=== PATIENT | female | born 1940 | race Caucasian/White ===

== ENCOUNTER 2018-07-13 05:03 | Inpatient (IN) ==
--- NOTE | 2018-06-21 14:11 | PAT Medication Instructions ---
Medication Instructions Date of Service June 21, 2018 Home Medications acetaminophen [Tylenol Arthritis] 650 mg PO NEEDED amlodipine 10 mg PO QPM ascorbic acid (vitamin C) 500 mg PO DAILY cholecalciferol (vitamin D3) 1,000 unit PO DAILY cyanocobalamin (vitamin B-12) 1,000 tab PO DAILY ibuprofen [Advil] 400 mg PO DAILY multivitamin [Multiple Vitamins] 1 tab PO DAILY omeprazole 40 mg PO QDD simvastatin 10 mg PO PM tramadol 50 mg PO HS ASK your prescriber and surgeon ibuprofen [Advil] 400 mg PO DAILY DO NOT take the morning of surgery ascorbic acid (vitamin C) 500 mg PO DAILY cholecalciferol (vitamin D3) 1,000 unit PO DAILY cyanocobalamin (vitamin B-12) 1,000 tab PO DAILY multivitamin [Multiple Vitamins] 1 tab PO DAILY Take morning of surgery With a small sip of water, OTHERWISE NOTHING TO EAT OR DRINK AFTER MIDNIGHT: acetaminophen [Tylenol Arthritis] 650 mg PO NEEDED Take evening before surgery omeprazole 40 mg PO QDD simvastatin 10 mg PO PM tramadol 50 mg PO HS acetaminophen [Tylenol Arthritis] 650 mg PO NEEDED amlodipine 10 mg PO QPM Other Notes If you have any questions please call us at [phone] or [phone] or [phone] or [phone]
--- NOTE | 2018-06-21 14:19 | Anesthesiology Consultation ---
Date of Service June 21, 2018 Assessment & Plan (1) Encounter for pre-operative examination: Chart Review Chart Review: Acceptable Risk for Surgery and Patient seen in Pre Admission Testing Consults Requested medical (Dr. Bonilla in [place] (06/28 @2pm)) Also, note sent to PCP re: EKG (06/22) Patient was seen by PCP's office on 07/01/18. They reviewed all testing from PAT, as well as ordered and reviewed stress test. Per note from this visit, "cleared for planned left TKA." Teaching & Discussion Pre-Anesthesia Teaching/Discussion Notes: Instructed NPO after midnight before surgery, except medications with 15 cc of water. Medication instructions provided according to the PAT guidelines. History Surgery Operation Date: 07/13/18 09:15 Proposed Procedures p Left Total Knee Arthroplasty - Mario Schuler DO Height/Weight Height: 4 ft 11 in Weight: 57.3 kg Allergies Allergy/AdvReac Type Severity Reaction Status Date / Time acetaminophen [From NyQuil] Allergy Unknown rapid Verified 06/14/18 11:42 heart beat, "brain does not stop working" adhesive tape Allergy Unknown blistering Verified 06/14/18 11:42 dextromethorphan Allergy Unknown rapid Verified 06/14/18 11:42 [From NyQuil] heart beat, "brain does not stop working" diphenhydramine Allergy Unknown rapid Verified 06/14/18 11:42 [From Tylenol PM] heart beat, "brain does not stop working" doxylamine [From NyQuil] Allergy Unknown rapid Verified 06/14/18 11:42 heart beat, "brain does not stop working" gluten Allergy Unknown "gluten Verified 06/14/18 11:44 free diet" - GI SYMPTOMS lactose Allergy Unknown "lactose Verified 06/14/18 11:44 intolerant" - GI SYMPTOMS latex Allergy Unknown blistering Verified 06/14/18 11:42 nitrofurantoin Allergy Unknown rapid Verified 06/14/18 11:40 heart beat, can't sleep, "brain does not stop" pseudoephedrine [From NyQuil] Allergy Unknown rapid Verified 06/14/18 11:42 heart beat, "brain does not stop working" Sulfa (Sulfonamide Allergy Unknown "sulfa" - Verified 06/14/18 11:07 Antibiotics) "makes me hyper, can't sit still" "ANTIHISTAMINE" Allergy Unknown rapid Uncoded 06/14/18 11:40 heart beat, can't sleep, "brain does not stop working" "TYLENOL COLD AND SINUS" Allergy Unknown rapid Uncoded 06/14/18 11:42 heart beat, "brain does not stop working" Medications Home Medications Medication Instructions Recorded Confirmed Last Taken acetaminophen [Tylenol Arthritis 650 mg PO UD PRN 06/14/18 06/14/18 Unknown Pain] amlodipine 10 mg PO QPM 06/14/18 06/14/18 06/13/18 ascorbic acid (vitamin C) [Vitamin 500 mg PO DAILY 06/14/18 06/14/18 Unknown C] cholecalciferol (vitamin D3) 1,000 unit PO DAILY 06/14/18 06/14/18 Unknown [Vitamin D3] cyanocobalamin (vitamin B-12) 1,000 tab PO DAILY 06/14/18 06/14/18 Unknown [Vitamin B-12] ibuprofen [Advil] 400 mg PO DAILY 06/14/18 06/14/18 Unknown multivitamin [Multiple Vitamins] 1 tab PO DAILY 06/14/18 06/14/18 Unknown omeprazole 40 mg PO QDD 06/14/18 06/14/18 Unknown simvastatin 10 mg PO PM 06/14/18 06/14/18 06/13/18 tramadol 50 mg PO HS 06/14/18 06/14/18 Unknown Past Medical History Medical History Sinus infection (Resolved) DX 10 DAYS AGO/LAST DOSE OF DOXYCYCLINE TODAY/SYMPTOMS RESOLVED Acid reflux Arthritis Degenerative disc disease Hiatal hernia Hyperlipidemia Hypertension Lymphoma DX 2014, STABLE - SEES ONCOLOGIST ANNUALLY Past Surgical History Surgical History History of appendectomy History of bilateral cataract extraction History of colonoscopy x2 History of lumpectomy of left breast History of tonsillectomy History of total right hip arthroplasty History of total shoulder replacement RIGHT History of tubal ligation Past Anesthesia History No Hx of Anesthesia Complications and No Family Hx of Anesthesia Complications History of PONV No Motion Sickness Screening History of Motion Sickness: Yes Social History Smoking Status: Former smoker tobacco type: cigarettes Smoking cigarettes per day: 1 ppd x 50 years. QUIT 2013 Do You Dip or Chew Tobacco: No Hx Alcohol Use: No Hx Substance Use: No substance use type: does not use Exercise / Class Metabolic Activity II 4-5 Yardwork/Stairs/Walk up hill (Does own laundry/chores/cooking. Goes to [employer]. Is able to climb [employer], but only has to a few times a week. Denies CP or SOB.) Review of Systems Patient denies chest pain, shortness of breath, dyspnea on exertion, cough, wheezing, palpitations. +Joint Pain (knees, shoulders, back) +acid reflux (controlled by medication) Physical Exam Vital Signs BP: 119/69 P: 71 R: 18 T: 97.7 SPO2: 96% on RA ENMT Mouth: + dentures (Full set on top, partial on bottom) Thyromental Distance: > or= 3.5 Finger Breadths (3.5) Mallampati Class: II Neck normal visual inspection and trachea midline; neck extension not limited Respiratory normal respiratory effort Auscultation: lungs clear to auscultation bilaterally Cardiovascular Rate/Rhythm: regular rate and regular rhythm Heart Sounds: no murmur Vessels: no carotid bruit Neurologic moves all extremities Psychiatric Orientation: alert and oriented x 3 Testing Electrocardiogram Date: 06/21/18 Findings: + NSR @ (70) Left axis deviation. Inferior infarct, age undetermined. Poor R wave pro gression, consider anterior RI vs. lead placement vs. LVH. When compared with ECG of 05/31/1997, QRS axis shifted left. Inferior infarct is now present. Called and discussed with PCP who reviewed EKG from 2016, Chest X-Ray Date: 06/21/18 FINDINGS: PA and lateral chest radiographs are obtained. No prior studies are available for comparison at the time of dictation. The Cardiomediastinal silhouette is unremarkable comment noting atherosclerotic calcification of the thoracic aorta. A small hiatal hernia is identified. Nonspecific interstitial thickening is likely chronic. No airspace consolidation or pleural effusion is i dentified. Apical scarring is noted. There is no pneumothorax. The skeletal structures are osteopenic. The bony thorax appears intact. A right shoulder arthroplasty is in place. IMPRESSION: No active disease in the chest. Stress Test Date: 06/30/18 Type: nuclear (Lexiscan) Findings: + WNL Resting EF: 72% Resting RWMA: + none The right ventricle is unremarkable. There is no myocardial ischemia or infarction. The wall motion is normal. Transient ischemic dilatation is absent. Myocardial perfusion imaging is done at rest and after pharmaceutical stress is normal. Baseline ECG showed NSR with anterior RI. Exercise ECG showed no significant stenosis or regurgitation. Laboratory Results 06/21/18 14:56 06/21/18 14:56 Blood Type O Positive 06/21/18 14:56 Antibody Screen NEGATIVE 06/21/18 14:56 PT 10.2 Seconds (9.0-12.0) 06/21/18 14:56 INR 1.0 (0.9-1.1) 06/21/18 14:56 APTT 23.0 Seconds (21.0-31.0) 06/21/18 14:56 Urine Color Yellow 06/21/18 Unknown Urine Appearance Clear (Clear) 06/21/18 Unknown Urine pH 5.5 (4.5-7.5) 06/21/18 Unknown Ur Specific [place] 1.013 (1.000-1.030) 06/21/18 Unknown Urine Protein Negative (Negative) 06/21/18 Unknown Urine Glucose (UA) Negative (Negative) 06/21/18 Unknown Urine Ketones Negative (Negative) 06/21/18 Unknown Urine Nitrite Negative (Negative) 06/21/18 Unknown Ur Leukocyte Esterase Negative (Negative) 06/21/18 Unknown 06/21/18 Unknown Urine Culture - Final Urine,Clean Catch Gamma strep not enterococcus
[2018-06-21 16:03] LABS: Basophils # (auto) 0.05 K/uL (0-0.2); Basophils % (auto) 0.8 %; Eosinophils # (auto) 0.12 K/uL (0-0.5); Eosinophils % (auto) 1.9 %; Hematocrit (blood only) 38.4 % (37-47); Hemoglobin 12.9 g/dL (12.0-16.0); Immature Granulocytes # (auto) 0.03 K/uL (0.00-0.02); Immature Granulocytes % (auto) 0.5 %; Lymphocytes # (auto) 1.67 K/uL (1.2-3.4); Lymphocytes % (auto) 25.8 %; Mean Corpuscular Hgb Conc 33.6 g/dL (32-36); Mean Corpuscular Volume 98.7 fL (80-100); Mean Platelet Volume 9.7 fL (7.4-10.4); Monocytes # (auto) 0.37 K/uL (0.11-0.59); Monocytes % (auto) 5.7 %; Neutrophils # (auto) 4.24 K/uL (1.4-6.5); Neutrophils % (auto) 65.3 %; Platelet Count 206 K/uL (130-400); RDW Coefficient of Variation 13.8 % (11.5-14.5); RDW Standard Deviation 49.6 fL (36.4-46.3); Red Blood Count 3.89 M/uL (4.2-5.4); White Blood Count 6.48 K/uL (4.8-10.8)
--- NOTE | 2018-06-21 16:05 | XRay Report ---
TWO VIEW CHEST CLINICAL HISTORY: Preoperative examination. FINDINGS: PA and lateral chest radiographs are obtained. No prior studies are available for compariso n at the time of dictation. The Cardiomediastinal silhouette is unremarkable comment noting atheroscl erotic calcification of the thoracic aorta. A small hiatal hernia is identified. Nonspecific intersti tial thickening is likely chronic. No airspace consolidation or pleural effusion is identified. Apica l scarring is noted. There is no pneumothorax. The skeletal structures are osteopenic. The bony thora x appears intact. A right shoulder arthroplasty is in place. IMPRESSION: No active disease in the chest. Electronically signed by: Ronny Taylor M.D. 06/21/2018 4:04 PM
[2018-06-21 16:09] LABS: Appearance Urine Clear (Clear); Bilirubin Urine Negative (Negative); Blood Urine Negative (Negative); Color Urine Yellow; Glucose Urine UA Negative (Negative); Ketones Urine Negative (Negative); Leukocyte Esterase Urine Negative (Negative); Nitrite Urine Negative (Negative); Protein Urine Negative (Negative); Specific Gravity Urine 1.013 (1.000-1.030); Urobilinogen Urine Negative (Negative); pH Urine 5.5 (4.5-7.5)
[2018-06-21 16:10] LABS: BUN Creatinine Ratio 24.6 (10-20); Calcium 9.2 mg/dl (8.5-10.1); Creatinine Clr Calc Pharmacy 37.4 ml/min; Est GFR (African American) 65.3; Est GFR (Non-African American) 56.3; Potassium 4.5 mmol/L (3.5-5.1)
[2018-06-21 16:26] LABS: Partial Thromboplastin Ratio 0.8; Prothrombin Time 10.2 Seconds (9.0-12.0)
--- NOTE | 2018-07-12 15:17 | History & Physical Report ---
Date of Service July 12, 2018 Assessment & Plan (1) Left knee DJD: I have indicated the patient for left total knee replacement. The risks, benefits and complications of surgery were explained to the patient which include but not limited to infection, acute blood loss, DVT/PE, injury to ner ves, vessels, bone, soft tissue, arthrofibrosis, chronic pain, failure of the prosthesis, knee dislocation, leg length discrepancy, need for additional surgery, cardiac and pulmonary events and . The patient wished to proceed with surgery and informed consent was obtained at this time. We will plan for Xarelto post-operatively for DVT prophylaxis, patient has history of blood ca. Upon discharge the patient will be discharged home with home health services. Appropriate clearances by PCP were obtained. History of Present Illness Chief Complaint: Left knee pain/djd Primary Care Provider: MEGA PCP The patient is a 78 year old female who presents with complaints of severe left knee pain and DJD. The patient has failed outpatient conservative treatments to this point which included Nsaids, IA corticosteroid and JOLLY injections, home exer cise/walking program. The patient's pain and limited function have progressed to the point where they severely hinder their activities of daily living and they no longer tolerate exercise programs. They are requesting to proceed with total knee replacement surgery. Allergies Allergy/AdvReac Type Severity Reaction Status Date / Time acetaminophen [From NyQuil] Allergy Unknown rapid Verified 07/13/18 05:32 heart beat, "brain does not stop working" adhesive tape Allergy Unknown blistering Verified 07/13/18 05:32 dextromethorphan Allergy Unknown rapid Verified 07/13/18 05:32 [From NyQuil] heart beat, "brain does not stop working" diphenhydramine Allergy Unknown rapid Verified 07/13/18 05:32 [From Tylenol PM] heart beat, "brain does not stop working" doxylamine [From NyQuil] Allergy Unknown rapid Verified 07/13/18 05:32 heart beat, "brain does not stop working" gluten Allergy Unknown "gluten Verified 07/13/18 05:32 free diet" - GI SYMPTOMS lactose Allergy Unknown "lactose Verified 07/13/18 05:32 intolerant" - GI SYMPTOMS nitrofurantoin Allergy Unknown rapid Verified 07/13/18 05:32 heart beat, can't sleep, "brain does not stop" pseudoephedrine [From NyQuil] Allergy Unknown rapid Verified 03/26/19 05:32 heart beat, "brain does not stop working" Sulfa (Sulfonamide Allergy Unknown "sulfa" - Verified 07/13/18 05:32 Antibiotics) "makes me hyper, can't sit still" "ANTIHISTAMINE" Allergy Unknown rapid Uncoded 07/13/18 05:32 heart beat, can't sleep, "brain does not stop working" "TYLENOL COLD AND SINUS" Allergy Unknown rapid Uncoded 07/13/18 05:32 heart beat, "brain does not stop working" Home Medications Home Medications Medication Instructions Recorded Confirmed Type acetaminophen [Tylenol Arthritis 650 mg PO UD PRN 06/14/18 07/13/18 History Pain] amlodipine 10 mg PO QPM 06/14/18 07/13/18 History ascorbic acid (vitamin C) [Vitamin 500 mg PO DAILY 06/14/18 07/13/18 History C] cholecalciferol (vitamin D3) 1,000 unit PO DAILY 06/14/18 06/14/18 History [Vitamin D3] cyanocobalamin (vitamin B-12) 1,000 tab PO DAILY 06/14/18 06/14/18 History [Vitamin B-12] ibuprofen [Advil] 400 mg PO DAILY 06/14/18 07/13/18 History multivitamin [Multiple Vitamins] 1 tab PO DAILY 06/14/18 06/14/18 History omeprazole 40 mg PO QDD 06/14/18 07/13/18 History simvastatin 10 mg PO PM 06/14/18 07/13/18 History tramadol 50 mg PO HS 06/14/18 07/13/18 History Past Med/Surg History Medical History Sinus infection (Resolved) DX 10 DAYS AGO/LAST DOSE OF DOXYCYCLINE TODAY/SYMPTOMS RESOLVED Acid reflux Arthritis Degenerative disc disease Hiatal hernia Hyperlipidemia Hypertension Lymphoma DX 2014, STABLE - SEES ONCOLOGIST ANNUALLY Surgical History History of appendectomy History of bilateral cataract extraction History of colonoscopy x2 History of lumpectomy of left breast History of tonsillectomy History of total right hip arthroplasty History of total shoulder replacement RIGHT History of tubal ligation Social History Preferred Language: Hungarian Communication Ability: Effective Slimer Required: No Beliefs That Will Affect Care: None Current Living Situation: Alone Other Information That Helps Us Care for You: Yes (QUALIFYS FOR IN HOME THERAPY FOR 2 WEEKS POST OP) Feels Safe at Home: Yes Smoking Status: Former smoker Hx Alcohol Use: No Hx Substance Use: No Review of Systems All systems reviewed & are unremarkable except as noted in HPI & below Physical Exam Physical Exam: LLE NVSI +EHL/FHL/TA/GS SILT grossly, +2 DP pulse, compartments soft NT, 0-135 painful ROM. Constitutional: WD/WN, vitals as above Eyes: PERRL, conjunctivae normal, anicteric sclerae ENMT: external ear and nose normal, oropharynx normal Neck: trachea midline, no thyromegaly Respiratory: normal respiratory effort, lungs clear to auscultation Cardiovascular: RRR, no murmur, no edema Gastrointestinal (Abdomen): normal bowel sounds, soft, nontender, no hepatosplenomegaly Musculoskeletal: no cyanosis or clubbing, extremities motor strength 5/5 Skin: no rashes, warm and dry Neurologic: patellar DTR's 2+ bilat, sensation intact Psychiatric: A+Ox3, euthymic affect Lymphatic: no cervical or axillary lymphadenopathy Results & Data Diagnostic Findings Multiple views of the knee demonstrates severe knee DJD with complete loss of the patellofemoral joint space. +osteophytes, +sclerosis, +subchondral cysts.
[2018-07-13] MEDS ORDERED: LR 500ML BOLUS, THEN 15ML/HR IV SCH (06:00)
[2018-07-13] MEDS ORDERED: CEFAZOLIN 1000MG 1,000 MG/7.5 ML SYR IV SCH (06:00)
[2018-07-13] MEDS ORDERED: ROPIVACAINE 0.5% HCL/PF 150 MG, BUPIVACAINE 0.5% MPF 30 ML, EPINEPHrine 0.15 MG, Ketoro... INFIL SCH (06:00)
[2018-07-13] MEDS ORDERED: fentaNYL citrate 100 MCG/2 ML VIAL ONE (06:30)
[2018-07-13] MEDS ORDERED: PROPOFOL IV EMULSION 10 MG/ML 20 ML VIAL IV ONE (06:30)
[2018-07-13] MEDS ORDERED: MIDAZOLAM HCL 1 MG/ML 2ML VIAL ONE (06:30)
[2018-07-13] MEDS ORDERED: BUPIVACAINE 0.5 % 5 MG/1 ML PF 10ML VIAL ONE (06:32)
[2018-07-13] MEDS ORDERED: ROPIVACAINE 0.5% 5 MG/ML 30 ML VIAL ONE (06:32)
[2018-07-13] MEDS ORDERED: BACITRACIN INJ 50,000 UNIT VIAL ONE (06:43)
[2018-07-13] MEDS ORDERED: POVIDONE-IODINE OP SOLN 30 ML BTL ONE (06:43)
[2018-07-13] MEDS ORDERED: ATROPINE SULFATE 0.1 MG/ML 10ML SYR IV PRN (06:46)
[2018-07-13] MEDS ORDERED: HYDROmorphone INJ 1 MG/ML SYRINGE IV PRN (06:46)
[2018-07-13] MEDS ORDERED: ePHEDrine sulfate 50 MG/ML AMP IV PRN (06:46)
--- NOTE | 2018-07-13 06:59 | History & Physical Bridge Note ---
Date of Service July 13, 2018 History & Physical Bridge Note I have examined the patient, reviewed the History & Physical and in the interval since the performance of the History & Physical I have noted the following changes of clinical significance: no changes noted
[2018-07-13] MEDS ORDERED: ePHEDrine sulfate 50 MG/ML AMP ONE (07:03)
[2018-07-13] MEDS: TRANEXAMIC ACID 1,000 MG in 0.9 % SODIUM CHLORIDE 100 ML IV SCH ×2 (07:35→08:38)
--- NOTE | 2018-07-13 08:40 | Post Operative Brief Note ---
Immediate Post Op Note v1 Date of Surgery July 13, 2018 Pre & Post Diagnosis Operation Date: 07/13/18 07:00 Pre-Op Diagnosis: Left Knee Degenerative Joint Disease Post-Op Diagnosis: Left Knee Degenerative Joint Disease Procedure Operation Date: 07/13/18 07:00 Actual Procedures p Left Total Knee Arthroplasty(Left) - Mario Schuler DO Surgeon Mario Schuler DO Granite Polisher Machine Tramaine Kulkarni Estimated Blood Loss 50 Findings Consistent with Post-Op Diagnosis Specimens proximal tibia, distal femur bone Anesthesia Type Spinal MAC Complications none Disposition Disposition: Recovery Room Overlapping Procedure I was present for: the critical portions of procedure. I was immediately available: during the entire case. Back up surgeon: was not required during procedure.
--- NOTE | 2018-07-13 08:51 | Operative Report ---
Post Operative Report Pre & Post Diagnosis Operation Date: 07/13/18 07:00 Pre-Op Diagnosis: Left Knee Degenerative Joint Disease Post-Op Diagnosis: Left Knee Degenerative Joint Disease Procedure Operation Date: 07/13/18 07:00 Actual Procedures p Left Total Knee Arthroplasty(Left) - Mario Schuler DO Surgeon Mario Schuler DO Education Research Analyst Tramaine Kulkarni Estimated Blood Loss 50 Findings Consistent with Post-Op Diagnosis Specimens Proximal tibia, distal femur Anesthesia Type Spinal MAC Complications none Indications The patient is a 78-year-old female presents with long history of severe left knee multi-compartmental DJD and failed outpatient conservative treatments including NSAIDs, bracing, injections and home walking/exercise program. The patient's symptoms have progressed to the point where it has been difficult to perform normal activities of daily living. I have indicated the patient for a left total knee arthroplasty, the risks and benefits and complications of the procedure include but are not limited to infection bleeding damage to bone, nerves, vessels, surrounding soft tissue, blood clots, loss of function, leg length discrepancy, dislocation, failure of the components, need for additional surgery and . The patient wished to proceed with surgery at this time and informed consent was obtained. Appropriate clearances were obtained. Description of Procedure Following induction of spinal anesthesia, a tourniquet was applied to the proximal aspect of the thigh and the patient's left leg was prepped and draped in the usual sterile manner. A timeout was performed, patient identified and site allegra confirmed. Appropriate pre-operative IV antibiotics were given. The limb was exsanguinated with an Esmarch bandage and tourniquet was inflated to 300 mmHg. A longitudinal midline incision was made over the anterior knee. Subcutaneous tissue was sharply dissected down to fascia. Electrocautery was used for hemostasis. Next a parapatellar arthrotomy was performed. Patella was everted and the knee was flexed. A Roberto retractor was used to expose the synovium above on the anterior aspect of the femur and removed down to bone. Next, the anterior fat pad was removed to aid in visualization. The medial face of the tibia was cleared of soft tissue first with a Bovie and a lynn elevator. This tissue was retracted posteriorly using a blunt Hohmann. Next, the extra-medullary tibial cutting guide was placed to the anterior aspect of the tibia. The tibia resection level was set taking 2mm from the defective tibial condyle. Resection depth was once again confirmed with daniel wing. The medial and lateral collateral ligament was protected with two Hohmann retractors. The tibia guide was removed and proximal tibial bone fragment removed utilizing straight osteotome, electrocautery and Martínez. Next, the distal femur intramedullary canal was accessed utilizing the step drill. The intramedullary distal femur cutting guide was placed into the canal and pinned into place. The distal femur was cut on the 5 degree +0 setting. Next the cutting guide was removed and the femur was sized. Care was taken to ensure appropriate elevator builder all rotation and 3 degree holes were drilled. A size 5 4-in-1 cutting block was placed on the distal end of the femur and secured into place with two short headed screws. Two bent Hohmann retractors were placed to protect the medial and lateral collateral ligaments. The oscillating saw was used to cut anterior, posterior, anterior chamfer and posterior chamfer. The four and one cutting block was removed and bone fragments excised. Laminar benefit director was placed laterally and the ACL and PCL were removed followed by the medial meniscus and posterior medial osteophytes. Aquamantys was utilized for any posterior medial bleeders and Orthomix injected into the posterior medial capsule. A laminar benefit director was then placed in the medial compartment and the lateral meniscus and posterior osteophytes were removed. Aquamantys was utilized for any posterior lateral bleeders and Orthomix injected into the posterior lateral capsule. Next, drop beck and spacer block were placed with the leg in flexion and extension to assess alignment and flexion/extension gaps. Next, the proximal tibia was assessed and two bent Hohmans were placed medial and lateral to aid in visualization. The appropriate tibia size and rotation was selected and a size C tibial plate was pinned into place with appropriate rotation. Preparation of the tibia was completed utilizing the matching tibial drill and broach. I then turned my attention back to the distal femur in a trial femoral component was impacted into place. Appropriate femoral width was assessed and selected. Next the femur PS box cut guide was placed and cut made with the reciprocal saw and the PS box provisional placed. A trial size 10 PS tibia articular tray was placed and varus-valgus balance assessed in 0 degrees of extension and 30, 60 and 90 degrees of flexion. A final tibial articular surface size 10 PS was chosen. Assess was gained to the patella and caliper utilized to measure width. The patella reamer was utilized and remaining bone removed with oscillating saw. A size 32 patella button was selected and the patella pegs drilled. Trial patella button was placed and tracking was assessed. The knee was found to be well balanced, well aligned with excellent patella tracking. The trials were removed and final components were obtained and assembled. The knee was irrigated copiously with sterile saline solution mixed with bacitracin. Access to the proximal tibia was once again obtained utilizing to the Hohmans and the proximal tibia and distal femur were dried with lap sponges. The final components were cemented into place and all excess cement was removed. A trial tibial articular surface was placed while cemented hardened. Knee stability was once again assessed and the final component inserted. The knee was injected with the remaining Orthomix which includes a combination of Ropivicaine 0.5% 150mg, Bupivicaine 0.5%/Epinephrine 1:200,000 30ml, Toradol 30mg, Dexamethasone 4mg, Ketamine 10mg, Clonidine 100mcg and NSS 30ml solution and irrigated once more with sterile saline solution mixed with bacitracin. The capsulotomy was closed with #1 Vicryl followed by subcutaneous closure with 2-0 Vicryl suture and a 3-0 V-lock suture. Skin closure was performed using jayesh followed by Selvin, 4 x 4s and ying wrap. Tourniquet was deflated at 82 minutes. The patient tolerated the procedure well and was taken to the PACU in stable condition. Due to the complex nature of the procedure, the entire surgery was performed with the operational assistance of Tramaine Kulkarni PA-C. The sales assistant institutional sales, under direct supervision, was involved in the actual performance of all aspects of the surgical procedure including patient positioning, hemostasis, tissue retraction, instrument management and wound closure. I attest to the content of the Intraoperative Record and any orders documented therein. Any exceptions are noted below.
--- NOTE | 2018-07-13 09:31 | XRay Report ---
XR knee LT 2V routine CLINICAL HISTORY: Surgical Post Op COMPARISON: None FINDINGS: Alignment of the left knee arthroplasty is anatomic. There is no fracture or unexpected ra diopaque foreign body. Skin jayesh are present. IMPRESSION: Expected findings following total left knee arthroplasty. Electronically signed by: Robert Rivas M.D. 07/13/2018 9:30 AM
[2018-07-13] MEDS ORDERED: BISACODYL 10 MG SUPP PR PRN (10:00)
[2018-07-13] MEDS ORDERED: ONDANSETRON INJ 2 MG/ML 2 ML VIAL IV PRN (10:00)
[2018-07-13] MEDS ORDERED: METOCLOPRAMIDE HCL INJ 5 MG/ML 2 ML VIAL IV PRN (10:00)
[2018-07-13] MEDS ORDERED: HYDROmorphone INJ 0.5 MG/0.5 ML SYR IV PRN (10:00)
[2018-07-13] MEDS ORDERED: MAGNESIUM HYDROXIDE SUSP 30 ML UDC PO PRN (10:00)
[2018-07-13] MEDS ORDERED: NALOXONE HCL 0.4 MG/1 ML VIAL/CARP IV PRN (10:00)
--- NOTE | 2018-07-13 10:17 | Anesthesiology Progress Note ---
Date of Service July 13, 2018 Anesthesia Post Procedure Vital Signs Vital Signs: Temp Pulse Pulse Resp BP Pulse Ox 07/13/18 09:25 36.4 C L 86 15 126/73 97 07/13/18 09:15 73 14 128/74 95 07/13/18 09:08 36.6 C 74 20 111/73 96 07/13/18 05:37 36.9 C 83 20 139/84 95 Notes Mental Status: alert / awake / arousable Patient Amnestic to Procedure: Yes Nausea / Vomiting: adequately controlled Pain: adequately controlled Airway Patency, RR, SpO2: stable & adequate BP & HR: stable & adequate Hydration State: stable & adequate Anesthetic Complications: no major complications apparent and Pt Satisfied with anesthetic care
[2018-07-13] MEDS: DOCUSATE SODIUM 100 MG CAP PO SCH ×2 (10:44→20:41)
[2018-07-13] MEDS: MULTIVITAMIN TAB PO SCH (10:44)
[2018-07-13] MEDS: KETOROLAC TROMETHAMINE 15 MG/ML VIAL IV SCH ×3 (10:46→22:39)
[2018-07-13] MEDS: SODIUM CHLORIDE 0.9% 1000ML 1,000 ML IV SCH ×2 (10:50→20:46)
[2018-07-13 10:53] LABS: Albumin Level 3.3 gm/dl (3.4-5.0); Bilirubin Direct 0.2 mg/dl (0-0.2); Bilirubin,Total 0.9 mg/dl (0.2-1)
--- NOTE | 2018-07-13 13:25 | Orthopedic Progress Note ---
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 labs -Postoperative x-rays demonstrate a well aligned well fixed orthopedic prosthesis without evidence of fracture dislocation. -DC planning home with home health Subjective Post Operative Progress Note Patient seen sitting up in bed, comfortable, denies complaints, pain well controlled, no acute issues. Physical Exam Vital Signs (Past 24 Hours): Last Vital Signs Temp 36.3 C L 07/13/18 12:00 Pulse 83 07/13/18 12:56 Resp 18 07/13/18 12:56 BP 133/78 07/13/18 12:56 Pulse Ox 95 07/13/18 12:00 Physical Exam: LLE NVSI +EHL/FHL/TA/GS SILT grossly, +2 DP pulse, compartments soft NT, dressing cdi. Constitutional: WD/WN, vitals as above Eyes: PERRL, conjunctivae normal, anicteric sclerae ENMT: external ear and nose normal, oropharynx normal Neck: trachea midline, no thyromegaly Respiratory: normal respiratory effort, lungs clear to auscultation Cardiovascular: RRR, no murmur, no edema Gastrointestinal (Abdomen): normal bowel sounds, soft, nontender, no hepatosplenomegaly Musculoskeletal: no cyanosis or clubbing, extremities motor strength 5/5 Skin: no rashes, warm and dry Neurologic: patellar DTR's 2+ bilat, sensation intact Psychiatric: A+Ox3, euthymic affect Lymphatic: no cervical or axillary lymphadenopathy
[2018-07-13] MEDS: CEFAZOLIN 2000MG 2,000 MG/15 ML SYR IV SCH ×2 (15:18→22:39)
[2018-07-13] MEDS: PANTOprazole 40 MG TAB PO SCH (16:23)
[2018-07-13] MEDS: SENNA 8.6 MG TAB PO SCH (20:41)
[2018-07-13] MEDS: AMLODIPINE BESYLATE 5 MG TAB PO SCH (20:41)
[2018-07-13] MEDS: SIMVASTATIN 10 MG TAB PO SCH (20:42)
[2018-07-14] MEDS: OXYCODONE HCL IR 5 MG TAB (IMMEDIATE RELEASE) PO PRN ×4 (01:06→23:41)
[2018-07-14] MEDS: KETOROLAC TROMETHAMINE 15 MG/ML VIAL IV SCH (03:55)
[2018-07-14 06:19] LABS: Hematocrit (blood only) 30.3 % (37-47); Hemoglobin 10.6 g/dL (12.0-16.0); Mean Corpuscular Volume 97.4 fL (80-100); Mean Platelet Volume 8.8 fL (7.4-10.4); Platelet Count 193 K/uL (130-400); RDW Coefficient of Variation 13.8 % (11.5-14.5); RDW Standard Deviation 48.6 fL (36.4-46.3); Red Blood Count 3.11 M/uL (4.2-5.4); White Blood Count 7.43 K/uL (4.8-10.8)
[2018-07-14 06:47] LABS: BUN Creatinine Ratio 17.7 (10-20); Calcium 8.5 mg/dl (8.5-10.1); Creatinine Clr Calc Pharmacy 41.9 ml/min; Est GFR (African American) 76.6; Est GFR (Non-African American) 66.1; Potassium 3.7 mmol/L (3.5-5.1)
--- NOTE | 2018-07-14 07:44 | Anesthesiology Progress Note ---
Date of Service July 14, 2018 Anesthesia Post Procedure Vital Signs Vital Signs: Temp Pulse Pulse Pulse Resp BP Pulse Ox 07/14/18 07:35 36.6 C 80 18 120/75 95 07/14/18 03:56 37.0 C 79 17 107/66 92 07/13/18 23:02 36.9 C 74 17 105/67 90 07/13/18 19:48 36.8 C 77 17 128/75 92 07/13/18 12:56 83 18 133/78 07/13/18 12:00 36.3 C L 77 18 122/75 95 07/13/18 10:56 78 18 125/75 95 07/13/18 10:21 77 18 143/80 H 97 07/13/18 09:50 36.4 C L 73 16 128/82 96 07/13/18 09:25 36.4 C L 86 15 126/73 97 07/13/18 09:15 73 14 128/74 95 07/13/18 09:08 36.6 C 74 20 111/73 96 Pain Intensity Left Knee: Pain Intensity: 5 Notes Mental Status: alert / awake / arousable and participated in evaluation Patient Amnestic to Procedure: Yes Nausea / Vomiting: adequately controlled Pain: adequately controlled Airway Patency, RR, SpO2: stable & adequate BP & HR: stable & adequate Hydration State: stable & adequate Neuraxial Anesthesia: was administered and sensory block resolved Anesthetic Complications: no major complications apparent
[2018-07-14] MEDS: MULTIVITAMIN TAB PO SCH (09:02)
[2018-07-14] MEDS: DOCUSATE SODIUM 100 MG CAP PO SCH ×2 (09:02→20:39)
[2018-07-14] MEDS: RIVAROXABAN 10 MG TABLET PO SCH (09:02)
--- NOTE | 2018-07-14 10:04 | Orthopedic Progress Note ---
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 labs hgb 10.6 -Postoperative x-rays demonstrate a well aligned well fixed orthopedic prosthesis without evidence of fracture dislocation. -DC planning home with home health today Subjective Post Operative Progress Note Patient seen sitting up in bed, comfortable, denies complaints, pain well controlled, no acute issues. Physical Exam Vital Signs (Past 24 Hours): Last Vital Signs Temp 36.6 C 07/14/18 07:35 Pulse 80 07/14/18 07:35 Resp 18 07/14/18 07:35 BP 120/75 07/14/18 07:35 Pulse Ox 95 07/14/18 07:35 Physical Exam: LLE NVSI +EHL/FHL/TA/GS SILT grossly, +2 DP pulse, compartments soft NT, dressing cdi. Constitutional: WD/WN, vitals as above Results & Data Laboratory Results 07/14/18 07/14/18 07/13/18 Range/Units 05:57 05:57 10:24 WBC 7.43 (4.8-10.8) K/uL RBC 3.11 L (4.2-5.4) M/uL Hgb 10.6 L (12.0-16.0) g/dL Hct 30.3 L (37-47) % MCV 97.4 (80-100) fL MCH 34.1 H (25-34) pg MCHC 35.0 (32-36) g/dL RDW Std Deviation 48.6 H (36.4-46.3) fL RDW Coeff of Mitchel 13.8 (11.5-14.5) % Plt Count 193 (130-400) K/uL MPV 8.8 (7.4-10.4) fL Sodium 140 (136-145) mmol/L Potassium 3.7 (3.5-5.1) mmol/L Chloride 110 H (98-107) mmol/L Carbon Dioxide 26 (21-32) mmol/L Anion Gap 5.0 (3-11) BUN 15 (7-18) mg/dl Creatinine 0.85 (0.6-1.2) mg/dl Est Cr Clr Drug Dosing 41.9 ml/min Est GFR ( Amer) 76.6 Est GFR (Non-Af Amer) 66.1 BUN/Creatinine Ratio 17.7 (10-20) Glucose 96 (70-99) mg/dl Calcium 8.5 (8.5-10.1) mg/dl Total Bilirubin 0.9 (0.2-1) mg/dl Direct Bilirubin 0.2 (0-0.2) mg/dl AST 19 (15-37) U/L ALT 27 (12-78) U/L Alkaline Phosphatase 62 (45-117) U/L Total Protein 6.0 L (6.4-8.2) gm/dl Albumin 3.3 L (3.4-5.0) gm/dl
[2018-07-14] MEDS: PANTOprazole 40 MG TAB PO SCH (15:57)
[2018-07-14] MEDS: SENNA 8.6 MG TAB PO SCH (20:39)
[2018-07-14] MEDS: AMLODIPINE BESYLATE 5 MG TAB PO SCH (20:39)
[2018-07-14] MEDS: SIMVASTATIN 10 MG TAB PO SCH (20:40)
[2018-07-15 05:58] LABS: Hematocrit (blood only) 31.7 % (37-47); Hemoglobin 10.9 g/dL (12.0-16.0); Mean Corpuscular Hgb Conc 34.4 g/dL (32-36); Mean Corpuscular Volume 97.5 fL (80-100); Mean Platelet Volume 8.7 fL (7.4-10.4); Platelet Count 189 K/uL (130-400); RDW Coefficient of Variation 14.1 % (11.5-14.5); RDW Standard Deviation 50.2 fL (36.4-46.3); Red Blood Count 3.25 M/uL (4.2-5.4); White Blood Count 7.25 K/uL (4.8-10.8)
[2018-07-15] MEDS: OXYCODONE HCL IR 5 MG TAB (IMMEDIATE RELEASE) PO PRN ×2 (06:23→12:20)
[2018-07-15 06:36] LABS: BUN Creatinine Ratio 15.1 (10-20); Calcium 8.8 mg/dl (8.5-10.1); Creatinine Clr Calc Pharmacy 36.8 ml/min; Est GFR (African American) 65.3; Est GFR (Non-African American) 56.3
[2018-07-15 07:39] VITALS: BP 121/71; PULSE 80; TEMP 97.9
[2018-07-15] MEDS: DOCUSATE SODIUM 100 MG CAP PO SCH (08:17)
[2018-07-15] MEDS: MULTIVITAMIN TAB PO SCH (08:17)
[2018-07-15] MEDS: RIVAROXABAN 10 MG TABLET PO SCH (08:18)
--- NOTE | 2018-07-15 09:02 | Orthopedic Progress Note ---
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 labs hgb 10.9 -Postoperative x-rays demonstrate a well aligned well fixed orthopedic prosthesis without evidence of fracture dislocation. -DC planning home with home health today POD #1 -Ancef x24 -DVT prophylaxis Xarelto, SCDs and teds -Weight-bear as tolerated left lower extremity -PT/OT -A.m. labs hgb 10.6 -Postoperative x-rays demonstrate a well aligned well fixed orthopedic prosthesis without evidence of fracture dislocation. -DC planning home with home health today Subjective Post Operative Progress Note Patient seen sitting up in bed, comfortable, denies complaints, pain well controlled, no acute issues. Physical Exam Vital Signs (Past 24 Hours): Last Vital Signs Temp 36.6 C 07/15/18 07:38 Pulse 80 07/15/18 07:38 Resp 16 07/15/18 07:38 BP 121/71 07/15/18 07:38 Pulse Ox 92 07/15/18 07:38 Physical Exam: LLE NVSI +EHL/FHL/TA/GS SILT grossly, +2 DP pulse, compartments soft NT, dressing cdi. Constitutional: WD/WN, vitals as above Eyes: PERRL, conjunctivae normal, anicteric sclerae ENMT: external ear and nose normal, oropharynx normal Neck: trachea midline, no thyromegaly Respiratory: normal respiratory effort, lungs clear to auscultation Cardiovascular: RRR, no murmur, no edema Gastrointestinal (Abdomen): normal bowel sounds, soft, nontender, no hepatosplenomegaly Musculoskeletal: no cyanosis or clubbing, extremities motor strength 5/5 Skin: no rashes, warm and dry Neurologic: patellar DTR's 2+ bilat, sensation intact Psychiatric: A+Ox3, euthymic affect Lymphatic: no cervical or axillary lymphadenopathy
[2018-07-15 11:49] VITALS: O2SAT 90
--- NOTE | 2018-07-15 20:56 | Discharge Summary ---
Date of Service July 15, 2018 Admission HPI Per Admitting Provider The patient is a 78 year old female who presents with complaints of severe left knee pain and DJD. The patient has failed outpatient conservative treatments to this point which included Nsaids, IA corticosteroid and JOLLY injections, home exercise/walking program. The patient's pain and limited function have progressed to the point where they severely hinder their activities of daily living and they no longer tolerate exercise programs. They are requesting to proceed with total knee replacement surgery. Principal Diagnosis Left total knee replacement Discharge Exam LLE NVSI +EHL/FHL/TA/GS SILT grossly, +2 DP pulse, compartments soft NT, dressing cdi. Constitutional WD/WN, vitals as above Eyes PERRL, conjunctivae normal, anicteric sclerae ENMT external ear and nose normal, oropharynx normal Neck trachea midline, no thyromegaly Respiratory normal respiratory effort, lungs clear to auscultation Cardiovascular RRR, no murmur, no edema Gastrointestinal (Abdomen) normal bowel sounds, soft, nontender, no hepatosplenomegaly Musculoskeletal no cyanosis or clubbing, extremities motor strength 5/5 Skin no rashes, warm and dry Neurologic patellar DTR's 2+ bilat, sensation intact Psychiatric A+Ox3, euthymic affect Lymphatic no cervical or axillary lymphadenopathy Discharge Data Allergies Allergy/AdvReac Type Severity Reaction Status Date / Time acetaminophen [From NyQuil] Allergy Unknown rapid Verified 07/13/18 05:32 heart beat, "brain does not stop working" adhesive tape Allergy Unknown blistering Verified 07/13/18 05:32 dextromethorphan Allergy Unknown rapid Verified 07/13/18 05:32 [From NyQuil] heart beat, "brain does not stop working" diphenhydramine Allergy Unknown rapid Verified 07/13/18 05:32 [From Tylenol PM] heart beat, "brain does not stop working" doxylamine [From NyQuil] Allergy Unknown rapid Verified 07/13/18 05:32 heart beat, "brain does not stop working" gluten Allergy Unknown "gluten Verified 07/13/18 05:32 free diet" - GI SYMPTOMS lactose Allergy Unknown "lactose Verified 07/13/18 05:32 intolerant" - GI SYMPTOMS nitrofurantoin Allergy Unknown rapid Verified 07/13/18 05:32 heart beat, can't sleep, "brain does not stop" pseudoephedrine [From NyQuil] Allergy Unknown rapid Verified 07/13/18 05:32 heart beat, "brain does not stop working" Sulfa (Sulfonamide Allergy Unknown "sulfa" - Verified 07/13/18 05:32 Antibiotics) "makes me hyper, can't sit still" "ANTIHISTAMINE" Allergy Unknown rapid Uncoded 07/13/18 05:32 heart beat, can't sleep, "brain does not stop working" "TYLENOL COLD AND SINUS" Allergy Unknown rapid Uncoded 07/13/18 05:32 heart beat, "brain does not stop working" Consultations 07/13/18 10:00 Consult Case Management - Discharge Planning Routine Procedures Performed Operation Date: 07/13/18 07:00 Actual Procedures p Left Total Knee Arthroplasty(Left) - Mario Schuler DO Ordered Studies 07/13/18 05:00 US - OR guided needle placemen Routine Hospital Course (1) Left knee DJD: The patient is a 78 -year-old female who presents with long standing history of severe left knee DJD and failed outpatient conservative treatments including NSAIDs, bracing, injections and home walking/exercise program. The patient's symptoms have progressed to the point where it has been difficult to perform even normal activities of daily living. I indicated the patient for a left total knee arthroplasty, the risks, benefits and complications of the procedure include but not limited to infection, bleeding, damage to bone, nerves, vessels, surrounding soft tissue, may develop blood clots, loss of function, leg length discrepancy, dislocation, failure of the components, loosening of the components, the need for additional surgery and . The patient wished to proceed with surgery at this time and informed consent was obtained. Hospital Course: On 3 the patient was taken to the operating room, adequate anesthesia administered and underwent a left total knee arthroplasty. The patient tolerated the procedure well and was taken to the PACU in stable condition. Post-operatively the patient was started on a DVT ppx medication and given appropriate IV antibiotics. Consults were placed to physical therapy, occupational therapy and case management. On POD#1, the patient did well overnight and their pain was well controlled. Labs were drawn and the Hgb was 10.6. The patient progressed well with PT. Dressings were changed at this time and the incision was clean, dry and intact. On POD#2, the patient did well overnight. Continued to progress with PT. Labs were drawn, hgb was 10.9. The patients hospital stay was relatively uneventful and they were deemed stable by the orthopedic team and consultants to be discharged home with on 07/15/18. Discharge Instructions: Upon discharge the patient may weight bear as tolerates through their operative extremity. They were instructed to keep the incision clean and dry at all times. The patient may shower but should not submerge the incision, avoid bathing, pools and hot tubes. The patient was given a script for pain medication and should take as instructed. The patient was given a script for DVT ppx Xarelto and should take as directed. The patient was instructed to not drive or travel for long distances until cleared to do so. If the patient develops any symptoms of fevers, chills, nausea, vomiting, increased redness, swelling, pain or drainage from the surgical site, they should notify the office and/or proceed to the nearest emergency room. The patient should follow up in 10-14 days after surgery for their routine post-operative follow-up appointment and should call the office to confirm the date and time. Status post left total knee arthroplasty POD #2 -Ancef x24 -DVT prophylaxis Xarelto, SCDs and teds -Weight-bear as tolerated left lower extremity -PT/OT -A.m. labs hgb 10.9 -Postoperative x-rays demonstrate a well aligned well fixed orthopedic prosthesis without evidence of fracture dislocation. -DC planning home with home health today POD #1 -Ancef x24 -DVT prophylaxis Xarelto, SCDs and teds -Weight-bear as tolerated left lower extremity -PT/OT -A.m. labs hgb 10.6 -Postoperative x-rays demonstrate a well aligned well fixed orthopedic prosthesis without evidence of fracture dislocation. -DC planning home with home health today Total Time Total Time Spent Total Time Spent (In Minutes): >60 minutes Total Time Includes: Examination of the Patient, Discharge Planning, Medication Reconciliation and Communication With Other Providers Discharge Plan Discharge Items Reason For Visit: Unilateral Primary Osteoarthritis, Left Knee Discharge Diagnosis: Left total knee replacement Condition: Good Discharge Goals: Decrease discomfort, Improve function, Increase independence and Therapeutic intervention Activity: Per 'Additional Instructions' section Lifting: Wait until after follow-up appointment Bathing Comment: No bathing, pools or hot tubs Sexual Activity: Wait until after follow-up appointment Exercise/Sports: Wait until after follow-up appointment Driving/Machine Use Comment: Do not drive till cleared by your surgeon Weightbearing: Left weightbearing Non-emergency contact: Primary Care Provider and Surgeon Call non-emergency contact if: you have any medication questions, your symptoms worsen, your pain is not controlled, your pain is worsening, your pain is unusual for you, your pain is concerning for you, you have a fever, your temperature is above 101, your wound has increased redness, your wound has increased drainage and your wound pain has increased Follow-up/Referrals: PCP,NO [Primary Care Provider] - Diet: Regular Addtl Provider Instructions: ACTIVITY RECOMMENDATIONS: SELF CARE INSTRUCTIONS AFTER TOTAL KNEE REPLACEMENT A. You may need to continue a physical therapy program after discharge from the hospital. There are several options available to you. Your doctor will assist you in selecting the best one for you. 1. An out-patient facility 2 to 3 times a week for therapy or home therapy. 2. Continue working on all exercises taught to you in the hospital. Your goals should be to increase bending of your knee to 90 degrees and beyond and to fully straighten your knee. B. You may progress at your own pace from walking with a walker or crutches to a cane; then to no assistive devices. C. Make walking a part of your daily routine. Be up as much as comfortable with rest periods throughout the day. Rest with leg elevation is very important. Use the ice wrap frequently for the first 3-4 weeks. D. There are no restrictions on activities. You may ride in a car, shop, participate in power plant assistant and all social activities. E. Wear the long elastic stockings (NIDHI hose) 20 hours a day for 2 weeks after surgery. They can be removed several times a day for laundering and for a bath. F. You may shower, no tub baths until cleared by your doctor. SPECIAL CARE INSTRUCTIONS: VERY IMPORTANT TO READ AND REVIEW A. There are a few signs you need to watch for after you are home. Call [facility] if you notice any of the followin. Increased severe knee pain. Some pain is expected especially when you exercise. 2. Increased swelling in your leg or knee; pain or swelling of the calf muscle in either lower leg. 3. Any fluid drainage from the incision. 4. Shortness of breath or chest pain. B. Please call [facility] [place] at if you have any concerns or questions about your operation or recovery. The doctor or his nurse will return your call promptly. C. You must take antibiotics before dental work, bladder, bowel or other surgery. Your doctor will provide you with a permanent care to carry describing this precaution. IMPORTANT: * REMEMBER TO TAKE Xareto 10mg daily FOR 4 WEEKS UNLESS OTHERWISE DIRECTED. THIS IS YOUR BLOOD THINNER. * HIGH RISK PATIENTS MAY BE PRESCRIBED A STRONGER BLOOD THINNER. THIS WILL BE PROVIDED AT DISCHARGE. * CALL IF INCREASED PAIN, REDNESS, DRAINAGE OR FEVER GREATER THAT 101. * WEAR NIDHI HOSE 20 HOURS PER DAY FOR 2 WEEKS. * YOU MAY HAVE A LARGE BAND-AID LIKE DRESSING (SILVERON). THIS WILL REMAIN ON YOUR INCISION FOR 7 DAYS, THEN CAN BE REMOVED. IF INCISION IS LEAKING THROUGH DRESSING, CALL THE OFFICE . FOLLOW UP VISIT: If appointment is not already scheduled: Please call [facility] [place] to make a follow-up appointment for 2 weeks after your surgery at . Prescriptions: New Xarelto 10 mg Tablet 10 mg PO DAILY 28 Days Qty: 28 RF: 0 oxycodone 5 mg Tablet 5 mg PO Q6H MDD 6 tabs PRN (Reason: pain) Qty: 30 RF: 0 sennosides [Senokot] 8.6 mg Tablet 17.2 mg PO HS PRN (Reason: constipation) Qty: 28 RF: 0 Continued multivitamin [Multiple Vitamins] Tablet 1 tab PO DAILY RF: 0 simvastatin 10 mg Tablet 10 mg PO PM RF: 0 omeprazole 40 mg Capsule,Delayed Release(Dr/Ec) 40 mg PO QDD RF: 0 amlodipine 10 mg Tablet 10 mg PO QPM RF: 0 ascorbic acid (vitamin C) [Vitamin C] 500 mg Capsule, Extended Release 500 mg PO DAILY RF: 0 cholecalciferol (vitamin D3) [Vitamin D3] 1,000 unit Capsule 1,000 unit PO DAILY RF: 0 cyanocobalamin (vitamin B-12) [Vitamin B-12] 1,000 mcg Tablet 1,000 tab PO DAILY RF: 0 Discontinued tramadol 50 mg Tablet 50 mg PO HS RF: 0 acetaminophen [Tylenol Arthritis Pain] 650 mg Tablet Extended Release 650 mg PO UD PRN (Reason: Pain) RF: 0 ibuprofen [Advil] 200 mg Tablet 400 mg PO DAILY RF: 0 Stand-Alone Forms: [email or web address], [facility] [employer]/Other Patient Handouts: Walker Use Admission Data Admit Date/Time: 07/13/18 09:14 Attending Provider: Mario Schuler Admit Provider: Mario Schuler Primary Care Provider: PCP,NO Service: Surgical Services Other Interventions: Discharge Summary Assessment (RN) Last Done: 07/15/18 13:52 DC Date/Time DO NOT enter until pt leaves facility: 07/15/18 15:16
== END 2018-07-15 15:16 | disposition home health service (06) | DRG 470 ==
LOC: ASU 05:03 → 3E 09:14 → UNDODISIN 07-15 14:00

== ENCOUNTER 2021-12-07 11:55 | Inpatient (IN) ==
--- NOTE | 2021-12-07 12:14 | Emergency Department Note ---
Impression & Plan Altered mental status, UTI (urinary tract infection) ED Provider Note Provider: Ralph Ramirez MD DATE OF SERVICE: 12/07/2021 CHIEF COMPLAINT: Change in mental status HISTORY OF PRESENT ILLNESS: Patient is a 81-year-old female past medical history of non-Hodgkin's lymphoma, hypertension, osteoporosis, recent hospitalization at [facility] for altered mental status and a UTI just this past week presenting here via ambulance from her daughter's home. Evidently several days ago was hospitalized at [facility] for altered mental status. Urine culture there grew pansensitive E. coli and she is started antibiotics of that has been having some reaction to the antibiotics and evidently has switched several times. Presented here today as the patient was herself and speaking this mo rning according to EMS. She was last known well last evening. Patient her self upon arrival to give a significant history and will speak with follow simple commands. Looks around the room. Does have paperwork from her recent hospitalization with cultures as well as an MRI without significant acute stroke findings noted. No new trauma history reported. Daughters arrived and states the patient was okay Thursday night but then Thursday was resting in bed when they checked on her would not answer the phone or talk to the on Thursday and went to the hospital. Seen in the outside hospital but due to busyness was in the ER but had extensive testing. Went home on Keflex. He states he did not sleep on Keflex and switched to Cipro just yesterday. States that she is normally lucid and talking but is not talking this morning for them. Did say hello to the cdl a driver and staff by their report. REVIEW OF SYSTEMS: A total of 10 review of systems was obtained and negative except as stated above in the HPI. PAST MEDICAL HISTORY: As noted above MEDICATIONS: Reviewed home medication list SOCIAL HISTORY: Lives in [place] but currently convalescing with daughter here in [facility]. PHYSICAL EXAM: GENERAL: alert looking around room and follow some simple commands but nonverbal. Head: normocephalic and atraumatic EYES: No injection, discharge or icterus. PERRL, EOMI. NECK: Trachea midline. Supple. ENT: Mucous membranes pink and moist. LUNGS: Airway patent. No retractions. Breath sounds clear with good air entry bilaterally. HEART: Regular rate and rhythm. No chest wall tenderness ABDOMEN: Soft and non-tender, without guarding or rebound. SKIN: Acyanotic, warm, dry, without rashes EXTREMITIES: Without swelling, tenderness or deformity NEUROLOGICAL: No focal deficits moving all extremities and follows most simple commands. Will not talk for me. No facial droop noted. Good sulky driver strength in the extremities and foot strength. EK bpm normal sinus rhythm. No PVC or PAC. No acute ST segment elevation or depression with incomplete right bundle branch block. QTc 459. CONTINUOUS CARDIAC MONITORING: was ordered and showed a heart rate of 70s-80s bpm in normal sinus rhythm Patient's laboratory studies and imaging reviewed. Differential includes Infection, dehydration, metabolic abnormality, hypo/hyperglycemia, electrolyte disturbance, anemia, hypoxia, cardiac sources, intracerebral event, toxicologic, neurologic, as well as other pathologies. IMPRESSION/MEDICAL DECISION MAKING: Patient without significant focal deficit main deficit seems to be nonverbal status right now. Follow commands. Moving everything without facial droop. No trauma reported. Recent UTI. Did switch to Cipro yesterday may be contributing. Lab work was obtained. Imaging was obtained. Reviewed outside medical records including pansensitive E. coli culture. Blood work here without significant anemia or leukocytosis. CT of the head completed look for acute intracranial abnormalities at this time. Lower suspicion for CVA given the very isolated findings at this time. CT imaging without significant findings. Urinalysis negative. No severe electrolyte abnormalities noted with some mild hyponatremia. Slight high-sensitivity troponin elevation, unclear if this may be chronic. Do feel that she since she is altered her baseline she will require further care here at the hospital. Updated patient and daughters at bedside. Given a dose of ceftriaxone at this time and will recommend she stop the Cipro. DIAGNOSIS: Altered mental status DISPOSITION: Hospitalist will evaluate Patient was agreeable with this plan. Past Med/Surg History Medical History Acid reflux Arthritis CLL (chronic lymphocytic leukemia) Diagnosed in 2013, sees her Oncologist routinely. -- No treatment Degenerative disc disease Hiatal hernia Hyperlipidemia Hypertension Surgical History History of appendectomy History of bilateral cataract extraction History of colonoscopy x2 History of left knee replacement History of lumpectomy of left breast History of tonsillectomy History of total right hip arthroplasty History of total shoulder replacement RIGHT History of tubal ligation Social History Smoking Status: Unknown if ever smoked Cigarettes Per Day: 1 ppd x 50 years. QUIT 2013; Second Hand Exposure: No; Hx Alcohol Use: No Hx Substance Use: No Preferred Language: Iraqi Communication Ability: Effective Water [place] Required: No Beliefs That Will Affect Care: None Current Living Situation: Alone Feels Safe at Home: Yes Assistive Devices: Denture - Upper, Denture - Lower, Glasses and Walker Allergies Allergies Allergy/AdvReac Type Severity Reaction Status Date / Time acetaminophen [From NyQuil] Allergy Unknown rapid Verified 12/05/21 13:13 heart beat, "brain does not stop working" adhesive tape Allergy Unknown blistering Verified 12/05/21 13:13 dextromethorphan Allergy Unknown rapid Verified 12/05/21 13:13 [From NyQuil] heart beat, "brain does not stop working" diphenhydramine Allergy Unknown rapid Verified 12/05/21 13:13 [From Tylenol PM] heart beat, "brain does not stop working" doxylamine [From NyQuil] Allergy Unknown rapid Verified 12/05/21 13:13 heart beat, "brain does not stop working" gluten Allergy Unknown "gluten Verified 12/05/21 13:13 free diet" - GI SYMPTOMS lactose Allergy Unknown "lactose Verified 12/05/21 13:13 intolerant" - GI SYMPTOMS nitrofurantoin Allergy Unknown rapid Verified 12/05/21 13:13 heart beat, can't sleep, "brain does not stop" pseudoephedrine [From NyQuil] Allergy Unknown rapid Verified 12/05/21 13:13 heart beat, "brain does not stop working" Sulfa (Sulfonamide Allergy Unknown "sulfa" - Verified 12/05/21 13:13 Antibiotics) "makes me hyper, can't sit still" cephalexin AdvReac Verified 12/05/21 13:23 "ANTIHISTAMINE" Allergy Unknown rapid Uncoded 12/05/21 13:13 heart beat, can't sleep, "brain does not stop working" "TYLENOL COLD AND SINUS" Allergy Unknown rapid Uncoded 12/05/21 13:13 heart beat, "brain does not stop working" Home Meds Home Medications Medication Instructions Recorded Confirmed amlodipine 10 mg tablet 10 mg PO QPM 06/14/18 12/05/21 ascorbic acid (vitamin C) 500 mg 500 mg PO QAM 06/14/18 12/05/21 capsule,extended release (Vitamin C) cholecalciferol (vitamin D3) 25 1,000 unit PO QAM 06/14/18 12/05/21 mcg (1,000 unit) capsule (Vitamin D3) cyanocobalamin (vitamin B-12) 1,000 tab PO QAM 06/14/18 12/05/21 1,000 mcg tablet (Vitamin B-12) multivitamin (Multiple Vitamins 1 tab PO QAM 06/14/18 12/05/21 tablet) simvastatin 10 mg tablet 10 mg PO PM 06/14/18 12/05/21 tramadol 50 mg tablet 50 mg PO Q8H PRN Pain 10/04/20 12/05/21 acetaminophen 650 mg 650 mg PO Q12H 12/05/21 12/05/21 tablet,extended release (Tylenol 8 Hour) aspirin 81 mg tablet,delayed 81 mg PO DAILY 12/05/21 12/05/21 release clopidogrel 75 mg tablet 75 mg PO DAILY 12/05/21 12/05/21 pantoprazole 40 mg tablet,delayed 40 mg PO DAILY 12/05/21 12/05/21 release Results & Data (ED) Vital Signs Vital Signs - 24 hr 12/07/21 11:43 12/07/21 12:01 12/07/21 13:44 Temperature 36.7 C Temperature Source Oral Pulse Rate 83 Pulse Rate from SpO2 Sensor Respiratory Rate 17 Respiratory Effort / Characteristics Non-Labored Spontaneous Respiratory Depth Normal Respiratory Pattern Regular Blood Pressure 154/82 H Blood Pressure Mean 106 Blood Pressure Position Lying Pulse Oximetry 95 95 96 Oxygen Delivery Method Room Air Room Air Room Air Oxygen Flow Rate 0 Sepsis Recent Fever Within 48 Hours No Sepsis New/Unexplained Change in Mental Status Yes Sepsis Action Taken by Nursing Physician Notified 12/07/21 12:25 12/07/21 12:30 12/07/21 13:30 Temperature Temperature Source Pulse Rate 84 94 H 84 Pulse Rate from SpO2 Sensor 82 84 Respiratory Rate 15 25 H 18 Respiratory Effort / Characteristics Respiratory Depth Respiratory Pattern Blood Pressure Blood Pressure Mean Blood Pressure Position Pulse Oximetry 98 95 Oxygen Delivery Method Oxygen Flow Rate Sepsis Recent Fever Within 48 Hours Sepsis New/Unexplained Change in Mental Status Sepsis Action Taken by Nursing 12/07/21 13:53 12/07/21 13:53 12/07/21 14:00 Temperature Temperature Source Pulse Rate 85 Pulse Rate from SpO2 Sensor 85 Respiratory Rate 20 Respiratory Effort / Characteristics Respiratory Depth Respiratory Pattern Blood Pressure 142/76 H 122/73 Blood Pressure Mean 98 89 Blood Pressure Position Pulse Oximetry 96 Oxygen Delivery Method Oxygen Flow Rate Sepsis Recent Fever Within 48 Hours Sepsis New/Unexplained Change in Mental Status Sepsis Action Taken by Nursing 12/07/21 14:00 12/07/21 14:30 12/07/21 14:30 Temperature Temperature Source Pulse Rate 83 86 Pulse Rate from SpO2 Sensor 83 86 Respiratory Rate 23 16 Respiratory Effort / Characteristics Respiratory Depth Respiratory Pattern Blood Pressure 127/67 Blood Pressure Mean 87 Blood Pressure Position Pulse Oximetry 97 97 Oxygen Delivery Method Oxygen Flow Rate Sepsis Recent Fever Within 48 Hours Sepsis New/Unexplained Change in Mental Status Sepsis Action Taken by Nursing 12/07/21 15:00 12/07/21 15:00 12/07/21 15:30 Temperature Temperature Source Pulse Rate 84 Pulse Rate from SpO2 Sensor 83 Respiratory Rate 18 Respiratory Effort / Characteristics Respiratory Depth Respiratory Pattern Blood Pressure 127/72 120/68 Blood Pressure Mean 90 85 Blood Pressure Position Pulse Oximetry 97 Oxygen Delivery Method Oxygen Flow Rate Sepsis Recent Fever Within 48 Hours Sepsis New/Unexplained Change in Mental Status Sepsis Action Taken by Nursing 12/07/21 15:30 12/07/21 16:00 12/07/21 16:00 Temperature Temperature Source Pulse Rate 79 81 Pulse Rate from SpO2 Sensor 80 82 Respiratory Rate 20 19 Respiratory Effort / Characteristics Respiratory Depth Respiratory Pattern Blood Pressure 138/77 Blood Pressure Mean 97 Blood Pressure Position Pulse Oximetry 95 96 Oxygen Delivery Method Oxygen Flow Rate Sepsis Recent Fever Within 48 Hours Sepsis New/Unexplained Change in Mental Status Sepsis Action Taken by Nursing Laboratory Data Result diagrams: 12/07/21 12:15 12/07/21 12:15 Lab Results 12/07/21 12/07/21 12/07/21 Range/Units 12:15 12:15 12:15 WBC 6.18 (4.8-10.8) K/ul RBC 3.75 L (3.93-5.22) M/uL Hgb 12.4 (12.0-16.0) g/dl Hct 36.5 (34.1-44.9) % MCV 97.3 (80.0-100.0) fL MCH 33.1 (25.0-34.0) pg MCHC 34.0 (32.0-36.0) g/dL RDW Std Deviation 48.6 H (36.4-46.3) fL RDW Coeff of Mitchel 13.5 (11.5-14.5) % Plt Count 208 (130-400) K/uL MPV 9.2 L (9.4-12.3) fL Immature Gran % (Auto) 0.8 % Neut % (Auto) 71.5 % Lymph % (Auto) 20.6 % Cotton % (Auto) 6.0 % Eos % (Auto) 0.5 % Baso % (Auto) 0.6 % Neut # (Auto) 4.42 (1.4-6.5) K/uL Lymph # (Auto) 1.27 (1.2-3.4) K/uL Cotton # (Auto) 0.37 (0.24-0.82) K/uL Eos # (Auto) 0.03 (0-0.50) K/uL Baso # (Auto) 0.04 (0-0.2) K/uL Immature Gran # (Auto) 0.05 H (0.00-0.02) K/uL PT 10.9 (9.0-12.0) Seconds INR 1.0 (0.9-1.1) Sodium 133 L (136-145) mmol/L Potassium 3.9 (3.5-5.1) mmol/L Chloride 101 (98-107) mmol/L Carbon Dioxide 22 (21-32) mmol/L Anion Gap 10 (3-11) BUN 40 H (6-23) mg/dl Creatinine 1.15 (0.6-1.2) mg/dl Est Cr Clr Drug Dosing 27.0 ml/min Est GFR ( Amer) 52.0 ml/min Est GFR (Non-Af Amer) 44.9 ml/min BUN/Creatinine Ratio 34.8 H (10-20) Glucose 102 H (70-99(Fasting)) mg/dl Lactate (0.4-2.0) mmol/L Calcium 10.3 H (8.5-10.1) mg/dl Magnesium 2.1 (1.7-2.4) mg/dl Total Bilirubin 1.5 H (0.2-1.0) mg/dl AST 20 (13-39) U/L ALT 22 (7-52) U/L Alkaline Phosphatase 54 (34-104) U/L Ammonia (18-72) umol/L Troponin I High Sens 26.2 H (0-14) pg/ml Total Protein 7.2 (6.0-8.3) gm/dl Albumin 4.8 (3.4-5.0) gm/dl Globulin 2.4 L (2.5-4.0) gm/dl Albumin/Globulin Ratio 2.0 (0.9-2) Procalcitonin (0-0.5) ng/ml TSH (0.300-4.500) uIu/ml Urine Color Urine Appearance (Clear) Urine pH (4.5-7.5) Ur Specific [place] (1.000-1.030) Urine Protein (Negative) Urine Glucose (UA) (Negative) Urine Ketones (Negative) Urine Blood (Negative) Urine Nitrite (Negative) Urine Bilirubin (Negative) Urine Urobilinogen (Negative) Ur Leukocyte Esterase (Negative) SARS-CoV-2, RNA, NAAT (NEGATIVE) 12/07/21 12/07/21 12/07/21 Range/Units 12:15 12:15 12:15 WBC (4.8-10.8) K/ul RBC (3.93-5.22) M/uL Hgb (12.0-16.0) g/dl Hct (34.1-44.9) % MCV (80.0-100.0) fL MCH (25.0-34.0) pg MCHC (32.0-36.0) g/dL RDW Std Deviation (36.4-46.3) fL RDW Coeff of Mitchel (11.5-14.5) % Plt Count (130-400) K/uL MPV (9.4-12.3) fL Immature Gran % (Auto) % Neut % (Auto) % Lymph % (Auto) % Cotton % (Auto) % Eos % (Auto) % Baso % (Auto) % Neut # (Auto) (1.4-6.5) K/uL Lymph # (Auto) (1.2-3.4) K/uL Cotton # (Auto) (0.24-0.82) K/uL Eos # (Auto) (0-0.50) K/uL Baso # (Auto) (0-0.2) K/uL Immature Gran # (Auto) (0.00-0.02) K/uL PT (9.0-12.0) Seconds INR (0.9-1.1) Sodium (136-145) mmol/L Potassium (3.5-5.1) mmol/L Chloride (98-107) mmol/L Carbon Dioxide (21-32) mmol/L Anion Gap (3-11) BUN (6-23) mg/dl Creatinine (0.6-1.2) mg/dl Est Cr Clr Drug Dosing ml/min Est GFR ( Amer) ml/min Est GFR (Non-Af Amer) ml/min BUN/Creatinine Ratio (10-20) Glucose (70-99(Fasting)) mg/dl Lactate 0.7 (0.4-2.0) mmol/L Calcium (8.5-10.1) mg/dl Magnesium (1.7-2.4) mg/dl Total Bilirubin (0.2-1.0) mg/dl AST (13-39) U/L ALT (7-52) U/L Alkaline Phosphatase (34-104) U/L Ammonia 18.0 (18-72) umol/L Troponin I High Sens (0-14) pg/ml Total Protein (6.0-8.3) gm/dl Albumin (3.4-5.0) gm/dl Globulin (2.5-4.0) gm/dl Albumin/Globulin Ratio (0.9-2) Procalcitonin (0-0.5) ng/ml TSH 3.257 (0.300-4.500) uIu/ml Urine Color Urine Appearance (Clear) Urine pH (4.5-7.5) Ur Specific [place] (1.000-1.030) Urine Protein (Negative) Urine Glucose (UA) (Negative) Urine Ketones (Negative) Urine Blood (Negative) Urine Nitrite (Negative) Urine Bilirubin (Negative) Urine Urobilinogen (Negative) Ur Leukocyte Esterase (Negative) SARS-CoV-2, RNA, NAAT (NEGATIVE) 12/07/21 12/07/21 12/07/21 Range/Units 12:15 12:28 12:35 WBC (4.8-10.8) K/ul RBC (3.93-5.22) M/uL Hgb (12.0-16.0) g/dl Hct (34.1-44.9) % MCV (80.0-100.0) fL MCH (25.0-34.0) pg MCHC (32.0-36.0) g/dL RDW Std Deviation (36.4-46.3) fL RDW Coeff of Mitchel (11.5-14.5) % Plt Count (130-400) K/uL MPV (9.4-12.3) fL Immature Gran % (Auto) % Neut % (Auto) % Lymph % (Auto) % Cotton % (Auto) % Eos % (Auto) % Baso % (Auto) % Neut # (Auto) (1.4-6.5) K/uL Lymph # (Auto) (1.2-3.4) K/uL Cotton # (Auto) (0.24-0.82) K/uL Eos # (Auto) (0-0.50) K/uL Baso # (Auto) (0-0.2) K/uL Immature Gran # (Auto) (0.00-0.02) K/uL PT (9.0-12.0) Seconds INR (0.9-1.1) Sodium (136-145) mmol/L Potassium (3.5-5.1) mmol/L Chloride (98-107) mmol/L Carbon Dioxide (21-32) mmol/L Anion Gap (3-11) BUN (6-23) mg/dl Creatinine (0.6-1.2) mg/dl Est Cr Clr Drug Dosing ml/min Est GFR ( Amer) ml/min Est GFR (Non-Af Amer) ml/min BUN/Creatinine Ratio (10-20) Glucose (70-99(Fasting)) mg/dl Lactate (0.4-2.0) mmol/L Calcium (8.5-10.1) mg/dl Magnesium (1.7-2.4) mg/dl Total Bilirubin (0.2-1.0) mg/dl AST (13-39) U/L ALT (7-52) U/L Alkaline Phosphatase (34-104) U/L Ammonia (18-72) umol/L Troponin I High Sens (0-14) pg/ml Total Protein (6.0-8.3) gm/dl Albumin (3.4-5.0) gm/dl Globulin (2.5-4.0) gm/dl Albumin/Globulin Ratio (0.9-2) Procalcitonin 0.22 (0-0.5) ng/ml TSH (0.300-4.500) uIu/ml Urine Color Yellow Urine Appearance Clear (Clear) Urine pH 5.5 (4.5-7.5) Ur Specific [place] 1.017 (1.000-1.030) Urine Protein Negative (Negative) Urine Glucose (UA) Negative (Negative) Urine Ketones Trace H (Negative) Urine Blood Negative (Negative) Urine Nitrite Negative (Negative) Urine Bilirubin Negative (Negative) Urine Urobilinogen Negative (Negative) Ur Leukocyte Esterase Negative (Negative) SARS-CoV-2, RNA, NAAT NEGATIVE (NEGATIVE) Administered Medications Discontinued Medications Ceftriaxone Sodium (Rocephin) 1,000 mg in 50 mls @ 100 mls/hr IV NOW STA Stop: 12/07/21 13:58 Last Infusion: 12/07/21 14:24 Dose: 0 mls/hr Documented By: Admin: 12/07/21 13:54 Dose: 100 mls/hr Documented By: AM Imaging Data Radiologist's Impression: Chest X-Ray 12/07/21 12:06 SINGLE VIEW CHEST CLINICAL HISTORY: Change in mental status. Atypical chest pain. FINDINGS: An AP, portable, upright chest radiograph is compared to study dated 08/13/2021. The cardiomediastinal silhouette is top normal for projection. The mitral annulus is densely calcified. Chronic interstitial thickening is similar to previous. No airspace consolidation or large pleural effusion is identified. No pneumothorax is seen. The skeletal structures are osteopenic. The bony thorax is grossly intact. A right shoulder arthroplasty is in place. IMPRESSION: No acute cardiopulmonary abnormality. ACT 112: Negative or not required by law. Electronically signed by: Ronny Taylor M.D. 12/07/2021 1:[address] 12/07/21 12:06 CT SCAN OF THE BRAIN WITHOUT IV CONTRAST CLINICAL HISTORY: Change in mental status. COMPARISON STUDY: No priors. TECHNIQUE: Unenhanced axial CT scan of the brain is performed from the vertex to the skull base. A dose lowering technique was utilized adhering to the principles of ALARA. The examination is modestly degraded by motion artifact. CT DOSE: 614.27 mGy.cm FINDINGS: Brain parenchyma: There is age-related involutional change noting mild to moderate patchy subcortical and periventricular microangiopathic disease. There is no hemorrhage, mass effect, or evidence of acute territorial ischemia by CT criteria. Richardson-white matter differentiation is preserved. No extra-axial fluid collection is seen. Ventricles, sulci, cisterns: Prominent secondary to involutional change. Intracranial vasculature: There is atherosclerotic calcification of the cavernous carotid and vertebral arteries. Calvarium: Unremarkable. Sinuses and mastoids: The paranasal sinuses are clear. The mastoid air cells are well pneumatized. Orbits: The bony orbits are grossly intact. There are bilateral ocular lens implants. IMPRESSION: There is no hemorrhage, mass effect, or evidence of acute territorial ischemia by CT criteria. ACT 112: Negative or not required by law. Electronically signed by: Ronny Taylor M.D. 12/07/2021 1:19 PM Discharge Plan Visit Data Chief Complaint: Altered Mental Status Stated Complaint: AMS, UTI ED Provider: Ralph Ramirez Discharge Problem: Altered mental status, UTI (urinary tract infection) Patient Disposition: Being Evaluated by Hospitalist Forms Stand Alone Forms: My [facility] Prescriptions Prescriptions: No Action clopidogrel 75 mg tablet 75 mg PO DAILY aspirin 81 mg tablet,delayed release (DR/EC) 81 mg PO DAILY acetaminophen [Tylenol 8 Hour] 650 mg tablet extended release 650 mg PO Q12H pantoprazole 40 mg tablet,delayed release (DR/EC) 40 mg PO DAILY multivitamin [Multiple Vitamins] Tablet 1 tab PO QAM simvastatin 10 mg Tablet 10 mg PO PM amlodipine 10 mg Tablet 10 mg PO QPM ascorbic acid (vitamin C) [Vitamin C] 500 mg Capsule, Extended Release 500 mg PO QAM cholecalciferol (vitamin D3) [Vitamin D3] 1,000 unit Capsule 1,000 unit PO QAM cyanocobalamin (vitamin B-12) [Vitamin B-12] 1,000 mcg Tablet 1,000 tab PO QAM tramadol 50 mg Tablet 50 mg PO Q8H PRN (Reason: Pain) Referrals Referrals: Raul Alcantar CRNP [Primary Care Provider] - : Altered mental status Qualifiers: Altered mental status type: unspecified Qualified Code(s): R41.82 - Altered mental status, unspecified UTI (urinary tract infection) Qualifiers: Urinary tract infection type: site unspecified Hematuria presence: without hematuria Qualified Code(s): N39.0 - Urinary tract infection, site not specified
[2021-12-07 12:37] LABS: Basophils # (auto) 0.04 K/uL (0-0.2); Basophils % (auto) 0.6 %; Eosinophils # (auto) 0.03 K/uL (0-0.50); Eosinophils % (auto) 0.5 %; Hematocrit (blood only) 36.5 % (34.1-44.9); Hemoglobin 12.4 g/dl (12.0-16.0); Immature Granulocytes # (auto) 0.05 K/uL (0.00-0.02); Immature Granulocytes % (auto) 0.8 %; Lymphocytes # (auto) 1.27 K/uL (1.2-3.4); Lymphocytes % (auto) 20.6 %; Mean Corpuscular Hemoglobin 33.1 pg (25.0-34.0); Mean Corpuscular Volume 97.3 fL (80.0-100.0); Mean Platelet Volume 9.2 fL (9.4-12.3); Monocytes # (auto) 0.37 K/uL (0.24-0.82); Neutrophils # (auto) 4.42 K/uL (1.4-6.5); Neutrophils % (auto) 71.5 %; Platelet Count 208 K/uL (130-400); RDW Coefficient of Variation 13.5 % (11.5-14.5); RDW Standard Deviation 48.6 fL (36.4-46.3); Red Blood Count 3.75 M/uL (3.93-5.22); White Blood Count 6.18 K/ul (4.8-10.8)
[2021-12-07 12:47] LABS: Prothrombin Time 10.9 Seconds (9.0-12.0)
[2021-12-07 12:50] LABS: Appearance Urine Clear (Clear); Bilirubin Urine Negative (Negative); Blood Urine Negative (Negative); Color Urine Yellow; Glucose Urine UA Negative (Negative); Ketones Urine Trace (Negative); Leukocyte Esterase Urine Negative (Negative); Nitrite Urine Negative (Negative); Protein Urine Negative (Negative); Specific Gravity Urine 1.017 (1.000-1.030); Urobilinogen Urine Negative (Negative); pH Urine 5.5 (4.5-7.5)
[2021-12-07 13:06] LABS: Albumin Level 4.8 gm/dl (3.4-5.0); BUN Creatinine Ratio 34.8 (10-20); Bilirubin,Total 1.5 mg/dl (0.2-1.0); Calcium 10.3 mg/dl (8.5-10.1); Est GFR (Non-African American) 44.9 ml/min; Globulin 2.4 gm/dl (2.5-4.0); Magnesium 2.1 mg/dl (1.7-2.4); Potassium 3.9 mmol/L (3.5-5.1); Total Protein 7.2 gm/dl (6.0-8.3)
--- NOTE | 2021-12-07 13:11 | XRay Report ---
SINGLE VIEW CHEST CLINICAL HISTORY: Change in mental status. Atypical chest pain. FINDINGS: An AP, portable, upright chest radiograph is compared to study dated 08/13/2021. The cardiom ediastinal silhouette is top normal for projection. The mitral annulus is densely calcified. Chronic interstitial thickening is similar to previous. No airspace consolidation or large pleural effusion i s identified. No pneumothorax is seen. The skeletal structures are osteopenic. The bony thorax is charla ssly intact. A right shoulder arthroplasty is in place. IMPRESSION: No acute cardiopulmonary abnormality. ACT 112: Negative or not required by law. Electronically signed by: Ronny Taylor M.D. 12/07/2021 1:10 PM
[2021-12-07 13:12] LABS: Troponin I High Sensitivity 26.2 pg/ml (0-14)
--- NOTE | 2021-12-07 13:22 | CT Scan Report ---
CT SCAN OF THE BRAIN WITHOUT IV CONTRAST CLINICAL HISTORY: Change in mental status. COMPARISON STUDY: No priors. TECHNIQUE: Unenhanced axial CT scan of the brain is performed from the vertex to the skull base. A do se lowering technique was utilized adhering to the principles of ALARA. The examination is modestly d egraded by motion artifact. CT DOSE: 614.27 mGy.cm FINDINGS: Brain parenchyma: There is age-related involutional change noting mild to moderate patchy subcortical and periventricular microangiopathic disease. There is no hemorrhage, mass effect, or evidence of ac torres martinez territorial ischemia by CT criteria. Richardson-white matter differentiation is preserved. No extra-axi al fluid collection is seen. Ventricles, sulci, cisterns: Prominent secondary to involutional change. Intracranial vasculature: There is atherosclerotic calcification of the cavernous carotid and vertebr al arteries. Calvarium: Unremarkable. Sinuses and mastoids: The paranasal sinuses are clear. The mastoid air cells are well pneumatized. Orbits: The bony orbits are grossly intact. There are bilateral ocular lens implants. IMPRESSION: There is no hemorrhage, mass effect, or evidence of acute territorial ischemia by CT yasmin kam. ACT 112: Negative or not required by law. Electronically signed by: Ronny Taylor M.D. 12/07/2021 1:19 PM
[2021-12-07] MEDS ORDERED: cefTRIAXone SODIUM 1,000 MG/50 ML BAG IV STA (13:29)
--- NOTE | 2021-12-07 14:02 | History & Physical Report ---
Date of Service December 07, 2021 Assessment & Plan (1) Altered mental status: Plan: Altered mental status, waxing and waning suspicious for encephalopathy with UTI versus delirium, differential includes TIA Patient follows commands and moves all extremities, does not offer spontaneous speech which is new. No leukocytosis CThead: No hemorrhage, mass-effect, or acute ischemia appreciated No focal neurologic deficits on exam Hemoglobin 12.4 Sodium 133 Creatinine baseline appears approximately 0.851.0, 1.15 on admission Total bilirubin with chronic mild ablation, 1.5 on admission and no transaminitis. Last T bili 1.2 High-sensitivity troponin 26.2 Procalcitonin pending TSH pending UA does not appear infected continue empiric treatment given recent UTI culture positive COVID-negative CXR: No acute findings. EKG: Prior EKG from [facility] with normal sinus rhythm with PACs. Repeat EKG as outpatient with incomplete right bundle branch block. Centering implantable loop recorder versus event monitor in the future to monitor for A. fib not seen at points of assessment EKG on admission: Normal sinus rhythm, no PVCs or PACs. No territorial ST depressions. Incomplete right bundle branch block. QTc 459 Blood cultures pending Last echo 09/06/2021: EF 60-65%. No regional wall motion abnormalities. Moderate tricuspid regurg. Mild pulmonary hypertension. Mild left atrial dilation Procalcitonin negative History of recent UTI Recently treated through [facility] for UTI UC positive for pansensitive E. coli on Thursday (12/03), prescribed Keflex but did not sleep on it and switched to ofloxacin 12/06 UA on admission bland appearing, given positive UC and concern for inadequate treatment with possibility for sterile cultures due to Cipro will continue Rocephin on admission for empiric treatment to 5 days Patient with multiple medication sensitivities which makes her hyper, restless, or feel tachycardic. No rash allergies with the exception of adhesive tape which causes blisters. CAD, no history of ME Coronary calcification seen on CT scan, baseline function in preceding months without clinical signs of angina. Last seen by cardiology 12/05/2021 Troponin mildly elevated, trended Hypertension Continue amlodipine 5 mg daily Hyperlipidemia Continue simvastatin 10 mg daily, lipid panel pending, upgrade to moderate potency statin if LDL is not <50 Carotid stenosis On medical therapy continue Plavix 75 mg daily, aspirin daily. Continue statin, lipid panel pending and would upgrade to at least moderate potency LDL is not over suppressed Patient is pending outpatient vascular surgery consultation for high-grade L- ICA stenosis. No focal neurologic symptoms at this time, no evidence of stroke on CT with recent MRI without stroke. Asymptomatic severe stenosis at this time, may follow-up with [facility] vascular on as outpatient for CEA eval continue intensive medical therapy. If pt develops any focal neurologic deficits/imaging consistent with stroke inpatient should be placed, although failure is to note patient was extremely apprehensive to pursue a surgical option when she was cognitively intact this past week and they are not sure if this is something they would pursue, but would want to talk to the vascular surgeon regarding risk/benefits CTAH/N12/03/21: Moderate stenosis of left common carotid, severe stenosis of LICA, moderate stenosis at COY, moderate stenosis at the cavernous segment of both LICA and COY, moderate stenosis of intradural right vertebral artery. MRI 12/04/2021: No evidence of hemorrhage or stroke, chronic white matter ischemic changes CAD on CT, no hx ME No clinical signs of ACS Nuclear stress test 2018 without evidence of ischemia/infarct. - Trop trended as above Hyperbilirubinemia Striae of appendectomy, no known history of cholecystectomy T bili/D bili ordered, trended, RUQ ultrasound pending History limited by delirium, but patient does not grimace on right upper quadrant palpation DVT prophylaxis: SCDs Diet: Speech pending, n.p.o. if not alert enough to swallow safely, otherwise regular diet with consistency per speech CODE STATUS: DNR/DNI, discussed with family at bedside Disposition: Medical telemetry, monitor on telemetry given concern for arrhythmia as outpatient (2) Carotid artery stenosis: (3) Coronary artery calcification: (4) HTN (hypertension): (5) Hyperlipidemia: (6) UTI (urinary tract infection): (7) CLL (chronic lymphocytic leukemia): History of Present Illness Primary Care Provider: IRA Issa Agnes is an 81-year-old female with a past medical history of recurrent UTIs, CAD, HLD, hypertension, and carotid artery stenosis presents to the emergency department with altered mental status following recent hospitalization for altered mental status due to pansensitive E. coli. He has been switched to home a number of antibiotics with difficulty with tolerance. Patient was at her cognitive baseline even prior to admission. Switched from Keflex to Cipro yesterday Seen with sisters at bedside Agnes is normally fully independent, cooks/shops/goes to doctors appointments on her own Thursday morning she woke up and had chills with fever Thursday evening was sleeping early in the evening Thursday she would not answer phone/texts which was unusual. Family saw her at 3pm in the afternoon and she was not answering questions, sitting on her bed. Had not been out of bed in two days. Family called 911 concerned for stroke. Were in the ER for 24 hours, was found to have UTI which she has ahistory of chronic UTIs. Self caths 4x per days MRI and CT scan at [facility] both showing no stroke, she does have irrigular heart beat which is not afib (see cardiology note review below). Decreased fluid intake for a few days, decreased engagement and energy Seems to wax and wane, was normal-keshia yesterday, and much worse again today When lucid on was very afraid of surgery for her carotids, and is waiting for a second opinion. Would like to see Dr. Jackson for consult while inpatient. Medical History: Reviewed Medications: Reviewed Surgical History: Reviewed Allergies: Reviewed Social History: No tobacco/alcohol use Code Status: DNR/DNI per daughter's, POA at bedside Allergies Allergy/AdvReac Type Severity Reaction Status Date / Time acetaminophen [From NyQuil] Allergy Unknown rapid Verified 12/05/21 13:13 heart beat, "brain does not stop working" adhesive tape Allergy Unknown blistering Verified 12/05/21 13:13 dextromethorphan Allergy Unknown rapid Verified 12/05/21 13:13 [From NyQuil] heart beat, "brain does not stop working" diphenhydramine Allergy Unknown rapid Verified 12/05/21 13:13 [From Tylenol PM] heart beat, "brain does not stop working" doxylamine [From NyQuil] Allergy Unknown rapid Verified 12/05/21 13:13 heart beat, "brain does not stop working" gluten Allergy Unknown "gluten Verified 12/05/21 13:13 free diet" - GI SYMPTOMS lactose Allergy Unknown "lactose Verified 12/05/21 13:13 intolerant" - GI SYMPTOMS nitrofurantoin Allergy Unknown rapid Verified 12/05/21 13:13 heart beat, can't sleep, "brain does not stop" pseudoephedrine [From NyQuil] Allergy Unknown rapid Verified 12/05/21 13:13 heart beat, "brain does not stop working" Sulfa (Sulfonamide Allergy Unknown "sulfa" - Verified 12/05/21 13:13 Antibiotics) "makes me hyper, can't sit still" cephalexin AdvReac Verified 12/05/21 13:23 "ANTIHISTAMINE" Allergy Unknown rapid Uncoded 12/05/21 13:13 heart beat, can't sleep, "brain does not stop working" "TYLENOL COLD AND SINUS" Allergy Unknown rapid Uncoded 12/05/21 13:13 heart beat, "brain does not stop working" Home Medications Medication Instructions Recorded Confirmed Type amlodipine 10 mg tablet 10 mg PO QPM 06/14/18 12/05/21 History ascorbic acid (vitamin C) 500 mg 500 mg PO QAM 06/14/18 12/05/21 History capsule,extended release (Vitamin C) cholecalciferol (vitamin D3) 25 1,000 unit PO QAM 06/14/18 12/05/21 History mcg (1,000 unit) capsule (Vitamin D3) cyanocobalamin (vitamin B-12) 1,000 tab PO QAM 06/14/18 12/05/21 History 1,000 mcg tablet (Vitamin B-12) multivitamin (Multiple Vitamins 1 tab PO QAM 06/14/18 12/05/21 History tablet) simvastatin 10 mg tablet 10 mg PO PM 06/14/18 12/05/21 History tramadol 50 mg tablet 50 mg PO Q8H PRN Pain 10/04/20 12/05/21 History acetaminophen 650 mg 650 mg PO Q12H 12/05/21 12/05/21 History tablet,extended release (Tylenol 8 Hour) aspirin 81 mg tablet,delayed 81 mg PO DAILY 12/05/21 12/05/21 History release clopidogrel 75 mg tablet 75 mg PO DAILY 12/05/21 12/05/21 History pantoprazole 40 mg tablet,delayed 40 mg PO DAILY 12/05/21 12/05/21 History release Past Med/Surg History Medical History Acid reflux Arthritis CLL (chronic lymphocytic leukemia) Diagnosed in 2013, sees her Oncologist routinely. -- No treatment Degenerative disc disease Hiatal hernia Hyperlipidemia Hypertension Surgical History History of appendectomy History of bilateral cataract extraction History of colonoscopy x2 History of left knee replacement History of lumpectomy of left breast History of tonsillectomy History of total right hip arthroplasty History of total shoulder replacement RIGHT History of tubal ligation Social History Smoking Status: Unknown if ever smoked Cigarettes Per Day: 1 ppd x 50 years. QUIT 2013; Second Hand Exposure: No; Hx Alcohol Use: No Hx Substance Use: No Preferred Language: Bulgarian Communication Ability: Effective Document Management Technician Required: No Beliefs That Will Affect Care: None Current Living Situation: Alone Feels Safe at Home: Yes Assistive Devices: Denture - Upper, Denture - Lower, Glasses and Walker Review of Systems Review of Systems: Unobtainable due to cognitive status Physical Exam Physical Exam: General: Offers minimal spontaneous speech. Follows most one- step commands. Appropriately nods yes that she is in the hospital, and no to that she is in the mall or at home, but does not verbalize answers. HEENT: Atraumatic, normocephalic. Vision and hearing grossly intact. MM tacky Pulm: CTAB A&P. -wheezes, -rales, -rhonchi. Symmetrical chest rise. No increase in work of breathing. No respiratory distress. Cardiac: RRR. Systolic murmur is appreciated. Radial pulses intact and symmetrical. Abdominal: Nontender, nondistended, soft. BS present. CRANIAL NERVES: II: Pupils equal and reactive. Difficult to assess for field cuts due to patient engagement III, IV, : EOM intact, tracks provider finger/face no gaze preference or deviation V: normal sensation in V1, V2, and V3 segments bilaterally VII: no asymmetry, no nasolabial fold flattening VIII: normal hearing to speech IX, X: normal palatal elevation XI: 5/5 head turn XII: midline tongue protrusion MOTOR: RUE: 5/5 Shoulder internal rotation, external rotation, flexion, extension, abduction, adduction 5/5 Elbow flexion/extension, wrist flexion/extension 5/5 emergency response officer strength, finger flexion/extension, interosseus LUE: 5/5 Shoulder internal rotation, external rotation, flexion, extension, abduction, adduction 5/5 Elbow flexion/extension, wrist flexion/extension 5/5 emergency response officer strength, finger flexion/extension, interosseus RLE: 4/5 to hip flexion, ankle dorsiflexion/plantarflexion LLE: 4/5 to hip flexio, ankle dorsiflexion/plantarflexion SENSORY: Normal to touch in upper and lower extremities without deficit or asymmetry COORD: Does not follow commands for finger-nose or [id number] testing Results & Data Results & Data ([facility]) Vital Signs (Past 12 Hours) Vital Signs Temp Pulse Resp BP Pulse Ox O2 Del Method O2 Flow Rate 12/07/21 13:53 142/76 H 12/07/21 13:53 85 20 96 12/07/21 13:30 84 18 95 12/07/21 12:30 94 H 25 H 12/07/21 12:25 84 15 98 12/07/21 13:44 96 Room Air 12/07/21 12:01 95 Room Air 0 12/07/21 11:43 36.7 C 83 17 154/82 H 95 Room Air PG Care Time/CCT Total # of Minutes Spent Total Time Spent with Patient: Total time spent is greater than 50% in coordination of care (as documented) at patient's floor/unit and/or counseling patient: Coding Level of Care Code INT OBSERVATION CARE 70M LVL 3 Diagnoses Altered mental status R41.82 Altered mental status type: unspecified Carotid artery stenosis I65.29 Coronary artery calcification I25.10; I25.84 HTN (hypertension) I10 Hyperlipidemia E78.5 UTI (urinary tract infection) N39.0 Hematuria presence: without hematuria Urinary tract infection type: site unspecified CLL (chronic lymphocytic leukemia) C91.10 (1) Altered mental status Altered mental status type: unspecified Qualified Code(s): R41.82 - Altered mental status, unspecified (2) UTI (urinary tract infection) Hematuria presence: without hematuria Urinary tract infection type: site unspecified Qualified Code(s): N39.0 - Urinary tract infection, site not specified
[2021-12-07] MEDS ORDERED: POLYETHYLENE (MIRALAX) 17 GM PACK PO PRN (17:24)
[2021-12-07] MEDS ORDERED: METOPROLOL TARTRATE 1 MG/ML VIAL IV PRN (17:24)
[2021-12-07] MEDS: NSS + 20MEQ KCL 20 MEQ/1,000 ML BAG IV SCH (18:06)
[2021-12-07] MEDS: amLODIPine BESYLATE 5 MG TAB PO SCH (20:42)
[2021-12-08] MEDS: MELATONIN 3 MG TAB PO PRN (00:36)
[2021-12-08] MEDS: NSS + 20MEQ KCL 20 MEQ/1,000 ML BAG IV SCH (05:56)
[2021-12-08 06:08] LABS: Troponin I High Sensitivity 21.3 pg/ml (0-14)
[2021-12-08 06:12] LABS: Bilirubin Direct 0.2 mg/dl (0-0.2); Bilirubin,Total 1.1 mg/dl (0.2-1.0)
--- NOTE | 2021-12-08 06:58 | Ultrasound Report ---
ABDOMINAL ULTRASOUND, RIGHT UPPER QUADRANT HISTORY: Right upper quadrant pain.. COMPARISON: None. FINDINGS: Pancreas: The pancreas demonstrates a normal echotexture. Liver: Unremarkable. Gallbladder: A few small gallstones. No gallbladder wall thickening. CBD: 8 mm. This is at the upper limits of normal given the patient's age. Right kidney: Mildly echogenic. No hydronephrosis. Miscellaneous: There are few enlarged right upper quadrant/periportal lymph nodes with the largest me asuring 3.3 x 2.2 x 2.1 cm. IMPRESSION: 1. Cholelithiasis. No gallbladder wall thickening. 2. The common bile duct is at the upper limits of normal for age measuring 8 mm. 3. Right upper quadrant/periportal lymphadenopathy. ACT 112: Negative or not required by law. Electronically signed by: Josh Randhawa M.D. 12/08/2021 6:56 AM
--- NOTE | 2021-12-08 07:29 | Electrocardiogram Report ---
Test Reason : Blood Pressure : / mmHG Vent. Rate : 086 BPM Atrial Rate : 086 BPM P-R Int : 182 ms QRS Dur : 102 ms QT Int : 384 ms P-R-T Axes : 067 -29 050 degrees QTc Int : 459 ms Normal sinus rhythm Low voltage QRS Incomplete right bundle branch block Inferior infarct (cited on or before 21-JUN-2018) Cannot rule out Anterior infarct (cited on or before 21-JUN-2018) Abnormal ECG When compared with ECG of 13-AUG-2021 14:08, Questionable change in initial forces of Anterior leads Confirmed by Rob Garcia [id number] on 12/08/2021 7:29:46 AM Referred By: REFERRED SELF Confirmed By:Rob Garcia
[2021-12-08] MEDS: ASPIRIN 81 MG ECTAB PO SCH (09:25)
[2021-12-08] MEDS: CLOPIDOGREL BISULFATE 75 MG TAB PO SCH (09:25)
--- NOTE | 2021-12-08 11:58 | Hospitalist Progress Note ---
Date of Service December 08, 2021 Assessment & Plan (1) Acute metabolic encephalopathy: Plan: Extensive work-up this week done at [facility] (LINDSEY Guzman) on 12/03 - MRI brain, CTA head/neck, echo, CT abd/pelvis, and labs/urine cx/etc. Dx with UTI - d/c to home with keflex; took 3 days, concerns she was having adverse reaction from such, and then switched to PO cipro on 12/06. Waxing/waning mental status since Thursday night, 12/02. Had improved after visit to [facility], then worsened again late this week. Diff dx - subacute stroke (possible that first MRI was falsely negative) vs toxic (cipro can cause delirium in seniors) vs other infectious process (cholecystitis? has gallstones, CBD is top-normal at 8mm) vs other (b12 def, etc). At this point her u/a is largely normal and I doubt the UTI itself is the primary culprit. Plan - repeat labs including CMP, CRP, etc now. If labs unrevealing then obtain repeat MRI brain with contrast. If MRI brain negative then consider MRCP given the gallstones and CBD being top- normal. Consider COVID PCR/flu/RSV swab. Avoid sedatives. (2) Carotid artery stenosis: Plan: CTA neck 12/03/21 at [facility] -- Moderate stenosis of left common carotid, severe stenosis of LICA, moderate stenosis of COY, moderate stenosis at the cavernous segment of both LICA and COY, moderate stenosis of intradural right vertebral artery. Continue asa Continue plavix Continue statin Repeat MRI brain to r/o subacute CVA (3) Coronary artery calcification: Plan: as seen on imaging troponins minimally elevated suspect myocardial demand ischemia in setting of her illness (4) HTN (hypertension): Plan: cont amlodipine controlled (5) Hyperlipidemia: Plan: cont statin (6) UTI (urinary tract infection): Plan: pansensitive e.coli dx at [facility] earlier this week keflex x 3 days, then was on cipro starting 12/06 u/a here largely normal; urine cx pending did receive IV rocephin yesterday today would be day #6 of abx therapy - would continue for 2 more days then stop (7) CLL (chronic lymphocytic leukemia): Plan: per records no lymphocytosis wbc count normal cell lines largely normal no smudge cells noted either (8) Gallstones: Plan: seen on CT at [facility], and on RUQ u/s here no GB wall thickening or fluid CBD, however, is top-normal at 8mm if LFTs rise may need MRCP smoldering GB process could cause #1 (9) Lung nodule: Plan: 6mm seen incidentally on CTA neck at [facility] will need f/u per nodule guidelines (10) Elevated troponin: Plan: 2nd myocardial demand ischemia no signs/symptoms of ACS repeat level today for stability Plan daughter extensively updated at bedside will change observation to full admission given her ongoing confusion and speech issues Admission and Anticipated Discharge Date Admission Date: December 07, 2021 Subjective patient awake but very confused and her speech is very "word-salad" like sentence structure is nonsensical, and she is shifting from topic to unrelated topic using profanities daughter is at bedside - states her mother never uses profanities daughter provides excellent recap of week - prior to going to [facility] ([facility]) she was very lethargic, non-verbal, "as if she was having a stroke" no fevers no sick contacts taken to [place] - remained in ER for ~24 hours ultimately "woke up" and was regaining her faculties extensive w/u undertaken - cxr, echo, MRI brain (neg CVA), CTA head/neck (b/l ICA stenosis, severe on L), labs, etc dx with UTI - d/c on keflex improved at home initially saw cardiology on 12/05 for office visit and some ? of a.fib seen at [facility] [address] - felt to not have had a.fib was still confused per the cardiology note keflex changed to cipro sometime this week became increasingly confused again much like what she looks like today at no point did her mother have any complaints was eating at home albeit limited was able to ambulate on her own accord just prior to arrival here Review of Systems 2 Review of Systems: Unobtainable due to cognitive status Physical Exam Physical Exam: gen - thin; awake, alert - follows commands inconsistently; "word-salad" type aphasia vs severe speech difficulties from nonspecific encephalopathy mouth - MMM, no lesions neck - no JVD; b/l carotid bruits heart - RRR, some ectopy, s1 s2, 2/6 systolic murmur LSB lungs - CTA b/l abd - soft NT ND BS+ no HSM ext - no edema, pulses 2+ b/l neuro - Broca's type aphasia/word salad, no obvious facial droop; strength seems to be 5/5 x 4 ext; babinski's seem negative; DTRs 2+ b/l skin - no rash Results & Data Results & Data ([facility]) Vital Signs (Past 12 Hours) Vital Signs Temp Pulse Pulse Resp BP BP Pulse Ox 12/08/21 09:30 12/07/21 19:11 12/07/21 19:11 83 20 125/73 95 12/07/21 18:09 36.5 C 81 18 124/72 94 12/07/21 16:00 81 19 96 12/07/21 16:00 138/77 12/07/21 15:30 79 20 95 12/07/21 15:30 120/68 12/07/21 15:00 84 18 97 12/07/21 15:00 127/72 12/07/21 14:30 86 16 97 12/07/21 14:30 127/67 12/07/21 14:00 83 23 97 12/07/21 14:00 122/73 12/07/21 13:53 142/76 H 12/07/21 13:53 85 20 96 12/07/21 13:30 84 18 95 12/07/21 13:44 96 Pulse Ox O2 Del Method O2 Del Method 12/08/21 09:30 Room Air 12/07/21 19:11 95 Room Air 12/07/21 19:11 Room Air 12/07/21 18:09 Room Air 12/07/21 16:00 12/07/21 16:00 12/07/21 15:30 12/07/21 15:30 12/07/21 15:00 12/07/21 15:00 12/07/21 14:30 12/07/21 14:30 12/07/21 14:00 12/07/21 14:00 12/07/21 13:53 12/07/21 13:53 12/07/21 13:30 12/07/21 13:44 Room Air Intake and Output 12/07/21 12/08/21 12/08/21 22:59 06:59 14:59 Intake Total 0 / 1396.667 946.667 / 1396.667 Output Total 500 / 1000 500 / 1000 Balance -500 / 396.667 446.667 / 396.667 Intake: IV 946.667 / 1396.667 Nss + 20Meq KCl 20 meq In 1,000 946.667 / 946.667 ml @ 80 mls/hr IV .[id number] [facility] Rx#:[id number] Oral 0 / 0 0 / 0 Output: Urine 500 / 1000 500 / 1000 Other: Weight 43.8 kg 43.7 kg Weight Measurement Method Built in Bedscale Chair Scale Laboratory Results Laboratory Results - last 24 hr 12/07/21 12/07/21 12/07/21 12:15 12:15 12:15 WBC RBC Hgb Hct MCV MCH MCHC RDW Std Deviation RDW Coeff of Mitchel Plt Count MPV Immature Gran % (Auto) Neut % (Auto) Lymph % (Auto) [place] % (Auto) Eos % (Auto) Baso % (Auto) Neut # (Auto) Lymph # (Auto) [place] # (Auto) Eos # (Auto) Baso # (Auto) Immature Gran # (Auto) PT 10.9 INR 1.0 Sodium 133 L Potassium 3.9 Chloride 101 Carbon Dioxide 22 Anion Gap 10 BUN 40 H Creatinine 1.15 Est Cr Clr Drug Dosing 27.0 Est GFR ( Amer) 52.0 Est GFR (Non-Af Amer) 44.9 BUN/Creatinine Ratio 34.8 H Glucose 102 H Lactate 0.7 Calcium 10.3 H Magnesium 2.1 Total Bilirubin 1.5 H Direct Bilirubin AST 20 ALT 22 Alkaline Phosphatase 54 Ammonia Troponin I High Sens 26.2 H C-Reactive Protein Total Protein 7.2 Albumin 4.8 Globulin 2.4 L Albumin/Globulin Ratio 2.0 Vitamin B12 Procalcitonin TSH Urine Color Urine Appearance Urine pH Ur Specific [place] Urine Protein Urine Glucose (UA) Urine Ketones Urine Blood Urine Nitrite Urine Bilirubin Urine Urobilinogen Ur Leukocyte Esterase SARS-CoV-2, RNA, NAAT 12/07/21 12/07/21 12/07/21 12:15 12:15 12:15 WBC RBC Hgb Hct MCV MCH MCHC RDW Std Deviation RDW Coeff of Mitchel Plt Count MPV Immature Gran % (Auto) Neut % (Auto) Lymph % (Auto) [place] % (Auto) Eos % (Auto) Baso % (Auto) Neut # (Auto) Lymph # (Auto) [place] # (Auto) Eos # (Auto) Baso # (Auto) Immature Gran # (Auto) PT INR Sodium Potassium Chloride Carbon Dioxide Anion Gap BUN Creatinine Est Cr Clr Drug Dosing Est GFR ( Amer) Est GFR (Non-Af Amer) BUN/Creatinine Ratio Glucose Lactate Calcium Magnesium Total Bilirubin Direct Bilirubin AST ALT Alkaline Phosphatase Ammonia 18.0 Troponin I High Sens C-Reactive Protein Total Protein Albumin Globulin Albumin/Globulin Ratio Vitamin B12 Procalcitonin 0.22 TSH 3.257 Urine Color Urine Appearance Urine pH Ur Specific [place] Urine Protein Urine Glucose (UA) Urine Ketones Urine Blood Urine Nitrite Urine Bilirubin Urine Urobilinogen Ur Leukocyte Esterase SARS-CoV-2, RNA, NAAT 12/07/21 12/07/21 12/07/21 12:28 12:35 17:34 WBC RBC Hgb Hct MCV MCH MCHC RDW Std Deviation RDW Coeff of Mitchel Plt Count MPV Immature Gran % (Auto) Neut % (Auto) Lymph % (Auto) [place] % (Auto) Eos % (Auto) Baso % (Auto) Neut # (Auto) Lymph # (Auto) [place] # (Auto) Eos # (Auto) Baso # (Auto) Immature Gran # (Auto) PT INR Sodium Potassium Chloride Carbon Dioxide Anion Gap BUN Creatinine Est Cr Clr Drug Dosing Est GFR ( Amer) Est GFR (Non-Af Amer) BUN/Creatinine Ratio Glucose Lactate Calcium Magnesium Total Bilirubin Direct Bilirubin AST ALT Alkaline Phosphatase Ammonia Troponin I High Sens 28.2 H C-Reactive Protein Total Protein Albumin Globulin Albumin/Globulin Ratio Vitamin B12 Procalcitonin TSH Urine Color Yellow Urine Appearance Clear Urine pH 5.5 Ur Specific [place] 1.017 Urine Protein Negative Urine Glucose (UA) Negative Urine Ketones Trace H Urine Blood Negative Urine Nitrite Negative Urine Bilirubin Negative Urine Urobilinogen Negative Ur Leukocyte Esterase Negative SARS-CoV-2, RNA, NAAT NEGATIVE 12/07/21 12/08/21 12/08/21 22:42 04:37 10:58 WBC RBC Hgb Hct MCV MCH MCHC RDW Std Deviation RDW Coeff of Mitchel Plt Count MPV Immature Gran % (Auto) Neut % (Auto) Lymph % (Auto) [place] % (Auto) Eos % (Auto) Baso % (Auto) Neut # (Auto) Lymph # (Auto) [place] # (Auto) Eos # (Auto) Baso # (Auto) Immature Gran # (Auto) PT INR Sodium Potassium Chloride Carbon Dioxide Anion Gap BUN Creatinine Est Cr Clr Drug Dosing Est GFR ( Amer) Est GFR (Non-Af Amer) BUN/Creatinine Ratio Glucose Lactate Calcium Magnesium Total Bilirubin 1.1 H Direct Bilirubin 0.2 AST ALT Alkaline Phosphatase Ammonia Troponin I High Sens 24.3 H 21.3 H 18.5 H C-Reactive Protein Total Protein Albumin Globulin Albumin/Globulin Ratio Vitamin B12 Procalcitonin TSH Urine Color Urine Appearance Urine pH Ur Specific [place] Urine Protein Urine Glucose (UA) Urine Ketones Urine Blood Urine Nitrite Urine Bilirubin Urine Urobilinogen Ur Leukocyte Esterase SARS-CoV-2, RNA, NAAT 12/08/21 12/08/21 12/08/21 12:16 12:16 12:16 WBC 5.94 RBC 3.17 L Hgb 10.4 L Hct 30.2 L MCV 95.3 MCH 32.8 MCHC 34.4 RDW Std Deviation 45.5 RDW Coeff of Mitchel 13.1 Plt Count 180 MPV 9.0 L Immature Gran % (Auto) 1.2 Neut % (Auto) 80.3 Lymph % (Auto) 12.8 [place] % (Auto) 4.9 Eos % (Auto) 0.3 Baso % (Auto) 0.5 Neut # (Auto) 4.77 Lymph # (Auto) 0.[address] # (Auto) 0.29 Eos # (Auto) 0.02 Baso # (Auto) 0.03 Immature Gran # (Auto) 0.07 H PT INR Sodium Pending Potassium Pending Chloride Pending Carbon Dioxide Pending Anion Gap Pending BUN Pending Creatinine Pending Est Cr Clr Drug Dosing Pending Est GFR ( Amer) Pending Est GFR (Non-Af Amer) Pending BUN/Creatinine Ratio Pending Glucose Pending Lactate Calcium Pending Magnesium Total Bilirubin Pending Direct Bilirubin AST Pending ALT Pending Alkaline Phosphatase Pending Ammonia Troponin I High Sens Pending C-Reactive Protein Pending Total Protein Pending Albumin Pending Globulin Pending Albumin/Globulin Ratio Pending Vitamin B12 Pending Procalcitonin TSH Urine Color Urine Appearance Urine pH Ur Specific [place] Urine Protein Urine Glucose (UA) Urine Ketones Urine Blood Urine Nitrite Urine Bilirubin Urine Urobilinogen Ur Leukocyte Esterase SARS-CoV-2, RNA, NAAT Diagnostic Findings Chest X-Ray 12/07/21 12:06 SINGLE VIEW CHEST CLINICAL HISTORY: Change in mental status. Atypical chest pain. FINDINGS: An AP, portable, upright chest radiograph is compared to study dated 08/13/2021. The cardiomediastinal silhouette is top normal for projection. The mitral annulus is densely calcified. Chronic interstitial thickening is similar to previous. No airspace consolidation or large pleural effusion is identified. No pneumothorax is seen. The skeletal structures are osteopenic. The bony thorax is grossly intact. A right shoulder arthroplasty is in place. IMPRESSION: No acute cardiopulmonary abnormality. ACT 112: Negative or not required by law. Electronically signed by: Ronny Taylor M.D. 12/07/2021 1:[address] 12/07/21 12:06 CT SCAN OF THE BRAIN WITHOUT IV CONTRAST CLINICAL HISTORY: Change in mental status. COMPARISON STUDY: No priors. TECHNIQUE: Unenhanced axial CT scan of the brain is performed from the vertex to the skull base. A dose lowering technique was utilized adhering to the principles of ALARA. The examination is modestly degraded by motion artifact. CT DOSE: 614.27 mGy.cm FINDINGS: Brain parenchyma: There is age-related involutional change noting mild to moderate patchy subcortical and periventricular microangiopathic disease. There is no hemorrhage, mass effect, or evidence of acute territorial ischemia by CT criteria. Richardson-white matter differentiation is preserved. No extra-axial fluid collection is seen. Ventricles, sulci, cisterns: Prominent secondary to involutional change. Intracranial vasculature: There is atherosclerotic calcification of the cavernous carotid and vertebral arteries. Calvarium: Unremarkable. Sinuses and mastoids: The paranasal sinuses are clear. The mastoid air cells are well pneumatized. Orbits: The bony orbits are grossly intact. There are bilateral ocular lens implants. IMPRESSION: There is no hemorrhage, mass effect, or evidence of acute territorial ischemia by CT criteria. ACT 112: Negative or not required by law. Electronically signed by: Ronny Taylor M.D. 12/07/2021 1:19 PM Gallbladder Ultrasound 12/07/21 17:24 ABDOMINAL ULTRASOUND, RIGHT UPPER QUADRANT HISTORY: Right upper quadrant pain.. COMPARISON: None. FINDINGS: Pancreas: The pancreas demonstrates a normal echotexture. Liver: Unremarkable. Gallbladder: A few small gallstones. No gallbladder wall thickening. CBD: 8 mm. This is at the upper limits of normal given the patient's age. Right kidney: Mildly echogenic. No hydronephrosis. Miscellaneous: There are few enlarged right upper quadrant/periportal lymph nodes with the largest measuring 3.3 x 2.2 x 2.1 cm. IMPRESSION: 1. Cholelithiasis. No gallbladder wall thickening. 2. The common bile duct is at the upper limits of normal for age measuring 8 mm. 3. Right upper quadrant/periportal lymphadenopathy. ACT 112: Negative or not required by law. Electronically signed by: Josh Randhaaw M.D. 12/08/2021 6:56 AM PG Care Time/CCT Total # of Minutes Spent Total Time Spent with Patient: Total time spent is greater than 50% in coordination of care (as documented) at patient's floor/unit and/or counseling patient: Coding Level of Care Code 62709 Subseq Hosp Care Lvl 3 Diagnoses Acute metabolic encephalopathy G93.41 Carotid artery stenosis I65.29 Coronary artery calcification I25.10; I25.84 HTN (hypertension) I10 Hyperlipidemia E78.5 UTI (urinary tract infection) N39.0 Hematuria presence: without hematuria Urinary tract infection type: site unspecified CLL (chronic lymphocytic leukemia) C91.10 Gallstones K80.20 Lung nodule R91.1 Elevated troponin R77.8 (1) UTI (urinary tract infection) Hematuria presence: without hematuria Urinary tract infection type: site unspecified Qualified Code(s): N39.0 - Urinary tract infection, site not specified
[2021-12-08 12:29] LABS: Basophils # (auto) 0.03 K/uL (0-0.2); Basophils % (auto) 0.5 %; Eosinophils # (auto) 0.02 K/uL (0-0.50); Eosinophils % (auto) 0.3 %; Hematocrit (blood only) 30.2 % (34.1-44.9); Hemoglobin 10.4 g/dl (12.0-16.0); Immature Granulocytes # (auto) 0.07 K/uL (0.00-0.02); Immature Granulocytes % (auto) 1.2 %; Lymphocytes # (auto) 0.76 K/uL (1.2-3.4); Lymphocytes % (auto) 12.8 %; Mean Corpuscular Hemoglobin 32.8 pg (25.0-34.0); Mean Corpuscular Hgb Conc 34.4 g/dL (32.0-36.0); Mean Corpuscular Volume 95.3 fL (80.0-100.0); Monocytes # (auto) 0.29 K/uL (0.24-0.82); Monocytes % (auto) 4.9 %; Neutrophils # (auto) 4.77 K/uL (1.4-6.5); Neutrophils % (auto) 80.3 %; Platelet Count 180 K/uL (130-400); RDW Coefficient of Variation 13.1 % (11.5-14.5); RDW Standard Deviation 45.5 fL (36.4-46.3); Red Blood Count 3.17 M/uL (3.93-5.22); White Blood Count 5.94 K/ul (4.8-10.8)
[2021-12-08 12:57] LABS: Alanine Aminotransferase 17 U/L (7-52); Albumin Globulin Ratio 2.2 (0.9-2); Albumin Level 3.9 gm/dl (3.4-5.0); Alkaline Phosphatase 41 U/L (34-104); Anion Gap 8 (3-11); Aspartate Aminotransferase 15 U/L (13-39); BUN Creatinine Ratio 25.3 (10-20); Bilirubin,Total 1.1 mg/dl (0.2-1.0); Blood Urea Nitrogen 19 mg/dl (6-23); C Reactive Protein < 0.50 mg/dl (0-0.5); Calcium 8.8 mg/dl (8.5-10.1); Carbon Dioxide 21 mmol/L (21-32); Chloride 106 mmol/L (98-107); Creatinine Clr Calc Pharmacy 41.3 ml/min; Est GFR (African American) 87.3 ml/min; Est GFR (Non-African American) 75.3 ml/min; Globulin 1.8 gm/dl (2.5-4.0); Glucose 100 mg/dl (70-99(Fasting)); Potassium 4.2 mmol/L (3.5-5.1); Sodium 135 mmol/L (136-145); Total Protein 5.7 gm/dl (6.0-8.3)
[2021-12-08 12:59] LABS: Troponin I High Sensitivity 18.8 pg/ml (0-14)
[2021-12-08] MEDS ORDERED: GADOBUTROL 7.5ML VIAL IV ONE (14:42)
--- NOTE | 2021-12-08 18:24 | Magnetic Resonance Report ---
Brain MRI WITH AND WITHOUT CONTRAST HISTORY: Altered mental status. ?acute L CVA? TECHNIQUE: Multiplanar multisequence MRI of the brain was performed both before and after the intrave nous administration of contrast. COMPARISON STUDY: Head CT 12/07/2021. FINDINGS: There is no mass, hematoma, midline shift, or acute infarct. The paranasal sinuses are artemio r. The mastoid air cells are clear. The ventricles and sulci demonstrate mild age-related involutiona l changes. Scattered foci of T2 hyperintensity seen within the periventricular and subcortical white matter are nonspecific but suggestive of mild microvascular ischemic changes. The major vascular flow voids at the skull base are well-maintained. Multiple mildly enlarged bilateral cervical lymph nodes are partially visualized. Posterior subluxation at the C1-C2 level with moderate central canal narro wing at this level. This could be due to an old odontoid fracture. This is suboptimally assessed on t his study due to the motion artifact. No abnormal enhancement. Evidence for prior bilateral lens repa ir. IMPRESSION: 1. No acute infarct or intracranial hemorrhage. 2. Mild atrophy and microvascular ischemic changes. 3. Multiple mildly enlarged cervical lymph nodes. This could represent a lymphoma. 3. Moderate central canal narrowing within the upper cervical spine due to the posterior subluxation at the C1-C2 level. ACT 112: Negative or not required by law. Electronically signed by: Josh Randhawa M.D. 12/08/2021 6:23 PM
[2021-12-08 20:55] LABS: Influenza A virus by PCR Negative (Neg); Influenza B virus by PCR Negative (Neg); RSV by PCR Negative (Neg); SARS CoV2 RNA(COVID-19) InHosp NEGATIVE (Negative)
--- NOTE | 2021-12-08 21:31 | Electrocardiogram Report ---
Test Reason : Blood Pressure : / mmHG Vent. Rate : 072 BPM Atrial Rate : 072 BPM P-R Int : 170 ms QRS Dur : 094 ms QT Int : 406 ms P-R-T Axes : 011 -58 067 degrees QTc Int : 444 ms Normal sinus rhythm Low voltage QRS Incomplete right bundle branch block Left anterior fascicular block Cannot rule out Inferior infarct (cited on or before 21-JUN-2018) Cannot rule out Anterior infarct (cited on or before 21-JUN-2018) Abnormal ECG When compared with ECG of 07-DEC-2021 12:07, No significant change was found Confirmed by Rob Garcia ([id number]) on 12/08/2021 9:31:07 PM Referred By: REFERRED SELF Confirmed By:Rob Garcia
[2021-12-08] MEDS: cefTRIAXone SODIUM 1,000 MG in DEXTROSE 5% 50 ML IV SCH (21:34)
[2021-12-08] MEDS: DICLOFENAC SOD 1% GEL 100 GM TUBE EXT SCH (21:34)
[2021-12-08] MEDS: amLODIPine BESYLATE 5 MG TAB PO SCH (21:35)
[2021-12-09] MEDS: DICLOFENAC SOD 1% GEL 100 GM TUBE EXT SCH ×4 (07:42→21:31)
[2021-12-09] MEDS: CLOPIDOGREL BISULFATE 75 MG TAB PO SCH (07:42)
[2021-12-09] MEDS: ASPIRIN 81 MG ECTAB PO SCH (07:43)
[2021-12-09 09:59] LABS: Albumin Globulin Ratio 2.2 (0.9-2); Albumin Level 4.3 gm/dl (3.4-5.0); BUN Creatinine Ratio 21.6 (10-20); Calcium 9.4 mg/dl (8.5-10.1); Creatinine Clr Calc Pharmacy 39.6 ml/min; Est GFR (African American) 88.7 ml/min; Est GFR (Non-African American) 76.5 ml/min; Total Protein 6.3 gm/dl (6.0-8.3)
[2021-12-09 10:23] LABS: Lyme Ab IgG w/WB Rflx Negative (Negative); Lyme Ab IgM w/WB Rflx Negative (Negative)
[2021-12-09] MEDS: D5W AND NSS 1,000 ML IV SCH (13:01)
--- NOTE | 2021-12-09 20:41 | Hospitalist Progress Note ---
Date of Service December 09, 2021 Assessment & Plan (1) Acute metabolic encephalopathy: Plan: Extensive work-up this week done at [facility] (LINDSEY Guzman) on 12/03/21 - MRI brain, CTA head/neck, echo, CT abd/pelvis, and labs/urine cx/etc. All testing listed was normal/negative except u/a highly suspicious for UTI. Urine cx ultimately grew pansensitive e.coli. MRI brain NEGATIVE FOR ACUTE CVA at [place]. d/c to home from [facility] with keflex; took 3 days, concerns she was having adverse reaction from such, and then switched to PO cipro on 12/06. Waxing/waning mental status since Thursday night, 12/02. Had improved after visit to [facility], then worsened again late this past week. I obtained repeat MRI brain with contrast yesterday - negative for acute CVA, ICH, abnormal enhancement, etc. Repeat COVID/flu/RSV PCR negative. B12 level robust Blood cx's here negative. Lyme screen negative. Anaplasmosis smear negative. TSH wnl. Ammonia wnl. Given the presence of gallstones and top-normal CBD size of 8mm on RUQ u/s will obtain MRCP - r/o choledocholithiasis; r/o acute cholecystitis. Maintain rocephin for final days of e.coli UTI course; rocephin will also cover the biliary tree while awaiting MRCP. Repeat BMP in am. Send a vitamin B1 level to be complete. If MRCP is negative consider neurology evaluation, lumbar puncture, EEG. Of note - toxic encephalopathy from using cipro late last week was a possibility, but I would have expected her altered MS to have resolved by this point. (2) Carotid artery stenosis: Plan: CTA neck 12/03/21 at [facility] -- Moderate stenosis of left common carotid, severe stenosis of LICA, moderate stenosis of COY, moderate stenosis at the cavernous segment of both LICA and COY, moderate stenosis of intradural right vertebral artery. Despite the ICA stenosis she has had 2 negative MRIs of the brain this week (including yesterday) NEGATIVE for acute CVA. Continue asa Continue plavix Continue statin (3) Coronary artery calcification: Plan: as seen on imaging troponins minimally elevated suspect myocardial demand ischemia in setting of her illness no ischemic symptoms by report (4) HTN (hypertension): Plan: cont amlodipine controlled (5) Hyperlipidemia: Plan: cont statin (6) UTI (urinary tract infection): Plan: pansensitive e.coli dx at [facility] early last week keflex x 3 days, then was on cipro starting 12/06 u/a here largely normal suggesting UTI has cleared did receive IV rocephin 12/07 in our ER repeated the IV rocephin 12/08 and will continue again today today would be day #7 of abx therapy -- would continue rocephin until we rule out acute cholecystitis, choledocholithiasis, etc (7) CLL (chronic lymphocytic leukemia): Plan: per records MRI brain shows cervical lymphadenopathy RUQ u/s showed intra-abdominal lymphadenopathy suspect the lymphadenopathy is CLL-related will need to f/u with her oncologist in the future fortunately her CBC cell lines are stable (8) Gallstones: Plan: seen on CT at [facility], and on RUQ u/s here no GB wall thickening or fluid CBD, however, is top-normal at 8mm LFTs normal today to r/o smoldering GB process as cause of #1 above will obtain MRCP (9) Lung nodule: Plan: 6mm seen incidentally on CTA neck at [facility] will need f/u per nodule guidelines (10) Elevated troponin: Plan: 2nd myocardial demand ischemia no signs/symptoms of ACS repeat level today for stability (11) Degenerative disc disease: Plan: per her daughter she has been taking tramadol for several years for chronic low back pain she has had only a few doses of her tramadol over the last few days I don't suspect narcotic withdrawal, but certainly need to ensure she stays comfortable and doesn't withdraw while here thus, resume tramadol 50mg q12h (12) DVT prophylaxis: Plan: add heparin 5000 BID (13) Chronic renal failure, stage 3b: Plan: baseline CrCl 30-45 BMP in am for stability Plan rosa isela Jurado extensively updated by phone 12/09/21 will need PT/OT Admission and Anticipated Discharge Date Admission Date: December 08, 2021 Subjective patient very confused during the visit was talking about seeing Hravey Tyrone on the roof, then was talking about seeing "3 little birds" in the tree most of her speech was nonsensical with constant shifting from topic to topic was unable to provide any meaningful history or ROS could not tell me why she was here or where she was ate very little for breakfast this am Review of Systems Review of Systems: Unobtainable due to cognitive status Physical Exam Physical Exam: gen - thin; awake; only oriented to person; inconsistent in following commands; hallucinating; nonsensical speech mouth - MMM, no lesions neck - no JVD heart - RRR, some ectopy, s1 s2, 2/6 systolic murmur LSB lungs - CTA b/l abd - soft; ? mild tenderness upper abdomen?; ND BS+ no HSM ext - no edema, pulses 2+ b/l neuro - no obvious facial droop; moves all 4 limbs; speech clear but not fluent skin - no rash Results & Data Results & Data ([facility]) Vital Signs (Past 12 Hours) Vital Signs Temp Pulse Pulse Resp BP BP Pulse Ox 12/09/21 19:49 36.7 C 75 20 118/61 95 12/09/21 15:42 37.1 C 77 18 122/81 94 12/09/21 15:23 81 12/09/21 11:22 36.9 C 85 17 126/71 94 O2 Del Method 12/09/21 19:49 Room Air 12/09/21 15:42 Room Air 12/09/21 15:23 12/09/21 11:22 Room Air Laboratory Results Laboratory Results - last 24 hr 12/08/21 12/09/21 12/09/21 19:40 09:17 09:17 Sodium 136 Potassium 4.0 Chloride 103 Carbon Dioxide 24 Anion Gap 9 BUN 16 Creatinine 0.74 Est Cr Clr Drug Dosing 39.6 Est GFR ( Amer) 88.7 Est GFR (Non-Af Amer) 76.5 BUN/Creatinine Ratio 21.6 H Glucose 113 H Calcium 9.4 Total Bilirubin 1.0 AST 17 ALT 18 Alkaline Phosphatase 48 Total Protein 6.3 Albumin 4.3 Globulin 2.0 L Albumin/Globulin Ratio 2.2 H Anaplasma Smear See Comment Lyme Disease IgG Ab Lyme Disease IgM Ab SARS-CoV-2 (PCR) NEGATIVE Influenza Type A (PCR) Negative Influenza Type B (PCR) Negative RSV (RT-PCR) Negative 12/09/21 09:17 Sodium Potassium Chloride Carbon Dioxide Anion Gap BUN Creatinine Est Cr Clr Drug Dosing Est GFR ( Amer) Est GFR (Non-Af Amer) BUN/Creatinine Ratio Glucose Calcium Total Bilirubin AST ALT Alkaline Phosphatase Total Protein Albumin Globulin Albumin/Globulin Ratio Anaplasma Smear Lyme Disease IgG Ab Negative Lyme Disease IgM Ab Negative SARS-CoV-2 (PCR) Influenza Type A (PCR) Influenza Type B (PCR) RSV (RT-PCR) Diagnostic Findings blood cultures from admission negative to date PG Care Time/CCT Total # of Minutes Spent Total Time Spent with Patient: Total time spent is greater than 50% in coordination of care (as documented) at patient's floor/unit and/or counseling patient: Coding Level of Care Code 94025 Subseq Hosp Care Lvl 3 Diagnoses Acute metabolic encephalopathy G93.41 Carotid artery stenosis I65.29 Coronary artery calcification I25.10; I25.84 HTN (hypertension) I10 Hyperlipidemia E78.5 UTI (urinary tract infection) N39.0 Hematuria presence: without hematuria Urinary tract infection type: site unspecified CLL (chronic lymphocytic leukemia) C91.10 Gallstones K80.20 Lung nodule R91.1 Elevated troponin R77.8 Degenerative disc disease DVT prophylaxis Z29.9 Chronic renal failure, stage 3b N18.32 (1) UTI (urinary tract infection) Hematuria presence: without hematuria Urinary tract infection type: site unspecified Qualified Code(s): N39.0 - Urinary tract infection, site not specified
[2021-12-09] MEDS: traMADol HCL 50 MG TABLET PO SCH (21:30)
[2021-12-09] MEDS: amLODIPine BESYLATE 5 MG TAB PO SCH (21:30)
[2021-12-09] MEDS: cefTRIAXone SODIUM 1,000 MG in DEXTROSE 5% 50 ML IV SCH (21:30)
[2021-12-09] MEDS: MELATONIN 3 MG TAB PO PRN (23:06)
[2021-12-10] MEDS: D5W AND NSS 1,000 ML IV SCH (08:02)
[2021-12-10] MEDS: HEPARIN SOD 5,000 UNIT/0.5 ML VIAL SQ SCH ×2 (08:03→20:56)
[2021-12-10] MEDS: CLOPIDOGREL BISULFATE 75 MG TAB PO SCH (08:03)
[2021-12-10] MEDS: ASPIRIN 81 MG ECTAB PO SCH (08:03)
[2021-12-10] MEDS: DICLOFENAC SOD 1% GEL 100 GM TUBE EXT SCH ×4 (08:03→20:56)
[2021-12-10] MEDS: traMADol HCL 50 MG TABLET PO SCH ×2 (08:05→20:56)
[2021-12-10 09:29] LABS: BUN Creatinine Ratio 20.5 (10-20); Calcium 9.6 mg/dl (8.5-10.1); Creatinine Clr Calc Pharmacy 35.8 ml/min; Est GFR (African American) 77.2 ml/min; Est GFR (Non-African American) 66.6 ml/min; Potassium 3.7 mmol/L (3.5-5.1)
--- NOTE | 2021-12-10 11:14 | Magnetic Resonance Report ---
MR MRCP HISTORY: Right upper quadrant pain. gallstones, 8mm CBD; eval cholecystitis/CBD stone TECHNIQUE: MRCP of the abdomen was performed without contrast according to standard department protoc ol. COMPARISON STUDY: Abdominal ultrasound 12/08/2021. FINDINGS: Adult Nurse Practitioner images demonstrate a right total hip arthroplasty. Significant motion artifact throug hout the examination resulting in suboptimal evaluation. The lung bases appear grossly clear. No hepa tic or splenic masses. No hydronephrosis. The pancreas appears unremarkable. The aorta is normal in c aliber. There is a 1.4 cm T2 hyperintense lesion within the left kidney. This likely represents a cys t. Mild levoscoliosis of the lumbar spine. Suggestion of abnormal soft tissue density within the bernardo portal location. This favors periportal lymphadenopathy. Nondiagnostic evaluation for a common bile d uct filling defect due to the respiratory motion artifact. The gallbladder is also not well evaluated due to the motion artifact. The gallbladder does not appear to be distended. The common bile duct ap pears to measure up to 6 mm in diameter which is considered to be within the range of normal limits. No significant intrahepatic bile duct dilatation. The pancreatic duct is nondiagnostic due to the mot ion artifact. IMPRESSION: 1. Significant motion artifact resulting in suboptimal evaluation. 2. Specifically, evaluation for a common bile duct filling defect is nondiagnostic. However, the comm on bile duct appears to be normal and caliber. 3. Greater than expected soft tissue density within the periportal location. This favors periportal l ymphadenopathy represent a lymphoproliferative disorder such as lymphoma. Follow-up abdomen and pelvi s CT recommended for confirmation. 4. Near nondiagnostic evaluation of the gallbladder. The gallbladder does not appear to be distended. ACT 112: Negative or not required by law. Electronically signed by: Josh Randhawa M.D. 12/10/2021 11:13 AM
--- NOTE | 2021-12-10 13:31 | Hospitalist Progress Note ---
Date of Service December 10, 2021 Assessment & Plan (1) Acute metabolic encephalopathy: Plan: Extensive work-up this week done at [facility] ([facility] on 12/03/21 - MRI brain, CTA head/neck, echo, CT abd/pelvis, and labs/urine cx/etc. All testing listed was normal/negative except u/a highly suspicious for UTI. Urine cx ultimately grew pansensitive e.coli. MRI brain NEGATIVE FOR ACUTE CVA at [place]. d/c to home from [facility] with keflex; took 3 days, concerns she was having adverse reaction from such due to worsening mental status and then switched to PO cipro on 12/06. Waxing/waning mental status since Thursday night, 12/02. Had improved after visit to [facility], then worsened again late this past week. Repeat MRI brain with contrast at this hospital- negative for acute CVA, ICH, abnormal enhancement, etc. Repeat COVID/flu/RSV PCR negative. B12 level robust Blood cx's here remain negative. Lyme screen negative. Anaplasmosis smear negative. TSH wnl. Ammonia wnl. Given the presence of gallstones and top-normal CBD size of 8mm on RUQ u/s obtained MRCP -Motion artifact prevented good assessment, but no CBD dilatation Most likely no issues with gallbladder, plus LFTs normal. Repeat urinalysis and urine culture here are negative for infection No fevers or leukocytosis No meningismus signs Perhaps this could be a toxic encephalopathy secondary to cephalexin which was then worsened by Cipro. She does have a long history of side effects to various medications that tend to include a lot of mental status changes. Perhaps some of it is from withdrawal from not taking her tramadol like she normally does. Perhaps this is a Wernicke's encephalopathy although seems odd to come on acutely. Perhaps this could be some sort of paraneoplastic syndrome although also seems odd to come on acutely -Discontinue ceftriaxone-no infection present -Start high-dose thiamine empirically at 500 mg IV every 8 hours and assess for improvement in 24 hours -Consult neurology -Check EEG to rule out nonepileptic seizures -Consider lumbar puncture to assess for viral encephalitis-we will need to hold Plavix for this -lack of sleep for many days on end also exacerbating this--> d/w daughter and agreeable to trial of Zyprexa low dose for sleep -Continue supportive care, IV fluids for hydration while p.o. intake is poor (2) Carotid artery stenosis: Plan: CTA neck 12/03/21 at [facility] -- Moderate stenosis of left common carotid, severe stenosis of LICA, moderate stenosis of COY, moderate stenosis at the cavernous segment of both LICA and COY, moderate stenosis of intradural right vertebral artery. Despite the ICA stenosis she has had 2 negative MRIs of the brain this week- NEGATIVE for acute CVA. Continue asa Continue plavix except hold for possible LP Continue statin however this should be intensified in dosing due to severe CRISTA (3) Coronary artery calcification: Plan: as seen on imaging troponins minimally elevated suspect myocardial demand ischemia in setting of her illness no ischemic symptoms by report (4) HTN (hypertension): Plan: cont amlodipine controlled (5) Hyperlipidemia: Plan: cont statin (6) UTI (urinary tract infection): Plan: pansensitive e.coli dx at [facility] early last week keflex x 3 days, then was on cipro starting 12/06 u/a here largely normal suggesting UTI has cleared did receive IV rocephin 12/07 in our ER repeated the IV rocephin 12/08 -Discontinue Rocephin (7) CLL (chronic lymphocytic leukemia): Plan: per records MRI brain shows cervical lymphadenopathy RUQ u/s showed intra-abdominal lymphadenopathy suspect the lymphadenopathy is CLL-related will need to f/u with her oncologist in the future fortunately her CBC cell lines are stable (8) Gallstones: Plan: seen on CT at [facility], and on RUQ u/s here no GB wall thickening or fluid CBD, however, is top-normal at 8mm LFTs normal MRCP somewhat nondiagnostic but overall does not seem consistent with acute cholecystitis or choledocholithiasis (9) Lung nodule: Plan: 6mm seen incidentally on CTA neck at [facility] will need f/u per nodule guidelines (10) Elevated troponin: Plan: 2nd myocardial demand ischemia no signs/symptoms of ACS Okay to discontinue telemetry (11) Degenerative disc disease: Plan: per her daughter she has been taking tramadol for several years for chronic low back pain she has had only a few doses of her tramadol over the last week due to her altered mental status and confusion There is some small suspicion that this could be encephalopathy secondary to narcotic withdrawal, but certainly need to ensure she stays comfortable and doesn't withdraw while here thus, resumed tramadol 50mg q12 on 12/09 (12) Chronic renal failure, stage 3b: Plan: baseline CrCl 30-45 Renal function remains at baseline -Avoid nephrotoxins -renally dose meds when appropriate -follow BMP (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: Plan: daughter reports chronic neck pain prior to encephalopathy CTA neck from [facility] with mention of such and MRI brain here with mention of C1/C2 subluxation, possible old odontoid fracture -check CT cervical spine as would not tolerate MRI due to motion -consult Ortho Spine for further opinion (14) DVT prophylaxis: Plan: heparin 5000 BID Plan daughter Juan Jose extensively updated by phone 12/10/21 will need PT/OT Admission and Anticipated Discharge Date Admission Date: December 08, 2021 Subjective Patient was awake and alert and interactive when I saw her around midday today. However, she frequently repeated phrases back to me that I had just sent to her i.e. echolalia. She also frequently said the phrases "Trumpers" and "flip and flop, flipping and flopping," as well as multiple references to the number "four." She was able to follow all of my commands and was a bit tremulous. She did seem to understand everything I was telling her but did have trouble expressing herself appropriately. Her telemetry is always artifact but there are regular QRS complexes visible. Later in the day, I advised the nurse that the telemetry leads could be removed as they were unable to get a good reading no matter how many positions they tried. I discussed her care with her daughter, Karina, on the phone at length. She reports that her mom started off with some chills over a week ago and slept all day, and may have come down with a UTI then. She was seen in the ER the following day where she was diagnosed with UTI and had her stroke work-up. She did seem to improve overnight with antibiotics for UTI and IV fluids for hydr ation and had 1 day of lucidity. After that, she continued to progressively get more more confused until she presented to our hospital. Her daughter reports that the patient has not slept in almost 5 days straight and is agreeable to trying Zyprexa as an antipsychotic. Daughter does report that in reference to the finding of a C1-C2 old fracture on imaging, that her mom does complain of chronic neck and back pain has been taking a lot of tramadol for this. Review of Systems Review of Systems: Unobtainable due to cognitive status Physical Exam Constitutional: WD/WN, vitals as above Eyes: PERRL, conjunctivae normal, anicteric sclerae EOM intact bilaterally; no anisocoria and no nystagmus ENMT: external ear and nose normal, oropharynx normal Neck: trachea midline, no thyromegaly Respiratory: normal respiratory effort, lungs clear to auscultation Cardiovascular: RRR, no murmur, no edema Chest (Breasts): Chest: normal inspection of chest Gastrointestinal (Abdomen): normal bowel sounds, soft, nontender, no hepatosplenomegaly Musculoskeletal: Extremities: extremities normal to inspection; no cyanosis and no clubbing Skin: no rashes, warm and dry Neurologic: CN's II-XI intact bilaterally, deep tendon reflexes 2+ bilaterally, moves all extremities, awake and + confused; no focal motor deficits, no meningeal signs and not obtunded Speech / Cognition: + abnormal speech (Repetitive, echolalia), + expressive aphasia and + abnormal cognition Motor/Sensory: + tremor; no sensory deficit Psychiatric: Orientation: alert, oriented to person and cooperative Eye Co ntact: good eye contact Lymphatic: no lymphedema Results & Data Results & Data ([facility]) Vital Signs (Past 12 Hours) Vital Signs Temp Pulse Pulse Resp BP Pulse Ox O2 Del Method 12/10/21 11:35 36.7 C 61 18 109/65 97 Room Air 12/10/21 07:00 65 12/10/21 03:28 36.9 C 89 22 125/86 96 Room Air Laboratory Results 12/10/21 12/10/21 Range/Units 08:14 08:14 Sodium 139 (136-145) mmol/L Potassium 3.7 (3.5-5.1) mmol/L Chloride 107 (98-107) mmol/L Carbon Dioxide 23 (21-32) mmol/L Anion Gap 9 (3-11) BUN 17 (6-23) mg/dl Creatinine 0.83 (0.6-1.2) mg/dl Est Cr Clr Drug Dosing 35.8 ml/min Est GFR ( Amer) 77.2 ml/min Est GFR (Non-Af Amer) 66.6 ml/min BUN/Creatinine Ratio 20.5 H (10-20) Glucose 130 H (70-99(Fasting)) mg/dl Calcium 9.6 (8.5-10.1) mg/dl Vitamin B1 Pending Diagnostic Findings Cholangiopancreatography MRI 12/09/21 11:01 MR MRCP HISTORY: Right upper quadrant pain. gallstones, 8mm CBD; eval cholecystitis/CBD stone TECHNIQUE: MRCP of the abdomen was performed without contrast according to standard department protocol. COMPARISON STUDY: Abdominal ultrasound 12/08/2021. FINDINGS: Inside [employer] images demonstrate a right total hip arthroplasty. Significant motion artifact throughout the examination resulting in suboptimal evaluation. The lung bases appear grossly clear. No hepatic or splenic masses. No hydronephrosis. The pancreas appears unremarkable. The aorta is normal in evan iber. There is a 1.4 cm T2 hyperintense lesion within the left kidney. This likely represents a cyst. Mild levoscoliosis of the lumbar spine. Suggestion of abnormal soft tissue density within the periportal location. This favors periportal lymphadenopathy. Nondiagnostic evaluation for a common bile duct filling defect due to the respiratory motion artifact. The gallbladder is also not well evaluated due to the motion artifact. The gallbladder does not appear to be distended. The common bile duct appears to measure up to 6 mm in diameter which is considered to be within the range of normal limits. No significant intrahepatic bile duct dilatation. The pancreatic duct is nondiagnostic due to the motion artifact. IMPRESSION: 1. Significant motion artifact resulting in suboptimal evaluation. 2. Specifically, evaluation for a common bile duct filling defect is nondiagnostic. However, the common bile duct appears to be normal and caliber. 3. Greater than expected soft tissue density within the periportal location. This favors periportal lymphadenopathy represent a lymphoproliferative disorder such as lymphoma. Follow-up abdomen and pelvis CT recommended for confirmation. 4. Near nondiagnostic evaluation of the gallbladder. The gallbladder does not appear to be distended. ACT 112: Negative or not required by law. Electronically signed by: Josh Randhawa M.D. 12/10/2021 11:[address] 12/10/21 13:19 CT cervical spine wo con CLINICAL HISTORY: C1/C2 subluxation, possible old odontoid fracture . Metabolic encephalopathy. TECHNIQUE: Multidetector row helical CT of the cervical spine was performed without administration of intravenous contrast. Coronal and sagittal reformations were obtained. Automated dose lowering techniques and/or adjustment according to patient size were utilized for this exam. Comparison: Comparison is made to CT head 12/07/2021 FINDINGS: There is a chronic appearing deformity of the dens and atlas. C1 is displaced posteriorly and to the right of C2. A chronic appearing calcified density is seen posterior to the dens which may represent findings of fracture versus degenerative changes versus prominent calcification of the transverse ligament. Degenerative changes are seen in the visualized spine. There is straightening of the cervical spine. Biapical scarring and emphysema are seen. Numerous prominent lymph nodes are noted in the neck and visualized subclavian stations. IMPRESSION: 1. Chronic appearing degenerative changes and subluxation of the atlantoaxial joint. C1 is displaced posteriorly and to the right of C2. No acute fracture is seen. 2. Numerous enlarged lymph nodes are seen in the visualized cervical supraclavicular stations compatible with history of CLL. ACT 112: Negative or not required by law. Electronically signed by: Naseem Kurtz M.D. 12/10/2021 3:17 PM PG Care Time/CCT Total # of Minutes Spent Total Time Spent with Patient: Total time spent is greater than 50% in coordination of care (as documented) at patient's floor/unit and/or counseling patient: Prolonged Care Time Prolonged Care Time: Yes Total Prolonged Care Time: 90 I spent over 90 minutes in prolonged service time in the care of this patient with highly complex medical issues Coding Level of Care Code 43173 Subseq Hosp Care Lvl 3 (25 - SIGNIFICANT, SEPARATELY IDENTIFIABLE ) Diagnoses Acute metabolic encephalopathy G93.41 Carotid artery stenosis I65.29 Coronary artery calcification I25.10; I25.84 HTN (hypertension) I10 Hyperlipidemia E78.5 UTI (urinary tract infection) N39.0 Hematuria presence: without hematuria Urinary tract infection type: site unspecified CLL (chronic lymphocytic leukemia) C91.10 Gallstones K80.20 Lung nodule R91.1 Elevated troponin R77.8 Degenerative disc disease Chronic renal failure, stage 3b N18.32 Odontoid fracture with nonunion S12.110K DVT prophylaxis Z29.9 Additional Codes Prolonged Care Time - Prolonged Care Time: Yes ([id number]) (1) UTI (urinary tract infection) Hematuria presence: without hematuria Urinary tract infection type: site unspecified Qualified Code(s): N39.0 - Urinary tract infection, site not specified
[2021-12-10] MEDS: THIAMINE HCL 500 MG in SODIUM CHLORIDE 0.9% 50 ML IV SCH ×2 (13:36→21:02)
[2021-12-10] MEDS ORDERED: OLANZAPINE 2.5 MG TAB PO ONE (14:19)
--- NOTE | 2021-12-10 15:18 | CT Scan Report ---
CT cervical spine wo con CLINICAL HISTORY: C1/C2 subluxation, possible old odontoid fracture . Metabolic encephalopathy. TECHNIQUE: Multidetector row helical CT of the cervical spine was performed without administration of intravenous contrast. Coronal and sagittal reformations were obtained. Automated dose lowering techn iques and/or adjustment according to patient size were utilized for this exam. Comparison: Comparison is made to CT head 12/07/2021 FINDINGS: There is a chronic appearing deformity of the dens and atlas. C1 is displaced posteriorly and to the right of C2. A chronic appearing calcified density is seen posterior to the dens which may represent findings of fracture versus degenerative changes versus prominent calcification of the transverse lig ament. Degenerative changes are seen in the visualized spine. There is straightening of the cervical spine. Biapical scarring and emphysema are seen. Numerous prominent lymph nodes are noted in the neck and visualized subclavian stations. IMPRESSION: 1. Chronic appearing degenerative changes and subluxation of the atlantoaxial joint. C1 is displaced posteriorly and to the right of C2. No acute fracture is seen. 2. Numerous enlarged lymph nodes are seen in the visualized cervical supraclavicular stations compat ible with history of CLL. ACT 112: Negative or not required by law. Electronically signed by: Naseem Kurtz M.D. 12/10/2021 3:17 PM
--- NOTE | 2021-12-10 18:55 | Neurology Consultation ---
Date of Consultation December 10, 2021 Assessment & Plan (1) Delirium: (2) UTI (urinary tract infection): (3) Carotid artery stenosis: (4) CLL (chronic lymphocytic leukemia): (5) Odontoid fracture with nonunion: (6) Altered mental status: Plan ASSESSMENT and PLAN: 1. Encephalopathy with delirium Impression: The patient has been having fluctuating confusion, disorientation, agitation, restlessness, and speech disturbance, for last 9 days. Such symptoms has been improved temporarily, while she was treated for urinary tract infection and dehydration last week. However, her mental status has been declining during the last few days, and she was rehospitalized. For last 2 days, the patient has been delirious, and unable to sleep, which agitation and visual hallucinations. This is most likely multifactorial delirium, induced by urinary tract infection, recent hospitalization, new diagnosis, and anxiety related to expected vascular surgery. We need to rule out nonconvulsive seizures. Based on findings and history, central nervous system infectious process is unlikely, however, if mental status change persist, day and we might consider further testing. Recommendations: Frequent orientation. Avoid sedative medications. For agitation and sleep deprivation, Seroquel 25 mg at bedtime might be tried. EEG to rule out nonconvulsive seizures. I agree with holding Plavix for 2 days. In case of persistent altered mental status/delirium, then we we will consider spinal tap in 2 days, to rule out SLABBER infection. However, if the patient's mental status improves, then LP should be canceled, and Plavix should be restarted. Management of metabolic derangements and treatment infections as you do. Supportive care. We will see the patient again after EEG. 2. Urinary tract infection Impression: The patient was recently treated for urinary tract infection. Antibiotics have been changed few times, because of potential side effects. 3. Carotid artery stenosis Impression: The patient was recently diagnosed with severe internal carotid artery stenosis, and evaluation is pending for vascular intervention. The patient has no history of neuro cerebrovascular accident. Recent brain MRI is again negative for cerebrovascular accident. Plan: Continue on antiplatelet and antilipid treatment as before. Follow-up with vascular surgery. Thank you for the consultation. History of Present Illness Reason for Consultation: [facility] Requesting Physician: Kierra Gama MD Attending Physician: Kierra Gama MD History of Present Illness The patient is a very pleasant, 81-year-old female, who was admitted to hospital 3 days ago, because of confusion, disorientation, and agitation. Until 9 days ago, the patient was able to live on her own, with normal cognitive functioning. After she was found somewhat confused and disoriented, she was taken to another hospital, and was diagnosed with urinary tract infection last week. She was treated on antibiotics and hydrated, with improvement of her mental status. While she was in the hospital, she was diagnosed with severe carotid artery stenosis. Brain MRI was negative for cerebrovascular accident. The patient did not want to pursue with vascular surgery then, and decided to go home and to think about it. According to daughter, the patient has been having ongoing confusion, disorientation, and gradually worsening agitation and restlessness since then. She has been having visual hallucinations, obsessive thinking, worrying about surgery, and repeating herself, and she has not been having good night sleep. She has not had any loss of consciousness, tonic-clonic activity, or stereotyped movements to suggest seizures. Because of her declining cognitive functioning, and refusal of oral intake, family decided to take her back to emergency department. Apparently, she was treated on different antibiotics for urinary tract infection. She was started on antibiotic on admission. However, her mental status has not been improving during hospital stay, and she has not been sleeping well for last few nights. She was nonverbal on admission, which has been improved some, but she has been having repetition, and stuttering, and she is still confused and disoriented. Because of agitation, and restlessness, she was given a dose of sedative medication this evening, which calm her down. She is currently not agitated, cooperates well, but still confused and disoriented. Most of the information has been gathered from the patient's daughter. Because of persistent mental status change, brain MRI was repeated during this hospitalization, which did not show any acute pathology. The patient has not had any fever, chills, leukocytosis, head and neck pain. She has no meningismus sign throughout the process. There has been no sick contact. No fall or head trauma reported. I have reviewed the patient's chart including imaging studies and visualized them personally. I have discussed the case with the patient's daughter and I have answered her questions in detail. Allergies Allergy/AdvReac Type Severity Reaction Status Date / Time acetaminophen [From NyQuil] Allergy Unknown rapid Verified 12/07/21 16:38 heart beat, "brain does not stop working" adhesive tape Allergy Unknown blistering Verified 12/07/21 16:38 dextromethorphan Allergy Unknown rapid Verified 12/07/21 16:38 [From NyQuil] heart beat, "brain does not stop working" diphenhydramine Allergy Unknown rapid Verified 12/07/21 16:38 [From Tylenol PM] heart beat, "brain does not stop working" doxylamine [From NyQuil] Allergy Unknown rapid Verified 12/07/21 16:38 heart beat, "brain does not stop working" gluten Allergy Unknown "gluten Verified 12/07/21 16:38 free diet" - GI SYMPTOMS lactose Allergy Unknown "lactose Verified 12/07/21 16:38 intolerant" - GI SYMPTOMS nitrofurantoin Allergy Unknown rapid Verified 12/07/21 16:38 heart beat, can't sleep, "brain does not stop" pseudoephedrine [From NyQuil] Allergy Unknown rapid Verified 12/07/21 16:38 heart beat, "brain does not stop working" Sulfa (Sulfonamide Allergy Unknown "sulfa" - Verified 12/07/21 16:38 Antibiotics) "makes me hyper, can't sit still" cephalexin AdvReac Unknown Verified 12/07/21 16:38 "ANTIHISTAMINE" Allergy Unknown rapid Uncoded 12/07/21 16:38 heart beat, can't sleep, "brain does not stop working" "TYLENOL COLD AND SINUS" Allergy Unknown rapid Uncoded 12/07/21 16:38 heart beat, "brain does not stop working" Home Medications Medication Instructions Recorded Confirmed Type amlodipine 10 mg tablet 10 mg PO QPM 06/14/18 12/07/21 History ascorbic acid (vitamin C) 500 mg 500 mg PO QAM 06/14/18 12/07/21 History capsule,extended release (Vitamin C) cyanocobalamin (vitamin B-12) 500 tab PO QAM 06/14/18 12/07/21 History 1,000 mcg tablet (Vitamin B-12) multivitamin (Multiple Vitamins 1 tab PO QAM 06/14/18 12/07/21 History tablet) simvastatin 10 mg tablet 10 mg PO PM 06/14/18 12/07/21 History tramadol 50 mg tablet 50 mg PO Q12 10/04/20 12/07/21 History acetaminophen 650 mg 650 mg PO Q12H PRN Pain 12/05/21 12/07/21 History tablet,extended release (Tylenol 8 Hour) aspirin 81 mg tablet,delayed 81 mg PO DAILY 12/05/21 12/07/21 History release clopidogrel 75 mg tablet 75 mg PO DAILY 12/05/21 12/07/21 History pantoprazole 40 mg tablet,delayed 40 mg PO QPM 12/05/21 12/07/21 History release Zinc Tab 1 tab PO DAILY 12/07/21 12/07/21 History alfuzosin 10 mg tablet,extended 10 mg PO DAILY PRN uti 12/07/21 12/07/21 History release 24 hr cholecalciferol (vitamin D3) 125 125 mcg PO DAILY 12/07/21 12/07/21 History mcg (5,000 unit) tablet (Vitamin D3) ciprofloxacin HCl 500 mg tablet 500 mg PO BID 12/07/21 12/07/21 History (Cipro) propylene glycol 0.6 % eye drops 1 drp ophthalmic (eye) DIRECTED 12/07/21 12/07/21 History (Systane Complete) PRN dry eyes Patient History Medical History Acid reflux Arthritis CLL (chronic lymphocytic leukemia) Diagnosed in 2013, sees her Oncologist routinely. -- No treatment Degenerative disc disease Hiatal hernia Hyperlipidemia Hypertension Odontoid fracture with nonunion Surgical History History of appendectomy History of bilateral cataract extraction History of colonoscopy x2 History of left knee replacement History of lumpectomy of left breast History of tonsillectomy History of total right hip arthroplasty History of total shoulder replacement RIGHT History of tubal ligation Social History Smoking Status: Former smoker Cigarettes Per Day: 1 ppd x 50 years. QUIT 2013; Smoking End Date: 2013; Second Hand Exposure: No; Hx Alcohol Use: No Hx Substance Use: Yes Last Used Substance: Hours (ago) Last Used Substance Other:: 0100 07 Dec 2021 Substance Use Type Other:: Tramadol Preferred Language: Tristanian Communication Ability: Impaired Project Intern Required: No Beliefs That Will Affect Care: None Current Living Situation: Alone Other Information That Helps Us Care for You: No Feels Safe at Home: Yes Safety Concerns: Feels Safe At This Time Assistive Devices: Cane Review of Systems Review of Systems: Unobtainable due to cognitive status Physical Exam Physical Exam: General Examination: Constitutional: Well developed person in no acute distress currently but reported recent agitation/restlessness. HENT: Normal exam with inspection. CV: Hearth rhtyhm is regular. Neck: Supple, left carotid bruits. Lungs: Non-labored and comfortable breathing. Abdomen: Soft, non-tender, non-distended. Skin: No rash or ecchymosis. Extremities: No edema or cyanosis NEUROLOGICAL EXAMINATION: Mental Status: Alert but confused and oriented to her name only. Delirious. Cranial Nerves: II-XII are intact except some hearing loss. No nystagmus. Funduscopy: Unable to visualize Motor: 5-/5 in all extremities without asymmetry. Tone: Normal without spasticity or rigidity. Sensory: Intact grossly DTR's: 1+ all symmetrically. No Babinsky Coordination: No dysmetria with FTN testing. Speech: Repeats herself with stuttering. Follows some of simple verbal commands. Positive tracking and eye contact. Gait: Unable to assess. She was able to walk on admission. Musculoskeletal: Normal muscle bulk, no atrophy. Results & Data ([facility]) Vital Signs (Past 12 Hours) Vital Signs Temp Pulse Pulse Resp BP BP Pulse Ox 12/10/21 17:24 36.7 C 86 16 144/78 H 93 12/10/21 14:54 75 12/10/21 11:35 36.7 C 61 18 109/65 97 12/10/21 07:00 65 O2 Del Method 12/10/21 17:24 Room Air 12/10/21 14:54 12/10/21 11:35 Room Air 12/10/21 07:00 Laboratory Results Laboratory Results - last 24 hr 12/10/21 12/10/21 08:14 08:14 Sodium 139 Potassium 3.7 Chloride 107 Carbon Dioxide 23 Anion Gap 9 BUN 17 Creatinine 0.83 Est Cr Clr Drug Dosing 35.8 Est GFR ( Amer) 77.2 Est GFR (Non-Af Amer) 66.6 BUN/Creatinine Ratio 20.5 H Glucose 130 H Calcium 9.6 Vitamin B1 Pending Diagnostic Findings Chest X-Ray 12/07/21 12:06 SINGLE VIEW CHEST CLINICAL HISTORY: Change in mental status. Atypical chest pain. FINDINGS: An AP, portable, upright chest radiograph is compared to study dated 08/13/2021. The cardiomediastinal silhouette is top normal for projection. The mitral annulus is densely calcified. Chronic interstitial thickening is similar to previous. No airspace consolidation or large pleural effusion is identified. No pneumothorax is seen. The skeletal structures are osteopenic. The bony thorax is grossly intact. A right shoulder arthroplasty is in place. IMPRESSION: No acute cardiopulmonary abnormality. ACT 112: Negative or not required by law. Electronically signed by: Ronny Taylor M.D. 12/07/2021 1:[address] 12/07/21 12:06 CT SCAN OF THE BRAIN WITHOUT IV CONTRAST CLINICAL HISTORY: Change in mental status. COMPARISON STUDY: No priors. TECHNIQUE: Unenhanced axial CT scan of the brain is performed from the vertex to the skull base. A dose lowering technique was utilized adhering to the principles of ALARA. The examination is modestly degraded by motion artifact. CT DOSE: 614.27 mGy.cm FINDINGS: Brain parenchyma: There is age-related involutional change noting mild to moderate patchy subcortical and periventricular microangiopathic disease. There is no hemorrhage, mass effect, or evidence of acute territorial ischemia by CT criteria. Richardson-white matter differentiation is preserved. No extra-axial fluid collection is seen. Ventricles, sulci, cisterns: Prominent secondary to involutional change. Intracranial vasculature: There is atherosclerotic calcification of the cavernous carotid and vertebral arteries. Calvarium: Unremarkable. Sinuses and mastoids: The paranasal sinuses are clear. The mastoid air cells are well pneumatized. Orbits: The bony orbits are grossly intact. There are bilateral ocular lens implants. IMPRESSION: There is no hemorrhage, mass effect, or evidence of acute territorial ischemia by CT criteria. ACT 112: Negative or not required by law. Electronically signed by: Ronny Taylor M.D. 12/07/2021 1:19 PM Gallbladder Ultrasound 12/07/21 17:24 ABDOMINAL ULTRASOUND, RIGHT UPPER QUADRANT HISTORY: Right upper quadrant pain.. COMPARISON: None. FINDINGS: Pancreas: The pancreas demonstrates a normal echotexture. Liver: Unremarkable. Gallbladder: A few small gallstones. No gallbladder wall thickening. CBD: 8 mm. This is at the upper limits of normal given the patient's age. Right kidney: Mildly echogenic. No hydronephrosis. Miscellaneous: There are few enlarged right upper quadrant/periportal lymph nodes with the largest measuring 3.3 x 2.2 x 2.1 cm. IMPRESSION: 1. Cholelithiasis. No gallbladder wall thickening. 2. The common bile duct is at the upper limits of normal for age measuring 8 mm. 3. Right upper quadrant/periportal lymphadenopathy. ACT 112: Negative or not required by law. Electronically signed by: Josh Randhawa M.D. 12/08/2021 6:56 AM Brain MRI 12/08/21 13:39 Brain MRI WITH AND WITHOUT CONTRAST HISTORY: Altered mental status. ?acute L CVA? TECHNIQUE: Multiplanar multisequence MRI of the brain was performed both before and after the intravenous administration of contrast. COMPARISON STUDY: Head CT 12/07/2021. FINDINGS: There is no mass, hematoma, midline shift, or acute infarct. The paranasal sinuses are clear. The mastoid air cells are clear. The ventricles and sulci demonstrate mild age-related involutional changes. Scattered foci of T2 hyperintensity seen within the periventricular and subcortical white matter are nonspecific but suggestive of mild microvascular ischemic changes. The major vascular flow voids at the skull base are well-maintained. Multiple mildly enlarged bilateral cervical lymph nodes are partially visualized. Posterior subluxation at the C1-C2 level with moderate central canal narrowing at this level. This could be due to an old odontoid fracture. This is suboptimally assessed on this study due to the motion artifact. No abnormal enhancement. Evidence for prior bilateral lens repair. IMPRESSION: 1. No acute infarct or intracranial hemorrhage. 2. Mild atrophy and microvascular ischemic changes. 3. Multiple mildly enlarged cervical lymph nodes. This could represent a lymphoma. 3. Moderate central canal narrowing within the upper cervical spine due to the posterior subluxation at the C1-C2 level. ACT 112: Negative or not required by law. Electronically signed by: Josh Randhawa M.D. 12/08/2021 6:23 PM Cholangiopancreatography MRI 12/09/21 11:01 MR MRCP HISTORY: Right upper quadrant pain. gallstones, 8mm CBD; eval cholecystitis/CBD stone TECHNIQUE: MRCP of the abdomen was performed without contrast according to standard department protocol. COMPARISON STUDY: Abdominal ultrasound 12/08/2021. FINDINGS: Foot Press Operator images demonstrate a right total hip arthroplasty. Significant motion artifact throughout the examination resulting in suboptimal evaluation. The lung bases appear grossly clear. No hepatic or splenic masses. No hydronephrosis. The pancreas appears unremarkable. The aorta is normal in caliber. There is a 1.4 cm T2 hyperintense lesion within the left kidney. This likely represents a cyst. Mild levoscoliosis of the lumbar spine. Suggestion of abnormal soft tissue density within the periportal location. This favors periportal lymphadenopathy. Nondiagnostic evaluation for a common bile duct filling defect due to the respiratory motion artifact. The gallbladder is also not well evaluated due to the motion artifact. The gallbladder does not appear to be distended. The common bile duct appears to measure up to 6 mm in diameter which is considered to be within the range of normal limits. No significant intrahepatic bile duct dilatation. The pancreatic duct is nondiagnostic due to the motion artifact. IMPRESSION: 1. Significant motion artifact resulting in suboptimal evaluation. 2. Specifically, evaluation for a common bile duct filling defect is nondiagnostic. However, the common bile duct appears to be normal and caliber. 3. Greater than expected soft tissue density within the periportal location. This favors periportal lymphadenopathy represent a lymphoproliferative disorder such as lymphoma. Follow-up abdomen and pelvis CT recommended for confirmation. 4. Near nondiagnostic evaluation of the gallbladder. The gallbladder does not appear to be distended. ACT 112: Negative or not required by law. Electronically signed by: Josh Randhawa M.D. 12/10/2021 11:[address] 12/10/21 13:19 CT cervical spine wo con CLINICAL HISTORY: C1/C2 subluxation, possible old odontoid fracture . Metabolic encephalopathy. TECHNIQUE: Multidetector row helical CT of the cervical spine was performed without administration of intravenous contrast. Coronal and sagittal reformations were obtained. Automated dose lowering techniques and/or adjustment according to patient size were utilized for this exam. Comparison: Comparison is made to CT head 12/07/2021 FINDINGS: There is a chronic appearing deformity of the dens and atlas. C1 is displaced posteriorly and to the right of C2. A chronic appearing calcified density is seen posterior to the dens which may represent findings of fracture versus degenerative changes versus prominent calcification of the transverse ligament. Degenerative changes are seen in the visualized spine. There is straightening of the cervical spine. Biapical scarring and emphysema are seen. Numerous prominent lymph nodes are noted in the neck and visualized subclavian stations. IMPRESSION: 1. Chronic appearing degenerative changes and subluxation of the atlantoaxial joint. C1 is displaced posteriorly and to the right of C2. No acute fracture is seen. 2. Numerous enlarged lymph nodes are seen in the visualized cervical supraclavicular stations compatible with history of CLL. ACT 112: Negative or not required by law. Electronically signed by: Naseem Kurtz M.D. 12/10/2021 3:17 PM (1) UTI (urinary tract infection) Hematuria presence: without hematuria Urinary tract infection type: site unspecified Qualified Code(s): N39.0 - Urinary tract infection, site not specified (2) Altered mental status Altered mental status type: unspecified Qualified Code(s): R41.82 - Altered mental status, unspecified
[2021-12-10] MEDS: amLODIPine BESYLATE 5 MG TAB PO SCH (20:55)
[2021-12-10] MEDS ORDERED: OLANZAPINE 2.5 MG TAB PO SCH (21:00)
[2021-12-11] MEDS: D5W AND NSS 1,000 ML IV SCH (03:31)
[2021-12-11] MEDS: THIAMINE HCL 500 MG in SODIUM CHLORIDE 0.9% 50 ML IV SCH ×2 (05:09→12:05)
[2021-12-11] MEDS: DICLOFENAC SOD 1% GEL 100 GM TUBE EXT SCH ×4 (07:27→22:15)
[2021-12-11] MEDS: ASPIRIN 81 MG ECTAB PO SCH (07:27)
[2021-12-11] MEDS: traMADol HCL 50 MG TABLET PO SCH ×2 (07:27→22:14)
--- NOTE | 2021-12-11 08:40 | Consultation ---
Date of Consultation December 11, 2021 Assessment & Plan (1) Odontoid fracture with nonunion: Dr. Mcallister will review imaging tomorrow and make final recommendations. Current treatment plan is conservative. No further work-up needed at this point in time. No bracing warranted. Continue with pain control for generalized arthritis. Ambulate ad mikaela. History of Present Illness Reason for Consultation: Evaluation of odontoid fracture Attending Physician: Kierra Gama MD History of Present Illness Is a pleasant 81-year-old female we are asked see in consultation regarding a nonunion of an odontoid fracture. Patient denies any known history of a cervical fracture. Denies any falls recently. States typically she ambulates with a cane. She does state that she has degenerative arthritis affecting her neck. She states it "crackles" all the time but no significant pain noted. She takes tramadol twice a day for this at home. She denies any upper or lower extremity pain, paresthesia, numbness or weakness. She has never received any type of cervical bracing. She has seen Dr. Latham many years ago for pain management. Allergies Allergy/AdvReac Type Severity Reaction Status Date / Time acetaminophen [From NyQuil] Allergy Unknown rapid Verified 12/07/21 16:38 heart beat, "brain does not stop working" adhesive tape Allergy Unknown blistering Verified 12/07/21 16:38 dextromethorphan Allergy Unknown rapid Verified 12/07/21 16:38 [From NyQuil] heart beat, "brain does not stop working" diphenhydramine Allergy Unknown rapid Verified 12/07/21 16:38 [From Tylenol PM] heart beat, "brain does not stop working" doxylamine [From NyQuil] Allergy Unknown rapid Verified 12/07/21 16:38 heart beat, "brain does not stop working" gluten Allergy Unknown "gluten Verified 12/07/21 16:38 free diet" - GI SYMPTOMS lactose Allergy Unknown "lactose Verified 12/07/21 16:38 intolerant" - GI SYMPTOMS nitrofurantoin Allergy Unknown rapid Verified 12/07/21 16:38 heart beat, can't sleep, "brain does not stop" pseudoephedrine [From NyQuil] Allergy Unknown rapid Verified 12/07/21 16:38 heart beat, "brain does not stop working" Sulfa (Sulfonamide Allergy Unknown "sulfa" - Verified 12/07/21 16:38 Antibiotics) "makes me hyper, can't sit still" cephalexin AdvReac Severe Encephalopa Verified 12/11/21 20:24 thy "ANTIHISTAMINE" Allergy Unknown rapid Uncoded 12/07/21 16:38 heart beat, can't sleep, "brain does not stop working" "TYLENOL COLD AND SINUS" Allergy Unknown rapid Uncoded 12/07/21 16:38 heart beat, "brain does not stop working" Home Medications Medication Instructions Recorded Confirmed Type amlodipine 10 mg tablet 10 mg PO QPM 06/14/18 12/07/21 History ascorbic acid (vitamin C) 500 mg 500 mg PO QAM 06/14/18 12/07/21 History capsule,extended release (Vitamin C) cyanocobalamin (vitamin B-12) 500 tab PO QAM 06/14/18 12/07/21 History 1,000 mcg tablet (Vitamin B-12) multivitamin (Multiple Vitamins 1 tab PO QAM 06/14/18 12/07/21 History tablet) simvastatin 10 mg tablet 10 mg PO PM 06/14/18 12/07/21 History tramadol 50 mg tablet 50 mg PO Q12 10/04/20 12/07/21 History acetaminophen 650 mg 650 mg PO Q12H PRN Pain 12/05/21 12/07/21 History tablet,extended release (Tylenol 8 Hour) aspirin 81 mg tablet,delayed 81 mg PO DAILY 12/05/21 12/07/21 History release clopidogrel 75 mg tablet 75 mg PO DAILY 12/05/21 12/07/21 History pantoprazole 40 mg tablet,delayed 40 mg PO QPM 12/05/21 12/07/21 History release Zinc Tab 1 tab PO DAILY 12/07/21 12/07/21 History alfuzosin 10 mg tablet,extended 10 mg PO DAILY PRN uti 12/07/21 12/07/21 History release 24 hr cholecalciferol (vitamin D3) 125 125 mcg PO DAILY 12/07/21 12/07/21 History mcg (5,000 unit) tablet (Vitamin D3) ciprofloxacin HCl 500 mg tablet 500 mg PO BID 12/07/21 12/07/21 History (Cipro) propylene glycol 0.6 % eye drops 1 drp ophthalmic (eye) DIRECTED 08/20/22 08/20/22 History (Systane Complete) PRN dry eyes Patient History Medical History Acid reflux Arthritis CLL (chronic lymphocytic leukemia) Diagnosed in 2013, sees her Oncologist routinely. -- No treatment Degenerative disc disease Hiatal hernia Hyperlipidemia Hypertension Odontoid fracture with nonunion Surgical History History of appendectomy History of bilateral cataract extraction History of colonoscopy x2 History of left knee replacement History of lumpectomy of left breast History of tonsillectomy History of total right hip arthroplasty History of total shoulder replacement RIGHT History of tubal ligation Social History Smoking Status: Former smoker Cigarettes Per Day: 1 ppd x 50 years. QUIT 2013; Smoking End Date: 2013; Second Hand Exposure: No; Hx Alcohol Use: No Hx Substance Use: Yes Last Used Substance: Hours (ago) Last Used Substance Other:: 01007 Dec 2021 Substance Use Type Other:: Tramadol Preferred Language: Luxembourgish Communication Ability: Impaired Jboss Architect Required: No Beliefs That Will Affect Care: None Current Living Situation: Alone Other Information That Helps Us Care for You: No Feels Safe at Home: Yes Safety Concerns: Feels Safe At This Time Assistive Devices: Cane Review of Systems Review of Systems: All systems reviewed & are unremarkable except as noted in HPI & below Physical Exam Physical Exam: Alert and oriented x3 Sitting up in bed eating a banana Moves in bed with ease. She has great range of motion motion of her cervical spine with both flexion extension side to side rotation which does not reproduce pain. No palpable step-offs cervical spine Strength is intact bilateral upper extremities. Results & Data ([facility]) Vital Signs (Past 12 Hours) Vital Signs Temp Pulse Pulse Resp BP Pulse Ox O2 Del Method 12/11/21 07:21 75 12/11/21 03:00 36.5 C 71 18 119/76 92 Room Air 12/11/21 00:10 73 12/10/21 22:00 36.8 C 66 20 105/63 93 Room Air 12/10/21 22:29 Room Air Diagnostic Findings [facility], [place] [phone] CT Scan Report Patient:DOROTEO LEVY Admit Date:12/08/21 MR#:[id number] Address1:Mel[address]ANSON Acct ID:[id number] Address2: Date:1940 [facility] Zip:[place] [address] Age:81 Location:2W Sex:F Room/Bed:[facility] Att Phy:Kierra Gama MD Diagnosis:AMS, RECENT UTI, HX ?ATRIAL ARRYTHMIA Cassy Phy:Raul Alcantar CRNP Service Date:12/10/21 [facility] Phy: Interpreting Phy:Naseem Kurtz MDAdmit Phy:Arnol Salgado MD Ordering Phy:Kierra Gama MD cc: ~ CT cervical spine wo con CLINICAL HISTORY: C1/C2 subluxation, possible old odontoid fracture . Metabolic encephalopathy. TECHNIQUE: Multidetector row helical CT of the cervical spine was performed without administration of intravenous contrast. Coronal and sagittal reformations were obtained. Automated dose lowering techniques and/or adjustment according to patient size were utilized for this exam. Comparison: Comparison is made to CT head 12/07/2021 FINDINGS: There is a chronic appearing deformity of the dens and atlas. C1 is displaced posteriorly and to the right of C2. A chronic appearing calcified density is seen posterior to the dens which may represent findings of fracture versus degenerative changes versus prominent calcification of the transverse ligament. Degenerative changes are seen in the visualized spine. There is straightening of the cervical spine. Biapical scarring and emphysema are seen. Numerous prominent lymph nodes are noted in the neck and visualized subclavian stations. IMPRESSION: 1. Chronic appearing degenerative changes and subluxation of the atlantoaxial joint. C1 is displaced posteriorly and to the right of C2. No acute fracture is seen. 2. Numerous enlarged lymph nodes are seen in the visualized cervical supraclavicular stations compatible with history of CLL. ACT 112: Negative or not required by law. Electronically signed by: Naseem Kurtz M.D. 12/10/2021 3:17 PM Dictated:12/10/21 1505 Transcribed: 12/10/21 1505
[2021-12-11 08:52] LABS: Basophils # (auto) 0.07 K/uL (0-0.2); Basophils % (auto) 1.4 %; Hematocrit (blood only) 35.6 % (34.1-44.9); Hemoglobin 12.2 g/dl (12.0-16.0); Lymphocytes # (auto) 1.57 K/uL (1.2-3.4); Lymphocytes % (auto) 31.4 %; Mean Corpuscular Hemoglobin 33.2 pg (25.0-34.0); Mean Corpuscular Hgb Conc 34.3 g/dL (32.0-36.0); Mean Corpuscular Volume 96.7 fL (80.0-100.0); Mean Platelet Volume 8.8 fL (9.4-12.3); Monocytes # (auto) 0.24 K/uL (0.24-0.82); Monocytes % (auto) 4.8 %; Neutrophils # (auto) 2.92 K/uL (1.4-6.5); Neutrophils % (auto) 58.4 %; Platelet Count 256 K/uL (130-400); RDW Coefficient of Variation 13.8 % (11.5-14.5); RDW Standard Deviation 48.8 fL (36.4-46.3); Red Blood Count 3.68 M/uL (3.93-5.22)
[2021-12-11 09:18] LABS: BUN Creatinine Ratio 20.2 (10-20); Calcium 9.6 mg/dl (8.5-10.1); Creatinine Clr Calc Pharmacy 33.5 ml/min; Est GFR (African American) 66.4 ml/min; Est GFR (Non-African American) 57.3 ml/min; Magnesium 1.9 mg/dl (1.7-2.4); Potassium 3.4 mmol/L (3.5-5.1)
--- NOTE | 2021-12-11 10:15 | Electroencephalogram ---
EEG Procedure Note Date of Service December 11, 2021 Start / End Times Start Time: 9:25 End Time: 9:45 Referring Physician Kierra Gama History AMS, delirium Home Medication List Medication Instructions Recorded Confirmed Type amlodipine 10 mg tablet 10 mg PO QPM 06/14/18 12/07/21 History ascorbic acid (vitamin C) 500 mg 500 mg PO QAM 06/14/18 12/07/21 History capsule,extended release (Vitamin C) cyanocobalamin (vitamin B-12) 500 tab PO QAM 06/14/18 12/07/21 History 1,000 mcg tablet (Vitamin B-12) multivitamin (Multiple Vitamins 1 tab PO QAM 06/14/18 12/07/21 History tablet) simvastatin 10 mg tablet 10 mg PO PM 06/14/18 12/07/21 History tramadol 50 mg tablet 50 mg PO Q12 10/04/20 12/07/21 History acetaminophen 650 mg 650 mg PO Q12H PRN Pain 12/05/21 12/07/21 History tablet,extended release (Tylenol 8 Hour) aspirin 81 mg tablet,delayed 81 mg PO DAILY 12/05/21 12/07/21 History release clopidogrel 75 mg tablet 75 mg PO DAILY 12/05/21 12/07/21 History pantoprazole 40 mg tablet,delayed 40 mg PO QPM 12/05/21 12/07/21 History release Zinc Tab 1 tab PO DAILY 12/07/21 12/07/21 History alfuzosin 10 mg tablet,extended 10 mg PO DAILY PRN uti 12/07/21 12/07/21 History release 24 hr cholecalciferol (vitamin D3) 125 125 mcg PO DAILY 12/07/21 12/07/21 History mcg (5,000 unit) tablet (Vitamin D3) ciprofloxacin HCl 500 mg tablet 500 mg PO BID 12/07/21 12/07/21 History (Cipro) propylene glycol 0.6 % eye drops 1 drp ophthalmic (eye) DIRECTED 12/07/21 12/07/21 History (Systane Complete) PRN dry eyes Inpatient Medication List Amlodipine Besylate (Amlodipine Besylate 5 Mg Tab) 10 mg PO QPM [facility]IC Stop: 01/06/22 20:59 Last Admin: 12/10/21 20:55 Dose: 10 mg Documented By: Admin: 08/22/22 21:30 Dose: 10 mg Documented By: Admin: 12/08/21 21:35 Dose: 10 mg Documented By: Admin: 12/07/21 20:42 Dose: 10 mg Documented By: RAMONE Aspirin (Aspirin 81 Mg Ectab) 81 mg PO DAILY [facility] Stop: 01/07/22 08:59 Last Admin: 12/11/21 07:27 Dose: 81 mg Documented By: Admin: 12/10/21 08:03 Dose: 81 mg Documented By: MARCO A Admin: 12/09/21 07:43 Dose: 81 mg Documented By: MARCO A Admin: 12/08/21 09:25 Dose: 81 mg Documented By: DEIDRE Clopidogrel Bisulfate (Clopidogrel Bisulfate 75 Mg Tab) 75 mg PO DAILY [facility] Stop: 01/07/22 08:59 Last Admin: 12/10/21 08:03 Dose: 75 mg Documented By: MARCO A Admin: 12/09/21 07:42 Dose: 75 mg Documented By: MARCO A Admin: 12/08/21 09:25 Dose: 75 mg Documented By: DEIDRE Diclofenac Sodium (Diclofenac Sod 1% Gel 100 Gm Tube) 2 gm EXT QID [facility]; Protocol Stop: 01/07/22 20:59 Last Admin: 12/11/21 07:27 Dose: 2 gm Documented By: Admin: 12/10/21 20:56 Dose: 2 gm Documented By: Admin: 12/10/21 15:23 Dose: Not Given Documented By: MARCO A Admin: 12/10/21 12:46 Dose: Not Given Documented By: MARCO A Admin: 12/10/21 08:03 Dose: 2 gm Documented By: MARCO A Admin: 12/09/21 21:31 Dose: 2 gm Documented By: Admin: 12/09/21 17:02 Dose: 2 gm Documented By: MRACO A Admin: 12/09/21 11:57 Dose: 2 gm Documented By: MARCO A Admin: 12/09/21 07:42 Dose: 2 gm Documented By: MARCO A Admin: 12/08/21 21:34 Dose: 2 gm Documented By: CRISTIANO Heparin Sodium (Porcine) (Heparin Sod 5,000 Unit/0.5 Ml Vial) 5,000 units SQ Q12 [facility] Stop: 01/09/22 08:59 Last Admin: 12/10/21 20:56 Dose: 5,000 units Documented By: Admin: 12/10/21 08:03 Dose: 5,000 units Documented By: MARCO A Dextrose/Sodium Chloride (D5w And Nss) 1,000 mls @ 50 mls/hr IV .Q20H VIC Last Admin: 12/11/21 03:31 Dose: 50 mls/hr Documented By: Infusion: 12/11/21 03:31 Dose: 50 mls/hr Documented By: Admin: 12/10/21 08:02 Dose: 50 mls/hr Documented By: MARCO A Infusion: 12/10/21 08:02 Dose: 50 mls/hr Documented By: MARCO A Admin: 12/09/21 13:01 Dose: 50 mls/hr Documented By: MARCO A Thiamine HCl 500 mg/ Sodium (Chloride) 55 mls @ 220 mls/hr IV Q8H [facility] Stop: 01/09/22 12:59 Last Infusion: 12/11/21 05:35 Dose: 0 mls/hr Documented By: Admin: 12/11/21 05:09 Dose: 220 mls/hr Documented By: Infusion: 12/10/21 21:26 Dose: 0 mls/hr Documented By: Admin: 12/10/21 21:02 Dose: 220 mls/hr Documented By: Infusion: 12/10/21 13:51 Dose: 0 mls/hr Documented By: MARCO A Admin: 12/10/21 13:36 Dose: 220 mls/hr Documented By: MARCO A Melatonin (Melatonin 3 Mg Tab) 3 mg PO HS PRN PRN Reason: Sleep Stop: 01/06/22 17:23 Last Admin: 12/09/21 23:06 Dose: 3 mg Documented By: Admin: 12/08/21 00:36 Dose: 3 mg Documented By: JOSEPH Olanzapine (Olanzapine 2.5 Mg Tab) 2.5 mg PO HS VIC Stop: 01/09/22 20:59 Last Admin: 12/10/21 20:56 Dose: 2.5 mg Documented By: CRISTIANO Tramadol HCl (Tramadol Hcl 50 Mg Tablet) 50 mg PO BID VIC Stop: 01/08/22 20:59 Last Admin: 12/11/21 07:27 Dose: 50 mg Documented By: Admin: 12/10/21 20:56 Dose: 50 mg Documented By: Admin: 12/10/21 08:05 Dose: 50 mg Documented By: MARCO A Admin: 12/09/21 21:30 Dose: Not Given Documented By: CRISTIANO Discontinued Medications Gadobutrol (Gadobutrol 7.5ml Vial) 4.5 ml IV ONCE ONE Stop: 12/08/21 14:43 Last Admin: 12/08/21 14:42 Dose: 4.5 ml Documented By: GRETTA Ceftriaxone Sodium (Rocephin) 1,000 mg in 50 mls @ 100 mls/hr IV NOW STA Stop: 12/07/21 13:58 Last Infusion: 12/07/21 14:24 Dose: 0 mls/hr Documented By: Admin: 12/07/21 13:54 Dose: 100 mls/hr Documented By: AM Potassium Chloride/Sodium Chloride (Normal Saline W/20 Meq Kcl) 20 meq in 1,000 mls @ 80 mls/hr IV .[id number] VIC Stop: 12/08/21 18:59 Last Infusion: 12/08/21 19:32 Dose: 0 mls/hr Documented By: Infusion: 12/08/21 15:03 Dose: 80 mls/hr Documented By: Infusion: 12/08/21 14:00 Dose: 0 mls/hr Documented By: Admin: 12/08/21 05:56 Dose: 80 mls/hr Documented By: Infusion: 12/08/21 05:56 Dose: 80 mls/hr Documented By: Admin: 12/07/21 18:06 Dose: 80 mls/hr Documented By: [id number] Ceftriaxone Sodium 1,000 mg/ (Dextrose) 60 mls @ 100 mls/hr IV Q24H [facility]; Protocol Stop: 12/10/21 20:59 Last Infusion: 12/09/21 22:10 Dose: 0 mls/hr Documented By: Admin: 12/09/21 21:30 Dose: 100 mls/hr Documented By: Infusion: 12/08/21 22:36 Dose: 0 mls/hr Documented By: Admin: 12/08/21 21:34 Dose: 100 mls/hr Documented By: CRISTIANO Olanzapine (Olanzapine 2.5 Mg Tab) 2.5 mg PO ONE ONE Stop: 12/10/21 14:20 Last Admin: 12/10/21 14:33 Dose: 2.5 mg Documented By: MARCO A Description This is a 21 electrode EEG with a single channel dedicated to limited EKG. The electrodes were placed in accordance with the International 10-20 system. Interpretation Background activity: Background is well organized, with moderate to low amplitude, generalized theta, alpha, and occasional mostly frontal delta waveforms, symmetrically. There is 9 Hz posterior activity, which alternates with eye opening bilaterally. There is no focal slowing or interhemispheric asymmetry. Sleep pattern: During early sleep, posterior activity attenuates and horizontal eye movements appear. In stage II sleep, vertex sharp waves and sleep spindles are recorded bilaterally and symmetrically. Stimulation maneuvers: Photic stimulations induce posterior driving responses bilaterally and symmetrically. Hyperventilation is not attempted. Abnormal activity: There is no electrographic seizure, epileptiform or other abnormal discharges. Impression: This is a normal EEG, recorded in wakefulness and sleep. There is no electrographic seizures or epileptogenic discharge. Clinical Correlation There is no electrographic seizures or epileptogenic discharge. His EEG does not suggest any cerebral dysfunction at this time.
[2021-12-11] MEDS ORDERED: POTASSIUM CHLORIDE CRTAB 20 MEQ TABCR PO STA (12:02)
--- NOTE | 2021-12-11 15:33 | Hospitalist Progress Note ---
Date of Service December 11, 2021 Assessment & Plan (1) Acute metabolic encephalopathy: Plan: Extensive work-up this week done at [facility] ([facility], [place]) on 12/03/21 - MRI brain, CTA head/neck, echo, CT abd/pelvis, and labs/urine cx/etc. All testing listed was normal/negative except u/a highly suspicious for UTI. Urine cx ultimately grew pansensitive e.coli. MRI brain NEGATIVE FOR ACUTE CVA at [facility]. d/cd to home from [facility] with keflex; took 3 days, concerns she was having adverse reaction from such due to worsening mental status and then switched to PO cipro on 12/06. Waxing/waning mental status since Thursday night, 12/02. Had improved after visit to [facility], then worsened again late this past week. Repeat MRI brain with contrast at this hospital- negative for acute CVA, ICH, abnormal enhancement, etc. Repeat COVID/flu/RSV PCR negative. B12 level robust Blood cx's here remain negative. Lyme screen negative. Anaplasmosis smear negative. TSH wnl. Ammonia wnl. Given the presence of gallstones and top-normal CBD size of 8mm on RUQ u/s obtained MRCP -Motion artifact prevented good assessment, but no CBD dilatation Most likely no issues with gallbladder, plus LFTs normal. Repeat urinalysis and urine culture here are negative for infection No fevers or leukocytosis No meningismus signs Perhaps this could be a toxic encephalopathy secondary to cephalexin which was then worsened by Cipro. She does have a long history of side effects to various medications that tend to include a lot of mental status changes. Perhaps some of it is from withdrawal from not taking her tramadol like she normally does. This was restarted on 12/09 Perhaps this is a Wernicke's encephalopathy although seems odd to come on acutely. Was started on high dose IV thiamine on 12/10 Perhaps this could be some sort of paraneoplastic syndrome although also seems odd to come on acutely EEG normal Was given 2 low doses of Zyprexa on 12/10 and on 12/11 had a complete recovery in mentation after getting sleep Overall most likely was a drug reaction to keflex followed by exacerbation by lack of sleep for many days -convert IV thiamine to 200mg po daily and f/u on B1 results when available -Consult neurology appreciated-no further workup needed at this point -no need now for LP as is improved-restart home Plavix -dc IVFs -make Zyprexa prn rather than scheduled (2) Carotid artery stenosis: Plan: CTA neck 12/03/[address] [facility] -- Moderate stenosis of left common carotid, severe stenosis of LICA, moderate stenosis of COY, moderate stenosis at the cavernous segment of both LICA and COY, moderate stenosis of intradural right vertebral artery. Despite the ICA stenosis she has had 2 negative MRIs of the brain this week-NEGATIVE for acute CVA. Continue asa Continue plavix Continue statin however this should be intensified in dosing due to severe CRISTA (3) Coronary artery calcification: Plan: as seen on imaging troponins minimally elevated suspect myocardial demand ischemia in setting of her illness no ischemic symptoms by report (4) HTN (hypertension): Plan: cont amlodipine controlled (5) Hyperlipidemia: Plan: cont statin (6) UTI (urinary tract infection): Plan: pansensitive e.coli dx at [facility] early last week keflex x 3 days, then was on cipro starting 12/06 u/a here largely normal suggesting UTI has cleared did receive IV rocephin 12/07 in our ER repeated the IV rocephin 12/08 -Discontinued Rocephin (7) CLL (chronic lymphocytic leukemia): Plan: per records MRI brain shows cervical lymphadenopathy RUQ u/s showed intra-abdominal lymphadenopathy suspect the lymphadenopathy is CLL-related will need to f/u with her oncologist in the future fortunately her CBC cell lines are stable (8) Gallstones: Plan: seen on CT at [facility], and on RUQ u/s here no GB wall thickening or fluid CBD, however, is top-normal at 8mm LFTs normal MRCP somewhat nondiagnostic but overall does not seem consistent with acute cholecystitis or choledocholithiasis (9) Lung nodule: Plan: 6mm seen incidentally on CTA neck at [facility] will need f/u per nodule guidelines (10) Elevated troponin: Plan: 2nd myocardial demand ischemia no signs/symptoms of ACS (11) Degenerative disc disease: Plan: per her daughter she has been taking tramadol for several years for chronic low back pain she has had only a few doses of her tramadol over the last week due to her altered mental status and confusion There is some small suspicion that this could be encephalopathy secondary to narcotic withdrawal, but certainly need to ensure she stays comfortable and doesn't withdraw while here thus, resumed tramadol 50mg q12 on 12/09 (12) Chronic renal failure, stage 3b: Plan: baseline CrCl 30-45 Renal function remains at baseline -Avoid nephrotoxins -renally dose meds when appropriate (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: Plan: daughter reports chronic neck pain prior to encephalopathy CTA neck from [facility] with mention of such and MRI brain here with mention of C1/C2 subluxation, possible old odontoid fracture -checked CT cervical spine as would not tolerate MRI due to motion--> c/w old odontoid fracture and subluxation C1/C2 -consult Ortho Spine for further opinion-appreciate consult-nothing surgical needed (14) DVT prophylaxis: Plan: heparin 5000 BID Plan daughter Juan Jose extensively updated by phone 12/10/21 and daughter Adrien updated on 12/11 Hopeful for dc to rehab tomorrow as recommended by PT/OT Admission and Anticipated Discharge Date Admission Date: December 08, 2021 Anticipated date of discharge: 12/12/21 Subjective Pt had an amazing turnaround since yesterday.She is OOB to the chair, oriented, interactive in normal conversation. Says she does remember me from yesterday. Has complete understanding of her medical issues and refers me to her detailed folder with all her records of her health issues. Agrees she thinks it was perhaps the antibiotics from last week that caused her to have a bad reaciton. Denies headache, nausea, is gilberto po. Denies CP, SOB, abd pain. Has chronic neck and back pain. Tele with NSR, normal rates Review of Systems Review of Systems: All systems reviewed & are unremarkable except as noted in HPI & below Physical Exam Constitutional: WD/WN, vitals as above Eyes: PERRL, conjunctivae normal, anicteric sclerae EOM intact bilaterally; no anisocoria and no nystagmus ENMT: external ear and nose normal, oropharynx normal Neck: trachea midline, no thyromegaly Respiratory: normal respiratory effort, lungs clear to auscultation Cardiovascular: RRR, no murmur, no edema Chest (Breasts): Chest: normal inspection of chest Gastrointestinal (Abdomen): normal bowel sounds, soft, nontender, no hepatosplenomegaly Musculoskeletal: Extremities: extremities normal to inspection; no cyanosis and no clubbing Skin: no rashes, warm and dry Neurologic: awake; no focal motor deficits and not confused Speech / Cognition: normal speech, no expressive aphasia and normal cognition Motor/Sensory: no tremor Psychiatric: Orientation: alert, oriented x 3 and cooperative Eye Contact: good eye contact Lymphatic: no lymphedema Results & Data Results & Data ([facility]) Vital Signs (Past 12 Hours) Vital Signs Temp Pulse Pulse Resp BP Pulse Ox O2 Del Method 12/11/21 12:11 36.8 C 71 18 114/71 96 Room Air 12/11/21 08:42 36.6 C 62 18 120/53 L 92 Room Air 12/11/21 07:21 75 Laboratory Results 12/11/21 12/11/21 Range/Units 08:35 08:35 WBC 5.00 (4.8-10.8) K/ul RBC 3.68 L (3.93-5.22) M/uL Hgb 12.2 (12.0-16.0) g/dl Hct 35.6 (34.1-44.9) % MCV 96.7 (80.0-100.0) fL MCH 33.2 (25.0-34.0) pg MCHC 34.3 (32.0-36.0) g/dL RDW Std Deviation 48.8 H (36.4-46.3) fL RDW Coeff of Mitchel 13.8 (11.5-14.5) % Plt Count 256 (130-400) K/uL MPV 8.8 L (9.4-12.3) fL Immature Gran % (Auto) 2.0 % Neut % (Auto) 58.4 % Lymph % (Auto) 31.4 % Brooke % (Auto) 4.8 % Eos % (Auto) 2.0 % Baso % (Auto) 1.4 % Neut # (Auto) 2.92 (1.4-6.5) K/uL Lymph # (Auto) 1.57 (1.2-3.4) K/uL Brooke # (Auto) 0.24 (0.24-0.82) K/uL Eos # (Auto) 0.10 (0-0.50) K/uL Baso # (Auto) 0.07 (0-0.2) K/uL Immature Gran # (Auto) 0.10 H (0.00-0.02) K/uL Sodium 139 (136-145) mmol/L Potassium 3.4 L (3.5-5.1) mmol/L Chloride 108 H (98-107) mmol/L Carbon Dioxide 25 (21-32) mmol/L Anion Gap 6 (3-11) BUN 19 (6-23) mg/dl Creatinine 0.94 (0.6-1.2) mg/dl Est Cr Clr Drug Dosing 33.5 ml/min Est GFR ( Amer) 66.4 ml/min Est GFR (Non-Af Amer) 57.3 ml/min BUN/Creatinine Ratio 20.2 H (10-20) Glucose 109 H (70-99(Fasting)) mg/dl Calcium 9.6 (8.5-10.1) mg/dl Magnesium 1.9 (1.7-2.4) mg/dl PG Care Time/CCT Total # of Minutes Spent Total Time Spent with Patient: Total time spent is greater than 50% in coordination of care (as documented) at patient's floor/unit and/or counseling patient: Coding Level of Care Code 47734 Subseq Hosp Care Lvl 3 Diagnoses Acute metabolic encephalopathy G93.41 Carotid artery stenosis I65.29 Coronary artery calcification I25.10; I25.84 HTN (hypertension) I10 Hyperlipidemia E78.5 UTI (urinary tract infection) N39.0 Hematuria presence: without hematuria Urinary tract infection type: site unspecified CLL (chronic lymphocytic leukemia) C91.10 Gallstones K80.20 Lung nodule R91.1 Elevated troponin R77.8 Degenerative disc disease Chronic renal failure, stage 3b N18.32 Odontoid fracture with nonunion S12.110K DVT prophylaxis Z29.9 (1) UTI (urinary tract infection) Hematuria presence: without hematuria Urinary tract infection type: site unspecified Qualified Code(s): N39.0 - Urinary tract infection, site not specified
--- NOTE | 2021-12-11 15:34 | Neurology Progress Note ---
Date of Service December 11, 2021 Assessment & Plan (1) Delirium: (2) UTI (urinary tract infection): (3) Carotid artery stenosis: (4) CLL (chronic lymphocytic leukemia): (5) Odontoid fracture with nonunion: (6) Altered mental status: Plan ASSESSMENT and PLAN: 1. Encephalopathy with delirium Impression: The patient has been having fluctuating confusion, disorientation, agitation, restlessness, and speech disturbance, for last 10 days. Such symptoms has been improved temporarily, while she was treated for urinary tract infection and dehydration last week. After good night sleep, delirium has been improved. No speech disturbance anymore. EEG is normal. Recommendations: Frequent orientation. Avoid sedative medications and antibiotics which might induce delirium. Restart on Plavix. Management of metabolic derangements and treatment infections as you do. Supportive care. We will sign off. 2. Urinary tract infection Impression: The patient was recently treated for urinary tract infection. Antibiotics have been changed few times, because of potential side effects. 3. Carotid artery stenosis Impression: The patient was recently diagnosed with severe internal carotid artery stenosis, and evaluation is pending for vascular intervention. The patient has no history of neuro cerebrovascular accident. Recent brain MRI is again negative for cerebrovascular accident. Plan: Continue on antiplatelet and antilipid treatment as before. Follow-up with vascular surgery. Admission and Anticipated Discharge Date Admission Date: December 08, 2021 Subjective The patient did not sleep well last night after couple doses of olanzapine. She woke up with improvement of mental status. She is currently alert and oriented x3, without agitation, or symptoms of delirium. No new neurological symptoms. Review of Systems Review of Systems: All systems reviewed & are unremarkable except as noted in HPI & below Physical Exam Physical Exam: General Examination: Constitutional: Well developed person in no acute distress currently but reported recent agitation/restlessness. HENT: Normal exam with inspection. CV: Hearth rhtyhm is regular. Neck: Supple, left carotid bruits. Lungs: Non-labored and comfortable breathing. Abdomen: Soft, non-tender, non-distended. Skin: No rash or ecchymosis. Extremities: No edema or cyanosis NEUROLOGICAL EXAMINATION: Mental Status: Alert but confused and oriented to her name only. Delirious. Cranial Nerves: II-XII are intact except some hearing loss. No nystagmus. Funduscopy: Unable to visualize Motor: 5-/5 in all extremities without asymmetry. Tone: Normal without spasticity or rigidity. Sensory: Intact grossly DTR's: 1+ all symmetrically. No Babinsky Coordination: No dysmetria with FTN testing. Speech: Repeats herself with stuttering. Follows some of simple verbal commands. Positive tracking and eye contact. Gait: Unable to assess. She was able to walk on admission. Musculoskeletal: Normal muscle bulk, no atrophy. Results & Data ([facility]) Vital Signs (Past 12 Hours) Vital Signs Temp Pulse Pulse Resp BP Pulse Ox O2 Del Method 12/11/21 12:11 36.8 C 71 18 114/71 96 Room Air 12/11/21 08:42 36.6 C 62 18 120/53 L 92 Room Air 12/11/21 07:21 75 Diagnostic Findings Laboratory Results - last 24 hr 12/11/21 12/11/21 08:35 08:35 WBC 5.00 RBC 3.68 L Hgb 12.2 Hct 35.6 MCV 96.7 MCH 33.2 MCHC 34.3 RDW Std Deviation 48.8 H RDW Coeff of Mitchel 13.8 Plt Count 256 MPV 8.8 L Immature Gran % (Auto) 2.0 Neut % (Auto) 58.4 Lymph % (Auto) 31.4 [place] % (Auto) 4.8 Eos % (Auto) 2.0 Baso % (Auto) 1.4 Neut # (Auto) 2.92 Lymph # (Auto) 1.57 [place] # (Auto) 0.24 Eos # (Auto) 0.10 Baso # (Auto) 0.07 Immature Gran # (Auto) 0.10 H Sodium 139 Potassium 3.4 L Chloride 108 H Carbon Dioxide 25 Anion Gap 6 BUN 19 Creatinine 0.94 Est Cr Clr Drug Dosing 33.5 Est GFR ( Amer) 66.4 Est GFR (Non-Af Amer) 57.3 BUN/Creatinine Ratio 20.2 H Glucose 109 H Calcium 9.6 Magnesium 1.9 Medications Administered Chest X-Ray 12/07/21 12:06 SINGLE VIEW CHEST CLINICAL HISTORY: Change in mental status. Atypical chest pain. FINDINGS: An AP, portable, upright chest radiograph is compared to study dated 08/13/2021. The cardiomediastinal silhouette is top normal for projection. The mitral annulus is densely calcified. Chronic interstitial thickening is similar to previous. No airspace consolidation or large pleural effusion is identified. No pneumothorax is seen. The skeletal structures are osteopenic. The bony thorax is grossly intact. A right shoulder arthroplasty is in place. IMPRESSION: No acute cardiopulmonary abnormality. ACT 112: Negative or not required by law. Electronically signed by: Ronny Taylor M.D. 12/07/2021 1:[address] 12/07/21 12:06 CT SCAN OF THE BRAIN WITHOUT IV CONTRAST CLINICAL HISTORY: Change in mental status. COMPARISON STUDY: No priors. TECHNIQUE: Unenhanced axial CT scan of the brain is performed from the vertex to the skull base. A dose lowering technique was utilized adhering to the principles of ALARA. The examination is modestly degraded by motion artifact. CT DOSE: 614.27 mGy.cm FINDINGS: Brain parenchyma: There is age-related involutional change noting mild to moderate patchy subcortical and periventricular microangiopathic disease. There is no hemorrhage, mass effect, or evidence of acute territorial ischemia by CT criteria. Richardson-white matter differentiation is preserved. No extra-axial fluid collection is seen. Ventricles, sulci, cisterns: Prominent secondary to involutional change. Intracranial vasculature: There is atherosclerotic calcification of the cavernous carotid and vertebral arteries. Calvarium: Unremarkable. Sinuses and mastoids: The paranasal sinuses are clear. The mastoid air cells are well pneumatized. Orbits: The bony orbits are grossly intact. There are bilateral ocular lens implants. IMPRESSION: There is no hemorrhage, mass effect, or evidence of acute territorial ischemia by CT criteria. ACT 112: Negative or not required by law. Electronically signed by: Ronny Taylor M.D. 12/07/2021 1:19 PM Gallbladder Ultrasound 12/07/21 17:24 ABDOMINAL ULTRASOUND, RIGHT UPPER QUADRANT HISTORY: Right upper quadrant pain.. COMPARISON: None. FINDINGS: Pancreas: The pancreas demonstrates a normal echotexture. Liver: Unremarkable. Gallbladder: A few small gallstones. No gallbladder wall thickening. CBD: 8 mm. This is at the upper limits of normal given the patient's age. Right kidney: Mildly echogenic. No hydronephrosis. Miscellaneous: There are few enlarged right upper quadrant/periportal lymph nodes with the largest measuring 3.3 x 2.2 x 2.1 cm. IMPRESSION: 1. Cholelithiasis. No gallbladder wall thickening. 2. The common bile duct is at the upper limits of normal for age measuring 8 mm. 3. Right upper quadrant/periportal lymphadenopathy. ACT 112: Negative or not required by law. Electronically signed by: Josh Randhawa M.D. 12/08/2021 6:56 AM Brain MRI 12/08/21 13:39 Brain MRI WITH AND WITHOUT CONTRAST HISTORY: Altered mental status. ?acute L CVA? TECHNIQUE: Multiplanar multisequence MRI of the brain was performed both before and after the intravenous administration of contrast. COMPARISON STUDY: Head CT 12/07/2021. FINDINGS: There is no mass, hematoma, midline shift, or acute infarct. The paranasal sinuses are clear. The mastoid air cells are clear. The ventricles and sulci demonstrate mild age-related involutional changes. Scattered foci of T2 hyperintensity seen within the periventricular and subcortical white matter are nonspecific but suggestive of mild microvascular ischemic changes. The major vascular flow voids at the skull base are well-maintained. Multiple mildly enlarged bilateral cervical lymph nodes are partially visualized. Posterior subluxation at the C1-C2 level with moderate central canal narrowing at this level. This could be due to an old odontoid fracture. This is suboptimally assessed on this study due to the motion artifact. No abnormal enhancement. Evidence for prior bilateral lens repair. IMPRESSION: 1. No acute infarct or intracranial hemorrhage. 2. Mild atrophy and microvascular ischemic changes. 3. Multiple mildly enlarged cervical lymph nodes. This could represent a lymphoma. 3. Moderate central canal narrowing within the upper cervical spine due to the posterior subluxation at the C1-C2 level. ACT 112: Negative or not required by law. Electronically signed by: Josh Randhawa M.D. 12/08/2021 6:23 PM Cholangiopancreatography MRI 12/09/21 11:01 MR MRCP HISTORY: Right upper quadrant pain. gallstones, 8mm CBD; eval cholecystitis/CBD stone TECHNIQUE: MRCP of the abdomen was performed without contrast according to standard department protocol. COMPARISON STUDY: Abdominal ultrasound 12/08/2021. FINDINGS: [employer] images demonstrate a right total hip arthroplasty. Significant motion artifact throughout the examination resulting in suboptimal evaluation. The lung bases appear grossly clear. No hepatic or splenic masses. No hydronephrosis. The pancreas appears unremarkable. The aorta is normal in caliber. There is a 1.4 cm T2 hyperintense lesion within the left kidney. This likely represents a cyst. Mild levoscoliosis of the lumbar spine. Suggestion of abnormal soft tissue density within the periportal location. This favors periportal lymphadenopathy. Nondiagnostic evaluation for a common bile duct filling defect due to the respiratory motion artifact. The gallbladder is also not well evaluated due to the motion artifact. The gallbladder does not appear to be distended. The common bile duct appears to measure up to 6 mm in diameter which is considered to be within the range of normal limits. No significant intrahepatic bile duct dilatation. The pancreatic duct is nondiagnostic due to the motion artifact. IMPRESSION: 1. Significant motion artifact resulting in suboptimal evaluation. 2. Specifically, evaluation for a common bile duct filling defect is nondiagnostic. However, the common bile duct appears to be normal and caliber. 3. Greater than expected soft tissue density within the periportal location. This favors periportal lymphadenopathy represent a lymphoproliferative disorder such as lymphoma. Follow-up abdomen and pelvis CT recommended for confirmation. 4. Near nondiagnostic evaluation of the gallbladder. The gallbladder does not appear to be distended. ACT 112: Negative or not required by law. Electronically signed by: Josh Randhawa M.D. 12/10/2021 11:[address] 12/10/21 13:19 CT cervical spine wo con CLINICAL HISTORY: C1/C2 subluxation, possible old odontoid fracture . Metabolic encephalopathy. TECHNIQUE: Multidetector row helical CT of the cervical spine was performed without administration of intravenous contrast. Coronal and sagittal reformations were obtained. Automated dose lowering techniques and/or adjustment according to patient size were utilized for this exam. Comparison: Comparison is made to CT head 12/07/2021 FINDINGS: There is a chronic appearing deformity of the dens and atlas. C1 is displaced posteriorly and to the right of C2. A chronic appearing calcified density is seen posterior to the dens which may represent findings of fracture versus degenerative changes versus prominent calcification of the transverse ligament. Degenerative changes are seen in the visualized spine. There is straightening of the cervical spine. Biapical scarring and emphysema are seen. Numerous prominent lymph nodes are noted in the neck and visualized subclavian stations. IMPRESSION: 1. Chronic appearing degenerative changes and subluxation of the atlantoaxial joint. C1 is displaced posteriorly and to the right of C2. No acute fracture is seen. 2. Numerous enlarged lymph nodes are seen in the visualized cervical supraclavicular stations compatible with history of CLL. ACT 112: Negative or not required by law. Electronically signed by: Naseem Kurtz M.D. 12/10/2021 3:17 PM EEG-- normal (1) UTI (urinary tract infection) Hematuria presence: without hematuria Urinary tract infection type: site unspecified Qualified Code(s): N39.0 - Urinary tract infection, site not specified (2) Altered mental status Altered mental status type: unspecified Qualified Code(s): R41.82 - Altered mental status, unspecified
[2021-12-11] MEDS ORDERED: ACETAMINOPHEN 500 MG TAB PO PRN (17:30)
[2021-12-11] MEDS ORDERED: OLANZAPINE 2.5 MG TAB PO PRN (17:31)
[2021-12-11] MEDS: HEPARIN SOD 5,000 UNIT/0.5 ML VIAL SQ SCH (22:15)
[2021-12-11] MEDS: SIMVASTATIN 10 MG TAB PO SCH (22:16)
[2021-12-11] MEDS: PANTOprazole 40 MG TAB PO SCH (22:16)
[2021-12-11] MEDS: amLODIPine BESYLATE 5 MG TAB PO SCH (22:17)
[2021-12-12] MEDS: THIAMINE HCL 100 MG TAB PO SCH (08:37)
[2021-12-12] MEDS: ASPIRIN 81 MG ECTAB PO SCH (08:37)
[2021-12-12] MEDS: DICLOFENAC SOD 1% GEL 100 GM TUBE EXT SCH ×4 (08:38→21:51)
[2021-12-12] MEDS: traMADol HCL 50 MG TABLET PO SCH ×3 (08:54→21:50)
[2021-12-12] MEDS: HEPARIN SOD 5,000 UNIT/0.5 ML VIAL SQ SCH ×2 (10:02→21:48)
[2021-12-12] MEDS: CLOPIDOGREL BISULFATE 75 MG TAB PO SCH (10:02)
--- NOTE | 2021-12-12 10:23 | Orthopedic Progress Note ---
Date of Service December 12, 2021 Assessment & Plan (1) Odontoid fracture with nonunion: Plan: Assessment old nonunion fracture C2. Plan reviewed with the patient's films thoroughly as well as her exam and clinical presentation. Imaging findings in the cervical spine are old and stable. She would not require any specific intervention at this point for her cervical spine. Admission and Anticipated Discharge Date Admission Date: December 08, 2021 Results & Data ([facility]) Vital Signs (Past 12 Hours) Vital Signs Temp Pulse Pulse Resp BP Pulse Ox O2 Del Method 12/12/21 09:27 72 12/12/21 06:40 36.8 C 73 20 119/65 92 Room Air 12/12/21 04:25 36.5 C 74 20 109/64 92 12/12/21 00:35 36.7 C 76 20 109/59 L 93 Room Air 12/12/21 00:22 81
[2021-12-12] MEDS ORDERED: COVID19 Vaccine (Primary Series--Pfizer) 30mcg/0.3mL IM ONE (14:43)
[2021-12-12] MEDS: amLODIPine BESYLATE 5 MG TAB PO SCH (17:14)
[2021-12-12] MEDS: SIMVASTATIN 10 MG TAB PO SCH (17:15)
[2021-12-12] MEDS: PANTOprazole 40 MG TAB PO SCH (17:15)
--- NOTE | 2021-12-12 17:52 | Hospitalist Progress Note ---
Date of Service December 12, 2021 Assessment & Plan (1) Acute metabolic encephalopathy: Plan: Extensive work-up this week done at [facility] ([place], [place]) on 12/03/21 - MRI brain, CTA head/neck, echo, CT abd/pelvis, and labs/urine cx/etc. All testing listed was normal/negative except u/a highly suspicious for UTI. Urine cx ultimately grew pansensitive e.coli. MRI brain NEGATIVE FOR ACUTE CVA at [place]. Was d/cd to home from [facility] with keflex; took 3 days, there were concerns she was having adverse reaction from such due to worsening mental status and then switched to PO cipro on 12/06. Waxing/waning mental status since Thursday night, 12/02. Had improved after visit to [facility], then worsened again late this past week. Repeat MRI brain with contrast at this hospital- negative for acute CVA, ICH, abnormal enhancement, etc. Repeat COVID/flu/RSV PCR negative. B12 level robust Blood cx's here remain negative. Lyme screen negative. Anaplasmosis smear negative. TSH wnl. Ammonia wnl. Given the presence of gallstones and top-normal CBD size of 8mm on RUQ u/s obtained MRCP -Motion artifact prevented good assessment, but no CBD dilatation Most likely no issues with gallbladder, plus LFTs normal. Repeat urinalysis and urine culture here are negative for infection No fevers or leukocytosis No meningismus signs Perhaps this could be a toxic encephalopathy secondary to cephalexin which was then worsened by Cipro. She does have a long history of side effects to various medications that tend to include a lot of mental status changes. Perhaps some of it is from withdrawal from not taking her tramadol like she normally does. This was restarted on 12/09 Perhaps this is a Wernicke's encephalopathy although seems odd to come on acutely. Was started on high dose IV thiamine on 12/10 and then converted to po thiamine on 12/11 EEG normal Was given 2 low doses of Zyprexa on 12/10 and on 12/11 had a complete recovery in mentation after getting sleep Overall most likely was a drug reaction to keflex followed by exacerbation by lack of sleep for many days after that -continue thiamine 200mg po daily and f/u on B1 results when available -Consult neurology appreciated-no further workup needed at this point -given lack of sleep again last night and return of some mild confusion on 12/12--> dc tele monitor as no significant events, downgrade to medical status to avoid overnight vital signs, and make Zyprexa scheduled at bedtime rather than prn -keflex added to allergies Overall MUCH improved and stable for dc to rehab (2) Carotid artery stenosis: Plan: CTA neck 12/03/21 at [facility] -- Moderate stenosis of left common carotid, severe stenosis of LICA, moderate stenosis of COY, moderate stenosis at the cavernous segment of both LICA and COY, moderate stenosis of intradural right vertebral artery. Despite the ICA stenosis she has had 2 negative MRIs of the brain this week- NEGATIVE for acute CVA. Continue asa Continue plavix Continue statin however this should be intensified in dosing due to severe CRISTA- would increase to 20mg (3) Coronary artery calcification: Plan: as seen on imaging troponins minimally elevated suspect myocardial demand ischemia in setting of her illness no ischemic symptoms by report (4) HTN (hypertension): Plan: cont amlodipine controlled (5) Hyperlipidemia: Plan: cont statin (6) UTI (urinary tract infection): Plan: pansensitive e.coli dx at [facility] early last week keflex x 3 days, then was on cipro starting 12/06 u/a here largely normal suggesting UTI has cleared did receive IV rocephin 12/07 in our ER repeated the IV rocephin 12/08 -Discontinued Rocephin (7) CLL (chronic lymphocytic leukemia): Plan: per records MRI brain shows cervical lymphadenopathy RUQ u/s showed intra-abdominal lymphadenopathy suspect the lymphadenopathy is CLL-related will need to f/u with her oncologist in the future fortunately her CBC cell lines are stable (8) Gallstones: Plan: seen on CT at [facility], and on RUQ u/s here no GB wall thickening or fluid CBD, however, is top-normal at 8mm LFTs normal MRCP somewhat nondiagnostic but overall does not seem consistent with acute cholecystitis or choledocholithiasis (9) Lung nodule: Plan: 6mm seen incidentally on CTA neck at [facility] will need f/u per nodule guidelines (10) Elevated troponin: Plan: 2nd myocardial demand ischemia no signs/symptoms of ACS (11) Degenerative disc disease: Plan: per her daughter she has been taking tramadol for several years for chronic low back pain she has had only a few doses of her tramadol over the last week due to her altered mental status and confusion There is some small suspicion that this could be encephalopathy secondary to n arcotic withdrawal, but certainly need to ensure she stays comfortable and doesn't withdraw while here thus, resumed tramadol 50mg q12 on 12/09 (12) Chronic renal failure, stage 3b: Plan: baseline CrCl 30-45 Renal function remains at baseline -Avoid nephrotoxins -renally dose meds when appropriate (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 with mention of such and MRI brain here with mention of C1/C2 subluxation, possible old odontoid fracture -checked CT cervical spine as would not tolerate MRI due to motion--> c/w old odontoid fracture and subluxation C1/C2 -consult Ortho Spine for further opinion-appreciate consult-nothing surgical needed (14) Urinary retention: Plan: self caths at home qid as per Urology instructions in [place] interested in second opinion to avoid future UTIs -gave info for [facility] (15) DVT prophylaxis: Plan: heparin 5000 BID Plan daughter Juan Jose updated at bedside today Hopeful for dc to rehab when bed available and insurance auth obtained Admission and Anticipated Discharge Date Admission Date: December 08, 2021 Anticipated date of discharge: 12/13/21 Subjective Pt did not sleep well at all last night, did not get the prn Zyprexa. c/o multiple interruptions and said it almost "made me go over the edge again." Otherwise is eating and drinking. No BM since admission. Telewith 7 bt run VT, otherwise NSR, normal rates Review of Systems Review of Systems: All systems reviewed & are unremarkable except as noted in HPI & below Physical Exam Constitutional: WD/WN, vitals as above Eyes: EOM intact bilaterally; no anisocoria and no nystagmus Neck: trachea midline, no thyromegaly Respiratory: normal respiratory effort, lungs clear to auscultation Cardiovascular: RRR, no murmur, no edema Chest (Breasts): Chest: normal inspection of chest Gastrointestinal (Abdomen): normal bowel sounds, soft, nontender, no hepatosplenomegaly Musculoskeletal: Extremities: extremities normal to inspection; no cyanosis and no clubbing Skin: no rashes, warm and dry Neurologic: awake; no focal motor deficits and not confused Speech / Cognition: normal speech, no expressive aphasia and normal cognition Motor/Sensory: no tremor Psychiatric: Orientation: alert, oriented x 3, oriented to person and cooperative Eye Contact: good eye contact Genitourinary: + abnormal external appearance (Severino in place draining clear yellow urine) Lymphatic: no lymphedema Results & Data Results & Data ([facility]) Vital Signs (Past 12 Hours) Vital Signs Temp Pulse Pulse Resp BP Pulse Ox O2 Del Method 12/12/21 16:46 72 12/12/21 16:06 36.7 C 78 18 128/63 95 Room Air 12/12/21 11:08 36.4 C L 64 18 92/50 L 95 Room Air 12/12/21 09:27 72 12/12/21 06:40 36.8 C 73 20 119/65 92 Room Air PG Care Time/CCT Total # of Minutes Spent Total Time Spent with Patient: Total time spent is greater than 50% in coordination of care (as documented) at patient's floor/unit and/or counseling patient: Coding Level of Care Code 10294 Subseq Hosp Care Lvl 2 Diagnoses Acute metabolic encephalopathy G93.41 Carotid artery stenosis I65.29 Coronary artery calcification I25.10; I25.84 HTN (hypertension) I10 Hyperlipidemia E78.5 UTI (urinary tract infection) N39.0 Hematuria presence: without hematuria Urinary tract infection type: site unspecified CLL (chronic lymphocytic leukemia) C91.10 Gallstones K80.20 Lung nodule R91.1 Elevated troponin R77.8 Degenerative disc disease Chronic renal failure, stage 3b N18.32 Odontoid fracture with nonunion S12.110K Urinary retention R33.9 DVT prophylaxis Z29.9 (1) UTI (urinary tract infection) Hematuria presence: without hematuria Urinary tract infection type: site unspecified Qualified Code(s): N39.0 - Urinary tract infection, site not specified
[2021-12-12] MEDS: SENNA 8.6 MG TAB PO SCH (19:12)
[2021-12-12 20:10] VITALS: TEMP 98.2
[2021-12-12] MEDS ORDERED: OLANZAPINE 2.5 MG TAB PO SCH (21:00)
[2021-12-13] MEDS: SENNA 8.6 MG TAB PO SCH (07:45)
[2021-12-13] MEDS: CLOPIDOGREL BISULFATE 75 MG TAB PO SCH (07:45)
[2021-12-13] MEDS: ASPIRIN 81 MG ECTAB PO SCH (07:45)
[2021-12-13] MEDS: DICLOFENAC SOD 1% GEL 100 GM TUBE EXT SCH ×2 (07:46→11:07)
[2021-12-13] MEDS: HEPARIN SOD 5,000 UNIT/0.5 ML VIAL SQ SCH (07:46)
[2021-12-13 07:56] VITALS: BP 123/69; PULSE 74; O2SAT 90
[2021-12-13] MEDS: traMADol HCL 50 MG TABLET PO SCH (09:39)
[2021-12-13] MEDS: THIAMINE HCL 100 MG TAB PO SCH (09:39)
--- NOTE | 2021-12-13 13:48 | Discharge Summary ---
Date of Service December 13, 2021 Admission HPI Per Admitting Provider Agnes is an 81-year-old female with a past medical history of recurrent UTIs, CAD, HLD, hypertension, and carotid artery stenosis presents to the emergency department with altered mental status following recent hospitalization for altered mental status due to pansensitive E. coli. He has been switched to home a number of antibiotics with difficulty with tolerance. Patient was at her cognitive baseline even prior to admission. Switched from Keflex to Cipro yesterday Seen with sisters at bedside Agnes is normally fully independent, cooks/shops/goes to doctors appointments on her own Thursday morning she woke up and had chills with fever Thursday evening was sleeping early in the evening Thursday she would not answer phone/texts which was unusual. Family saw her at 3pm in the afternoon and she was not answering questions, sitting on her bed. Had not been out of bed in two days. Family called 911 concerned for stroke. Were in the ER for 24 hours, was found to have UTI which she has ahistory of chronic UTIs. Self caths 4x per days MRI and CT scan at [facility] both showing no stroke, she does have irrigular heart beat which is not afib (see cardiology note review below). Decreased fluid intake for a few days, decreased engagement and energy Seems to wax and wane, was normal-keshia yesterday, and much worse again today When lucid on was very afraid of surgery for her carotids, and is waiting for a second opinion. Would like to see Dr. Jackson for consult while inpatient. Medical History: Reviewed Medications: Reviewed Surgical History: Reviewed Allergies: Reviewed Social History: No tobacco/alcohol use Code Status: DNR/DNI per daughter's, POA at bedside Principal Diagnosis Acute encephalopathy-toxic and metabolic Discharge Exam Constitutional WD/WN, vitals as above Eyes EOM intact bilaterally; no anisocoria and no nystagmus ENMT external ear and nose normal, oropharynx normal Neck trachea midline, no thyromegaly Respiratory normal respiratory effort, lungs clear to auscultation Cardiovascular RRR, no murmur, no edema Chest (Breasts) Chest: normal inspection of chest Gastrointestinal (Abdomen) normal bowel sounds, soft, nontender, no hepatosplenomegaly Musculoskeletal Extremities: extremities normal to inspection; no cyanosis and no clubbing Skin no rashes, warm and dry Neurologic awake; no focal motor deficits and not confused Speech / Cognition: normal speech, no expressive aphasia and normal cognition Motor/Sensory: no tremor and no sensory deficit Psychiatric Orientation: alert, oriented x 3, oriented to person and cooperative Eye Contact: good eye contact Genitourinary + abnormal external appearance (Severino in place draining clear yellow urine) Lymphatic no lymphedema Discharge Data Allergies Allergy/AdvReac Type Severity Reaction Status Date / Time acetaminophen [From NyQuil] Allergy Unknown rapid Verified 12/07/21 16:38 heart beat, "brain does not stop working" adhesive tape Allergy Unknown blistering Verified 12/07/21 16:38 dextromethorphan Allergy Unknown rapid Verified 12/07/21 16:38 [From NyQuil] heart beat, "brain does not stop working" diphenhydramine Allergy Unknown rapid Verified 12/07/21 16:38 [From Tylenol PM] heart beat, "brain does not stop working" doxylamine [From NyQuil] Allergy Unknown rapid Verified 12/07/21 16:38 heart beat, "brain does not stop working" gluten Allergy Unknown "gluten Verified 12/07/21 16:38 free diet" - GI SYMPTOMS lactose Allergy Unknown "lactose Verified 12/07/21 16:38 intolerant" - GI SYMPTOMS nitrofurantoin Allergy Unknown rapid Verified 12/07/21 16:38 heart beat, can't sleep, "brain does not stop" pseudoephedrine [From NyQuil] Allergy Unknown rapid Verified 12/07/21 16:38 heart beat, "brain does not stop working" Sulfa (Sulfonamide Allergy Unknown "sulfa" - Verified 12/07/21 16:38 Antibiotics) "makes me hyper, can't sit still" cephalexin AdvReac Severe Encephalopa Verified 12/11/21 20:24 thy "ANTIHISTAMINE" Allergy Unknown rapid Uncoded 12/07/21 16:38 heart beat, can't sleep, "brain does not stop working" "TYLENOL COLD AND SINUS" Allergy Unknown rapid Uncoded 12/07/21 16:38 heart beat, "brain does not stop working" Consultations 12/07/21 14:06 ED Decision to Admit Stat 12/10/21 12:56 Consult Neurology Routine 12/10/21 13:20 Consult Orthopedic Surgery Routine Ordered Studies 12/07/21 12:06 CT head/brain wo con Stat 12/07/21 17:24 US gallbladder Routine 12/08/21 13:39 MRI Brain [MR brain wo/w con] Urgent 12/09/21 11:01 MR MRCP Routine 12/10/21 13:19 CT cervical spine wo con Urgent Hospital Course (1) Acute metabolic encephalopathy: Extensive work-up this week done at [facility] ([place], [place]) on 12/03/21 - MRI brain, CTA head/neck, echo, CT abd/pelvis, and labs/urine cx/etc. All testing listed was normal/negative except u/a highly suspicious for UTI. Urine cx ultimately grew pansensitive e.coli. MRI brain NEGATIVE FOR ACUTE CVA at [place]. Was d/cd to home from [facility] with keflex; took 3 days, there were concerns she was having adverse reaction from such due to worsening mental status and then switched to PO cipro on 12/06. Waxing/waning mental status since Thursday night, 12/02. Had improved after visit to [facility], then worsened again late this past week. Repeat MRI brain with contrast at this hospital- negative for acute CVA, ICH, abnormal enhancement, etc. Repeat COVID/flu/RSV PCR negative. B12 level robust Blood cx's here remain negative. Lyme screen negative. Anaplasmosis smear negative. TSH wnl. Ammonia wnl. Given the presence of gallstones and top-normal CBD size of 8mm on RUQ u/s obtained MRCP -Motion artifact prevented good assessment, but no CBD dilatation Most likely no issues with gallbladder, plus LFTs normal. Repeat urinalysis and urine culture here are negative for infection No fevers or leukocytosis No meningismus signs Perhaps this could be a toxic encephalopathy secondary to cephalexin which was then worsened by Cipro. She does have a long history of side effects to various medications that tend to include a lot of mental status changes. Perhaps some of it is from withdrawal from not taking her tramadol like she normally does. This was restarted on 12/09 Perhaps this is a Wernicke's encephalopathy although seems odd to come on acutely. Was started on high dose IV thiamine on 12/10 and then converted to po thiamine on 12/11 EEG normal Was given 2 low doses of Zyprexa on 12/10 and on 12/11 had a complete recovery in mentation after getting sleep Overall most likely metabolic encephalopathy from UTI followed by a toxic encephalopathy from keflex followed by exacerbation by lack of sleep for many days after that -continue thiamine 200mg po daily and f/u on B1 results when available-pending at discharge -Consult neurology appreciated-no further workup needed at this point -would continue Zyprexa at bedtime for a few more days scheduled, then prn after that -keflex added to allergies Overall MUCH improved and stable for dc to rehab (2) Carotid artery stenosis: CTA neck 12/03/21 at [facility] -- Moderate stenosis of left common carotid, severe stenosis of LICA, moderate stenosis of COY, moderate stenosis at the cavernous segment of both LICA and COY, moderate stenosis of intradural right vertebral artery. Despite the ICA stenosis she has had 2 negative MRIs of the brain this week- NEGATIVE for acute CVA. Continue asa Continue plavix Continue statin however this should be intensified in dosing due to severe CRISTA- would increase to 20mg (3) Coronary artery calcification: as seen on imaging troponins minimally elevated suspect myocardial demand ischemia in setting of her illness no ischemic symptoms by report (4) HTN (hypertension): cont amlodipine controlled (5) Hyperlipidemia: cont statin (6) UTI (urinary tract infection): pansensitive e.coli dx at [facility] early last week keflex x 3 days, then was on cipro starting 12/06 u/a here largely normal suggesting UTI has cleared did receive IV rocephin 12/07 in our ER repeated the IV rocephin 12/08 -Discontinued Rocephin (7) CLL (chronic lymphocytic leukemia): per records MRI brain shows cervical lymphadenopathy RUQ u/s showed intra-abdominal lymphadenopathy suspect the lymphadenopathy is CLL-related will need to f/u with her oncologist in the future fortunately her CBC cell lines are stable (8) Gallstones: seen on CT at [facility], and on RUQ u/s here no GB wall thickening or fluid CBD, however, is top-normal at 8mm LFTs normal MRCP somewhat nondiagnostic but overall does not seem consistent with acute cholecystitis or choledocholithiasis (9) Lung nodule: 6mm seen incidentally on CTA neck at [facility] will need f/u per nodule guidelines (10) Elevated troponin: 2nd myocardial demand ischemia no signs/symptoms of ACS (11) Degenerative disc disease: per her daughter she has been taking tramadol for several years for chronic low back pain she has had only a few doses of her tramadol over the last week due to her altered mental status and confusion There is some small suspicion that this could be encephalopathy secondary to narcotic withdrawal, but certainly need to ensure she stays comfortable and doesn't withdraw while here thus, resumed tramadol 50mg q12 on 12/09 (12) Chronic renal failure, stage 3b: baseline CrCl 30-45 Renal function remains at baseline -Avoid nephrotoxins -renally dose meds when appropriate (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: daughter reports chronic neck pain prior to encephalopathy CTA neck from [facility] with mention of such and MRI brain here with mention of C1/C2 subluxation, possible old odontoid fracture -checked CT cervical spine as would not tolerate MRI due to motion--> c/w old odontoid fracture and subluxation C1/C2 -consult Ortho Spine for further opinion-appreciate consult-nothing surgical needed; is chronic (14) Urinary retention: self caths at home qid as per Urology instructions in [place] interested in second opinion to avoid future UTIs -gave info for [facility] U[facility] (15) DVT prophylaxis: heparin 5000 BID (16) Constipation: had a hard BM onday of discharge but otherwise was constipated throughout her stay continue senna, daily Miralax, enemas as needed Plan rosa isela Jurado updated at bedside today dc to rehab today Total Time Total Time Spent Total Time Spent (In Minutes): 40min Discharge Plan Discharge Items Patient Disposition: Transfer [facility] Reason For Visit: AMS, RECENT UTI, HX ?ATRIAL ARRYTHMIA Discharge Diagnosis: Acute encephalopathy Activity: As commented below Lifting: Gradually increase as tolerated Bathing: No limitations Exercise/Sports: Gradually increase as tolerated Weightbearing: Full weightbearing Non-emergency contact: Primary Care Provider Call non-emergency contact if: you have any medication questions and your symptoms worsen Follow-up/Referrals: Raul Alcantar CRNP [Primary Care Provider] - Diet: Heart Healthy and Low Sodium (2gm) Addtl Attending Provider Instructions: You were admitted with severe confusion after taking antibiotics for a UTI. This fortunately has completely resolved. You can continue to take Zyprexa as needed at night for agitation or sleep. You will need rehab to regain strength loss while you were debilitated for the last week. Please continue to straight catheterize yourself 4x/day and follow up with Urology at [facility] as you desired. Pending Studies at Discharge: No Stand-Alone Forms: My [facility] Skilled Items Patient informed of condition?: Yes DNR: Yes Discharge Level of Care: Skilled Communicable Disease: No Discharge Prognosis: Improving Urinary Catheter: No Medications and DC Order Prescriptions: New diclofenac sodium [Voltaren Arthritis Pain] 1 % Gel 2 g EXT QID Qty: 100 0RF Rx Instructions: Apply to neck and back at site of pain olanzapine 2.5 mg Tablet 2.5 mg PO HS PRN (Reason: agitation or insomnia) Qty: 7 0RF sennosides [Senokot] 8.6 mg Tablet 17.2 mg PO QAM Qty: 20 0RF thiamine HCl (vitamin B1) 100 mg Tablet 200 mg PO QAM Qty: 60 0RF polyethylene glycol 3350 [Miralax] 17 gram Powder In Packet 17 g PO DAILY Qty: 30 0RF Continued clopidogrel 75 mg tablet 75 mg PO DAILY aspirin 81 mg tablet,delayed release (DR/EC) 81 mg PO DAILY acetaminophen [Tylenol 8 Hour] 650 mg tablet extended release 650 mg PO Q12H PRN (Reason: Pain) pantoprazole 40 mg tablet,delayed release (DR/EC) 40 mg PO QPM multivitamin [Multiple Vitamins] Tablet 1 tab PO QAM amlodipine 10 mg Tablet 10 mg PO QPM ascorbic acid (vitamin C) [Vitamin C] 500 mg Capsule, Extended Release 500 mg PO QAM cyanocobalamin (vitamin B-12) [Vitamin B-12] 1,000 mcg Tablet 500 tab PO QAM cholecalciferol (vitamin D3) [Vitamin D3] 125 mcg (5,000 unit) Tablet 125 mcg PO DAILY Zinc Tab 1 tab PO DAILY Systane Complete 0.6 % Drops 1 drp OPHTHALMIC (EYE) DIRECTED PRN (Reason: dry eyes ) tramadol 50 mg Tablet 50 mg PO Q12 Qty: 6 0RF Changed simvastatin 10 mg Tablet 20 mg PO PM Qty: 60 0RF Discontinued alfuzosin 10 mg Tablet Extended Release 24 Hr 10 mg PO DAILY PRN (Reason: uti) Rx Instructions: administer after the same meal each day ciprofloxacin HCl [Cipro] 500 mg Tablet 500 mg PO BID Discharge Orders: Discharge Order (Routine); Ordered 12/13/21 Ordered By: Kierra Gama Admission Data Admit Date/Time: 12/08/21 12:51 Attending Provider: Kierra Gama Admit Provider: Arnol Salgado Primary Care Provider: Raul Alcantar Other Providers: Arnol Salgado ; Zechariah Valdovinos ; Kwame Mcallister Coding Level of Care Code D/C DAY MANAGEMENT >30 MINS Diagnoses Acute metabolic encephalopathy G93.41 Carotid artery stenosis I65.29 Coronary artery calcification I25.10; I25.84 HTN (hypertension) I10 Hyperlipidemia E78.5 UTI (urinary tract infection) N39.0 Hematuria presence: without hematuria Urinary tract infection type: site unspecified CLL (chronic lymphocytic leukemia) C91.10 Gallstones K80.20 Lung nodule R91.1 Elevated troponin R77.8 Degenerative disc disease Chronic renal failure, stage 3b N18.32 Odontoid fracture with nonunion S12.110K Urinary retention R33.9 DVT prophylaxis Z29.9 Constipation K59.00
[2021-12-13] MEDS ORDERED: SOD PHOSPHATE/SOD BIPHOSPHATE ENEMA 132 ML BTL PR STA (13:56)
== END 2021-12-13 15:06 | DRG 689 ==
LOC: ED 11:55 → EDINP 11:55 → SUATTDRO 14:39 → EDINP 17:27 → SUATTDRO 12-08 12:51 → 2W 12-08 17:43
DX: Z88.2 Allergy status to sulfonamides; R33.9 Retention of urine, unspecified; K59.00 Constipation, unspecified; F11.23 Opioid dependence with withdrawal; Y92.89 Other specified places as the place of occurrence of the external cause; N39.0 Urinary tract infection, site not specified; C91.90 Lymphoid leukemia, unspecified not having achieved remission; E78.5 Hyperlipidemia, unspecified; M81.0 Age-related osteoporosis without current pathological fracture; I45.10 Unspecified right bundle-branch block; I25.10 Atherosclerotic heart disease of native coronary artery without angina pectoris; Z66 Do not resuscitate; Z96.611 Presence of right artificial shoulder joint; R91.1 Solitary pulmonary nodule; N18.32 Chronic kidney disease, stage 3b; I24.8 Other forms of acute ischemic heart disease; Z96.641 Presence of right artificial hip joint; G92.8 Other toxic encephalopathy; I12.9 Hypertensive chronic kidney disease with stage 1 through stage 4 chronic kidney disease, or unspecified chronic kidney disease; X58.XXXS Exposure to other specified factors, sequela; E80.6 Other disorders of bilirubin metabolism; B96.20 Unspecified Escherichia coli [E. coli] as the cause of diseases classified elsewhere; I47.2 Ventricular tachycardia; Z87.440 Personal history of urinary (tract) infections; G93.41 Metabolic encephalopathy; I65.23 Occlusion and stenosis of bilateral carotid arteries; S12.100K Unspecified displaced fracture of second cervical vertebra, subsequent encounter for fracture with nonunion; Z85.72 Personal history of non-Hodgkin lymphomas; T36.1X5A Adverse effect of cephalosporins and other beta-lactam antibiotics, initial encounter; K80.20 Calculus of gallbladder without cholecystitis without obstruction; Z79.82 Long term (current) use of aspirin

== ENCOUNTER 2022-02-12 05:55 | Inpatient (IN) ==
--- NOTE | 2022-01-29 11:10 | PAT Medication Instructions ---
Medication Instructions Date of Service January 29, 2022 Home Medications Medication Instructions Recorded simvastatin 10 mg tablet 20 mg PO PM #60 tabs 12/13/21 tramadol 50 mg tablet 50 mg PO Q12 #6 tabs 12/13/21 amlodipine 10 mg tablet 10 mg PO QPM cyanocobalamin (vitamin B-12) 1,000 mcg tablet (Vitamin B-12) 500 tab PO 1200 multivitamin (Multiple Vitamins tablet) 1 tab PO 1200 acetaminophen 650 mg tablet,extended release (Tylenol 8 Hour) 650 mg PO Q12H PRN aspirin 81 mg tablet,delayed release 81 mg PO QAM clopidogrel 75 mg tablet 75 mg PO QPM pantoprazole 40 mg tablet,delayed release 40 mg PO QPM Zinc Tab 1 tab PO 1200 cholecalciferol (vitamin D3) 125 mcg (5,000 unit) tablet (Vitamin D3) 125 mcg PO 1200 propylene glycol 0.6 % eye drops (Systane Complete) 1 drp ophthalmic (eye) DIRECTED PRN simvastatin 10 mg tablet 20 mg PO PM tramadol 50 mg tablet 50 mg PO Q12 diclofenac sodium 1 % topical gel (Voltaren Arthritis Pain) 2 g EXT QID PRN polyethylene glycol 3350 17 gram oral powder packet (Miralax) 17 g PO DAILY PRN sennosides 8.6 mg tablet (Senokot) 17.2 mg PO QAM PRN thiamine HCl (vitamin B1) 100 mg tablet 200 mg PO Continue as directed propylene glycol 0.6 % eye drops (Systane Complete) 1 drp ophthalmic (eye) DIRECTED PRN(if needed) ASK your prescriber and surgeon aspirin 81 mg tablet,delayed release 81 mg PO QAM clopidogrel 75 mg tablet 75 mg PO QPM STOP taking 24 hours before surgery diclofenac sodium 1 % topical gel (Voltaren Arthritis Pain) 2 g EXT QID PRN DO NOT take the morning of surgery cyanocobalamin (vitamin B-12) 1,000 mcg tablet (Vitamin B-12) 500 tab PO 1200 multivitamin (Multiple Vitamins tablet) 1 tab PO 1200 Zinc Tab 1 tab PO 1200 cholecalciferol (vitamin D3) 125 mcg (5,000 unit) tablet (Vitamin D3) 125 mcg PO 1200 polyethylene glycol 3350 17 gram oral powder packet (Miralax) 17 g PO DAILY PRN sennosides 8.6 mg tablet (Senokot) 17.2 mg PO QAM PRN thiamine HCl (vitamin B1) 100 mg tablet 200 mg PO Take morning of surgery With a small sip of water, OTHERWISE NOTHING TO EAT OR DRINK AFTER MIDNIGHT: acetaminophen 650 mg tablet,extended release (Tylenol 8 Hour) 650 mg PO Q12H PRN (if needed) tramadol 50 mg tablet 50 mg PO Q12 Take evening before surgery amlodipine 10 mg tablet 10 mg PO QPM acetaminophen 650 mg tablet,extended release (Tylenol 8 Hour) 650 mg PO Q12H PRN (if needed) pantoprazole 40 mg tablet,delayed release 40 mg PO QPM simvastatin 10 mg tablet 20 mg PO PM tramadol 50 mg tablet 50 mg PO Q12 Other Notes If you have any questions please call us at [phone] or [phone] or [phone] or [phone]
--- NOTE | 2022-02-04 11:52 | Anesthesiology Consultation ---
Date of Service February 04, 2022 Assessment & Plan (1) Encounter for pre-operative examination: - vascular surgery 01/06/22 [facility]: "...carotid disease...November with altered mental status...severe stenosis of left internal carotid artery...asymptomatic...discussed options as far as endarterectomy versus TCAR...to undergo TCAR of her left carotid artery..." - discharge summary 12/13/21 [facility]: "...Acute metabolic encephalopathy: Extensive work-up this week done at [facility] ([place], [place]) on 12/03/21 - MRI brain, CTA head/neck, echo, CT abd/pelvis, and labs/urine cx/etc. All testing listed was normal/negative except u/a highly suspicious for UTI. Urine cx ultimately grew pansensitive e.coli. MRI brain NEGATIVE FOR ACUTE CVA at [facility]. Was d/cd to home from [facility] with keflex; took 3 days, there were concerns she was having adverse reaction from such due to worsening mental status and then switched to PO cipro on 12/06. Waxing/waning mental status since Thursday night, 12/02. Had improved after visit to [facility], then worsened a gain late this past week. Repeat MRI brain with contrast at this hospital- negative for acute CVA, ICH, abnormal enhancement, etc...Given the presence of gallstones and top-normal CBD size of 8mm on RUQ u/s obtained MRCP -Motion artifact prevented good assessment, but no CBD dilatation. Most likely no issues with gallbladder, plus LFTs normal...Perhaps this could be a toxic encephalopathy secondary to cephalexin which was then worsened by Cipro...long history of side effects to various medications that tend to include a lot of mental status changes. Perhaps some of it is from withdrawal from not taking her tramadol like she normally does. This was restarted on 12/09. Perhaps this is a Wernicke's encephalopathy although seems odd to come on acutely. Was started on high dose IV thiamine on 12/10 and then converted to po thiamine on 12/11. EEG normal...2 low doses of Zyprexa on 12/10 and on 12/11 had a complete recovery in mentation after getting sleep. Overall most likely metabolic encephalopathy from UTI followed by a toxic encephalopathy from keflex followed by exacerbation by lack of sleep for many days after that...Carotid artery stenosis: CTA neck 12/03/21 at [facility] -- Moderate stenosis of left common carotid, severe stenosis of LICA, moderate stenosis of COY, moderate stenosis at the cavernous segment of both LICA and COY, moderate stenosis of intradura l right vertebral artery...Coronary artery calcification: as seen on imaging troponins minimally elevated. suspect myocardial demand ischemia in setting of her illness. no ischemic symptoms by report...CLL (chronic lymphocytic leukemia)...MRI brain shows cervical lymphadenopathy. RUQ u/s showed intra- abdominal lymphadenopathy. suspect the lymphadenopathy is CLL-related. will need to f/u with her oncologist in the future. fortunately her CBC cell lines are stable. Gallstones: seen on CT at [facility], and on RUQ u/s here. MRCP somewhat nondiagnostic but overall does not seem consistent with acute cholecystitis or choledocholithiasis...Chronic renal failure, stage 3b:baseline CrCl 30-45...Odontoid fracture with nonunion:daughter reports chronic neck pain prior to encephalopathy. CTA neck from [facility] with mention of such and MRI brain here with mention of C1/C2 subluxation, possible old odontoid fracture- checked CT cervical spine as would not tolerate MRI due to motion--> c/w old odontoid fracture and subluxation C1/C2-consult Ortho Spine for further opinion- appreciate consult-nothing surgical needed; is chronic..." Chart Review Chart Review: Acceptable Risk for Surgery and Patient seen in Pre Admission Testing Teaching & Discussion Pre-Anesthesia Teaching/Discussion Notes: Instructed NPO after midnight before surgery, except medications with 15 cc of water. Medication instructions provided according to the PAT guidelines. History Surgery Operation Date: 02/12/22 07:30 Proposed Procedures p Left Transcarotid Artery Revascularization - Travon Jackosn MD Height/Weight Height: 4 ft 11 in Weight: 45.3 kg Allergies Allergy/AdvReac Type Severity Reaction Status Date / Time acetaminophen [From NyQuil] Allergy Unknown rapid Verified 01/28/22 14:41 heart beat, "brain does not stop working" adhesive tape Allergy Unknown blistering Verified 01/28/22 14:41 dextromethorphan Allergy Unknown rapid Verified 01/28/22 14:41 [From NyQuil] heart beat, "brain does not stop working" diphenhydramine Allergy Unknown rapid Verified 01/28/22 14:41 [From Tylenol PM] heart beat, "brain does not stop working" doxylamine [From NyQuil] Allergy Unknown rapid Verified 01/28/22 14:41 heart beat, "brain does not stop working" gluten Allergy Unknown "gluten Verified 01/28/22 14:41 free diet" - GI SYMPTOMS lactose Allergy Unknown "lactose Verified 01/28/22 14:41 intolerant" - GI SYMPTOMS nitrofurantoin Allergy Unknown rapid Verified 01/28/22 14:41 heart beat, can't sleep, "brain does not stop" pseudoephedrine [From NyQuil] Allergy Unknown rapid Verified 01/28/22 14:41 heart beat, "brain does not stop working" Sulfa (Sulfonamide Allergy Unknown "sulfa" - Verified 01/28/22 14:41 Antibiotics) "makes me hyper, can't sit still" cephalexin AdvReac Severe Encephalopa Verified 01/28/22 14:41 thy "ANTIHISTAMINE" Allergy Unknown rapid Uncoded 01/28/22 14:41 heart beat, can't sleep, "brain does not stop working" "TYLENOL COLD AND SINUS" Allergy Unknown rapid Uncoded 01/28/22 14:41 heart beat, "brain does not stop working" Medications Home Medications Medication Instructions Recorded Confirmed Last Taken amlodipine 10 mg tablet 10 mg PO QPM 06/14/18 01/28/22 07/12/18 19:00 cyanocobalamin (vitamin B-12) 500 tab PO 1200 06/14/18 01/28/22 07/08/18 08:00 1,000 mcg tablet (Vitamin B-12) multivitamin (Multiple Vitamins 1 tab PO 1200 06/14/18 01/28/22 07/08/18 08:00 tablet) acetaminophen 650 mg 650 mg PO Q12H PRN Pain 12/05/21 01/28/22 Unknown tablet,extended release (Tylenol 8 Hour) aspirin 81 mg tablet,delayed 81 mg PO QAM 12/05/21 01/28/22 Unknown release clopidogrel 75 mg tablet 75 mg PO QPM 12/05/21 01/28/22 Unknown pantoprazole 40 mg tablet,delayed 40 mg PO QPM 12/05/21 01/28/22 Unknown release Zinc Tab 1 tab PO 1200 12/07/21 01/28/22 Unknown cholecalciferol (vitamin D3) 125 125 mcg PO 1200 12/07/21 01/28/22 Unknown mcg (5,000 unit) tablet (Vitamin D3) propylene glycol 0.6 % eye drops 1 drp ophthalmic (eye) DIRECTED 12/07/21 01/28/22 Unknown (Systane Complete) PRN dry eyes simvastatin 10 mg tablet 20 mg PO PM #60 tabs 12/13/21 01/28/22 07/12/18 19:00 tramadol 50 mg tablet 50 mg PO Q12 #6 tabs 12/13/21 01/28/22 Unknown diclofenac sodium 1 % topical gel 2 g EXT QID PRN Pain 01/28/22 01/28/22 Unknown (Voltaren Arthritis Pain) polyethylene glycol 3350 17 gram 17 g PO DAILY PRN Constipation 01/28/22 01/28/22 Unknown oral powder packet (Miralax) sennosides 8.6 mg tablet (Senokot) 17.2 mg PO QAM PRN Constipation 01/28/22 01/28/22 Unknown thiamine HCl (vitamin B1) 100 mg 200 mg PO 1200 01/28/22 01/28/22 Unknown tablet Past Medical History Medical History (Updated 02/04/22 @ 11:59 by Kavita Lomax PA-C) Acid reflux controlled, stable per pt CLL (chronic lymphocytic leukemia) Diagnosed in 2013, sees her Oncologist routinely. -- No treatment Degenerative disc disease Hearing loss Hiatal hernia Hyperlipidemia Hypertension controlled, stable per pt Urinary retention Self caths QID Patient denies h/o stroke, seizures, heart attack, heart failure, DM, blood clots or blood transfusions. Exercise / Class Metabolic Activity II 4-5 Yardwork/Stairs/Walk up hill (denies CP or SOB with 1 FOS, ambulates with cane) Past Family History Family History Other No family history of adverse response to anesthesia Past Surgical History Surgical History (Updated 02/04/22 @ 12:02 by Kavita Lomax PA-C) History of appendectomy History of bilateral cataract extraction History of colonoscopy x2 History of cystoscopy History of left knee replacement 07/13/18: SAB L3-L4 + PNB. History of lumpectomy of left breast benign History of right knee joint replacement History of tonsillectomy History of total right hip arthroplasty History of total shoulder replacement RIGHT History of tubal ligation Past Anesthesia History No Hx of Anesthesia Complications and No Family Hx of Anesthesia Complications History of PONV No Hx of PONV and No Hx of Motion Sickness Social History Smoking Status: Former smoker tobacco type: cigarettes Smoking cigarettes per day: 1 ppd x 50 years. QUIT 2013 Do You Dip or Chew Tobacco: No Smoking End Date: 2013 Hx Alcohol Use: No Hx Substance Use: No substance use type: does not use Review of Systems Patient denies chest pain, shortness of breath, dyspnea on exertion, snoring, witnessed apneas, fever, chills, cough, wheezing, or palpitations. Physical Exam Vital Signs Vitals BP 131/81 P 79 TEMP 98.1 SP02 98% on RA RESP 18 Physical Full cervical extension range of motion without pain TMD 3.5 finger breadths Mallampati Score 3 Dentition: two crowns; full upper denture, partial lower denture; denies chipped or loose teeth, implants or bridges Lungs: normal respiratory effort. Clear throughout to auscultation, no adventitious breath sounds Cardiac: regular rate and rhythm, no murmurs noted Lab Results Anesthesia Preop Results Results Anesthesia Widget: WBC 4.61 K/ul (4.8-10.8) L 02/04/22 Hgb 11.3 g/dl (12.0-16.0) L 02/04/22 Hct 33.0 % (34.1-44.9) L 02/04/22 Plt 170 K/uL (130-400) 02/04/22 Na 134 mmol/L (136-145) L 02/04/22 K 4.1 mmol/L (3.5-5.1) 02/04/22 Cl 100 mmol/L (98-107) 02/04/22 CO2 28 mmol/L (21-32) 02/04/22 BUN 20 mg/dl (6-23) 02/04/22 Creat 1.03 mg/dl (0.6-1.2) 02/04/22 Glucose Level 115 mg/dl (70-99(Fasting)) H 02/04/22 PT 10.9 Seconds (9.0-12.0) 02/04/22 PTT 26.4 Seconds (21.0-31.0) 02/04/22 INR 1.0 (0.9-1.1) 02/04/22 TSH 3.257 uIu/ml (0.300-4.500) 12/07/21 Urine Color Yellow 12/07/21 Urine Appearance Clear (Clear) 12/07/21 Urine pH 5.5 (4.5-7.5) 12/07/21 Urine Specific [place] 1.017 (1.000-1.030) 12/07/21 Urine Protein Negative (Negative) 12/07/21 Urine Glucose (UA) Negative (Negative) 12/07/21 Urine Ketones Trace (Negative) H 12/07/21 Urine Blood Negative (Negative) 12/07/21 Urine Nitrite Negative (Negative) 12/07/21 Urine Bilirubin Negative (Negative) 12/07/21 Urine Urobilinogen Negative (Negative) 12/07/21 Urine Leukocyte Esterase Negative (Negative) 12/07/21 COVID-19 PCR NEGATIVE (Negative) 12/08/21 SARS-CoV-2, RNA, NAAT NEGATIVE (NEGATIVE) 12/13/21 Blood Type O Positive 02/04/22 Antibody Screen NEGATIVE 02/04/22 Testing Electrocardiogram Date: 02/04/22 Sinus rhythm with premature atrial complexes, rate 68 bpm Old inferior infarct, cited on or before 06/21/18 Old anterior infarct, cited on or before 06/21/18 Chest X-Ray Date: 02/04/22 No focal lung consolidations to suggest a pneumonia. No evidence for pulmonary edema. There is a moderate hiatus hernia, unchanged. The heart is normal in size. Right hilar prominence remains stable. There is a right shoulder prosthesis again noted. The lungs remain hyperexpanded. IMPRESSION: No significant change compared to the prior study. No acute process. Echocardiogram Date: 12/04/21 EF 60-65% Normal LV wall motion Moderately dilated LA Severe calcification posterior mitral valve annulus extending into the posterior leaflet. No evidence of stenosis Grade I diastolic dysfunction Cervical Spine Date: 12/10/21 CT 1. Chronic appearing degenerative changes and subluxation of the atlantoaxial joint. C1 is displaced posteriorly and to the right of C2. No acute fracture is seen. 2. Numerous enlarged lymph nodes are seen in the visualized cervical supraclavicular stations compatible with history of CLL. Other Testing Brain MRI 12/08/21 1. No acute infarct or intracranial hemorrhage. 2. Mild atrophy and microvascular ischemic changes. 3. Multiple mildly enlarged cervical lymph nodes. This could represent a lymphoma. 3. Moderate central canal narrowing within the upper cervical spine due to the posterior subluxation at the C1-C2 level. Head CT 12/07/21 There is no hemorrhage, mass effect, or evidence of acute territorial ischemia by CT criteria. Head, neck CTA 12/03/21 Moderate stenosis at cavernous segment of ICAs bilat Moderate stenosis intradural right vertebral artery Severe stenosis at origin of left ICA Incomplete fusion of anterior arch of C1 and erosive changes of the odontoid. The odontoid process is anteriorly positioned relative to C1 and the clivus concerning for instability. Emphysema with a 0.6 cm left upper lobe pulmonary nodule and mediastinal lymphadenopathy. EEG 12/03/21 This is a normal EEG, recorded in wakefulness and sleep. There is no electrographic seizures or epileptogenic discharge. COVID-19 Risk Screen Screening Information COVID-19 Screen Date: 02/04/22 Exposure 21 Days Family/Household +COVID Last 21 Days: No Exposure 10 Days Any COVID Exposure Last 10 Days: No Symptoms Last 10 Days Experienced COVID Sx Last 10 Days: No + COVID 0-90 Days COVID + in Last 0-90 Days: No
--- NOTE | 2022-02-11 14:28 | History & Physical Report ---
Date of Service February 11, 2022 History of Present Illness Primary Care Provider: IRA Issa Chief Complaint rm#[id number] here for consult left ICA, had syncoal episode, also found to have a UTI. No stroke like symtpoms. Had delerium in hospital. History of Present Illness I the pleasure of seeing [place] today for evaluation of her carotid disease. As you know she is an 81-year-old female with a history of hyperlipidemia hypertension chronic lymphocytic leukemia untreated, hiatal hernia, COPD, arthritis, a left total knee in 2018 and had a right total knee in September of this year. She presented to [facility] in November with altered mental status. She was said to be confused for 2 days before her daughter found her. She was found to have a UTI at that time. 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 She denies any focal findings related to her carotid disease. She denies any claudication of lower extremities. She denies any chest pain. Review of Systems 10 systems were reviewed. Positive findings included the heartburn hiatal hernia food intolerance bladder incontinence and frequent bladder infections. She does have pain in her joints when walking and has joint pain at rest. Physical Exam Vitals & Measurements HR: 76 (Monitored) BP: 122/66 SpO2: 96% WT: 44.5 kg Input and Output - Last 24 hours (Last 8 hours) No I/O Data Found: On physical exam she is awake alert and oriented x3. Her blood pressure is 106/62 on the left and 122/62 on the right. Head and neck are within normal limits. Radials carotids supratemporal's are +2 bilaterally. She does have a left carotid bruit. Lungs were clear heart had a regular rate and rhythm. Dahms and is benign no aneurysmal dilatation of the aorta was appreciated. Femorals and pedal pulses are all +2 bilaterally. Neurologic exam was grossly intact to motor and sensory function. Assessment/Plan 1. Stenosis of left internal carotid artery This a pleasant 81-year-old female who is found to have an incidental severe stenosis of her left internal carotid artery on CT angiogram. She is totally asymptomatic from this lesion. We discussed the options as far as endarterectomy versus TCAR. We went over the risks and options and benefits of both. She was agreeable to undergo TCAR of her left carotid artery. This will be scheduled in near future. We will keep you informed as to her results. Thank you very much for letting us participate in the care of this patient. Sincerely, Panfilo Jackson MD. Problem List/Past Medical History Ongoing Stenosis of left internal carotid artery Historical No qualifying data Medications Inpatient No active inpatient medications Home amLODIPine 10 mg oral tablet, 10 mg= 1 tab, PO, Daily aspirin 81 mg oral delayed release tablet, 81 mg= 1 tab, PO, Daily atorvastatin 40 mg oral tablet, 40 mg= 1 tab, PO, Daily cholecalciferol 25 mcg (1000 intl units) oral tablet, See Instructions clopidogrel 75 mg oral tablet, 75 mg= 1 tab, PO, Daily multivitamin, 1 tab, PO, Daily pantoprazole 40 mg oral delayed release tablet, 40 mg= 1 tab, PO, Daily traMADol 50 mg oral tablet, 50 mg= 1 tab, PO, bid, PRN Vitamin B1 100 mg oral tablet, See Instructions Vitamin B12, 500 mcg, PO, Daily zinc (as gluconate) 50 mg oral tablet, See Instructions Allergies sulfa drugs (Tachycardia, Anxiety, Hives) Social History Smoking Status Former Smoker, quit > 1 yr Signature Line Electronic Signature on File Electronically Reviewed/Signed by: Travon Jackson MD Author Signature Dt/Tm:01/06/2022 02:32 PM Casino Porter Flaquito Castorena [facility] [place], [address] [place] [address] EJS Result Type: Physician Consult Date of Service: January 06, 2022 14:32 EDT Authorization Status: Final Subject: Consult Note Author or Import Date: MD Jackson Eugene J on January 06, 2022 14:32 EDT Verified By: MD Jackson Eugene J on January 06, 2022 14:32 EDT Encounter info: [id number], [place] [id number], Clinic, 01/06/2022 - 01/06/2022 Allergies Allergy/AdvReac Type Severity Reaction Status Date / Time acetaminophen [From NyQuil] Allergy Unknown rapid Verified 01/28/22 14:41 heart beat, "brain does not stop working" adhesive tape Allergy Unknown blistering Verified 01/28/22 14:41 dextromethorphan Allergy Unknown rapid Verified 01/28/22 14:41 [From NyQuil] heart beat, "brain does not stop working" diphenhydramine Allergy Unknown rapid Verified 01/28/22 14:41 [From Tylenol PM] heart beat, "brain does not stop working" doxylamine [From NyQuil] Allergy Unknown rapid Verified 01/28/22 14:41 heart beat, "brain does not stop working" gluten Allergy Unknown "gluten Verified 01/28/22 14:41 free diet" - GI SYMPTOMS lactose Allergy Unknown "lactose Verified 01/28/22 14:41 intolerant" - GI SYMPTOMS nitrofurantoin Allergy Unknown rapid Verified 01/28/22 14:41 heart beat, can't sleep, "brain does not stop" pseudoephedrine [From NyQuil] Allergy Unknown rapid Verified 01/28/22 14:41 heart beat, "brain does not stop working" Sulfa (Sulfonamide Allergy Unknown "sulfa" - Verified 01/28/22 14:41 Antibiotics) "makes me hyper, can't sit still" cephalexin AdvReac Severe Encephalopa Verified 01/28/22 14:41 thy "ANTIHISTAMINE" Allergy Unknown rapid Uncoded 01/28/22 14:41 heart beat, can't sleep, "brain does not stop working" "TYLENOL COLD AND SINUS" Allergy Unknown rapid Uncoded 01/28/22 14:41 heart beat, "brain does not stop working" Home Medications Medication Instructions Recorded Confirmed Type amlodipine 10 mg tablet 10 mg PO QPM 06/14/18 01/28/22 History cyanocobalamin (vitamin B-12) 500 tab PO 1200 06/14/18 01/28/22 History 1,000 mcg tablet (Vitamin B-12) multivitamin (Multiple Vitamins 1 tab PO 1200 06/14/18 01/28/22 History tablet) acetaminophen 650 mg 650 mg PO Q12H PRN Pain 12/05/21 01/28/22 History tablet,extended release (Tylenol 8 Hour) aspirin 81 mg tablet,delayed 81 mg PO QAM 12/05/21 01/28/22 History release clopidogrel 75 mg tablet 75 mg PO QPM 12/05/21 01/28/22 History pantoprazole 40 mg tablet,delayed 40 mg PO QPM 12/05/21 01/28/22 History release Zinc Tab 1 tab PO 1200 12/07/21 01/28/22 History cholecalciferol (vitamin D3) 125 125 mcg PO 1200 12/07/21 01/28/22 History mcg (5,000 unit) tablet (Vitamin D3) propylene glycol 0.6 % eye drops 1 drp ophthalmic (eye) DIRECTED 12/07/21 01/28/22 History (Systane Complete) PRN dry eyes simvastatin 10 mg tablet 20 mg PO PM #60 tabs 12/13/21 01/28/22 Rx tramadol 50 mg tablet 50 mg PO Q12 #6 tabs 12/13/21 01/28/22 Rx diclofenac sodium 1 % topical gel 2 g EXT QID PRN Pain 01/28/22 01/28/22 History (Voltaren Arthritis Pain) polyethylene glycol 3350 17 gram 17 g PO DAILY PRN Constipation 01/28/22 01/28/22 History oral powder packet (Miralax) sennosides 8.6 mg tablet (Senokot) 17.2 mg PO QAM PRN Constipation 01/28/22 01/28/22 History thiamine HCl (vitamin B1) 100 mg 200 mg PO 1200 01/28/22 01/28/22 History tablet Past Med/Surg History Medical History (Updated 02/04/22 @ 11:59 by Kavita Lomax PA-C) Acid reflux controlled, stable per pt CLL (chronic lymphocytic leukemia) Diagnosed in 2013, sees her Oncologist routinely. -- No treatment Degenerative disc disease Hearing loss Hiatal hernia Hyperlipidemia Hypertension controlled, stable per pt Urinary retention Self caths QID Surgical History (Updated 02/04/22 @ 12:02 by Kavita Lomax PA-C) History of appendectomy History of bilateral cataract extraction History of colonoscopy x2 History of cystoscopy History of left knee replacement 07/13/18: SAB L3-L4 + PNB. History of lumpectomy of left breast benign History of right knee joint replacement History of tonsillectomy History of total right hip arthroplasty History of total shoulder replacement RIGHT History of tubal ligation Family History Other No family history of adverse response to anesthesia Social History Smoking Status: Former smoker Cigarettes Per Day: 1 ppd x 50 years. QUIT 2013; Second Hand Exposure: No; Hx Alcohol Use: No Hx Substance Use: No Preferred Language: Malawian Communication Ability: Effective Putty Patcher Required: No Beliefs That Will Affect Care: None Current Living Situation: Alone Feels Safe at Home: Yes Assistive Devices: Cane, Denture - Upper, Denture - Lower, Glasses and Walker
[2022-02-12] MEDS ORDERED: ceFAZolin 1000MG 1,000 MG/7.5 ML SYR IV SCH (06:00)
[2022-02-12] MEDS ORDERED: LACTATED RINGER'S 1,000 ML IV SCH (06:00)
[2022-02-12] MEDS ORDERED: fentaNYL citrate 100 MCG/2 ML VIAL ONE (06:45)
[2022-02-12] MEDS ORDERED: GLYCOPYRROLATE 0.2 MG/ML VIAL ONE (07:01)
[2022-02-12] MEDS ORDERED: DEXAMETHASONE SOD INJ 4 MG/ML VIAL ONE (07:01)
[2022-02-12] MEDS ORDERED: HEPARIN SOD (PORCINE) 1000 UNIT/ML ONE (07:01)
[2022-02-12] MEDS ORDERED: SUGAMMADEX SODIUM 200 MG/2 ML VIAL IV ONE (07:01)
[2022-02-12] MEDS ORDERED: PROPOFOL IV EMULSION 10 MG/ML 20 ML VIAL IV ONE (07:01)
[2022-02-12] MEDS ORDERED: ONDANSETRON INJ 2 MG/ML 2 ML VIAL ONE ×2 (07:01→10:38)
[2022-02-12] MEDS ORDERED: ROCURONIUM BROMIDE 10 MG/ML 5 ML VIAL IV ONE (07:01)
[2022-02-12] MEDS ORDERED: LIDOCAINE 2% MPF LOCAL 5 ML VIAL INFIL ONE (07:01)
[2022-02-12] MEDS ORDERED: ASPIRIN 81 MG ECTAB PO STA (07:19)
[2022-02-12] MEDS ORDERED: CLOPIDOGREL BISULFATE 75 MG TAB PO ONE (07:20)
--- NOTE | 2022-02-12 07:27 | History & Physical Bridge Note ---
Date of Service February 12, 2022 History & Physical Bridge Note I have examined the patient, reviewed the History & Physical and in the interval since the performance of the History & Physical I have noted the following changes of clinical significance: no changes noted
[2022-02-12] MEDS ORDERED: GELATIN SPONGE SZ 100 ONE (07:31)
[2022-02-12] MEDS ORDERED: THROMBIN FOR SOLN 20000 UNIT KIT ONE (07:31)
[2022-02-12] MEDS ORDERED: ePHEDrine sulfate 50 MG/ML SYR ONE (08:40)
[2022-02-12] MEDS ORDERED: ePHEDrine sulfate 50 MG/ML AMP ONE ×2 (08:40→09:13)
[2022-02-12] MEDS ORDERED: ceFAZolin 330 MG/ML 1 GM VIAL ONE (09:32)
[2022-02-12] MEDS ORDERED: ceFAZolin 1000MG 1,000 MG/7.5 ML SYR IV ONE (09:36)
--- NOTE | 2022-02-12 09:52 | Procedure Note ---
Angiogram Post Procedure Fluoroscopy Time (minutes): 3.3 Radiation (mGy): 25 Contrast: 23 Post Operative Report Pre & Post Diagnosis Operation Date: 02/12/22 08:00 Pre-Op Diagnosis: Left Internal Carotid Artery Stenosis Post-Op Diagnosis: Left Internal Carotid Artery Stenosis I identified the patient and participated in the time-out.: Yes Procedure Operation Date: 02/12/22 08:00 Actual Procedures p Left Transcarotid Artery Revascularization(Left) - Travon Jackson MD Ultrasound localization of right common femoral vein Surgeon Traovn Jackson MD Director Search Marketing Strategies Estephania,PAC Estimated Blood Loss 20 Findings Consistent with Post-Op Diagnosis Specimens Left neck lymph nodes Anesthesia Type General Complications none Disposition Accompanied Patient To Recovery: No Disposition: Recovery Room Indications This is an 81-year-old female with bilateral severe stenosis of her internal carotid artery origins. Intervention was recommended. We went over the risk option benefits of endarterectomy versus TCAR procedure. She elected to go ahead with a TCAR. We plan on doing the left side first. I have discussed the risks options and benefits of the procedure with the patient. The patient understands the risks options and benefits and agrees to the procedure. Description of Procedure The patient was taken to the operating room and placed in supine position. After general anesthesia was accomplished the groins and left side of the neck and chest were prepped and draped in a sterile manner. Timeout was performed and the patient was identified. A transverse incision was made just above the clavicle between the heads of the sternocleidomastoid. This was carried down to where the common carotid artery was identified. It was isolated and slung with an umbilical tape. There is a large nest of small lymph nodes present in the angle of sternocleidomastoid muscle heads. These were excised and sent to pathology. The patient was given 5000 units of heparin at that time. Ultrasound was then used to localize the right common femoral vein. The vein was patent and compressed easily. Under ultrasound guidance the left common femoral vein was punctured and the venous sheath was inserted. This was aspirated and flushed with heparinized saline. An ACT at that time was 262. Using micropuncture technique the common carotid artery was punctured. The micro sheath was inserted to 3 cm. Injection was then done showing the bifurcation. There was a significant lesion seen at the origin of the internal carotid artery on the left side. We then inserted the J-wire and keep it short of the bifurcation of the carotid artery. The TCAR sheath was inserted. Once it was in place and held against the artery it was sutured to the chest wall and the incision edge. We then flushed the tubing appropriately. The venous return tubing was clamped onto the TCAR sheath. It was flushed through and then attached to the venous inflow sheath in the right groin. The sheath was checked for flow. We then inserted a 5 x 3 balloon backloaded on the wire. The wire was passed through the lesion into the petrous portion of the internal carotid. The 5 balloon was then advanced to the lesion. The lesion was then predilated with the 5 mm balloon. The balloon was removed. We then inserted the 9 x 40 stent. This was deployed across the lesion without difficulty. The catheter was removed. The carotid was allowed to go 2 minutes with flow reve rsal. Completion angiogram was done at that time which showed a mild residual stenosis. There was crimping of the internal carotid artery beyond the stent due to the previous tortuosity. Decided to place another stent across this crimped area which was causing multiple stenoses. We then inserted a 7 x [address] to just above the area of irregularity. We then again allowed 2 minutes per flow reversal to occur and then did a completion angiogram which showed elimination of the tortuous area and good distal flow. Again after the angio was done and the wire was removed we allowed 2 minutes of flow reversal to occur. A that point the common carotid artery was unclamped. The venous return tubing was clamped and removed from the TCAR sheath. The blood was allowed to flow back into the venous system. Once this was completed the sheath was pulled from the groin and pressure was applied. The TCAR sheath was then removed and the 5-0 Prolene suture securely tied. Hemostasis was noted of the puncture site. Wound was irrigated. Adequate hemostasis was obtained of the wound. Once this was noted the wound was closed in usual fashion using a 3-0 Vicryl suture for the subcutaneous layer and a 4-0 subcuticular Vicryl suture for the skin edges. Dermabond was used for dressing.The patient left the operation room in satisfactory condition and tolerated the procedure well. All needle and sponge counts were correct at the end of the procedure. Zeynep Slater Pac assisted due to lack of resident availability and was necessary for positioning, draping, retraction, wound closure deep layers, subcutaneous tissue, and skin closure and was necessary for assisting with the case. I attest to the content of the Intraoperative Record and any orders documented therein. Any exceptions are noted below.
[2022-02-12] MEDS ORDERED: HYDROmorphone INJ 1 MG/ML SYRINGE IV PRN (10:33)
[2022-02-12] MEDS ORDERED: PHENYLEPHRINE 100MCG/ML 5ML SYR IV PRN (10:33)
[2022-02-12] MEDS ORDERED: ePHEDrine sulfate 50 MG/ML AMP IV PRN (10:33)
[2022-02-12] MEDS ORDERED: LABETALOL HCL IV 5 MG/ML 20ML IV PRN (10:33)
[2022-02-12] MEDS ORDERED: fentaNYL citrate 100 MCG/2 ML VIAL IV PRN (10:33)
[2022-02-12] MEDS ORDERED: ONDANSETRON INJ 2 MG/ML 2 ML VIAL IV PRN (10:33)
[2022-02-12] MEDS ORDERED: ATROPINE SULFATE 0.1 MG/ML 10ML SYR IV PRN (10:33)
--- NOTE | 2022-02-12 10:47 | Anesthesiology Progress Note ---
Date of Service February 12, 2022 Anesthesia Post Procedure Vital Signs Vital Signs: Temp Pulse Resp BP BP Pulse Ox O2 Del Method 02/12/22 10:35 85 16 109/52 L 91 Room Air 02/12/22 10:25 86 17 110/52 L 97 Oxymask 02/12/22 10:15 93 H 17 105/52 L 95 Oxymask 02/12/22 10:05 36.5 C 91 H 18 120/75 96 Oxymask 02/12/22 06:17 36.7 C 74 18 109/70 114/70 94 Room Air 02/12/22 06:17 Room Air O2 Flow Rate 02/12/22 10:35 02/12/22 10:25 5 02/12/22 10:15 5 02/12/22 10:05 5 02/12/22 06:17 02/12/22 06:17 Transfer of Care Handoff Completed per policy Notes Mental Status: alert / awake / arousable Patient Amnestic to Procedure: Yes Nausea / Vomiting: adequately controlled Pain: adequately controlled Airway Patency, RR, SpO2: stable & adequate BP & HR: stable & adequate Hydration State: stable & adequate Anesthetic Complications: no major complications apparent and Pt Satisfied with anesthetic care Notes: The patient is awake and comfortable. Her vital signs are stable. She has some surgical site pain but no swelling is noted.
[2022-02-12] MEDS ORDERED: PHENYLEPHRINE HCL 10 MG/ML VIAL ONE (11:27)
[2022-02-12] MEDS ORDERED: PROTAMINE SULFATE 10 MG/ML 5 ML VIAL ONE (11:28)
[2022-02-12] MEDS ORDERED: DICLOFENAC SOD 1% GEL 100 GM TUBE EXT PRN (12:11)
[2022-02-12] MEDS ORDERED: POLYETHYLENE (MIRALAX) 17 GM PACK PO PRN (12:11)
[2022-02-12] MEDS ORDERED: SENNA 8.6 MG TAB PO PRN (12:11)
[2022-02-12] MEDS ORDERED: ARTIFICIAL TEARS OP PRN (12:35)
[2022-02-12] MEDS ORDERED: STAT IV Infusion **Titration per Protocol STA (14:11)
[2022-02-12] MEDS: CHOLECALCIFEROL 5,000 UNITS 125 MCG TAB PO SCH (14:22)
[2022-02-12] MEDS: THIAMINE HCL 100 MG TAB PO SCH (14:23)
[2022-02-12] MEDS: MULTIVITAMIN TAB PO SCH (14:23)
[2022-02-12] MEDS: ZINC SULFATE 220 MG CAPSULE PO SCH (14:23)
[2022-02-12] MEDS: CYANOCOBALAMIN (B-12) 500 MCG TABLET PO SCH (14:23)
--- NOTE | 2022-02-12 16:28 | Critical Care Consultation ---
Date of Consultation February 12, 2022 Assessment & Plan (1) Carotid artery stenosis: Reason Critically Ill: Postop day 0 from a left TCAR PLAN: Resp: COPD -Not on supplemental oxygen at baseline CV: Hypertension Coronary artery calcifications Hyperlipidemia -Norvasc 10 mg daily, aspirin 81 mg daily, Plavix 75 mg daily, Zocor 20 mg daily Fluids/Renal: Chronic kidney disease stage IIIb -Received crystalloid volume expansion in operating room GI/Nutrition: Clear liquid diet Heme: DVT prophylaxis: Deferred to vascular surgery Endocrine: ICU hyperglycemia protocol Vascular access: Peripheral IVs Disposition: ICU (2) Lung nodule: (3) Chronic renal failure, stage 3b: (4) Odontoid fracture with nonunion: (5) CLL (chronic lymphocytic leukemia): (6) Hyperlipidemia: History of Present Illness Reason for Consultation: Postoperative TCAR Requesting Physician: Travon Jackson MD Attending Physician: Travon Jackson MD History of Present Illness Patient is an 81-year-old female with history of carotid artery stenosis discovered during work-up for acute metabolic encephalopathies, coronary artery calcifications, hypertension, hyperlipidemia, chronic lymphocytic leukemia, pulmonary nodule, chronic renal failure stage IIIb, odontoid fracture with nonunion who underwent left TCAR with vascular surgery. During my evaluation she is without complaint, no hoarseness no vision changes no headache, no difficulty swallowing. Allergies Allergy/AdvReac Type Severity Reaction Status Date / Time cephalexin Allergy Severe Encephalopa Verified 02/12/22 06:12 thy acetaminophen [From NyQuil] Allergy Unknown rapid Verified 02/12/22 06:12 heart beat, "brain does not stop working" adhesive tape Allergy Unknown blistering Verified 02/12/22 06:12 dextromethorphan Allergy Unknown rapid Verified 02/12/22 06:12 [From NyQuil] heart beat, "brain does not stop working" diphenhydramine Allergy Unknown rapid Verified 02/12/22 06:12 [From Tylenol PM] heart beat, "brain does not stop working" doxylamine [From NyQuil] Allergy Unknown rapid Verified 02/12/22 06:12 heart beat, "brain does not stop working" gluten Allergy Unknown "gluten Verified 02/12/22 06:12 free diet" - GI SYMPTOMS lactose Allergy Unknown "lactose Verified 02/12/22 06:12 intolerant" - GI SYMPTOMS nitrofurantoin Allergy Unknown rapid Verified 02/12/22 06:12 heart beat, can't sleep, "brain does not stop" pseudoephedrine [From NyQuil] Allergy Unknown rapid Verified 02/12/22 06:12 heart beat, "brain does not stop working" Sulfa (Sulfonamide Allergy Unknown "sulfa" - Verified 02/12/22 06:12 Antibiotics) "makes me hyper, can't sit still" "ANTIHISTAMINE" Allergy Unknown rapid Uncoded 01/28/22 14:41 heart beat, can't sleep, "brain does not stop working" "TYLENOL COLD AND SINUS" Allergy Unknown rapid Uncoded 01/28/22 14:41 heart beat, "brain does not stop working" Home Medications Medication Instructions Recorded Confirmed Type amlodipine 10 mg tablet 10 mg PO QPM 06/14/18 02/12/22 History cyanocobalamin (vitamin B-12) 500 tab PO 1200 06/14/18 02/12/22 History 1,000 mcg tablet (Vitamin B-12) multivitamin (Multiple Vitamins 1 tab PO 1200 06/14/18 02/12/22 History tablet) acetaminophen 650 mg 650 mg PO Q12H PRN Pain 12/05/21 02/12/22 History tablet,extended release (Tylenol 8 Hour) aspirin 81 mg tablet,delayed 81 mg PO QAM 12/05/21 02/12/22 History release clopidogrel 75 mg tablet 75 mg PO QPM 12/05/21 02/12/22 History pantoprazole 40 mg tablet,delayed 40 mg PO QPM 12/05/21 02/12/22 History release Zinc Tab 1 tab PO 1200 12/07/21 02/12/22 History cholecalciferol (vitamin D3) 125 125 mcg PO 1200 12/07/21 02/12/22 History mcg (5,000 unit) tablet (Vitamin D3) propylene glycol 0.6 % eye drops 1 drp ophthalmic (eye) DIRECTED 12/07/21 02/12/22 History (Systane Complete) PRN dry eyes simvastatin 10 mg tablet 20 mg PO PM #60 tabs 12/13/21 02/12/22 Rx tramadol 50 mg tablet 50 mg PO Q12 #6 tabs 12/13/21 02/12/22 Rx diclofenac sodium 1 % topical gel 2 g EXT QID PRN Pain 01/28/22 02/12/22 History (Voltaren Arthritis Pain) polyethylene glycol 3350 17 gram 17 g PO DAILY PRN Constipation 01/28/22 02/12/22 History oral powder packet (Miralax) sennosides 8.6 mg tablet (Senokot) 17.2 mg PO QAM PRN Constipation 01/28/22 02/12/22 History thiamine HCl (vitamin B1) 100 mg 200 mg PO 1200 01/28/22 02/12/22 History tablet Patient History Medical History Acid reflux controlled, stable per pt Anemia CLL (chronic lymphocytic leukemia) Diagnosed in 2013, sees her Oncologist routinely. -- No treatment Degenerative disc disease Hearing loss Hiatal hernia Hyperlipidemia Hypertension controlled, stable per pt Left anterior fascicular block Urinary retention Self caths QID Surgical History History of appendectomy History of bilateral cataract extraction History of colonoscopy x2 History of cystoscopy History of left knee replacement 07/13/18: SAB L3-L4 + PNB. History of lumpectomy of left breast benign History of right knee joint replacement History of tonsillectomy History of total right hip arthroplasty History of total shoulder replacement RIGHT History of tubal ligation Family History Other No family history of adverse response to anesthesia Social History Smoking Status: Former smoker Cigarettes Per Day: 1 ppd x 50 years. QUIT 2013; Smoking End Date: 2013; Second Hand Exposure: No; Do You Dip or Chew Tobacco: No; Tobacco Cessation Education Requested by Patient: No Hx Alcohol Use: No Hx Substance Use: Yes Substance Use Type Other:: Tramadol Preferred Language: [place] Communication Ability: Effective Physical Education Specialist Required: No Beliefs That Will Affect Care: None marital status: Unknown Current Living Situation: Alone Feels Safe at Home: Yes Safety Concerns: Feels Safe At This Time Assistive Devices: Cane Review of Systems Review of Systems: As per the HPI Physical Exam Physical Exam: General: Alert. nontoxic. Skin: Warm, dry, Head: Atraumatic Ears, nose, mouth and throat: airway patent Neck: Left neck incision clean dry intact, areas of ecchymoses as anticipated, no palpable mass nor thrill Cardiovascular: Normal peripheral perfusion Respiratory: no respiratory distress Gastrointestinal: Non distended Musculoskeletal: No deformity Results & Data Results & Data ([facility]) Vital Signs (Past 12 Hours) Vital Signs Temp Pulse Pulse Resp BP BP BP 02/12/22 15:30 83 20 02/12/22 15:15 90 26 H 02/12/22 15:00 88 18 02/12/22 15:00 106/64 02/12/22 14:45 88 13 02/12/22 14:30 84 18 02/12/22 14:18 95 H 21 02/12/22 14:18 103/78 02/12/22 14:15 83 17 02/12/22 14:00 90 19 02/12/22 14:00 106/60 02/12/22 13:45 93 H 32 H 02/12/22 13:30 91 H 14 02/12/22 13:15 90 14 02/12/22 13:01 90 18 02/12/22 13:01 100/59 L 02/12/22 13:00 93 H 18 02/12/22 12:45 90 14 02/12/22 12:30 89 21 02/12/22 12:15 89 16 02/12/22 12:10 87 20 02/12/22 12:00 88 16 02/12/22 12:00 105/59 L 02/12/22 11:50 90 15 02/12/22 11:35 86 15 103/49 L 02/12/22 11:25 88 16 103/52 L 02/12/22 11:15 86 20 101/46 L 02/12/22 11:05 85 14 101/47 L 02/12/22 10:55 36.8 C 84 21 105/49 L 02/12/22 10:45 83 15 114/53 L 02/12/22 10:35 85 16 109/52 L 02/12/22 10:25 86 17 110/52 L 02/12/22 10:15 93 H 17 105/52 L 02/12/22 10:05 36.5 C 91 H 18 120/75 02/12/22 06:17 36.7 C 74 18 109/70 114/70 02/12/22 06:17 Pulse Ox O2 Del Method O2 Flow Rate 02/12/22 15:30 95 02/12/22 15:15 95 02/12/22 15:00 94 02/12/22 15:00 02/12/22 14:45 94 02/12/22 14:30 94 02/12/22 14:18 95 02/12/22 14:18 02/12/22 14:15 95 02/12/22 14:00 94 02/12/22 14:00 02/12/22 13:45 94 02/12/22 13:30 96 02/12/22 13:15 94 02/12/22 13:01 94 02/12/22 13:01 02/12/22 13:00 95 02/12/22 12:45 95 02/12/22 12:30 93 02/12/22 12:15 94 02/12/22 12:10 95 02/12/22 12:00 94 02/12/22 12:00 02/12/22 11:50 94 02/12/22 11:35 96 Nasal Cannula 2 02/12/22 11:25 94 Nasal Cannula 2 02/12/22 11:15 95 Nasal Cannula 2 02/12/22 11:05 96 Nasal Cannula 2 02/12/22 10:55 94 Nasal Cannula 2 02/12/22 10:45 96 Nasal Cannula 2 02/12/22 10:35 91 Room Air 02/12/22 10:25 97 Oxymask 5 02/12/22 10:15 95 Oxymask 5 02/12/22 10:05 96 Oxymask 5 02/12/22 06:17 94 Room Air 02/12/22 06:17 Room Air Critical Care Results & Data Vital Signs (Past 12 Hours) Vital Signs Temp Pulse Pulse Resp BP BP BP 02/12/22 15:30 83 20 02/12/22 15:15 90 26 H 02/12/22 15:00 88 18 02/12/22 15:00 106/64 02/12/22 14:45 88 13 02/12/22 14:30 84 18 02/12/22 14:18 95 H 21 02/12/22 14:18 103/78 02/12/22 14:15 83 17 02/12/22 14:00 90 19 02/12/22 14:00 106/60 02/12/22 13:45 93 H 32 H 02/12/22 13:30 91 H 14 02/12/22 13:15 90 14 02/12/22 13:01 90 18 02/12/22 13:01 100/59 L 02/12/22 13:00 93 H 18 02/12/22 12:45 90 14 02/12/22 12:30 89 21 02/12/22 12:15 89 16 02/12/22 12:10 87 20 02/12/22 12:00 88 16 02/12/22 12:00 105/59 L 02/12/22 11:50 90 15 02/12/22 11:35 86 15 103/49 L 02/12/22 11:25 88 16 103/52 L 02/12/22 11:15 86 20 101/46 L 02/12/22 11:05 85 14 101/47 L 02/12/22 10:55 36.8 C 84 21 105/49 L 02/12/22 10:45 83 15 114/53 L 02/12/22 10:35 85 16 109/52 L 02/12/22 10:25 86 17 110/52 L 02/12/22 10:15 93 H 17 105/52 L 02/12/22 10:05 36.5 C 91 H 18 120/75 02/12/22 06:17 36.7 C 74 18 109/70 114/70 02/12/22 06:17 Pulse Ox O2 Del Method O2 Flow Rate 02/12/22 15:30 95 02/12/22 15:15 95 02/12/22 15:00 94 02/12/22 15:00 02/12/22 14:45 94 02/12/22 14:30 94 02/12/22 14:18 95 02/12/22 14:18 02/12/22 14:15 95 02/12/22 14:00 94 02/12/22 14:00 02/12/22 13:45 94 02/12/22 13:30 96 02/12/22 13:15 94 02/12/22 13:01 94 02/12/22 13:01 02/12/22 13:00 95 02/12/22 12:45 95 02/12/22 12:30 93 02/12/22 12:15 94 02/12/22 12:10 95 02/12/22 12:00 94 02/12/22 12:00 02/12/22 11:50 94 02/12/22 11:35 96 Nasal Cannula 2 02/12/22 11:25 94 Nasal Cannula 2 02/12/22 11:15 95 Nasal Cannula 2 02/12/22 11:05 96 Nasal Cannula 2 02/12/22 10:55 94 Nasal Cannula 2 02/12/22 10:45 96 Nasal Cannula 2 02/12/22 10:35 91 Room Air 02/12/22 10:25 97 Oxymask 5 02/12/22 10:15 95 Oxymask 5 02/12/22 10:05 96 Oxymask 5 02/12/22 06:17 94 Room Air 02/12/22 06:17 Room Air Lab & Micro Results (Past 24 Hours) No Data to Display No Data to Display No Data to Display I & O Totals 24 Hours 02/11/22 02/12/22 02/13/22 06:59 06:59 06:59 Intake Total 700 / 700 Output Total Balance 680 / 680 Cumulative 01/08/22 09:05 thru 02/12/22 10:46 Intake Total 700 Output Total 20 Balance 680 RT Ventilator Mngmt (Last Documented) Ventilator Ordered Settings Respiratory Rate 20 02/12/22 15:30 Ventilator - PT Measurements Respiratory Rate 20 Coding Level of Care Code 55818 Inpt Consult Level 2 Diagnoses Carotid artery stenosis I65.29 Lung nodule R91.1 Chronic renal failure, stage 3b N18.32 Odontoid fracture with nonunion S12.110K CLL (chronic lymphocytic leukemia) C91.10 Hyperlipidemia E78.5
[2022-02-12] MEDS: PHENYLEPHRINE HCL 20 MG in DEXTROSE 5% 500 ML IV SCH (19:27)
[2022-02-12] MEDS: traMADol HCL 50 MG TABLET PO SCH (20:10)
[2022-02-12] MEDS ORDERED: amLODIPine BESYLATE 5 MG TAB PO SCH (21:00)
[2022-02-12] MEDS ORDERED: PANTOprazole 40 MG TAB PO SCH (21:00)
[2022-02-12] MEDS ORDERED: CLOPIDOGREL BISULFATE 75 MG TAB PO SCH (21:00)
[2022-02-12] MEDS ORDERED: SIMVASTATIN 20 MG TAB PO SCH (21:00)
[2022-02-12] MEDS ORDERED: CALCIUM CARBONATE 500 MG CHEWABLE TAB PO PRN (21:01)
[2022-02-12] MEDS ORDERED: CALCIUM CARBONATE 500 MG CHEWABLE TAB ONE (21:03)
[2022-02-12] MEDS: ACETAMINOPHEN 325 MG TAB PO PRN (23:25)
[2022-02-13] MEDS: ACETAMINOPHEN 325 MG TAB PO PRN ×2 (04:58→10:57)
[2022-02-13] MEDS: CLINDAMYCIN/D5W 600 MG/50 ML BAG IV SCH ×2 (04:58→13:30)
[2022-02-13] MEDS: PHENYLEPHRINE HCL 20 MG in DEXTROSE 5% 500 ML IV SCH (05:48)
[2022-02-13] MEDS: traMADol HCL 50 MG TABLET PO SCH (08:02)
[2022-02-13] MEDS ORDERED: ASPIRIN 81 MG ECTAB PO SCH (09:00)
--- NOTE | 2022-02-13 09:02 | Billing Data ---
Date of Service February 13, 2022 Coding Level of Care Code 91217 Subseq Hosp Care Lvl 1
--- NOTE | 2022-02-13 09:02 | Critical Care Progress Note ---
Date of Service February 13, 2022 Assessment & Plan (1) Left knee DJD: Plan: Reason: POD #1 s/p left TCAR. Patient currently awaiting downgrade from ICU, discharge home. Resp: COPD -Not on supplemental oxygen at baseline CV: Hypertension Coronary artery calcifications Hyperlipidemia -Norvasc 10 mg daily, aspirin 81 mg daily, Plavix 75 mg daily, Zocor 20 mg daily Fluids/Renal: Chronic kidney disease stage IIIb -Received crystalloid volume expansion in operating room GI/Nutrition: Clear liquid diet Heme: DVT prophylaxis: Deferred to vascular surgery Endocrine: ICU hyperglycemia protocol Please see Dr. Jewell's note for further clarification. (2) Carotid artery stenosis: (3) Anemia: (4) HTN (hypertension): Admission and Anticipated Discharge Date Admission Date: February 12, 2022 Supervising Physician Co-Signing Physician Notes Dr. Ellis was resident physician during care of patient. I separately evaluated patient for sutton portions of the history and the exam. I was present during the critical portion of medical decision making, and I discussed the case with the resident. I generally agree with the findings and plan. Patient tolerating p.o. No overnight events. Critical care will sign off Subjective No acute events overnight. Patient has no subjective complaints today. She was seen by Dr. Jackson this morning, who indicated patient was ready to be discharged home. Currently awaiting downgrade from the ICU. Review of Systems Review of Systems: All systems reviewed & are unremarkable except as noted in HPI & below Physical Exam Physical Exam: General: No acute distress HEENT: PERRLA. Normal conjunctiva, anicteric sclera. Oropharynx normal. Respiratory: Normal respiratory effort, CTA BL. Cardiovascular: RRR without murmurs, gallops, or rubs. No edema. GI: Soft abdomen with normal bowel sounds heard on auscultation. Nontender x4 quadrants Neuro: Alert and oriented x3. Results & Data Results & Data ([facility]) Vital Signs (Past 12 Hours) Vital Signs Temp Pulse Resp Pulse Ox O2 Flow Rate 02/13/22 06:00 75 16 92 02/13/22 05:00 81 24 91 2 02/13/22 04:00 75 16 92 2 02/13/22 03:00 82 19 93 2 02/13/22 02:00 77 18 91 2 02/13/22 01:00 36.8 C 71 16 91 02/13/22 00:00 77 17 94 02/12/22 23:48 76 02/12/22 23:00 36.9 C 75 16 93 02/12/22 22:00 77 18 94 02/12/22 21:00 81 19 93 02/12/22 20:00 78 18 95 Resident Activity Tracking Resident Involvement: Resident Care Provided Care Provided: Adult Hospital Medicine
[2022-02-13] MEDS: CHOLECALCIFEROL 5,000 UNITS 125 MCG TAB PO SCH (12:51)
[2022-02-13] MEDS: MULTIVITAMIN TAB PO SCH (12:52)
[2022-02-13] MEDS: THIAMINE HCL 100 MG TAB PO SCH (12:52)
[2022-02-13] MEDS: ZINC SULFATE 220 MG CAPSULE PO SCH (12:52)
[2022-02-13] MEDS: CYANOCOBALAMIN (B-12) 500 MCG TABLET PO SCH (12:52)
--- NOTE | 2022-02-13 13:20 | Surgery Progress Note ---
Date of Service February 13, 2022 Assessment & Plan Admission and Anticipated Discharge Date Admission Date: February 12, 2022 Subjective Date of Service February 13, 2022 Assessment & Plan (1) Stenosis of left internal carotid artery: Plan: Post op day #1 from left tcar. Doing well. D/c today Subjective No complaints. Physical Exam Constitutional: WD/WN, vitals as above Respiratory: normal respiratory effort; no respiratory distress Cardiovascular: Rate/Rhythm: regular rate and regular rhythm Musculoskeletal: Extremities: strength 5/5 throughout Skin: + incision (ecchymosis around wound note d) Neurologic: CN's II-XI intact bilaterally and moves all extremities Psychiatric: Orientation: alert and oriented x 3 Results & Data ([facility]) Vital Signs (Past 12 Hours) Vital Signs Pulse Resp Pulse Ox O2 Flow Rate 02/13/22 06:00 75 16 92 02/13/22 05:00 81 24 91 2 02/13/22 04:00 75 16 92 2 02/13/22 03:00 82 19 93 2 02/13/22 02:00 77 18 91 2
--- NOTE | 2022-02-14 11:23 | Discharge Summary ---
Date of Service February 14, 2022 Admission HPI Per Admitting Provider Chief Complaint rm#5 here for consult left ICA, had syncoal episode, also found to have a UTI. No stroke like symtpoms. Had delerium in hospital. History of Present Illness I the pleasure of seeing [place] today for evaluation of her carotid disease. As you know she is an 81-year-old female with a history of hyperlipidemia hypertension chronic lymphocytic leukemia untreated, hiatal hernia, COPD, art hritis, a left total knee in 2018 and had a right total knee in September of this year. She presented to [facility] in November with altered mental status. She was said to be confused for 2 days before her daughter found her. She was found to have a UTI at that time. 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 She denies any focal findings related to her carotid disease. She denies any claudication of lower extremities. She denies any chest pain. Review of Systems 10 systems were reviewed. Positive findings included the heartburn hiatal hernia food intolerance bladder incontinence and frequent bladder infections. She does have pain in her joints when walking and has joint pain at rest. Physical Exam Vitals & Measurements HR: 76 (Monitored) BP: 122/66 SpO2: 96% WT: 44.5 kg Input and Output - Last 24 hours (Last 8 hours) No I/O Data Found: On physical exam she is awake alert and oriented x3. Her blood pressure is 106/62 on the left and 122/62 on the right. Head and neck are within normal limits. Radials carotids supratemporal's are +2 bilaterally. She does have a left carotid bruit. Lungs were clear heart had a regular rate and rhythm. Dahms and is benign no aneurysmal dilatation of the aorta was appreciated. Femorals and pedal pulses are all +2 bilaterally. Neurologic exam was grossly intact to motor and sensory function. Assessment/Plan 1. Stenosis of left internal carotid artery This a pleasant 81-year-old female who is found to have an incidental severe stenosis of her left internal carotid artery on CT angiogram. She is totally asymptomatic from this lesion. We discussed the options as far as endarterectomy versus TCAR. We went over the risks and options and benefits of both. She was agreeable to undergo TCAR of her left carotid artery. This will be scheduled in near future. We will keep you informed as to her results. Thank you very much for letting us participate in the care of this patient. Sincerely, Panfilo Jackson MD. Problem List/Past Medical History Ongoing Stenosis of left internal carotid artery Historical No qualifying data Medications Inpatient No active inpatient medications Home amLODIPine 10 mg oral tablet, 10 mg= 1 tab, PO, Daily aspirin 81 mg oral delayed release tablet, 81 mg= 1 tab, PO, Daily atorvastatin 40 mg oral tablet, 40 mg= 1 tab, PO, Daily cholecalciferol 25 mcg (1000 intl units) oral tablet, See Instructions clopidogrel 75 mg oral tablet, 75 mg= 1 tab, PO, Daily multivitamin, 1 tab, PO, Daily pantoprazole 40 mg oral delayed release tablet, 40 mg= 1 tab, PO, Daily traMADol 50 mg oral tablet, 50 mg= 1 tab, PO, bid, PRN Vitamin B1 100 mg oral tablet, See Instructions Vitamin B12, 500 mcg, PO, Daily zinc (as gluconate) 50 mg oral tablet, See Instructions Allergies sulfa drugs (Tachycardia, Anxiety, Hives) Social History Smoking Status Former Smoker, quit > 1 yr Signature Line Electronic Signature on File Electronically Reviewed/Signed by: Travon Jackson MD Author Signature Dt/Tm:01/06/2022 02:32 PM Traveling Inventory Associate Flaquito Castorena [facility] [place], [address] [place], [place] [address]COUNTS INCLUDE 234 BEDS AT THE [facility] Result Type: Physician Consult Date of Service: January 06, 2022 14:32 EDT Authorization Status: Final Subject: Consult Note Author or Import Date: MD Jackson Eugene J on January 06, 2022 14:32 EDT Verified By: MD Jackson Eugene J on January 06, 2022 14:32 EDT Encounter info: [id number], [facility], Clinic, 01/06/2022 - 01/06/2022 Admission Exam Per Admitting Provider On physical exam she is awake alert and oriented x3. Her blood pressure is 106/62 on the left and 122/62 on the right. Head and neck are within normal limits. Radials carotids supratemporal's are +2 bilaterally. She does have a left carotid bruit. Lungs were clear heart had a regular rate and rhythm. Dahms and is benign no aneurysmal dilatation of the aorta was appreciated. Femorals and pedal pulses are all +2 bilaterally. Neurologic exam was grossly intact to motor and sensory function. Principal Diagnosis 1. s/p L TCAR 2. Severe L ICA stenosis Discharge Exam Constitutional WD/WN, vitals as above ENMT Ears: no hearing impairment Neck trachea midline L neck incision C/D/I. Mild local tenderness,edema, ecchymosis Respiratory normal respiratory effort, lungs clear to auscultation Auscultation: + diminished lung sounds Cardiovascular Rate/Rhythm: regular rate and regular rhythm Vessels: femoral pulses present, posterior tibial pulses present, dorsalis pedis pulses present, brachial pulses present and radial pulses present; + abnormal peripheral pulses Gastrointestinal (Abdomen) Inspection/Auscultation: abdomen normal to inspection and normal bowel sounds Percussion/Palpation: abdomen soft; abdomen nontender Musculoskeletal no cyanosis or clubbing, extremities motor strength 5/5 Skin no rashes, warm and dry Neurologic moves all extremities and awake; no focal motor deficits and not confused Psychiatric A+Ox3, euthymic affect Discharge Data Allergies Allergy/AdvReac Type Severity Reaction Status Date / Time cephalexin Allergy Severe Encephalopa Verified 02/12/22 06:12 thy acetaminophen [From NyQuil] Allergy Unknown rapid Verified 02/12/22 06:12 heart beat, "brain does not stop working" adhesive tape Allergy Unknown blistering Verified 02/12/22 06:12 dextromethorphan Allergy Unknown rapid Verified 02/12/22 06:12 [From NyQuil] heart beat, "brain does not stop working" diphenhydramine Allergy Unknown rapid Verified 02/12/22 06:12 [From Tylenol PM] heart beat, "brain does not stop working" doxylamine [From NyQuil] Allergy Unknown rapid Verified 02/12/22 06:12 heart beat, "brain does not stop working" gluten Allergy Unknown "gluten Verified 02/12/22 06:12 free diet" - GI SYMPTOMS lactose Allergy Unknown "lactose Verified 02/12/22 06:12 intolerant" - GI SYMPTOMS nitrofurantoin Allergy Unknown rapid Verified 02/12/22 06:12 heart beat, can't sleep, "brain does not stop" pseudoephedrine [From NyQuil] Allergy Unknown rapid Verified 02/12/22 06:12 heart beat, "brain does not stop working" Sulfa (Sulfonamide Allergy Unknown "sulfa" - Verified 02/12/22 06:12 Antibiotics) "makes me hyper, can't sit still" "ANTIHISTAMINE" Allergy Unknown rapid Uncoded 01/28/22 14:41 heart beat, can't sleep, "brain does not stop working" "TYLENOL COLD AND SINUS" Allergy Unknown rapid Uncoded 01/28/22 14:41 heart beat, "brain does not stop working" Consultations 02/12/22 12:11 Consult Compensation Administrator Routine Procedures Performed Operation Date: 02/12/22 08:00 Actual Procedures p Left Transcarotid Artery Revascularization(Left) - Travon Jackson MD Ordered Studies 02/12/22 07:26 EV angio carotid external LT Routine US EV guide vascular access Routine Hospital Course (1) Presence of internal carotid stent: Pt doing well POD #1 after L TCAR. D/C home today. Total Time Total Time Spent Total Time Spent (In Minutes): 0 Discharge Plan Discharge Items Patient Disposition: Home - Home Health Services Reason For Visit: Left Internal Carotid Artery Stenosis Discharge Diagnosis: Left internal carotid artery stenosis, post tcar procedure Activity: Per Instructions section Non-emergency contact: Surgeon Call non-emergency contact if: your temperature is above 101.5, your wound has increased redness, your wound has increased drainage and your wound pain has increased Follow-up/Referrals: Raul Alcantar CRNP [Primary Care Provider] - 02/19/22 11:30 am Diet: Heart Healthy Addtl Attending Provider Instructions: SPECIAL CARE INSTRUCTIONS: Medications: * Continue to take Aspirin Plavix, Statin as directed (mandatory). Incision Care: * You may shower, but do not rub incision. You may let the warm soapy water run over it. Be sure to dry the incision well after bathing. * Do not shave directly over the incision until it is healed. * DO NOT IMMERSE THE INCISION IN A TUB/POOL/etc. UNTIL HEALED. Restrictions: * Do not drive for at least one week or if you are still taking any narcotic pain medication. * Do not lift anything heavier than a gallon of milk for one week after going home. Possible Complications: * Numbness - It is normal to have some numbness around the incision. Numbness can extend beyond the incision to areas of the neck, ear and face. The numbness is due to bruising of nerves during the surgery and will gradually improve over a period of months. * Hoarseness/Difficulty Speaking and Swallowing - The bruising of nerves in the neck can also cause a hoarse voice, difficulty speaking or swallowing. This may improve over time, HOWEVER, if it continues for more than a few days please contact our office ([phone]). * Excessive Swelling - There will be some swelling immediately after surgery which usually resolves within one week. If you notice that the swelling is getting worse, notify your surgeon ([phone]). * Drainage/Bleeding - If there is any drainage or bleeding, it should be a very small amount (less than a teaspoon per day). If you have excessive bleeding or drainage from the incision, call your surgeon ([phone]) right away. ACTIVATION OF EMERGENCY MEDICAL SYSTEM: Call 911, immediately, if you experience any of the following: Warning Signs and Symptoms of Stroke: * Sudden numbness or weakness of the face, arm or leg, especially on one side of the body * Sudden confusion, trouble speaking or understanding * Sudden trouble seeing in one or both eyes * Sudden trouble walking, dizziness, loss of balance or coordination * Sudden severe headache with no cause Do not delay calling 911 if you experience any warning signs or symptoms of a stroke. Delay in seeking medical attention may affect what treatments can be given to you. Risk Factors for Stroke: You can reduce your chances of stroke by working with your medical provider to adopt a healthy lifestyle. Some specific ways to lower your chance of stroke are: * If you are a smoker, now is the time to stop smoking cigarettes * If you are diabetic, improve the control of your blood sugars * Avoid excessive amounts of alcohol * Control high blood pressure * Lose weight if you are overweight * Be sure to lead an active lifestyle * Eat a healthy diet low in salt, cholesterol and fat You should know about other risk factors for stroke that you are unable to control. These include: * Age 55 years or older * Male gender * Certain racial groups: , or / * Family History of Stroke, Mini stroke or Heart Attack * Sickle Cell Disease You will be receiving a call from the Vascular Surgery Nurse after you are discharged. FOLLOW UP VISIT: It is important for you to keep your follow up appointments with your medical provider. Keep any scheduled doctor appointments. Pending Studies at Discharge: No Stand-Alone Forms: [facility], Smoking Cessation Medications and DC Order Prescriptions: Continued clopidogrel 75 mg tablet 75 mg PO QPM aspirin 81 mg tablet,delayed release (DR/EC) 81 mg PO QAM acetaminophen [Tylenol 8 Hour] 650 mg tablet extended release 650 mg PO Q12H PRN (Reason: Pain) pantoprazole 40 mg tablet,delayed release (DR/EC) 40 mg PO QPM multivitamin [Multiple Vitamins] Tablet 1 tab PO 1200 amlodipine 10 mg Tablet 10 mg PO QPM cyanocobalamin (vitamin B-12) [Vitamin B-12] 1,000 mcg Tablet 500 tab PO 1200 cholecalciferol (vitamin D3) [Vitamin D3] 125 mcg (5,000 unit) Tablet 125 mcg PO 1200 Zinc Tab 1 tab PO 1200 Systane Complete 0.6 % Drops 1 drp OPHTHALMIC (EYE) DIRECTED PRN (Reason: dry eyes ) simvastatin 10 mg Tablet 20 mg PO PM Qty: 60 0RF tramadol 50 mg Tablet 50 mg PO Q12 Qty: 6 0RF sennosides [Senokot] 8.6 mg tablet 17.2 mg PO QAM PRN (Reason: Constipation) polyethylene glycol 3350 [Miralax] 17 gram powder in packet 17 g PO DAILY PRN (Reason: Constipation) thiamine HCl (vitamin B1) 100 mg tablet 200 mg PO 1200 diclofenac sodium [Voltaren Arthritis Pain] 1 % gel 2 g EXT QID PRN (Reason: Pain) Rx Instructions: Apply to neck and back at site of pain Discharge Orders: Discharge Order (Routine); Ordered 02/13/22 Ordered By: Travon Jackson Admission Data Admit Date/Time: 02/12/22 07:39 Attending Provider: Travon Jackson Admit Provider: Travon Jackson Primary Care Provider: Raul Alcantar Other Providers: Ronny Nguyen ; Juan Carlos Jewell ; Leo Hernández ; Yuval Clark ; Stephan Watts ; Kwame Kumari ; Gosia Morales ; Tavon Tenorio ; Lily Hurtado Other Interventions: Discharge Summary Assessment (RN) Last Done: 02/13/22 14:33
== END 2022-02-13 15:00 | disposition home health service (06) | DRG 35 ==
LOC: ASU 05:55 → PACUINP 07:39 → 1E 12:03
PROC: EV.TCAR (2022-02-12 08:00)

== ENCOUNTER 2023-07-11 02:43 | Inpatient (IN) ==
--- OUTSIDE RECORDS SUMMARY | 2023-07-11 19:01 | External Medical Summary | Continuity of Care Document ---
Author Name Unknown Organization [facility] Address [address] [place] [id number] Care Team Providers Care Student Affairs Vice President Name Role Phone Balwinder Inez Pari Primary Care Physician [phone] Encounter [facility] GONZALEZ [id number] Date(s): 06/22/23 - 06/22/23 [facility] [address], [address] [place] [address] [phone] Encounter Diagnosis Stenosis of left internal carotid artery(Discharge Diagnosis) - 06/22/23 Discharge Disposition: Home or Self Care Attending Physician: MD Jackson Eugene J Referring Physician: DEMETRIO Gonzalez Kip M Allergies, Adverse Reactions, Alerts Substance Reaction Severity Status sulfa drugs Tachycardia Anxiety Hives Active Assessment and Plan Extracted from: Title:Clinical Document Author:DEMETRIO Slater Lynn Date:06/22/23 [facility] OUTPATIENT NOTE Name: DOROTEO GARCIA Patient Number: [id number] : 1940 Date of Service: 06/22/2023 Chief Complaint: _Follow-up for carotid stenosis HPI: _Ms. Garcia is an elderly female who presents to Dr. Jackson vascular surgery clinic today for a follow-up visit regarding her history of carotid stenosis and left TCAR procedure which occurred in January 2022. Patient states she is overall doing well since being seen here 6 months ago. She denies any new symptoms of cerebrovascular insufficiency including amaurosis, extremity weakness numbness or tingling, difficulty speaking or swallowing, facial droop, sudden onset confusion, other complaints. Her carotid ultrasound performed prior to today's appointment demonstrates a widely patent left carotid artery stent without evidence of restenosis, less than 50% stenosis in her right ICA. This is unchanged in comparison to previous postop ultrasounds. Current Home Meds: (Last Updated 06/21 13:17) amLODIPine (amLODIPine 10 mg oral tablet) 10 mg PO Daily aspirin (aspirin 81 mg oral delayed release tablet) 81 mg PO Daily atorvastatin (atorvastatin 40 mg oral tablet) 40 mg PO Daily cholecalciferol (cholecalciferol 25 mcg (1000 intl units) oral tablet) 2 tab PO Daily clopidogrel (clopidogrel 75 mg oral tablet) 75 mg PO Daily cyanocobalamin (Vitamin B12) 500 mcg PO Daily ferrous sulfate (ferrous sulfate (as elemental iron) 45 mg oral tablet, extended release) 45 mg PO q48h multivitamin 1 tab PO Daily pantoprazole (pantoprazole 40 mg oral delayed release tablet) 40 mg PO Daily pregabalin (pregabalin 50 mg oral capsule) 50 mg PO tid PRN: pain thiamine (Vitamin B1 100 mg oral tablet) 2 tab PO Daily zinc gluconate (zinc (as gluconate) 50 mg oral tablet) 1 tab PO Daily Allergies and Sensitivities: sulfa drugs(Hives) sulfa drugs(Anxiety) sulfa drugs(Tachycardia) Past Medical History: Problems: Presence of internal carotid stent Stenosis of left internal carotid artery OBJECTIVE Vitals: Last Updated 06/22/23 13:21 Date Temp BP Location Pulse RR SpO2 Pain 06/22/23 106/62 Right Arm 06/22/23 108/62 Left Arm 80 96 0 10/27/22 116/62 Right Arm Vital Signs are the last 3 documented. No Orthostatic Data Available Height and Weight: Last Updated 10/27/22 13:06 Date BMI Wt(kg) Wt(lb) Method Ht(cm) (ft-in) Method 10/27/22 45.5 100 Standing Scale 04/22/22 43.6 96 Standing Scale 01/06/22 44.5 98 Heights and Weights are the last 3 documented. Physical Exam Constitutional: In general patient is a healthy-appearing well-nourished well-developed elderly female no distress. She is alert and oriented with any focal deficits. Her carotid demonstrate faint bruit on the left. Her heart is regular, her lungs are decreased but clear. Her abdomen is soft nontender with no active bowel sounds in all 4 quadrants. Brachial and radial and femoral pulses are +3. Lower extremity distal pulses are +2. She has brisk capillary fill and no sign of distal ischemia. ASSESSMENT: _ PLAN: _ 1 ) _carotid stenosis, history of left TCAR Patient is now over 1 year post left TCAR procedure she is doing well postoperatively. She has no evidence of restenosis on ultrasound, and remains asymptomatic. We recommend that she return here in 1 year for reevaluation. She currently continues to take aspirin, Plavix, and statin medication to maintain patency of her stent. We encouraged her to continue taking these, unless the Plavix becomes contraindicated for any reason. She is to call here with any other questions or concerns. Her daughter was present with her today. They are agreeable to this plan. Thank you for letting us participate in the care of this patient. I have personally spent_25__ minutes performing [id number] and szc-[id number]-[id number]-face activities on this date of service.Time does not include separately reported services. Activities Include: _x_ review of the medical record _x_ obtaining a history x__ physical exam/evaluation __ review labs _x_ review radiology reports _x_ counseling/educating patient/family/caregiver __ discussion/referral to other healthcare professional x__ documenting care in the medical record __ independent interpretation of results _x_ communication of results to patient/family/caregiver _x_ coordination of care Medications amLODIPine 10 mg oral tablet Start: 01/06/22 13:41:00 EDT, 1 tab, PO, Daily Start Date: 01/06/22 Status: Ordered aspirin 81 mg oral delayed release tablet Start: 01/06/22 13:40:00 EDT, 1 tab, PO, Daily Start Date: 01/06/22 Status: Ordered atorvastatin 40 mg oral tablet Start: 01/06/22 13:38:00 EDT, 1 tab, PO, Daily Start Date: 01/06/22 Status: Ordered cholecalciferol 25 mcg (1000 intl units) oral tablet Start: 01/06/22 13:42:00 EDT, See Instructions, 2 tab PO Daily Start Date: 01/06/22 Status: Ordered clopidogrel 75 mg oral tablet Start: 01/06/22 13:39:00 EDT, 1 tab, PO, Daily Start Date: 01/06/22 Status: Ordered ferrous sulfate (as elemental iron) 45 mg oral tablet, extended release Start: 06/22/23 13:13:00 EST, 1 tab, PO, q48h Start Date: 06/22/23 Status: Ordered multivitamin Start: 01/06/22 13:42:00 EDT, 1 tab, PO, Daily Start Date: 01/06/22 Status: Ordered pantoprazole 40 mg oral delayed release tablet Start: 01/06/22 13:38:00 EDT, 1 tab, PO, Daily Start Date: 01/06/22 Status: Ordered pregabalin 50 mg oral capsule Start: 06/22/23 13:16:00 EST, 1 cap, PO, tid, PRN: pain Start Date: 06/22/23 Status: Ordered Vitamin B1 100 mg oral tablet Start: 01/06/22 13:40:00 EDT, See Instructions, 2 tab PO Daily Start Date: 01/06/22 Status: Ordered Vitamin B12 Start: 01/06/22 13:41:00 EDT, 500 mcg =, PO, Daily Start Date: 01/06/22 Status: Ordered zinc (as gluconate) 50 mg oral tablet Start: 01/06/22 13:40:00 EDT, See Instructions, 1 tab PO Daily Start Date: 01/06/22 Status: Ordered Mental Status 06/22/23 Barriers to Learning one year None evide nt Mandatory Health Literacy Documentation Yes Health Literacy Communication Barriers N ever Primary Language Tunisian Problem List Condition Confirmation Course Effective Dates Status Health St [facility] Informant Stenosis of left internal carotid artery Confirmed Active Presence of internal carotid stent Confirmed Active Diagnosis Diagnosis Type Effective Dates Health Status Cl inical Service Informant Stenosis of left internal carotid artery Discharge Diagnosis 06/22/23 Procedures Procedure Date Related Diagnosis Body Site Status Left TCAR 02/13/22 Completed Vital Signs Most recent to oldest [Reference Range]: 1 2 Heart Rate 80 bpm (06/22/23 1:18 PM) Blood Pressure 106/62mmHg (06/22/23 1:21 PM) 108/62mmHg (06/22/23 1:18 PM) BP Location # 1 Right Arm (06/22/23 1:21 PM) Left Arm (06/22/23 1:18 PM) Social History Social History Type Response Tobacco Former smoker, Cigar ettes, Stopped age 74 Years. Smoking Status Former Smoker, quit > 1 yr Sex [facility] Outpt Note * DEMETRIO Slater Lynn: PERFORM Event Display: [facility] Outpt Note Authored Date: [id number] [facility] OUTPATIENT NOTE Name: DOROTEO GARCIA Patient Number: [id number] : 1940 Date of Service: 06/22/2023 Chief Complaint: _Follow-up for carotid stenosis HPI: _Ms. Garcia is an elderly female who presents to Dr. Jackson vascular surgery clinic today fora follow-up visit regarding her history of carotid stenosis and left TCAR procedure which occurred in January 2022. Patient states she is overall doing well since being seen here 6 months ago. She denies any new symptoms of cerebrovascular insufficiency including amaurosis, extremity weakness numbness or tingling, difficulty speaking or swallowing, facial droop, sudden onset confusion, other complaints. Her carotid ultrasound performed prior to today's appointment demonstrates a widely patent left carotid artery stent without evidence of restenosis, less than 50% stenosis in her right ICA. This is unchanged in comparison to previous postop ultrasounds. Current Home Meds: (Last Updated 06/21 13:17) amLODIPine (amLODIPine 10 mg oral tablet) 10 mg PO Daily aspirin (aspirin 81 mg oral delayed release tablet) 81 mg PO Daily atorvastatin (atorvastatin 40 mg oral tablet) 40 mg PO Daily cholecalciferol (cholecalciferol 25 mcg (1000 intl units) oral tablet) 2 tab PO Daily clopidogrel (clopidogrel 75 mg oral tablet) 75 mg PO Daily cyanocobalamin (Vitamin B12) 500 mcg PO Daily ferrous sulfate (ferrous sulfate (as elemental iron) 45 mg oral tablet, extended release) 45 mg PO q48h multivitamin 1 tab PO Daily pantoprazole (pantoprazole 40 mg oral delayed release tablet) 40 mg PO Daily pregabalin (pregabalin 50 mg oral capsule) 50 mg PO tid PRN: pain thiamine (Vitamin B1 100 mg oral tablet) 2 tab PO Daily zinc gluconate (zinc (as gluconate) 50 mg oral tablet) 1 tab PO Daily Allergies and Sensitivities: sulfa drugs(Hives) sulfa drugs(Anxiety) sulfa drugs(Tachycardia) Past Medical History: Problems: Presence of internal carotid stent Stenosis of left internal carotid artery OBJECTIVE Vitals: Last Updated 06/22/23 13:21 Date Temp BP Location Pulse RR SpO2 Pain 06/22/23 106/62 Right Arm 06/22/23 108/62 Left Arm 80 96 0 10/27/22 116/62 Right Arm Vital Signs are the last 3 documented. No Orthostatic Data Available Height and Weight: Last Updated 10/27/22 13:06 Date BMI Wt(kg) Wt(lb) Method Ht(cm) (ft-in) Method 10/27/22 45.5 100 Standing Scale 04/22/22 43.6 96 Standing Scale 01/06/22 44.5 98 Heights and Weights are the last 3 documented. Physical Exam Constitutional: In general patient is a healthy-appearing well-nourished well- developed elderly female no distress. She is alert and oriented with any focal deficits. Her carotid demonstrate faint bruit on the left. Her heart is regular, her lungs are decreased but clear. Her abdomen is soft nontender with no active bowel sounds in all 4 quadrants. Brachial and radial and femoral pulses are +3. Lower extremity distal pulses are +2. She has brisk capillary fill and no sign of distal ischemia. ASSESSMENT: _ PLAN: _ 1 ) _carotid stenosis, history of left TCAR Patient is now over 1 year post left TCAR procedure she is doing well postoperatively. She has no evidence of restenosis on ultrasound, and remains asymptomatic. We recommend that she return here in 1 year for reevaluation. She currently continues to take aspirin, Plavix, and statin medication to maintain patency of her stent. We encouraged her to continue taking these, unless the Plavix becomes contraindicated for any reason. She is to call here with any other questions or concerns. Her daughter was present with her today. They are agreeable to this plan. Thank you for letting us participate in the care of this patient. I have personally spent_25__ minutes performing [id number] and xnq-[id number]-qp-face activities on this date of service.Time does not include separately reported services. Activities Include: _x_ review of the medical record _x_ obtaining a history x__ physical exam/evaluation __ review labs _x_ review radiology reports _x_ counseling/educating patient/family/caregiver __ discussion/referral to other healthcare professional x__ documenting care in the medical record __ independent interpretation of results _x_ communication of results to patient/family/caregiver _x_ coordination of care Electronic Signature on File CC: [place] [address] [place] [address] * Electronically Reviewed/Signed by: Zeynep Slater PA-C Author Signature Dt/Tm:06/22/2023 04:16 PM [facility] [place] [address] [place]. [address] [place] Patient Care team information Care Team Personnel Name: DO Britt Zoe Danielle Position: Referring Member Role: Primary Care Provider Address: Address: [address] [place] [address] Name: DEMETRIO Slater Lynn Position: Physician Tinsmith Helper Exempt - Vasc Surg Member Role: Lifetime Relationship Address: Address[facility] [address] [place], [place] [address] [place] Care Team Related Persons Name: LIYAH LORENZ Address: home [address], [place] [id number]
--- OUTSIDE RECORDS SUMMARY | 2023-07-11 19:01 | External Medical Summary | Continuity of Care Document ---
Author Name Unknown Organization [place] [address] [address] Address [address] [place] [phone] Care Team Providers Care Industrial Painter Name Role Phone Balwinder Inez Pari Primary Care Physician [phone] [id number] Date(s): 06/22/23 - 06/22/23 [facility] [address] [place] [address] [phone] Discharge Disposition: Home or Self Care Attending Physician: DEMETRIO Slater Lynn Referring Physician: DEMETRIO Slater Lynn Allergies, Adverse Reactions, Alerts Substance Reaction Severity Status sulfa drugs Tachycardia Anxiety Hives Active Medications amLODIPine 10 mg oral tablet Start: [...] PO Daily Start Date: 01/06/22 Status: Ordered Problem List Condition Confirmation Course Effective Dates Status Health St [facility] Informant Stenosis of left internal carotid artery Confirmed Active Presence of internal carotid stent Confirmed Active Procedures Procedure Date Related Diagnosis Body Site Status Left TCAR 02/13/22 Completed Results Radiology Reports * Exam Date Time Procedure Performing Provider Status 06/22/23 11:44 AM VL Carotid Duplex Bilateral Shiva Ovalle; Final Notes: (VL Carotid Duplex Bilateral) Reason For Exam: margie VL Carotid Duplex Bilateral [facility] FINAL REPORT Name: DOROTEO LEVY : 1940 Visit: [id number] Date: 22 Jun 2023 TYPE OF TEST: Cerebrovascular Duplex REASON FOR TEST Known carotid stenosis, Left TCAR INTERPRETATION/FINDINGS Duplex imaging performed of the bilateral extracranial arteries: 1. No hemodynamically significant stenosis in the right internal carotid artery. 2. Patent left distal common carotid, carotid bulb and proximal internal carotid artery stent without restenosis. 3. No significant stenosis in the bilateral external carotid arteries. 4. Normal, antegrade flow in the bilateral vertebral arteries. 5. Normal fllow in the bilateral subclavian arteries. Plaque Morphology: 1. Complex, calcified plaque in the right bulb and internal carotid artery. Compared to the previous study performed 10/27/2022, there is no change. IMPRESSION/COMMENTS I have personally reviewed the data relevant to the interpretation of this study. TECHNOLOGIST: Argenis VEGA, RDCS, RVT PHYSICIAN: Travon Jackson M.D. Signed: 06/22/2023 01:22 PM Final Dictated by:MD Jackson Eugene J Dictated DT/TM:06/22/2023 1:22 Signed by:MD Jackson Eugene J Signed (Electronic Signature):06/22/2023 1:22 p Transcribed by:CALISTA Social History Social History Type Response Tobacco Former smoker, Cigar ettes, Stopped age 74 Years. 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
--- NOTE | 2023-07-11 19:39 | History & Physical Report ---
Date of Service July 11, 2023 Assessment & Plan (1) Altered mental status: Plan: - Currently AO x 1, but pleasant - Baseline: Independent living, complete ADLs - CT/MRI Brain & laboratory analysis unremarkable at OSH - Family notes improvement throughout inpatient admission - Potential association with recent Macrobid use (Rx 06/26/23) as this was discontinued on admission to OSH - Continue to trend clinical improvement inpatient (2) Fever of unknown origin: Plan: - High risk for infection given hx of hypogammaglobulinemia and CLL Stage 3 - Patient with history of recurrent UTIs and severe shingles - Currently receiving IVIG therapy for CLL, which has helped reduce infections over last 6 months - CRP downtrending at OSH (following broadening of Abx) - RVP, Lyme, & Blood and urine cultures negative at OSH - LP declined by family given clinical improvement - Tylenol PRN for fevers (received at OSH despite sensitivity to Tylenol noted in past) - Continue Acyclovir given severe shingles hx - Hold Vancomycin, Rocephin, and Doxycycline given lack of evidence for bacterial infection at this time (3) RLQ abdominal pain: Plan: - Remains undifferentiated, patient unable to provide hx - Noted since presentation to OSH w/ AMS - CTAP on presentation to OSH showing non-specific colitis and bladder enlargement - Unlikely related to urinary retention given Severino placement - Would repeat CTAP if ongoing or worsened in AM (4) Thrush, oral: Plan: - Fluconazole 200 mg IV daily for 7-14 days pending clinical response (5) Urinary retention: Plan: - Noted on CT AP on presentation (enlarged bladder) - Urinalysis and urine culture negative - Continue Severino, draining clear-yellow urine (6) Dysphagia: Plan: - AMS a/w difficulty swallowing - Continue pureed diet w/o gluten & lactose - Follow inpatient (7) HTN (hypertension): Plan: - BP stable on transfer - Continue to hold Amlodipine 10 mg - Restart home dose PRN (8) GERD (gastroesophageal reflux disease): Plan: - Continue home Famotidine (9) Degenerative disc disease: Plan: - Continue home Lyrica - Continue hold of home Cymbalta (10) Coronary artery calcification: Plan: - Atorvastatin held at OSH - Hold Clopidogrel whole on Fluconazole - Continue home Aspirin Plan Diet: Pureed, no lactose or gluten FEN: mIVF (1 bag) Code: Full at this time, patient disoriented, needs confirmed with family Disp: Medsurg Admission and Anticipated Discharge Date Admission Date: July 11, 2023 History of Present Illness Chief Complaint: Transfer of Care Primary Care Provider: IRA Issa Agnes is an 83F with PMH of CLL, chronic anemia, HTN, HLD, GERD w/ hiatal hernia, coronary artery stenosis, carotid artery stenosis w/ internal stent, CKD 3b, urinary retention w/ recurrent UTIs, chronic constipation, DJD who presents as transfer of care from [facility] due to an admission for altered mental status. History from patient limited given mental status, but she denies discomfort. [facility] ED Course: Presented for AMS (aphasia/confusion), last known normal Thursday07/03/23. RLQ TTP on presentation. CT Head negative. CT AP w/ non- specific colitis at splenic flexure/descending colon and distended urinary bladder. Lactic acid normal. Troponin negative. Mildly increased kidney functions form baseline. Urinalysis negative (urine and blood cultures taken 07/05/23), empiric Zosyn started. Temp documented at 103 in ED, received IV Tylenol. CXR with cardiomegaly w/ mild vascular congestion. [facility] Admission: Patient treated for suspected colitis at onset, antibiotics continued with Zosyn, but not clinical improvement. Brain MRI and CTA Head/Neck unremarkable. Echo with EF 55-60%, Grade 1 Diastolic Dysfunction. Urine and blood cultures resulted negative. RVP negative. Lyme negative. Tox screen negative. Antibiotics broadened to include Vancomycin, Rocephin 2g q 24h, IV Doxycycline 100 mg BID, and Acyclovir 10 mg/kg q8h. LP was discussed but nor performed. Patient had fevers throughout her stay but remained afebrile for 24 hours prior to transfer. Clinical improvement noted following expansion of antibiotic coverage. CRP was at 4.1, but downtrended to 3.2. Spoke with Daughter Karina: Patient undergoing treatment for Stage 3 CLL Leukemia, receiving IVIG for last 6 months, had been keeping her infection at bay, prior to IVIG had severe shingles before in December. Last Thursday07/05/23 other daughter (Deb Carrillo) found her around noon in the bathroom nonverbal, infection was suspected at this time by daughters given previous presentations and they took her to the hospital. Had been suspected meningitis vs internal shingles. Has been improving since starting Acyclovir, per daughter. No LP due to concerning amounts of arthritis and clinical improvement following broadening of antibiotics. Still not at baseline - independent and lives alone, completes all ADLs independently at baseline. Lost ability to swallow/drink this time, but not last time (when she had a UTI), daughter notes last episode with UTI had aggitation and hallucinations, but this time she has been very calm. Allergies Allergy/AdvReac Type Severity Reaction Status Date / Time cephalexin Allergy Severe Encephalopa Verified 02/12/22 06:12 thy acetaminophen [From NyQuil] Allergy Unknown rapid Verified 02/12/22 06:12 heart beat, "brain does not stop working" adhesive tape Allergy Unknown blistering Verified 02/12/22 06:12 dextromethorphan Allergy Unknown rapid Verified 02/12/22 06:12 [From NyQuil] heart beat, "brain does not stop working" diphenhydramine Allergy Unknown rapid Verified 02/12/22 06:12 [From Tylenol PM] heart beat, "brain does not stop working" doxylamine [From NyQuil] Allergy Unknown rapid Verified 02/12/22 06:12 heart beat, "brain does not stop working" gluten Allergy Unknown "gluten Verified 02/12/22 06:12 free diet" - GI SYMPTOMS lactose Allergy Unknown "lactose Verified 02/12/22 06:12 intolerant" - GI SYMPTOMS nitrofurantoin Allergy Unknown rapid Verified 02/12/22 06:12 heart beat, can't sleep, "brain does not stop" pseudoephedrine [From NyQuil] Allergy Unknown rapid Verified 02/12/22 06:12 heart beat, "brain does not stop working" Sulfa (Sulfonamide Allergy Unknown "sulfa" - Verified 02/12/22 06:12 Antibiotics) "makes me hyper, can't sit still" chlorpheniramine AdvReac Unknown rapid Verified 07/11/23 21:48 [From Tylenol heart Mkszp-Bvracvq-Loum D/N] beat, can't sleep, "brain does not stop working" phenylephrine AdvReac Unknown rapid Verified 07/11/23 21:48 [From Tylenol heart Tymyh-Usafhst-Qquq D/N] beat, can't sleep, "brain does not stop working" Antihistamines - Alkylamine AdvReac rapid Verified 07/11/23 21:48 heart beat, can't sleep, "brain does not stop working" Antihistamines - Ethanolamine AdvReac rapid Verified 07/11/23 21:48 heart beat, can't sleep, "brain does not stop working" Antihistamines - AdvReac rapid Verified 07/11/23 21:48 Ethylenediamine heart beat, can't sleep, "brain does not stop working" Antihistamines - Piperazine AdvReac rapid Verified 07/11/23 21:48 heart beat, can't sleep, "brain does not stop working" Antihistamines - Piperidine AdvReac rapid Verified 07/11/23 21:48 heart beat, can't sleep, "brain does not stop working" Home Medications Medication Instructions Recorded Confirmed Type cyanocobalamin (vitamin B-12) 0 tab PO 1200 06/14/18 07/12/23 History 1,000 mcg tablet (Vitamin B-12) multivitamin (Multiple Vitamins 0 tab PO 1200 06/14/18 07/12/23 History tablet) acetaminophen 650 mg 0 mg PO Q12H PRN Pain 12/05/21 07/12/23 History tablet,extended release (Tylenol 8 Hour) aspirin 81 mg tablet,delayed 0 mg PO QAM 12/05/21 07/12/23 History release clopidogrel 75 mg tablet 75 mg PO QPM 12/05/21 07/12/23 History cholecalciferol (vitamin D3) 125 0 mcg PO 1200 12/07/21 07/12/23 History mcg (5,000 unit) tablet (Vitamin D3) propylene glycol 0.6 % eye drops 0 drp ophthalmic (eye) DIRECTED 12/07/21 07/12/23 History (Systane Complete) PRN dry eyes zinc 50 mg capsule 0 mg PO DAILY ##0 12/07/21 07/12/23 History diclofenac sodium 1 % topical gel 0 g EXT QID PRN Pain 01/28/22 07/12/23 History (Voltaren Arthritis Pain) polyethylene glycol 3350 17 gram 0 g PO DAILY PRN Constipation 01/28/22 07/12/23 History oral powder packet (Miralax) sennosides 8.6 mg tablet (Senokot) 0 mg PO QAM PRN Constipation 01/28/22 07/12/23 History thiamine HCl (vitamin B1) 100 mg 0 mg PO DAILY 01/28/22 07/12/23 History tablet atorvastatin 40 mg tablet 40 mg PO DAILY 07/12/23 07/12/23 History duloxetine 30 mg capsule,delayed 30 mg PO DAILY 07/12/23 07/12/23 History release famotidine 20 mg tablet 20 mg PO TID 07/12/23 07/12/23 History nitrofurantoin macrocrystal 50 mg 50 mg PO DAILY 07/12/23 07/12/23 History capsule pregabalin 50 mg capsule 50 mg PO TID 07/12/23 07/12/23 History silver sulfadiazine 1 % topical 1 applic topical BID 07/12/23 07/12/23 History cream (SSD) Past Med/Surg History Medical History (Updated 07/11/23 @ 21:58 by Jordan Sky DO) GERD (gastroesophageal reflux disease) Dysphagia Thrush, oral RLQ abdominal pain Fever of unknown origin Altered mental status Left anterior fascicular block Anemia Hearing loss Urinary retention Self caths QID CLL (chronic lymphocytic leukemia) Diagnosed in 2013, sees her Oncologist routinely. -- No treatment Degenerative disc disease Hiatal hernia Acid reflux controlled, stable per pt Hyperlipidemia Hypertension controlled, stable per pt Surgical History History of cystoscopy History of right knee joint replacement History of left knee replacement 07/13/18: SAB L3-L4 + PNB. History of lumpectomy of left breast benign History of colonoscopy x2 History of total shoulder replacement RIGHT History of total right hip arthroplasty History of bilateral cataract extraction History of tubal ligation History of appendectomy History of tonsillectomy Family History Other No family history of adverse response to anesthesia Social History Smoking Status: Former smoker Cigarettes Per Day: 1 ppd x 50 years. QUIT 2013; Second Hand Exposure: No; Do You Dip or Chew Tobacco: No; Tobacco Cessation Education Requested by Patient: No Hx Alcohol Use: No Hx Substance Use: No Preferred Language: Estonian Communication Ability: Impaired Urgent Care Physician Required: No Beliefs That Will Affect Care: None marital status: Unknown Current Living Situation: Alone Other Information That Helps Us Care for You: No Feels Safe at Home: Yes Assistive Devices: Bedside Commode, Cane, Walker and Other Physical Exam Physical Exam: Gen: NAD, pleasant, confused, AO x 1 (baseline AO x 4, independent ADLs) HEENT: Supple, no LAD, no thyromegaly, no JVD - Mouth: slightly raised, cream/white pa tches across entire tongue, dry mucous membranes Resp:Non-labored, no wheezing/rhonchi/rales, CTAB CV:RRR, no LE edema, capillary refill <2 seconds Abd: Soft, mildly distended in lower quadrants, significant RLQ TTP, normoactive bowels, no masses Skin: No rashes lesions or erythema, bilateral forearm ecchymosis Supervising Physician Co-Signing Physician Notes attending addendum: I have physically seen this patient, have supervised the medical residents activities, and agree with the H&P unless as otherwise noted. Assessment and Plan: Altered mental status- Patient admitted to [facility] with continued confusion as noted from outside hospital Patient was initially admitted to [facility] on 07/05/2023 for altered mentation/confusion with agitation and FUO Excepted in transfer from [facility], where she was being empirically treated for meningitis with vancomycin IV, ceftriaxone IV, doxycycline IV and acyclovir IV Patient with history of being treated with Macrobid for UTI on 06/26/2023, which was discontinued when admitted to outside hospital on 07/05/2023 MRI brain did not show acute findings CTA head and neck showed patent carotid stent, stable narrowings, and no other acute findings Fever of unknown origin- Immunocompromised with history of CLL stage III History of recurrent UTIs and severe shingles Currently receiving IVIG therapy for CLL RVP, Lyme and blood and urine cultures reviewed and all negative at outside hospital Patient did not have LP performed at outside hospital For now, continue acyclovir IV, holding remaining IV treatments Repeat CBC with differential, chemistry profile and magnesium History of recurrent UTIs/right lower quadrant abdominal discomfort- CT scanning abdomen pelvis send Hospital showed nonspecific colitis but no bladder involvement Continue Severino catheter for now Unclear etiology for symptoms at this time Follow repeat studies as noted Neurology consult Resident Activity Tracking Resident Involvement: Resident Care Provided Care Provided: Adult Hospital Medicine (Night)
[2023-07-11] MEDS ORDERED: Patient's HEIGHT &/or WEIGHT Needed SCH (22:00)
[2023-07-11 22:58] LABS: Basophils # (auto) 0.05 K/uL (0.00-0.20); Basophils % (auto) 0.7 %; Eosinophils # (auto) 0.08 K/uL (0.00-0.50); Eosinophils % (auto) 1.1 %; Hematocrit (blood only) 33.3 % (37.0-47.0); Hemoglobin 11.7 g/dl (12.0-16.0); Immature Granulocytes # (auto) 0.07 K/uL (0.01-0.20); Lymphocytes # (auto) 0.85 K/uL (1.20-3.40); Lymphocytes % (auto) 11.9 %; Mean Corpuscular Hemoglobin 33.5 pg (25.0-34.0); Mean Corpuscular Hgb Conc 35.1 g/dL (32.0-36.0); Mean Corpuscular Volume 95.4 fL (80.0-100.0); Mean Platelet Volume 8.4 fL (9.4-12.4); Monocytes # (auto) 0.29 K/uL (0.11-0.59); Monocytes % (auto) 4.1 %; Neutrophils # (auto) 5.82 K/uL (1.40-6.50); Neutrophils % (auto) 81.2 %; Platelet Count 300 K/uL (130-400); RDW Coefficient of Variation 12.8 % (11.5-14.5); Red Blood Count 3.49 M/uL (4.20-5.40); White Blood Count 7.16 K/ul (4.8-10.8)
[2023-07-11 23:10] LABS: Alanine Aminotransferase 14 U/L (7-52); Albumin Globulin Ratio 1.5 (0.9-2); Albumin Level 3.7 gm/dl (3.4-5.0); Alkaline Phosphatase 48 U/L (34-104); Anion Gap 9 (3-11); Aspartate Aminotransferase 14 U/L (13-39); BUN Creatinine Ratio 36.4 (10-20); Bilirubin,Total 0.5 mg/dl (0.2-1.0); Blood Urea Nitrogen 28 mg/dl (6-23); C Reactive Protein < 0.50 mg/dl (0-0.5); Calcium 9.1 mg/dl (8.6-10.3); Carbon Dioxide 21 mmol/L (21-32); Chloride 104 mmol/L (98-107); Creatinine Clr Calc Pharmacy 36.4 ml/min; Est GFR (African American) 83.3 ml/min; Est GFR (Non-African American) 71.9 ml/min; Globulin 2.5 gm/dl (2.5-4.0); Glucose 117 mg/dl (70-99(Fasting)); Magnesium 2.1 mg/dl (1.7-2.4); Potassium 3.9 mmol/L (3.5-5.1); Sodium 134 mmol/L (136-145); Total Protein 6.2 gm/dl (6.0-8.3)
[2023-07-11] MEDS: LACTATED RINGER'S 1,000 ML IV SCH (23:22)
[2023-07-11] MEDS: FLUCONAZOLE 200 MG/100 ML BAG IV SCH (23:25)
[2023-07-12] MEDS: ACYCLOVIR SOD 450 MG in DEXTROSE 5% 100 ML IV SCH (00:43)
[2023-07-12] MEDS: FAMOTIDINE 20 MG TAB PO SCH (08:08)
[2023-07-12] MEDS: ASPIRIN 81 MG ECTAB PO SCH (08:08)
[2023-07-12] MEDS: ENOXAPARIN INJ 40 MG/0.4 ML SYR SQ SCH (08:08)
[2023-07-12] MEDS: PREGABALIN 50 MG CAP PO SCH (11:15)
--- NOTE | 2023-07-12 17:23 | Hospitalist Progress Note ---
Date of Service July 12, 2023 Assessment & Plan (1) Altered mental status: (2) Fever of unknown origin: (3) RLQ abdominal pain: (4) Thrush, oral: (5) Urinary retention: (6) Dysphagia: (7) HTN (hypertension): (8) GERD (gastroesophageal reflux disease): (9) Degenerative disc disease: (10) Coronary artery calcification: Plan 83 yo female presents from OSH for AMS and fever of unknown origin. #Altered mental status: - Currently AO x 1, but pleasant - Baseline: Independent living, complete ADLs - CT/MRI Brain & laboratory analysis unremarkable at OSH - will need to obtain images from OSH, these were not sent with her - Daughters note initial improvement in mentation throughout hospital stay at OSH from 07/05/23-07/10/23, however with worsening mental status on 07/09 - Had similar presentation at [facility] in 2021 after UTI, though she was much more agitated during that stay - Continue to trend clinical improvement inpatient - Consider neurology consult - Will check B12, folate, RPR, electrolytes #Fever of unknown origin: - High risk for infection given hx of hypogammaglobulinemia and CLL Stage 3 - Patient with history of recurrent UTIs and severe shingles - Currently receiving IVIG therapy for CLL, which has helped reduce infections over last 6 months - CRP downtrending at OSH (following broadening of Abx) - RVP, Lyme, & Blood and urine cultures negative at OSH - LP declined by family 2/2 difficulty locating a provider who was credentialed to do the procedure, would be open to this if necessary at [facility]; would hold off in setting of recent broad spectrum abx/antiviral use - Tylenol PRN for fevers (received at OSH despite sensitivity to Tylenol noted in past) - Continue Acyclovir, Lyrica given severe shingles hx - Hold Vancomycin, Rocephin, and Doxycycline given lack of evidence for bacterial infection at this time - monitor for clinical signs of recurren infection - Will check CBC, CMP, CRP, procal, mag, phos - Consider biofire if febrile #RLQ abdominal pain: - Remains undifferentiated, patient unable to provide hx - Noted since presentation to OSH w/ AMS - CTAP on presentation to OSH showing non-specific colitis and bladder enlargement - Unlikely related to urinary retention given Severino placement - Per family pt not responding to palpation with same grimace as before #Thrush, oral: - Fluconazole 200 mg IV daily for 7-14 days pending clinical response #Urinary retention: - Noted on CT AP on presentation (enlarged bladder) - Urinalysis and urine culture negative - Pt self caths at home - Continue Severino, draining clear-yellow urine #Dysphagia: - AMS a/w difficulty swallowing - Continue pureed diet w/o gluten & lactose - Follow inpatient #HTN: - BP stable on transfer - Continue to hold Amlodipine 10 mg - Restart home dose PRN #GERD (gastroesophageal reflux disease): - Continue home Famotidine #Degenerative disc disease: - hold home Cymbalta #Coronary artery calcification: - Atorvastatin held at OSH - Plavix, ASA FENGI: pureed, no lactose or gluten Code status: DNR/DNI DVT prophylaxis: Lovenox Isolation: contact precautions Disposition: med/surg Admission and Anticipated Discharge Date Admission Date: July 11, 2023 Supervising Physician Co-Signing Physician Notes I personally examined the patient and verified sutton points of history and exam, discussed case, and agree with decision making and plan documented by Dr. Leone. Patient transfer from [facility]. Patient's daughters M rebecca Carrillo and Kamila at bedside providing history. Daughters report patient had unexpected decline in mental status resulting in hospitalization. They report patient has compromised immunity due to stage III CLL and hypogammaglobulinemia, she is currently on IVIG as well as prophylactic antibiotics for recurrent urinary tract infections in setting of neurogenic bladder. Patient was hospitalized 12/07/2021 at [facility] for AMS and family felt comfortable bringing her here. On exam, patient provides name however is not alert to place or time, denies any pain, remains calm and appears comfortable in bed. On exam, patient not diaphoretic, conjunctiva clear, mucosa dry with thick white film on tongue, non-labored breathing, lungs clear to auscultation anteriorly (limited effort), no rales/rhonchi/wheezing appreciated, heart with regular rate and rhythm, no murmur appreciated, bowel sounds present and no tenderness in the abdomen, lower extremities without edema. Reviewed hospital notes and workup from OSH, unclear etiology for fever of unknown origin and altered mental status at present. Patient had a recent severe shingles infection, there was recommendation for patient to obtain a lumbar puncture however this was not able to be obtained at OSH, patient was placed on IV acyclovir, will continue. Consider neurology consultation. Per review, blood and urine cultures have so far been negative. Patient initially placed on IV pip-tazo for nonspecific colitis 07/05/2023, which was then broadened into IV vancomycin, ceftriaxone, and doxycycline at time of transfer. Will hold at present due to unclear source and monitor for for fevers. Recommend team attempt to obtain imaging records from OSH for review. Daughters report patient has been working with oncologist at [facility] an d they hope to establish with oncology nearby and will benefit from referral. Code status confirmed DNR/DNI. Subjective Patient seen and evaluated at bedside this morning. No acute events overnight. Patient minimally responsive and oriented to self only. History obtained from pts daughters who were at bedside. Prior to admission on 07/05/23 at OSH pt was in usual state of health which is independent and able to perform all ADLs. On day of admission, patient was found to be confused and noted to be febrile. No source of infection was definitively identified by OSH, however pt received broad spectrum antibiotics and antivirals due to history of severe shingles. CT/MRI head negative. LP declined bc OSH did not have clinician credential to do the procedure. CT abdomen showed non-specific colitis. Review of Systems Review of Systems: reviewed, per HPI Physical Exam Physical Exam: Constitutional: [well-appearing, no acute distress] HEENT: [NCAT, no conjunctival injection] CV: [regular rhythm, no murmur appreciated, extremities well-perfused, no LE edema] Resp: [CTABL, no wheezes/rales/rhonchi appreciated, no increased work of breathing] GI: [soft, nondistended, nontender, BS normoactive] MSK: [no gross deformities appreciated] Skin: [warm, dry, no rash appreciated] Neuro: [alert, oriented, no focal neurologic deficit appreciated] Results & Data Results & Data Vital Signs (Past 12 Hours) Vital Signs Temp Pulse Pulse Resp BP Pulse Ox O2 Del Method 07/12/23 15:17 37.2 C 95 H 16 154/91 H 94 Room Air 07/12/23 15:00 85 07/12/23 11:45 37.0 C 87 18 165/88 H 95 Room Air 07/12/23 08:00 Room Air 07/12/23 07:35 36.9 C 91 H 17 173/97 H 96 Room Air 07/12/23 07:00 90 Resident Activity Tracking Resident Involvement: Resident Care Provided Care Provided: Adult Hospital Medicine
--- NOTE | 2023-07-12 21:54 | Billing Data ---
Date of Service July 12, 2023 Coding Level of Care Code 48458 INT INP/OBS CARE
[2023-07-13 05:16] LABS: Basophils # (auto) 0.05 K/uL (0.00-0.20); Basophils % (auto) 0.9 %; Eosinophils # (auto) 0.07 K/uL (0.00-0.50); Eosinophils % (auto) 1.2 %; Hematocrit (blood only) 31.8 % (37.0-47.0); Immature Granulocytes # (auto) 0.06 K/uL (0.01-0.20); Lymphocytes # (auto) 0.72 K/uL (1.20-3.40); Lymphocytes % (auto) 12.5 %; Mean Corpuscular Hemoglobin 33.3 pg (25.0-34.0); Mean Corpuscular Hgb Conc 34.6 g/dL (32.0-36.0); Mean Corpuscular Volume 96.4 fL (80.0-100.0); Mean Platelet Volume 8.5 fL (9.4-12.4); Monocytes # (auto) 0.25 K/uL (0.11-0.59); Monocytes % (auto) 4.3 %; Neutrophils # (auto) 4.61 K/uL (1.40-6.50); Neutrophils % (auto) 80.1 %; Platelet Count 321 K/uL (130-400); RDW Coefficient of Variation 12.6 % (11.5-14.5); RDW Standard Deviation 44.4 fL (36.4-46.3); White Blood Count 5.76 K/ul (4.8-10.8)
[2023-07-13 05:24] LABS: Alanine Aminotransferase 14 U/L (7-52); Albumin Globulin Ratio 1.6 (0.9-2); Albumin Level 3.6 gm/dl (3.4-5.0); Alkaline Phosphatase 51 U/L (34-104); Anion Gap 8 (3-11); Aspartate Aminotransferase 15 U/L (13-39); Bilirubin,Total 0.7 mg/dl (0.2-1.0); Blood Urea Nitrogen 24 mg/dl (6-23); C Reactive Protein < 0.50 mg/dl (0-0.5); Calcium 9.1 mg/dl (8.6-10.3); Carbon Dioxide 24 mmol/L (21-32); Chloride 102 mmol/L (98-107); Creatinine Clr Calc Pharmacy 37.3 ml/min; Est GFR (Non-African American) 74.2 ml/min; Globulin 2.2 gm/dl (2.5-4.0); Glucose 111 mg/dl (70-99(Fasting)); Magnesium 2.1 mg/dl (1.7-2.4); Phosphorus 2.9 mg/dl (2.5-4.9); Potassium 3.6 mmol/L (3.5-5.1); Sodium 134 mmol/L (136-145); Total Protein 5.8 gm/dl (6.0-8.3)
[2023-07-13 05:48] LABS: Folate (Folic Acid),Ser orPlas > 22.30 ng/ml (>5.38)
[2023-07-13 05:49] LABS: Vitamin B12 > 1500 pg/ml (180-914)
--- NOTE | 2023-07-13 08:07 | Hospitalist Progress Note ---
Date of Service July 13, 2023 Assessment & Plan (1) Altered mental status: (2) Fever of unknown origin: (3) RLQ abdominal pain: (4) Thrush, oral: (5) Urinary retention: (6) Dysphagia: (7) HTN (hypertension): (8) GERD (gastroesophageal reflux disease): (9) Degenerative disc disease: (10) Coronary artery calcification: Plan 83 yo female w/ PMHx of CLL-stage 3, hypogammaglobulinemia, recurrent UTI's, severe shingles, DDD, GERD, HTN, dysphagia, presents from OSH for AMS and fever of unknown origin. 1) Altered mental status: - AAO x 0, largely unintelligible conversation - Baseline: Independent living, complete ADLs - CT/MRI Brain & laboratory analysis unremarkable at OSH - will need to obtain images from OSH, these were not sent with her - Daughters noted initial improvement in mental status throughout hospital stay at OSH from 07/05/23-07/10/23, but worsening mental status on 07/09 - Had similar presentation at [facility] in 2021 after UTI, but more agitated during that stay - BUN, 24; BUN/Cr, 32 - Consider neurology consult - B12, > 1500; folate, > 22.3; RPR, pending; VZV, pending; procalcitonin, 0.11 2) Fever of unknown origin: - High risk for infection given hx of hypogammaglobulinemia and CLL Stage 3 - Patient with history of recurrent UTIs and severe shingles - Currently receiving IVIG therapy for CLL, which has helped reduce infections over last 6 months - CRP < 0.5, CRP was downtrending at OSH (following broadening of Abx) - RPR, Lyme, & Blood and urine cultures negative at OSH --> no Ur Cx performed here - Family open to LP at [facility], LP ordered - Tylenol PRN for fevers (received at OSH despite sensitivity to Tylenol noted in past) - Continue Acyclovir, Lyrica given severe shingles hx - Hold Vancomycin, Rocephin, and Doxycycline given lack of evidence for bacterial infection at this time - monitor for clinical signs of recurrent infection - CBC, nml; CMP, BUN elevated; CRP, < 0.55; procal, 0.11; mag, 2.1; phos, 2.9 - Consider biofire if febrile 3) RLQ abdominal pain: - Remains undifferentiated, patient unable to provide hx - Noted since presentation to OSH w/ AMS - CT-AP on presentation to OSH showing non-specific colitis and bladder enlargement - Unlikely related to urinary retention given Severino placement 4) Thrush, oral: - Fluconazole 200 mg IV daily for 7-14 days pending clinical response 5) Urinary retention: - Noted on CT-AP on presentation (enlarged bladder) - Urinalysis and urine culture negative - Pt self caths at home - Continue Severino, draining clear-yellow urine 6) Dysphagia: - AMS and difficulty swallowing - Continue pureed diet w/o gluten & lactose 7) HTN: - BP stable on transfer - Continue to hold Amlodipine 10 mg - Restart home dose PRN 8) GERD (gastroesophageal reflux disease): - Continue home Famotidine 9) Degenerative disc disease: - hold home Cymbalta 10) Coronary artery calcification: - Atorvastatin held at OSH - Plavix, ASA FENGI: pureed, no lactose or gluten Code status: DNR/DNI DVT prophylaxis: Lovenox Isolation: contact precautions Disposition: med/surg Admission and Anticipated Discharge Date Admission Date: July 11, 2023 Supervising Physician Co-Signing Physician Notes I personally examined the patient and verified all sutton points of history and exam, discussed case, and agree with decision making with Dr Caballero No meaningful HPI review of systems obtainable from patient. Family updated at the bedside. Vitals noted, in general she is lying on her side appears to be awake but confused no distress but weak and frail. Breathing unlabored no accessory muscle use. Rash diffusely across her back is more macular/may be maculopapular, definitely not vesicular does not appear to have an erythematous base, it is diffuse but really not at all in anyway consistent with zoster. Tailbone lesion seems to be more consistent with mild pressure sore delirium/metabolic encephalopathyseems to possibly be due to dehydration, possibly Macrobid side effect, possibly prior infection that may have been treated and ongoing foreign environment/not enough time for delirium to clear. Because of her immunocompromise state, there is significant concern about disseminated zoster and or herpetic encephalopathycertainly I cannot really rule out herpes encephalitis given her altered mental status and reported prior feverLP had been entertained at previous facility, but due to lack of resources apparently family had declined whenever she was also improving, given that it can be done here under fluoroscopy, they are willingand I feel it may be very beneficial in laying to rest whether or not she has any active shingles given that her rash is inconsistent with that. Rashfollow, possibly as simple as a contact dermatitis, looks a little bit consistent with pityriasiscontinue to follow. Otherwise as above. Subjective Patient seen this morning and without any acute events overnight. Patient alert but oriented x 0, with most of what she says indiscernible. Unable to provide a ROS or fully cooperate with a physical exam. History obtained from pts daughter, who stated that prior to admission on 07/05/23 at OSH pt was in usual state of health which is independent and able to perform all ADLs. On day of admission to OSH, patient found to be confused and noted to be febrile. No source of infection was definitively identified by OSH, however pt received broad spectrum antibiotics and antivirals due to history of severe shingles. CT/MRI head negative. CT abdomen showed non-specific colitis. Review of Systems Review of Systems: Unobtainable due to cognitive status Physical Exam Respiratory: normal respiratory effort, lungs clear to auscultation Cardiovascular: RRR, no murmur, no edema Gastrointestinal (Abdomen): normal bowel sounds, soft, nontender, no hepatosplenomegaly Neurologic: awake and + confused Psychiatric: Orientation: alert; + not oriented x 3 Apperance: appeared stated age Thought Process: + incoherent thought process Genitourinary: normal external appearance Results & Data Results & Data Vital Signs (Past 12 Hours) Vital Signs Temp Pulse Pulse Resp BP Pulse Ox O2 Del Method 07/13/23 07:23 36.4 C L 95 H 17 170/105 H 95 Room Air 07/13/23 04:03 36.7 C 78 18 159/81 H 95 Room Air 07/12/23 23:07 36.6 C 84 16 156/97 H 96 Room Air 07/12/23 23:00 87
--- NOTE | 2023-07-13 19:39 | Billing Data ---
Date of Service July 13, 2023 Coding Level of Care Code 75330 SUB INP/OBS CARE MIN
[2023-07-13] MEDS: MELATONIN 3 MG TAB PO PRN (22:13)
--- NOTE | 2023-07-14 07:24 | Hospitalist Progress Note ---
Date of Service July 14, 2023 Assessment & Plan (1) Altered mental status: (2) Fever of unknown origin: (3) RLQ abdominal pain: (4) Thrush, oral: (5) Urinary retention: (6) Dysphagia: (7) HTN (hypertension): (8) GERD (gastroesophageal reflux disease): (9) Degenerative disc disease: (10) Coronary artery calcification: Plan 83 yo female w/ PMHx of CLL-stage 3, hypogammaglobulinemia, recurrent UTI's, severe shingles, DDD, GERD, HTN, dysphagia, 1-yr s/p l. TCAR, presents from OSH for AMS and fever of unknown origin. 1) Altered mental status: - AAO x 2, able to hold conversation, answer questions appropriately, follow commands - Baseline: Independent living, complete ADLs - CT/MRI Brain & laboratory analysis unremarkable at OSH - will need to obtain images from OSH, these were not sent with her - Daughters noted initial improvement in mental status throughout hospital stay at OSH from 07/05/23-07/10/23, but worsening mental status on 07/09 - Had similar presentation at [facility] in 2021 after UTI, but more agitated during that stay - BUN, 24; BUN/Cr, 32 - Consider neurology consult - B12, > 1500; folate, > 22.3; RPR, pending; VZV, pending; procalcitonin, 0.11 2) Fever of unknown origin: - High risk for infection given hx of hypogammaglobulinemia and CLL Stage 3 - Patient with history of recurrent UTIs and severe shingles - Has been receiving IVIG therapy for CLL, helped reduce infections over last 6 months - CRP < 0.5, CRP was downtrending at OSH (following broadening of Abx) - RPR, Lyme, & Blood and urine cultures negative at OSH --> no Ur Cx performed here - LP/CSF results: WBC, 790 (95% mononuclear); RBC, 45; glu, 54; prot, 148; CSF Gram Stain, neg - CSF Cx: Bacterial and fungal Cx pending - Tylenol PRN for fevers, pain - Continue Acyclovir, Lyrica given CSF results; re-started Duloxetine - Continue Rocephin and Vancomycin given evidence for CSF infection at this time, wait for Cx results before discontinuing - CBC, nml; CMP, BUN elevated; CRP, < 0.55; procal, 0.11; mag, 2.1; phos, 2.9 - Consider Biofire if febrile 3) RLQ abdominal pain: - Resolved, patient no longer endorses RLQ or RUQ pain - CT-AP on presentation to OSH showing non-specific colitis and bladder enlargement - Unlikely related to urinary retention given Severino placement 4) Thrush, oral: - Fluconazole 200 mg IV daily for 7-14 days pending clinical response 5) Urinary retention: - Noted on CT-AP on presentation (enlarged bladder) - Urinalysis and urine culture negative - Pt self caths at home - Continue Severino, draining clear-yellow urine 6) Dysphagia: - AMS, dysphagia upon admission, pt did not endorse any dysphagia today - Continue pureed diet w/o gluten & lactose 7) HTN: - BP stable on transfer, but have been as high as 170/105 - Continue to hold Amlodipine 10 mg - Restart home dose PRN 8) GERD (gastroesophageal reflux disease): - Continue home Famotidine 9) Degenerative disc disease: - Cymbalta restarted, considering pt's mild-mod back pain following LP 10) Coronary artery calcification: - Atorvastatin held at OSH - Plavix, ASA FENGI: Code status: DNR/DNI DVT prophylaxis: Lovenox Isolation: contact precautions Disposition: med/surg Admission and Anticipated Discharge Date Admission Date: July 11, 2023 Supervising Physician Co-Signing Physician Notes I personally examined the patient and verified all sutton points of history and exam, discussed case, and agree with decision making with Dr Caballero Doing better. More alert. Able to converse. Slightly quiet speech a little bit difficult to understand, but seems to have no complaints, and would like to get out of bed more. Old records scanned inappears to presented on 07/04 with a picture of a nondescript delirium and illness but no real meaningful HPI, temp up to about 103 F. Initial workup and labs were overall reassuring except for a CT showing nonspecific colitis, although I do not see anywhere where she had abdominal symptoms. She was started on empiric Zosyn. Somewhere around 07/06 antibiotics were changed to Vanco, Rocephin, doxycyclineappears to be predominantly due to lack of improvement. Started on IV acyclovir on 07/07 largely due to her history of immunosuppression with concern that she may have a viral illness given the broad antibiotic coverage and failure to improve. Looks as though she was starting to have some improvement on 07/08, but with waxing and waning on 07/09 they opted for transfer. The workup there appears to have had essentially no significant yield except for the CT with a nonspecific colitis, CT and MRI brain were normal, echo essentially normal, notes report cultures both blood and urine to be negative. Vitals noted, in general she is awake and alert appears to be oriented is hard to tell for sure because of her speech, but definitely far more alert than yesterday and conversive. Appears to be thin and frail but no distress. Breathing unlabored no accessory muscle use good effort. Skin shows no rashes no pallor or icterus. Neuro without focal deficits or lateralizing signs. LP noted. Discussed with infectious disease extensively, input appreciated. Meningitis/encephalitisetiology not entirely clear, certainly did not present classically given that her presentation overall appears far more consistent with a delirium. Sending multitude of studies on CSFespecially given that her prior antibiotics and antivirals will likely skew some of the results. Continue broad coverage for now (resumed Vanco and Rocephin in addition to continuing acyclovir). Showing nice improvement today. Certainly could still have waxing and waning. Continue close follow-up. Can resume Lovenox for DVT prophylaxis tomorrow Subjective Patient seen this morning and without any acute events overnight. Patient AAO x 2 (person, place). Able to converse, respond to questions, follow commands like normal. Patient's delirium has improved considerably, and she is able to recall things since waking up this morning though her recall of the previous few days are limited. Patient is not complaining of any pain except for some back pain at the site of the lumbar puncture, along with some residual numbness and tingling at that location. History originally obtained from pts daughter, who stated that prior to admission on 07/05/23 at OSH pt was in usual state of health which is independent and able to perform all ADLs. On day of admission to OSH, patient found to be confused and noted to be febrile. No source of infection was definitively identified by OSH, however pt received broad spectrum antibiotics and antivirals due to history of severe shingles. CT/MRI head negative. CT abdomen showed non- specific colitis. Review of Systems Constitutional: no fever, no chills and no fatigue Ear, Nose, Mouth, Throat: no nasal congestion, no nasal discharge and no sore throat Respiratory: no cough, no chest congestion and no dyspnea Cardiovascular: no chest pain and no palpitations Gastrointestinal: no abdominal pain, no nausea, no vomiting and no diarrhea/loose stools Neurologic: + tingling and + numbness (mild residual at lumbar puncture site) Physical Exam Constitutional: WD/WN, vitals as above Respiratory: normal respiratory effort, lungs clear to auscultation Cardiovascular: RRR, no murmur, no edema Gastrointestinal (Abdomen): normal bowel sounds, soft, nontender, no hepatosplenomegaly Neurologic: moves all extremities and awake; no meningeal signs and not confused Psychiatric: Orientation: oriented to person and oriented to place Apperance: appeared stated age Thought Process: clear/coherent thought process Genitourinary: normal external appearance Results & Data Results & Data Vital Signs (Past 12 Hours) Vital Signs Temp Pulse Pulse Resp BP BP Pulse Ox 07/14/23 02:39 36.6 C 76 18 158/94 H 95 07/14/23 00:00 79 07/13/23 22:24 36.4 C L 87 20 166/106 H 95 07/13/23 20:00 07/13/23 19:31 37.0 C 80 20 157/95 H 97 O2 Del Method 07/14/23 02:39 Room Air 07/14/23 00:00 07/13/23 22:24 Room Air 07/13/23 20:00 Room Air 07/13/23 19:31 Room Air
[2023-07-14 10:00] LABS: Total Protein CSF 147.7 mg/dl (15-45)
[2023-07-14 10:36] LABS: Appearance CSF Hazy; CSF Count Tube # 3; CSF Xanthrochromic Xanthochromic; Color CSF Colorless; Red Blood Cell CSF Manual 45 (0-); White Blood Cell CSF Manual 790 (0-5)
[2023-07-14 10:36] LABS: Basophils # (auto) 0.06 K/uL (0.00-0.20); Basophils % (auto) 1.1 %; Eosinophils % (auto) 1.8 %; Hematocrit (blood only) 34.9 % (37.0-47.0); Hemoglobin 12.4 g/dl (12.0-16.0); Immature Granulocytes # (auto) 0.08 K/uL (0.01-0.20); Immature Granulocytes % (auto) 1.4 %; Lymphocytes # (auto) 0.86 K/uL (1.20-3.40); Lymphocytes % (auto) 15.3 %; Mean Corpuscular Hgb Conc 35.5 g/dL (32.0-36.0); Mean Corpuscular Volume 95.6 fL (80.0-100.0); Mean Platelet Volume 8.6 fL (9.4-12.4); Monocytes % (auto) 5.3 %; Neutrophils # (auto) 4.22 K/uL (1.40-6.50); Neutrophils % (auto) 75.1 %; Platelet Count 393 K/uL (130-400); RDW Coefficient of Variation 12.7 % (11.5-14.5); RDW Standard Deviation 43.5 fL (36.4-46.3); Red Blood Count 3.65 M/uL (4.20-5.40); White Blood Count 5.62 K/ul (4.8-10.8)
[2023-07-14 10:55] LABS: Creatinine Clr Calc Pharmacy 41.2 ml/min; Est GFR (African American) 94.4 ml/min; Est GFR (Non-African American) 81.5 ml/min
--- NOTE | 2023-07-14 12:29 | Fluoroscopy Report ---
FLUOROSCOPIC GUIDED LUMBAR PUNCTURE CLINICAL HISTORY: Evaluate for meningitis; mental status change PROCEDURE: Procedure and risks were explained. Informed consent was obtained. A final timeout was com pleted. The patient was placed prone on the fluoroscopic exam table. The lower lumbar region was prep ped and draped in sterile fashion. 1% lidocaine was utilized for skin anesthesia. Utilizing fluoroscopic guidance, a 22-gauge spinal needle was advanced into the intrathecal space at the L3-4 disc space level. Permanent spot images were obtained. Approximately 8 mL of CSF fluid was r emoved and sent to the lab for analysis. The needle was removed and Band-Aid applied. The patient gilberto erated the procedure well. Vital signs will be monitored postprocedure. Total fluoroscopy time 2 minutes 43 seconds. Study dose is 79.03 mGy. IMPRESSION: Lumbar puncture as above. Performed, dictated, and signed by West Garcia PA-C; to be co-signed by Dr. Ronny Taylor. Electronically signed by: Ronny Taylor M.D. 07/14/2023 1:04 PM
[2023-07-14] MEDS ORDERED: VANCOMYCIN CONSULT ACTIVE PRN (13:38)
[2023-07-14] MEDS: VANCOMYCIN HCL 1,000 MG in SODIUM CHLORIDE 0.9% 250 ML IV STA (14:11)
--- NOTE | 2023-07-14 14:53 | Pharmacy Report ---
Pharmacy PK ABX Note - Date of Service July 14, 2023 - Assessment and Plan Assessment 83 year old F receiving empiric vancomycin, ceftriaxone, acyclovir, and fluconazole for treatment of fever of unknown origin w/ concern for meningitis. Patient was transferred from [facility] to [facility] on 07/11/23. During initial hospital course at [facility], patient received broad spectrum antibiotic regimen (vancomycin level obtained upon transfer on 07/10 and resulted as 12.5 mcg/mL. No further vancomycin given this admission. Acyclovir continued upon admission here, but other antimicrobials were discontinued, as there was no clear evidence of bacterial infection. Lumbar puncture obtained today and antibiotics were started afterwards. CSF cultures (07/13) pending. CSF shows WBC of 790, total protein 147.7, and glucose 54. Patient has been afebrile w/ no overt leukocytosis since time of admission here. Renal function stable. Other PMH includes CKD, recurrent UTI, and stage 3 CLL for which she is receiving IVIG. Day # 1 of restarted antimicrobial therapy. Plan Vancomycin * Loading dose: 1000 mg IV x 1 * Maintenance dose: 750 mg IV every 18 hours * Regimen is predicted to achieve target AUC/BRENNEN of 400-600 mg/L.hr * Random level ordered for: 07/16/23 Pharmacy will continue to follow and will adjust dose/frequency as necessary. Thank you. Pharmacy has transitioned to AUC monitoring for vancomycin. AUC/BRENNEN is the preferred PK/PD target and is associated with decreased risk of nephrotoxicity compared to traditional trough targets.
[2023-07-14] MEDS: ACETAMINOPHEN 325 MG TAB PO PRN (15:07)
[2023-07-14] MEDS: DULoxetine HCL 30 MG CAP PO SCH (15:08)
[2023-07-14] MEDS: cefTRIAXone SODIUM 2,000 MG in DEXTROSE 5 % MINI-B 50 ML IV SCH (15:39)
[2023-07-14] MEDS: ACYCLOVIR SOD 450 MG in DEXTROSE 5% 250 ML IV SCH (15:40)
--- NOTE | 2023-07-14 17:39 | Infectious Disease Consult ---
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 She initially presented to [facility] on 07/02 she was confused and febrile, s/p pip-tazo for colitis without improvement in AMS, then changed to vanc/ceftriaxone/acyclvoir/doxycycline but without LP, leading to transfer. LP on 07/13 showed WBC 790 (95% monos, 5 PMNs), RBC 45, glucose 54, protein 147.7, other studies pending. ID is consulted for encephalopathy and CSF pleocytosis c/f meningoencephalitis. Clinical suspicion high for encephalitis/meningoencephalitis given pt initially presented with severe AMS and fevers. Pt was on broad abx for several days prior to LP. LP on 07/13 showed WBC 790 (95% monos, 5 PMNs), RBC 45, glucose 54, protein 147.7. The extent of CSF pleocytosis is c/f bacterial meningitis. Interestingly it is monocytic with normal glucosethough wonder if this is due to delayed LP and having already been improving on abx. Pt at risk for HSV/VZV reactivation/dissemination and also had a Shingles episode in 12/2022 though her pleocytosis is elevated in a range more concerning for bacterial meningitis. Broad ddx including Strep pneumo (can check Strep pneumo UrAg), Pts hypogammaglobulinemia which predisposes her to infection. Also noted to have oral thrush and has been on fluconazole. Would check IgG levels. Pt recently with direct contact with kitten though no recollection of bites/scratches. Bartonella can cause encephalitis (pt had been receiving doxycycline) though would not expect to cause such as high pleocytosis. Cat bites/scratches can also cause Capnocytophaga canimorsus infection which can cause meninigitis, though less likely given that pts OSH BCx were NG. Will attempt to add on CSF meninigitis/encephalitis panel. Cx may be sterilized given pt has been on abx for several days. If remaining CSF studies negative, would still favor completing an empiric course of therapy for SHE[employer] infection. Reassuringly, pt has improved significantly as of 07/13 and is now able to participate in conversation and even brush her teeth. May reflect a clinical response to abx therapy. For now would continue broad empiric abx for meningoencephalitis with vancomycin, ceftriaxone, and IV acyclovir while awaiting CSF studies. Pts improvement occurred without ampicillin (only a few days of pip-tazo initially at OSH) and without positive BCx or brain MRI findings to suggest Listeria. Can hold off on doxycycline given extent of pleocytosis. ID Problem List: 1. 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 Encephalopathy, CSF pleocytosis 3. Immunosuppressed status due to CLL and hypogammaglobulinemia, on IVIG Recommendations: - Continue IV vancomycin (dosing per Rx), ceftriaxone 2g IV q12h, IV acyclovir 10 mg/kg IV q8h - F/u 07/13 CSF studies. Will attempt to add on CSF meninigitis/encephalitis panel - Send Strep pneumo UrAg, Bartonella Ab panel, IgG levels ID will continue to follow. Elana Marin MD, [facility] Infectious Diseases [facility] ID Connect direct line: [phone] Consultation Information Consultation was provided via telemedicine using two-way real-time interactive telecommunication between the patient and the telemedicine provider. For the duration of the visit, the provider was performing the assessment from a different facility than the patient. This includesuse of bluetooth stethoscope forauscultationperformed by the telepresenter that the telemedicine provider can hear if described in the physical exam. Compliance Examiner contact information: Please call [facility] Call Center [phone]. (Phone Number For Physician Use Only) After establishing a telemedicine visit, patient was: Patient was verified with two unique identifiers, Patient/authorized rep acknowledged consent and understanding and Gave permission to continue telehealth session Time Spent with Patient: Initial => 75 min History of Present Illness Reason for Consultation: for encephalopathy and CSF pleocytosis c/f meningoencephalitis Attending Physician: Ronny Rojas DO History of Present Illness Agnes Garcia is an 83-year-old woman with history of CLL dx 2013 with hypogammaglobulinemia (receiving IVIG since 01/2023), Shingles 12/2022, chronic anemia, HTN, HLD, GERD w/ hiatal hernia, coronary artery stenosis, carotid artery stenosis w/ internal stent, CKD 3b, urinary retention w/ recurrent UTIs, chronic constipation, DJD, who presents as transfer of care from [facility] to [facility] on 07/11/23 for altered mental status. She initially presented to [facility] on 07/02 she was confused and febrile, s/p pip-tazo for colitis without improvement in AMS, then changed to vanc/ceftriaxone/acyclvoir/doxycycline but without LP, leading to transfer. LP on 07/13 showed WBC 790 (95% monos, 5 PMNs), RBC 45, glucose 54, protein 147.7, other studies pending. ID is consulted for encephalopathy and CSF pleocytosis c/f meningoencephalitis. Per hospitalist, records are partial and being obtained at this time. Per H&P: On Tuesday 07/04 pts daughter Deb Carrillo found her around noon in the bathroom nonverbal with confusion/aphasia. Last known normal Fri 07/02. Her daughter suspected SHE[employer] M[employer] infection and brought her to [facility]. Was febrile to 103F in the ED. In the ED, reportedly with RLQ TTP on presentation. CT Head negative. CT AP w/ non-specific colitis at splenic flexure/descending colon and distended urinary bladder. CXR with cardiomegaly w/ mild vascular congestion. Normal lactate, troponin negative, mild PASTORA. UA reportedly negative. Confirmed with [facility] that UCx and BCx from 07/04 have been NGTD. Flu/RSV/Covid on 07/04 also negative. Pip-tazo was started empirically for possible colitis on CT. Patient was then admitted to [facility]. At [facility], was continued on pip-tazo without improvement. Further workup was unrevealing. MRI brain did not show acute findings, CTA head and neck showed patent carotid stent, stable narrowings, and no other acute findings. Echo with EF 55-60%, Grade 1 Diastolic Dysfunction. Tox screen neg. Given non-improvement on pip-tazo, antibiotics were changed to vanc, ceftriaxone, doxycycline, and IV acyclovir. Daughters noted some improvement in mental status throughout hospital stay at OSH from 07/05/23-07/10/23, but worsening mental status on 07/09. She transferred to [facility] on 07/10 while on vancomycin, ceftriaxone, IV acyclovir, and doxycycline Pts daughter Lian (sp?) currently at bedside. At [facility], she has been afebrile. She was initially AAO x0 however on 07/13 she had substantial improvement in her mental status and is now able to respond to questions. She was also able to put in her own hearing aids, feed herself, and brush her teeth without assistance. Not aware of any sick contacts. No exposure to children. Does not recall any preceding sx (no URI sx). Pts other daughter Deb Carrillo has a kitten (<1 yo) that pt has been in direct contact with but does not recall any bites/scratches. For the pts CLL, no chemo or steroids. She reports that pt got a Shingles vaccine 06/2022 however in 12/2022 developed a severe Shingles outbreak over her R shoulder/arm/back and breast area. She has been on Lyrica since due to ongoing pain. She has hypogammaglobulinemia and CLL and was started on IVIG 01/2023 after the pts Shingles episode. Of note, pt also had an episode of confusion in 11/2021 requiring hospitalization and with significant neuro workup; no fever at the time. This was attributed to UTI. Pt was reportedly also treated with nitrofurantoin for UTI on 06/26/2023, which was discontinued when admitted to [facility] on 07/05/2023. She has a history of hip replacement, bilateral knee replacement, and a shoulder replacement. No pain at this time. Pt also noted earlier in the admission to have oral thrush and has been on fluconazole. Allergies Allergy/AdvReac Type Severity Reaction Status Date / Time cephalexin Allergy Severe Encephalopa Verified 02/12/22 06:12 thy acetaminophen [From NyQuil] Allergy Unknown rapid Verified 02/12/22 06:12 heart beat, "brain does not stop working" adhesive tape Allergy Unknown blistering Verified 02/12/22 06:12 dextromethorphan Allergy Unknown rapid Verified 02/12/22 06:12 [From NyQuil] heart beat, "brain does not stop working" diphenhydramine Allergy Unknown rapid Verified 02/12/22 06:12 [From Tylenol PM] heart beat, "brain does not stop working" doxylamine [From NyQuil] Allergy Unknown rapid Verified 02/12/22 06:12 heart beat, "brain does not stop working" gluten Allergy Unknown "gluten Verified 02/12/22 06:12 free diet" - GI SYMPTOMS lactose Allergy Unknown "lactose Verified 02/12/22 06:12 intolerant" - GI SYMPTOMS nitrofurantoin Allergy Unknown rapid Verified 02/12/22 06:12 heart beat, can't sleep, "brain does not stop" pseudoephedrine [From NyQuil] Allergy Unknown rapid Verified 02/12/22 06:12 heart beat, "brain does not stop working" Sulfa (Sulfonamide Allergy Unknown "sulfa" - Verified 02/12/22 06:12 Antibiotics) "makes me hyper, can't sit still" chlorpheniramine AdvReac Unknown rapid Verified 07/11/23 21:48 [From Tylenol heart Htmyo-[id number] D/N] beat, can't sleep, "brain does not stop working" phenylephrine AdvReac Unknown rapid Verified 07/11/23 21:48 [From Tylenol heart Mcvfi-Jkayyjy-Nsjm D/N] beat, can't sleep, "brain does not stop working" Antihistamines - Alkylamine AdvReac rapid Verified 07/11/23 21:48 heart beat, can't sleep, "brain does not stop working" Antihistamines - Ethanolamine AdvReac rapid Verified 07/11/23 21:48 heart beat, can't sleep, "brain does not stop working" Antihistamines - AdvReac rapid Verified 07/11/23 21:48 Ethylenediamine heart beat, can't sleep, "brain does not stop working" Antihistamines - Piperazine AdvReac rapid Verified 07/11/23 21:48 heart beat, can't sleep, "brain does not stop working" Antihistamines - Piperidine AdvReac rapid Verified 07/11/23 21:48 heart beat, can't sleep, "brain does not stop working" Home Medications Medication Instructions Recorded Confirmed Type cyanocobalamin (vitamin B-12) 0 tab PO 1200 06/14/18 07/12/23 History 1,000 mcg tablet (Vitamin B-12) multivitamin (Multiple Vitamins 0 tab PO 1200 06/14/18 07/12/23 History tablet) acetaminophen 650 mg 0 mg PO Q12H PRN Pain 12/05/21 07/12/23 History tablet,extended release (Tylenol 8 Hour) aspirin 81 mg tablet,delayed 0 mg PO QAM 12/05/21 07/12/23 History release clopidogrel 75 mg tablet 75 mg PO QPM 12/05/21 07/12/23 History cholecalciferol (vitamin D3) 125 0 mcg PO 1200 12/07/21 07/12/23 History mcg (5,000 unit) tablet (Vitamin D3) propylene glycol 0.6 % eye drops 0 drp ophthalmic (eye) DIRECTED 12/07/21 07/12/23 History (Systane Complete) PRN dry eyes zinc 50 mg capsule 0 mg PO DAILY ##0 12/07/21 07/12/23 History diclofenac sodium 1 % topical gel 0 g EXT QID PRN Pain 01/28/22 07/12/23 History (Voltaren Arthritis Pain) polyethylene glycol 3350 17 gram 0 g PO DAILY PRN Constipation 01/28/22 07/12/23 History oral powder packet (Miralax) sennosides 8.6 mg tablet (Senokot) 0 mg PO QAM PRN Constipation 01/28/22 07/12/23 History thiamine HCl (vitamin B1) 100 mg 0 mg PO DAILY 01/28/22 07/12/23 History tablet atorvastatin 40 mg tablet 40 mg PO DAILY 07/12/23 07/12/23 History duloxetine 30 mg capsule,delayed 30 mg PO DAILY 07/12/23 07/12/23 History release famotidine 20 mg tablet 20 mg PO TID 07/12/23 07/12/23 History nitrofurantoin macrocrystal 50 mg 50 mg PO DAILY 07/12/23 07/12/23 History capsule pregabalin 50 mg capsule 50 mg PO TID 07/12/23 07/12/23 History silver sulfadiazine 1 % topical 1 applic topical BID 07/12/23 07/12/23 History cream (SSD) amlodipine 10 mg tablet 5 mg PO 1XD 07/13/23 07/13/23 History Patient History Medical History (Updated 07/14/23 @ 17:42 by Elana Marin MD) GERD (gastroesophageal reflux disease) Dysphagia Thrush, oral RLQ abdominal pain Fever of unknown origin Altered mental status Left anterior fascicular block Anemia Hearing loss Urinary retention Self caths QID CLL (chronic lymphocytic leukemia) Diagnosed in 2013, sees her Oncologist routinely. -- No treatment Degenerative disc disease Hiatal hernia Acid reflux controlled, stable per pt Hyperlipidemia Hypertension controlled, stable per pt Surgical History History of cystoscopy History of right knee joint replacement History of left knee replacement 07/13/18: SAB L3-L4 + PNB. History of lumpectomy of left breast benign History of colonoscopy x2 History of total shoulder replacement RIGHT History of total right hip arthroplasty History of bilateral cataract extraction History of tubal ligation History of appendectomy History of tonsillectomy Family History Other No family history of adverse response to anesthesia Social History Smoking Status: Former smoker Cigarettes Per Day: 1 ppd x 50 years. QUIT 2013; Second Hand Exposure: No; Do You Dip or Chew Tobacco: No; Tobacco Cessation Education Requested by Patient: No Hx Alcohol Use: No Hx Substance Use: No Preferred Language: Andorran Communication Ability: Impaired Rn Sane Required: No Beliefs That Will Affect Care: None marital status: Unknown Current Living Situation: Alone Other Information That Helps Us Care for You: No Feels Safe at Home: Yes Assistive Devices: Bedside Commode, Cane, Walker and Other Physical Exam Physical Exam: Exam obtained with aid of in-person telepresenter. General: Well-appearing, no acute distress HEENT: Conjunctivae non-injected, sclerae anicteric, MMM, OP clear. Resp: Respirations nonlabored. Abd: Soft, nontender, nondistended. Back: No tenderness to palpation along spine Ext: Ecchymoses of R arm. No joint warmth or effusions noted. Skin: No rashes or lesions. Neuro: Alert & interactive. Grossly non-focal. Answering questions appropriately. Psych: Pleasant, appropriate. Results & Data Vital Signs (Past 12 Hours) Vital Signs Temp Pulse Resp BP BP Pulse Ox O2 Del Method 07/14/23 16:00 36.8 C 79 18 133/78 95 Room Air 07/14/23 12:00 36.7 C 78 20 121/57 L Room Air 07/14/23 11:30 36.5 C 80 18 155/92 H 96 Room Air 07/14/23 10:00 36.8 C 67 18 126/65 96 Room Air 07/14/23 09:30 36.8 C 72 20 118/64 98 Room Air 07/14/23 07:55 36.5 C 72 19 127/79 96 Room Air Diagnostic Findings Diagnostics: 07/06 OSH MRI brain: no acute intracranial abnormality, no abnormal enhancement. C2 fracture deformity Micro Summary: 07/13 CSF WBC 790 (95% monos, 5 PMNs), RBC 45, glucose 54, protein 147.7 CrAg pending VZV DNA pending fungal Cx pending 07/12 RPR neg 07/04 UCx ([facility]): NG 07/04 BCx x2 ([facility]): NG 07/04 Flu/Covid/RSV ([facility]): neg Per H&P, OSH studies negative for: RPR, Lyme Antibiotic Summary: IV vancomycin (started OSH ?07/07, stopped upon transfer 07/10, restarted on 07/13 present) ceftriaxone (started OSH ?07/07, stopped upon transfer 07/10, restarted on 07/13 present) IV acyclovir (started OSH ?07/07, stopped upon transfer 07/10, restarted on 07/13 present) prior doxycycline (started OSH ?07/07, stopped upon transfer 07/10) fluconazole (07/10 present) pip-tazo at OSH (07/04 - ?07/07
--- NOTE | 2023-07-14 18:44 | Billing Data ---
Date of Service July 14, 2023 Coding Level of Care Code 30495 SUB INP/OBS CARE MIN
[2023-07-14] MEDS: VANCOMYCIN HCL 750 MG in SODIUM CHLORIDE 0.9% 250 ML IV SCH (23:36)
[2023-07-15] MEDS: ACYCLOVIR SOD 450 MG in DEXTROSE 5% 250 ML IV SCH (00:38)
--- NOTE | 2023-07-15 07:26 | Hospitalist Progress Note ---
Date of Service July 15, 2023 Assessment & Plan (1) Altered mental status: (2) Fever of unknown origin: (3) RLQ abdominal pain: (4) Thrush, oral: (5) Urinary retention: (6) Dysphagia: (7) HTN (hypertension): (8) GERD (gastroesophageal reflux disease): (9) Degenerative disc disease: (10) Coronary artery calcification: Plan 83 yo female w/ PMHx of CLL-stage 3, hypogammaglobulinemia, recurrent UTI's, severe shingles, DDD, GERD, HTN, dysphagia, 1-yr s/p l. TCAR, presents from OSH for AMS and fever of unknown origin. 1) Altered mental status: - AAO x 3, able to hold conversation, answer questions appropriately, follow commands - Baseline: Independent living, complete ADLs - CT/MRI Brain & laboratory analysis unremarkable at OSH - will need to obtain images from OSH, these were not sent with her - Daughters noted initial improvement in mental status throughout hospital stay at OSH from 07/05/23-07/10/23, but worsening mental status on 07/09 - Had similar presentation at [facility] in 2021 after UTI, but more agitated during that stay - BUN, 24; BUN/Cr, 32 - Consider neurology consult - B12, > 1500; folate, > 22.3; RPR, pending; VZV, pending; procalcitonin, 0.11 2) Fever of unknown origin: - High risk for infection given hx of hypogammaglobulinemia and CLL Stage 3 - Patient with history of recurrent UTIs and severe shingles - Has been receiving IVIG therapy for CLL, helped reduce infections over last 6 months - CRP < 0.5, CRP was downtrending at OSH (following broadening of Abx) - RPR, Lyme, & Blood and urine cultures negative at OSH --> no Ur Cx performed here - LP/CSF results: WBC, 790 (95% mononuclear); RBC, 45; glu, 54; prot, 148; CSF Gram Stain, neg - CSF Cx: Bacterial and fungal Cx pending - Infectious disease consulted - Tylenol PRN for fevers, pain - Continue Acyclovir, Lyrica given CSF results; re-started Duloxetine - Continue Rocephin and Vancomycin given evidence for CSF infection at this time, wait for Cx results before discontinuing - CBC, nml; CMP, BUN elevated; CRP, < 0.55; procal, 0.11; mag, 2.1; phos, 2.9 3) RLQ abdominal pain: - Resolved, patient no longer endorses RLQ or RUQ pain - CT-AP on presentation to OSH showing non-specific colitis and bladder enlargement - Unlikely related to urinary retention given Severino placement 4) Thrush, oral: - Fluconazole 200 mg IV daily for 7-14 days pending clinical response 5) Urinary retention: - Noted on CT-AP on presentation (enlarged bladder) - Urinalysis and urine culture negative - Pt self caths at home - Continue Severino, draining clear-yellow urine 6) Dysphagia: - AMS, dysphagia upon admission, pt did not endorse any dysphagia today - Continue pureed diet w/o gluten & lactose 7) HTN: - BP stable on transfer, but have been as high as 170/105 - Continue to hold Amlodipine 10 mg - Restart home dose PRN 8) GERD (gastroesophageal reflux disease): - Continue home Famotidine 9) Degenerative disc disease: - Cymbalta restarted, considering pt's mild-mod back pain following LP 10) Coronary artery calcification: - Atorvastatin held at OSH - Plavix, ASA FENGI: Code status: DNR/DNI DVT prophylaxis: Lovenox Isolation: contact precautions Disposition: med/surg Admission and Anticipated Discharge Date Admission Date: July 11, 2023 Supervising Physician Co-Signing Physician Notes I personally examined the patient and verified all sutton points of history and exam, discussed case, and agree with decision making with Dr Caballero Little more confused today, but still alert. Not able to really get meaningful HPI review of systems from patient. Extensive discussion with family. Updated to the best my ability and to their satisfaction. ID input appreciated as well. Vitals noted, in general she is awake and alert appears A bit more disoriented but still trying to converse. Breathing unlabored no accessory muscle use good effort. Skin shows no rashes no pallor or icterus. Neuro without focal deficits.d. Meningitis/encephalitisetiology not entirely clear, certainly did not present classically given that her presentation overall appears far more consistent with a delirium. Continue antibiotics and antivirals pending CSF studies. Discussed delirium waxing and waning with family. Depending on course, may need to treat empirically for a duration given that we may not get a specific answer. Otherwise as above. [facility] gives a [facility] of neck pain for quite a while (seems to be years) CT describes chronic appearing fractures, I suspect this is all old, nothing seems to be unstable, will delve into things further to ensure nothing else needs to be done. Can resume Lovenox for DVT prophylaxis Subjective Patient seen this morning and without any acute events overnight. Patient AAO x 3 (person, place). Able to converse, respond to questions, follow commands like normal. Patient's delirium has improved considerably, and she is able to recall things since waking up this morning though her recall of the previous few days are limited. Patient is complaining of chronic neck pain but no back pain today from lumbar puncture. No longer any residual numbness or tingling at that location of LP. History originally obtained from pts daughter, who stated that prior to admission on 07/05/23 at OSH pt was in usual state of health which is independent and able to perform all ADLs. On day of admission to OSH, patient found to be confused and noted to be febrile. No source of infection was definitively identified by OSH, however pt received broad spectrum antibiotics and antivirals due to history of severe shingles. Patient has improved markedly since admission. Review of Systems Review of Systems: reviewed, per HPI Constitutional: no fever, no chills and no fatigue Ear, Nose, Mouth, Throat: no nasal congestion, no nasal discharge and no sore throat Respiratory: no cough, no chest congestion and no dyspnea Cardiovascular: no chest pain and no palpitations Gastrointestinal: no abdominal pain, no nausea, no vomiting and no diarrhea/loose stools Neurologic: + dizziness (when she's getting moved to wash her sheets) Physical Exam Constitutional: WD/WN, vitals as above Respiratory: left-sided lung sounds sound like stretching w/ splash sounds Cardiovascular: RRR, no murmur, no edema Gastrointestinal (Abdomen): normal bowel sounds, soft, nontender, no hepatosplenomegaly Neurologic: moves all extremities and awake; no meningeal signs and not confused Psychiatric: Orientation: alert, oriented to person and oriented to place; + not oriented x 3 Apperance: appeared stated age Thought Process: clear/coherent thought process and + incoherent thought process Genitourinary: normal external appearance Results & Data Results & Data Vital Signs (Past 12 Hours) Vital Signs Temp Pulse Pulse Resp BP Pulse Ox O2 Del Method 07/15/23 02:11 36.7 C 82 16 145/84 H 92 Room Air 07/15/23 00:00 76 07/14/23 22:46 36.8 C 72 18 126/73 95 Room Air 07/14/23 19:25 36.9 C 80 18 116/70 96 Room Air
[2023-07-15 07:38] LABS: Basophils # (auto) 0.04 K/uL (0.00-0.20); Basophils % (auto) 0.9 %; Eosinophils % (auto) 2.2 %; Hematocrit (blood only) 32.8 % (37.0-47.0); Hemoglobin 11.6 g/dl (12.0-16.0); Immature Granulocytes # (auto) 0.07 K/uL (0.01-0.20); Immature Granulocytes % (auto) 1.5 %; Lymphocytes # (auto) 0.87 K/uL (1.20-3.40); Lymphocytes % (auto) 18.9 %; Mean Corpuscular Hemoglobin 33.7 pg (25.0-34.0); Mean Corpuscular Hgb Conc 35.4 g/dL (32.0-36.0); Mean Corpuscular Volume 95.3 fL (80.0-100.0); Mean Platelet Volume 8.5 fL (9.4-12.4); Monocytes # (auto) 0.23 K/uL (0.11-0.59); Neutrophils # (auto) 3.29 K/uL (1.40-6.50); Neutrophils % (auto) 71.5 %; Platelet Count 349 K/uL (130-400); RDW Coefficient of Variation 12.9 % (11.5-14.5); RDW Standard Deviation 43.8 fL (36.4-46.3); Red Blood Count 3.44 M/uL (4.20-5.40)
[2023-07-15 07:53] LABS: Creatinine Clr Calc Pharmacy 39.4 ml/min; Est GFR (African American) 91.9 ml/min; Est GFR (Non-African American) 79.3 ml/min; Immunoglobulin G 454.5 mg/dl (635-1741)
--- NOTE | 2023-07-15 13:21 | Infectious Disease Progress Nt ---
Date of Service July 15, 2023 Assessment & Plan (1) Meningoencephalitis: (2) Encephalopathy due to infection: (3) Pleocytosis of cerebrospinal fluid: (4) CLL (chronic lymphocytic leukemia): (5) Hypogammaglobulinemia: Plan Agnes Garcia is an 83-year-old woman with history of CLL dx 2013 with hypogammaglobulinemia (receiving IVIG since 01/2023), Shingles 12/2022, chronic anemia, HTN, HLD, GERD w/ hiatal hernia, coronary artery stenosis, carotid artery stenosis w/ internal stent, CKD 3b, urinary retention w/ recurrent UTIs, chronic constipation, DJD, who presents as transfer of care from [facility] to [facility] on 07/11/23 for altered mental status. She initially presented to [facility] on 07/02 she was confused and febrile, s/p pip-tazo for colitis without improvement in AMS, then changed to vanc/ceftriaxone/acyclvoir/doxycycline but without LP, leading to transfer. LP on 07/13 showed WBC 790 (95% monos, 5 PMNs), RBC 45, glucose 54, protein 147.7, other studies pending. ID is consulted for encephalopathy and CSF pleocytosis c/f meningoencephalitis. Clinical suspicion high for encephalitis/meningoencephalitis given pt initially presented with severe AMS and fevers. Pt was on broad abx for several days prior to LP. LP on 07/13 showed WBC 790 (95% monos, 5 PMNs), RBC 45, glucose 54, protein 147.7. The extent of CSF pleocytosis is c/f bacterial meningitis. Interestingly it is monocytic with normal glucosethough wonder if this is due to delayed LP and having already been improving on abx. Pt at risk for HSV/VZV reactivation/dissemination and also had a Shingles episode in 12/2022 though her pleocytosis is elevated in a range more concerning for bacterial meningitis. Broad ddx including Strep pneumo (can check Strep pneumo UrAg), Pts hypogammaglobulinemia which predisposes her to infection. Also noted to have oral thrush and has been on fluconazole. Would check HIV. IgG level of 454 is somewhat low; pt should continue to receive replacement. Pt recently with direct contact with kitten though no recollection of bites/scra tches. Bartonella can cause encephalitis (pt had been receiving doxycycline) though would not expect to cause such as high pleocytosis. Cat bites/scratches can also cause Capnocytophaga canimorsus infection which can cause meninigitis, though less likely given that pts OSH BCx were NG. Will attempt to add on CSF meninigitis/encephalitis panel. Cx may be sterilized given pt has been on abx for several days. 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 Reassuringly, pt has improved significantly as of 07/13 and is now able to pa rticipate in conversation and even brush her teeth. May reflect a clinical response to abx therapy. For now would continue broad empiric abx for meningoencephalitis with vancomycin, ceftriaxone, and IV acyclovir while awaiting CSF studies. Pts improvement occurred without ampicillin (only a few days of pip-tazo initially at OSH) and without positive BCx or brain MRI findings to suggest Listeria. Can hold off on doxycycline given extent of pleocytosis. 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 Will attempt to add on CSF meninigitis/encephalitis panel - F/u Strep pneumo UrAg, Bartonella Ab panel. Would check HIV ID will continue to follow. Elana Marin MD, MHS Infectious Diseases [facility]/ID Connect ID Connect direct line: [phone] Admission and Anticipated Discharge Date Admission Date: July 11, 2023 Subjective Subsequent visit was provided via telemedicine using two-way real-time interactive telecommunication between the patient and the telemedicine provider. For the duration of the visit, the provider was performing the assessment from a different facility than the patient. This includesuse of bluetooth steth oscope forauscultationperformed by the telepresenter that the telemedicine provider can hear if described in the physical exam. Mammal Keeper contact information: Please call ID Connect Call Center . (Phone Number For Physician Use Only) After establishing a telemedicine visit, patient was: Patient was verified with two unique identifiers, Patient/authorized rep acknowledged consent and understanding and Gave permission to continue telehealth session Time Spent with Patient: Subsequent => 35 min - Afebrile, WBC 4.6 - Awake, responding to questions - Pain in the neck with turning to either side or nodding up and down - No diarrhea, no rash Physical Exam Physical Exam: Exam obtained with aid of in-person telepresenter. General: Well-appearing, no acute distress HEENT: Conjunctivae non-injected, sclerae anicteric, MMM, OP clear. Resp: Respirations nonlabored. Abd: Soft, nontender, nondistended. Back: Tender to palpation on back of neck. No tenderness to palpation along remainder of spine Ext: Ecchymoses of R arm. No joint warmth or effusions noted. Skin: No rashes or lesions. Neuro: Alert & interactive. Grossly non-focal. Answering questions appropriately though with poor recollection of recent days events Psych: Pleasant, appropriate. Results & Data Vital Signs (Past 12 Hours) Vital Signs Temp Pulse Resp BP Pulse Ox O2 Del Method 07/15/23 11:22 36.7 C 81 18 116/73 93 Room Air 07/15/23 07:42 36.7 C 80 18 157/90 H 94 Room Air 07/15/23 02:11 36.7 C 82 16 145/84 H 92 Room Air
--- NOTE | 2023-07-15 17:49 | Billing Data ---
Date of Service July 15, 2023 Coding Level of Care Code 27490 SUB INP/OBS CARE MIN
[2023-07-15] MEDS: INFLUENZA VACCINE HIGH-DOSE (HD-IIV4) PF 65+ 0.7mL SYR IM ONE (18:19)
--- NOTE | 2023-07-16 06:42 | Hospitalist Progress Note ---
Date of Service July 16, 2023 Assessment & Plan (1) Altered mental status: (2) Fever of unknown origin: (3) RLQ abdominal pain: (4) Thrush, oral: (5) Urinary retention: (6) Dysphagia: (7) HTN (hypertension): (8) GERD (gastroesophageal reflux disease): (9) Degenerative disc disease: (10) Coronary artery calcification: Plan 83 yo female w/ PMHx of CLL-stage 3, hypogammaglobulinemia, recurrent UTI's, severe shingles, DDD, GERD, HTN, dysphagia, 1-yr s/p l. TCAR, presents from OSH for AMS and fever of unknown origin. 1) Altered mental status: - AAO x 3, able to hold conversation, answer questions appropriately, follow commands - Baseline: Independent living, complete ADLs - CT/MRI Brain & laboratory analysis unremarkable at OSH - will need to obtain images from OSH, these were not sent with her - Daughters noted initial improvement in mental status throughout hospital stay at OSH from 07/05/23-07/10/23, but worsening mental status on 07/09 - Had similar presentation at [facility] in 2021 after UTI, but more agitated during that stay - BUN, 24; BUN/Cr, 32 - Consider neurology consult - B12, > 1500; folate, > 22.3; RPR, negative; VZV, pending; procalcitonin, 0.11 2) Fever of unknown origin: - High risk for infection given hx of hypogammaglobulinemia and CLL Stage 3 - Patient with history of recurrent UTIs and severe shingles - Has been receiving IVIG therapy for CLL, helped reduce infections over last 6 months - CRP < 0.5, CRP was downtrending at OSH (following broadening of Abx) - RPR, Lyme, & Blood and urine cultures negative at OSH --> no Ur Cx performed here - LP/CSF results: WBC, 790 (95% mononuclear); RBC, 45; glu, 54; prot, 148; CSF Gram Stain, neg - CSF Cx: Bacterial Cx no growth and fungal Cx still pending - Infectious disease consulted - Bartonella henselae, bartonella stewart IgG and IgM pending, Cryptococcus pending - Tylenol PRN for fevers, pain - Continue Acyclovir, Lyrica given CSF results; re-started Duloxetine - Continue Rocephin and Vancomycin given evidence for CSF infection at this time, wait for Cx results before discontinuing - CBC, nml; CMP, BUN elevated; CRP, < 0.55; procal, 0.11; mag, 2.1; phos, 2.9 - Considering an IVIG infusion to get the number back within normal ranges, consulting 3) RLQ abdominal pain: - Resolved, patient no longer endorses RLQ or RUQ pain - CT-AP on presentation to OSH showing non-specific colitis and bladder enlargement - Unlikely related to urinary retention given Severino placement 4) Thrush, oral: - Fluconazole 200 mg IV daily for 7-14 days pending clinical response 5) Urinary retention: - Noted on CT-AP on presentation (enlarged bladder) - Urinalysis and urine culture negative - Pt self caths at home - Continue Severino, draining clear-yellow urine; catheter removal ordered today, see if pt can urinate on own 6) Dysphagia: - AMS, dysphagia upon admission, pt did not endorse any dysphagia today - Continue patient on regular diet 7) HTN: - BP stable on transfer, but have been as high as 170/105 - Continue to hold Amlodipine 10 mg - Restart home dose PRN 8) GERD (gastroesophageal reflux disease): - Continue home Famotidine 9) Degenerative disc disease: - Cymbalta restarted, considering pt's mild-mod back pain following LP 10) Coronary artery calcification: - Atorvastatin held at OSH - Plavix, ASA FENGI: Code status: DNR/DNI DVT prophylaxis: Lovenox Isolation: contact precautions Disposition: med/surg Admission and Anticipated Discharge Date Admission Date: July 11, 2023 Supervising Physician Co-Signing Physician Notes I personally examined the patient and verified all sutton points of history and exam, discussed case, and agree with decision making with Dr Caballero Pleasant and talkative, seems confused. Only complaint is neck pain that she notes is chronic (this was confirmed to be chronic in discussions at the bedside with family yesterday. Vitals noted, in general she is awake and alert appears A bit more disoriented but still trying to converse. Breathing unlabored no accessory muscle use good effort. Skin shows no rashes no pallor or icterus. Neuro without focal deficits. Meningitis/encephalitisetiology not entirely clear, certainly did not present classically given that her presentation overall appears far more consistent with a delirium. Continue antibiotics and antivirals pending CSF studies. Discussed delirium waxing and waning with family. Depending on course, may need to treat empirically for a duration given that we may not get a specific answer. Otherwise as above. IgG is lowwill give additional IVIGneed to determine the dose [facility] gives a history of neck pain for quite a while (seems to be years) CT describes chronic appearing fractures, I suspect this is all old, nothing seems to be unstable, follow clinically, supportive care. DVT proph - lovenox dr caballero plans to update family later today Subjective Patient seen this morning and without any acute events overnight. Patient AAO x 3 (person, place). Able to converse, respond to questions, follow commands like normal. Patient's delirium has improved considerably, and she is able to recall things since waking up this morning though her recall of the previous few days are limited. Patient is complaining of chronic neck pain but no back pain today from lumbar puncture. No longer any residual numbness or tingling at that location of LP. History originally obtained from pts daughter, who stated that prior to admission on 07/05/23 at OSH pt was in usual state of health which is independent and able to perform all ADLs. On day of admission to OSH, patient found to be confused and noted to be febrile. No source of infection was definitively identified by OSH, however pt received broad spectrum antibiotics and antivirals due to history of severe shingles. Patient has improved markedly since admission. Review of Systems Review of Systems: reviewed, per HPI Constitutional: no fever, no chills and no fatigue Ear, Nose, Mouth, Throat: no nasal congestion, no nasal discharge and no sore throat Respiratory: no cough, no chest congestion and no dyspnea Cardiovascular: no chest pain and no palpitations Gastrointestinal: no abdominal pain, no nausea, no vomiting and no diarrhea/loose stools Neurologic: + dizziness (when she's getting moved to wash her sheets) Physical Exam Constitutional: WD/WN, vitals as above Respiratory: normal respiratory effort, lungs clear to auscultation Cardiovascular: RRR, no murmur, no edema Gastrointestinal (Abdomen): normal bowel sounds, soft, nontender, no hepatosplenomegaly Neurologic: moves all extremities and awake; no meningeal signs and not confused Psychiatric: Orientation: alert, oriented to person and oriented to place; + not oriented x 3 Apperance: appeared stated age Thought Process: clear/coherent thought process and + incoherent thought process Genitourinary: normal external appearance Results & Data Results & Data Vital Signs (Past 12 Hours) Vital Signs Temp Pulse Pulse Resp BP Pulse Ox O2 Del Method 07/16/23 04:00 36.5 C 78 18 130/72 94 Room Air 07/16/23 00:00 36.4 C L 82 15 134/85 92 Room Air 07/16/23 00:00 84 07/15/23 19:39 37 C 80 18 134/77 93 Room Air
[2023-07-16 10:29] LABS: Basophils # (auto) 0.05 K/uL (0.00-0.20); Eosinophils # (auto) 0.09 K/uL (0.00-0.50); Eosinophils % (auto) 1.9 %; Hematocrit (blood only) 32.7 % (37.0-47.0); Hemoglobin 11.5 g/dl (12.0-16.0); Immature Granulocytes # (auto) 0.06 K/uL (0.01-0.20); Immature Granulocytes % (auto) 1.2 %; Lymphocytes # (auto) 0.69 K/uL (1.20-3.40); Lymphocytes % (auto) 14.3 %; Mean Corpuscular Hgb Conc 35.2 g/dL (32.0-36.0); Mean Corpuscular Volume 96.7 fL (80.0-100.0); Mean Platelet Volume 8.7 fL (9.4-12.4); Monocytes # (auto) 0.21 K/uL (0.11-0.59); Monocytes % (auto) 4.4 %; Neutrophils # (auto) 3.72 K/uL (1.40-6.50); Neutrophils % (auto) 77.2 %; Platelet Count 319 K/uL (130-400); RDW Coefficient of Variation 13.3 % (11.5-14.5); RDW Standard Deviation 45.8 fL (36.4-46.3); Red Blood Count 3.38 M/uL (4.20-5.40); White Blood Count 4.82 K/ul (4.8-10.8)
[2023-07-16 10:51] LABS: Creatinine Clr Calc Pharmacy 35.4 ml/min; Est GFR (African American) 80.8 ml/min; Est GFR (Non-African American) 69.7 ml/min
--- NOTE | 2023-07-16 11:25 | Pharmacy Report ---
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 Day # 3 vancomycin. ID is following. CSF culture finalized (-). Renal function stable. 07/13: 83 year old F receiving empiric vancomycin, ceftriaxone, acyclovir, and fluconazole for treatment of fever of unknown origin w/ concern for meningitis. Patient was transferred from [facility] to [facility] on 07/11/23. During initial hospital course at [facility], patient received broad spectrum antibiotic regimen (vancomycin level obtained upon transfer on 07/10 and resulted as 12.5 mcg/mL. No further vancomycin given this admission. Acyclovir continued upon admission here, but other antimicrobials were discontinued, as there was no clear evidence of bacterial infection. Lumbar puncture obtained today and antibiotics were started afterwards. CSF cultures (07/13) pending. CSF shows WBC of 790, total protein 147.7, and glucose 54. Patient has been afebrile w/ no overt leukocytosis since time of admission here. Renal function stable. Other PMH includes CKD, recurrent UTI, and stage 3 CLL for which she is receiving IVIG. Day # 1 of restarted antimicrobial therapy. Plan Vancomycin * Current regimen: 750mg IV q18h * Random level this AM (~16h level) 10.4mcg/mL. Predicted to achieve ssAUC 54 9mg/L.hr- therapeutic. * Continue vancomycin 750mg IV q18h * Repeat level in ~ 48h if vancomycin continued. Pharmacy will continue to follow and will adjust dose/frequency as necessary. Thank you. Pharmacy has transitioned to AUC monitoring for vancomycin. AUC/BRENNEN is the preferred PK/PD target and is associated with decreased risk of nephrotoxicity compared to traditional trough targets.
--- NOTE | 2023-07-16 12:24 | Infectious Disease Progress Nt ---
Date of Service July 16, 2023 Assessment & Plan (1) Meningoencephalitis: (2) Encephalopathy due to infection: (3) Pleocytosis of cerebrospinal fluid: (4) CLL (chronic lymphocytic leukemia): (5) Hypogammaglobulinemia: Plan Agnes Garcia is an 83-year-old woman with history of CLL dx 2013 with hypogammaglobulinemia (receiving IVIG since 01/2023), Shingles 12/2022, chronic anemia, HTN, HLD, GERD w/ hiatal hernia, coronary artery stenosis, carotid artery stenosis w/ internal stent, CKD 3b, urinary retention w/ recurrent UTIs, chronic constipation, DJD, who presents as transfer of care from [facility] to [facility] on 07/11/23 for altered mental status. She initially presented to [facility] on 07/02 she was confused and febrile, s/p pip-tazo for colitis without improvement in AMS, then changed to vanc/ceftriaxone/acyclovir/doxycycline but without LP, leading to transfer. LP on 07/13 showed WBC 790 (95% monos, 5 PMNs), RBC 45, glucose 54, protein 147.7, other studies pending. ID is consulted for encephalopathy and CSF pleocytosis c/f meningoencephalitis. Clinical suspicion high for encephalitis/meningoencephalitis given pt initially presented with severe AMS and fevers. Pt was on broad abx for several days prior to LP. LP on 07/13 showed WBC 790 (95% monos, 5 PMNs), RBC 45, glucose 54, protein 147.7. The extent of CSF pleocytosis is c/f bacterial meningitis. Interestingly it is monocytic with normal glucosethough wonder if this is due to delayed LP and having already been improving on abx. Pt at risk for HSV/VZV reactivation/dissemination and also had a Shingles episode in 12/2022 though her pleocytosis is elevated in a range more concerning for bacterial meningitis. Broad ddx including Strep pneumo (can check Strep pneumo UrAg), Pts hypogammaglobulinemia which predisposes her to infection. Also noted to have oral thrush and has been on fluconazole. Would check HIV. Pt recently with direct contact with kitten though no recollection of bites/scratches. Bartonella can cause encephalitis (pt had been receiving doxycycline) though would not expect to cause such as high pleocytosis. Cat bites/scratches can also cause Capnocytophaga canimorsus infection which can cause meningitis, though less likely given that pts OSH BCx were NG. Will attempt to add on CSF meningitis/encephalitis panel. Cx may be sterilized given pt has been on abx for several days. 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 Reassuringly, pt has improved significantly as of 07/13 and is now able to participate in conversation and even brush her teeth. May reflect a clinical response to abx therapy. For now, would continue broad empiric abx for meningoencephalitis with vancomycin, ceftriaxone, and IV acyclovir while awaiting CSF studies. Pts improvement occurred without ampicillin (only a few days of pip-tazo initially at OSH) and without positive BCx or brain MRI findings to suggest Listeria. Can hold off on doxycycline given extent of pleocytosis. IgG level of 454 is somewhat low; reasonable to consider IVIG replacement. 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 Rojas was able to add on CSF meningitis/encephalitis panel - F/u Strep pneumo UrAg, Bartonella Ab panel. Would check HIV - Reasonable to consider IVIG replacement, continue outpatient replacement therapy ID will continue to follow. Elana Marin MD, MHS Infectious Diseases [facility]/ID Connect ID Connect direct line: [phone] Admission and Anticipated Discharge Date Admission Date: July 11, 2023 Subjective Subsequent visit was provided via telemedicine using two-way real-time interactive telecommunication between the patient and the telemedicine provider. For the duration of the visit, the provider was performing the assessment from a different facility than the patient. This includesuse of bluetooth stet hoscope forauscultationperformed by the telepresenter that the telemedicine provider can hear if described in the physical exam. Environmental Manager contact information: Please call ID [facility] . (Phone Number For Physician Use Only) After establishing a telemedicine visit, patient was: Patient was verified with two unique identifiers, Patient/authorized rep acknowledged consent and understanding and Gave permission to continue telehealth session Time Spent with Patient: Subsequent => 35 min - Afebrile, WBC 4.8 - Awake, responding to questions - Continuing to report pain in the back of the neck. No pain elsewhere - No diarrhea, no rash Physical Exam Physical Exam: Exam obtained with aid of in-person telepresenter. General: Well-appearing, no acute distress HEENT: Conjunctivae non-injected, sclerae anicteric, MMM, OP clear. Resp: Respirations nonlabored. Abd: Soft, nontender, nondistended. Back: Tender to palpation on back of neck. No tenderness to palpation along remainder of spine Ext: No joint warmth or effusions noted. Skin: No rashes or lesions. Neuro: Alert & interactive. Grossly non-focal. Answering questions appropriately Psych: Pleasant, appropriate. Results & Data Vital Signs (Past 12 Hours) Vital Signs Temp Pulse Resp BP Pulse Ox O2 Del Method 07/16/23 11:34 36.6 C 78 16 111/66 94 Room Air 07/16/23 07:55 36.5 C 80 18 152/73 H 93 Room Air 07/16/23 04:00 36.5 C 78 18 130/72 94 Room Air Diagnostic Findings Diagnostics: 07/06 OSH MRI brain: no acute intracranial abnormality, no abnormal enhancement. C2 fracture deformity Micro Summary: 07/14 IgG 454 07/14 Bartonella Ab pending 07/13 CSF WBC 790 (95% monos, 5 PMNs), RBC 45, glucose 54, protein 147.7 bact stain: many WBCs, no orgs; Cx pending fungal Cx: pending CrAg pending VZV DNA pending 07/12 RPR neg 07/04 UCx ([facility]): NG 07/04 BCx x2 ([facility]): NG 07/04 Flu/Covid/RSV ([facility]): neg Per H&P, OSH studies negative for: RPR, Lyme Antibiotic Summary: IV vancomycin (started OSH ?07/07, stopped upon transfer 07/10, restarted on 07/13 present) ceftriaxone (started OSH ?07/07, stopped upon transfer 07/10, restarted on 07/13 present) IV acyclovir (started OSH ?07/07, stopped upon transfer 07/10, restarted on 07/13 present) prior doxycycline (started OSH ?07/07, stopped upon transfer 07/10) fluconazole (07/10 present) pip-tazo at OSH (07/04 - ?07/07
--- NOTE | 2023-07-16 12:55 | Billing Data ---
Date of Service July 16, 2023 Coding Level of Care Code 40544 SUB INP/OBS CARE MIN
[2023-07-16 19:52] LABS: VZ DNA Source Whole Blood; Varicella Zoster Virus DNA PCR Not Detected (Not Detected)
[2023-07-17 07:11] LABS: Basophils # (auto) 0.06 K/uL (0.00-0.20); Basophils % (auto) 1.3 %; Eosinophils # (auto) 0.11 K/uL (0.00-0.50); Eosinophils % (auto) 2.4 %; Hematocrit (blood only) 31.3 % (37.0-47.0); Immature Granulocytes # (auto) 0.05 K/uL (0.01-0.20); Immature Granulocytes % (auto) 1.1 %; Lymphocytes # (auto) 0.92 K/uL (1.20-3.40); Mean Corpuscular Hemoglobin 33.7 pg (25.0-34.0); Mean Corpuscular Hgb Conc 35.1 g/dL (32.0-36.0); Monocytes # (auto) 0.24 K/uL (0.11-0.59); Monocytes % (auto) 5.2 %; Neutrophils # (auto) 3.22 K/uL (1.40-6.50); Platelet Count 304 K/uL (130-400); RDW Coefficient of Variation 13.3 % (11.5-14.5); RDW Standard Deviation 45.2 fL (36.4-46.3); Red Blood Count 3.26 M/uL (4.20-5.40)
--- NOTE | 2023-07-17 07:51 | Discharge Summary ---
Date of Service July 17, 2023 Admission HPI Per Admitting Provider Agnes is an 83F with PMH of CLL, chronic anemia, HTN, HLD, GERD w/ hiatal hernia, coronary artery stenosis, carotid artery stenosis w/ internal stent, CKD 3b, urinary retention w/ recurrent UTIs, chronic constipation, DJD who presents as transfer of care from [facility] due to an admission for altered mental status. History from patient limited given mental status, but she denies discomfort. [facility] ED Course: Presented for AMS (aphasia/confusion), last known normal Thursday07/03/23. RLQ TTP on presentation. CT Head negative. CT AP w/ non- specific colitis at splenic flexure/descending colon and distended urinary bladder. Lactic acid normal. Troponin negative. Mildly increased kidney functions form baseline. Urinalysis negative (urine and blood cultures taken 07/05/23), empiric Zosyn started. Temp documented at 103 in ED, received IV Tylenol. CXR with cardiomegaly w/ mild vascular congestion. [facility] Admission: Patient treated for suspected colitis at onset, antibiotics continued with Zosyn, but not clinical improvement. Brain MRI and CTA Head/Neck unremarkable. Echo with EF 55-60%, Grade 1 Diastolic Dysfunction. Urine and blood cultures resulted negative. RVP negative. Lyme negative. Tox screen negative. Antibiotics broadened to include Vancomycin, Rocephin 2g q 24h, IV Doxycycline 100 mg BID, and Acyclovir 10 mg/kg q8h. LP was discussed but nor performed. Patient had fevers throughout her stay but remained afebrile for 24 hours prior to transfer. Clinical improvement noted following expansion of antibiotic coverage. CRP was at 4.1, but downtrended to 3.2. Spoke with Daughter Karina: Patient undergoing treatment for Stage 3 CLL Leukemia, receiving IVIG for last 6 months, had been keeping her infection at bay, prior to IVIG had severe shingles before in December. Last Thursday07/05/23 other daughter (Deb Carrillo) found her around noon in the bathroom nonverbal, infection was suspected at this time by daughters given previous presentations and they took her to the hospital. Had been suspected meningitis vs internal shingles. Has been improving since starting Acyclovir, per daughter. No LP due to concerning amounts of arthritis and clinical improvement following broadening of antibiotics. Still not at baseline - independent and lives alone, completes all ADLs independently at baseline. Lost ability to swallow/drink this time, but not last time (when she had a UTI), daughter notes last episode with UTI had aggitation and hallucinations, but this time she has been very calm. Admission Exam Per Admitting Provider Gen: NAD, pleasant, confused, AO x 1 (baseline AO x 4, independent ADLs) HEENT: Supple, no LAD, no thyromegaly, no JVD - Mouth: slightly raised, cream/white patches across entire tongue, dry mucous membranes Resp:Non-labored, no wheezing/rhonchi/rales, CTAB CV:RRR, no LE edema, capillary refill <2 seconds Abd: Soft, mildly distended in lower quadrants, significant RLQ TTP, normoactive bowels, no masses Skin: No rashes lesions or erythema, bilateral forearm ecchymosis Discharge Exam Constitutional WD/WN, vitals as above Respiratory normal respiratory effort, lungs clear to auscultation Cardiovascular RRR, no murmur, no edema Gastrointestinal (Abdomen) normal bowel sounds, soft, nontender, no hepatosplenomegaly Neurologic moves all extremities and awake; no meningeal signs and not confused Psychiatric Orientation: alert, oriented to person and oriented to place; + not oriented x 3 Apperance: appeared stated age Thought Process: clear/coherent thought process and + incoherent thought process Genitourinary normal external appearance Discharge Data Allergies Allergy/AdvReac Type Severity Reaction Status Date / Time cephalexin Allergy Severe Encephalopa Verified 02/12/22 06:12 thy acetaminophen [From NyQuil] Allergy Unknown rapid Verified 02/12/22 06:12 heart beat, "brain does not stop working" adhesive tape Allergy Unknown blistering Verified 02/12/22 06:12 dextromethorphan Allergy Unknown rapid Verified 02/12/22 06:12 [From NyQuil] heart beat, "brain does not stop working" diphenhydramine Allergy Unknown rapid Verified 02/12/22 06:12 [From Tylenol PM] heart beat, "brain does not stop working" doxylamine [From NyQuil] Allergy Unknown rapid Verified 02/12/22 06:12 heart beat, "brain does not stop working" gluten Allergy Unknown "gluten Verified 02/12/22 06:12 free diet" - GI SYMPTOMS lactose Allergy Unknown "lactose Verified 02/12/22 06:12 intolerant" - GI SYMPTOMS nitrofurantoin Allergy Unknown rapid Verified 02/12/22 06:12 heart beat, can't sleep, "brain does not stop" pseudoephedrine [From NyQuil] Allergy Unknown rapid Verified 02/12/22 06:12 heart beat, "brain does not stop working" Sulfa (Sulfonamide Allergy Unknown "sulfa" - Verified 02/12/22 06:12 Antibiotics) "makes me hyper, can't sit still" chlorpheniramine AdvReac Unknown rapid Verified 07/11/23 21:48 [From Tylenol heart Qcdsd-Cosumsa-Sfmk D/N] beat, can't sleep, "brain does not stop working" phenylephrine AdvReac Unknown rapid Verified 07/11/23 21:48 [From Tylenol heart Umkyv-Fyweflf-Vcsm D/N] beat, can't sleep, "brain does not stop working" Antihistamines - Alkylamine AdvReac rapid Verified 07/11/23 21:48 heart beat, can't sleep, "brain does not stop working" Antihistamines - Ethanolamine AdvReac rapid Verified 07/11/23 21:48 heart beat, can't sleep, "brain does not stop working" Antihistamines - AdvReac rapid Verified 07/11/23 21:48 Ethylenediamine heart beat, can't sleep, "brain does not stop working" Antihistamines - Piperazine AdvReac rapid Verified 07/11/23 21:48 heart beat, can't sleep, "brain does not stop working" Antihistamines - Piperidine AdvReac rapid Verified 07/11/23 21:48 heart beat, can't sleep, "brain does not stop working" Consultations 07/14/23 13:38 Consult Infectious Diseases Routine Ordered Studies 07/14/23 08:30 IR lumbar puncture diagnostic Routine Hospital Course (1) Altered mental status: (2) Fever of unknown origin: (3) RLQ abdominal pain: (4) Thrush, oral: (5) Urinary retention: (6) Dysphagia: (7) HTN (hypertension): (8) GERD (gastroesophageal reflux disease): (9) Degenerative disc disease: (10) Coronary artery calcification: Plan 83 yo female w/ PMHx of CLL-stage 3, hypogammaglobulinemia, recurrent UTI's, severe shingles, DDD, GERD, HTN, dysphagia, 1-yr s/p l. TCAR, presents from OSH for AMS and fever of unknown origin. 1) Altered mental status: - AAO x 3, able to hold conversation, answer questions appropriately, follow commands - Baseline: Independent living, complete ADLs - CT/MRI Brain & laboratory analysis unremarkable at OSH - will need to obtain images from OSH, these were not sent with her - Daughters noted initial improvement in mental status throughout hospital stay at OSH from 07/05/23-07/10/23, but worsening mental status on 07/09 - Had similar presentation at [facility] in 2021 after UTI, but more agitated during that stay - BUN, 24; BUN/Cr, 32 - Consider neurology consult - B12, > 1500; folate, > 22.3; RPR, negative; VZV-DNA, negative; procalcitonin, 0.11 2) Fever of unknown origin: - High risk for infection given hx of hypogammaglobulinemia and CLL Stage 3 - Patient with history of recurrent UTIs and severe shingles - Has been receiving IVIG therapy for CLL, helped reduce infections over last 6 months - CRP < 0.5, CRP was downtrending at OSH (following broadening of Abx) - RPR, Lyme, & Blood and urine cultures negative at OSH --> no Ur Cx performed here - LP/CSF results: WBC, 790 (95% mononuclear); RBC, 45; glu, 54; prot, 148; CSF Gram Stain, neg - CSF Cx: Bacterial Cx no growth and fungal Cx was still pending as of AM - Infectious disease consulted - Bartonella henselae, bartonella stewart IgG and IgM pending, Cryptococcus pending - Tylenol PRN for fevers, pain - Continue Acyclovir, Lyrica given CSF results; re-started Duloxetine - Continue Rocephin and Vancomycin given evidence for CSF infection at this time, wait for Cx results before discontinuing - CBC, nml; CMP, BUN elevated; CRP, < 0.55; procal, 0.11; mag, 2.1; phos, 2.9 - Considering an IVIG infusion to get the number back within normal ranges, consulting 3) RLQ abdominal pain: - Resolved, patient no longer endorses RLQ or RUQ pain - CT-AP on presentation to OSH showing non-specific colitis and bladder enlargement - Unlikely related to urinary retention given Severino placement 4) Thrush, oral: - Fluconazole 200 mg IV daily for 7-14 days pending clinical response 5) Urinary retention: - Noted on CT-AP on presentation (enlarged bladder) - Urinalysis and urine culture negative - Pt self caths at home using straight cath - Continue Severino, draining clear-yellow urine; catheter removal ordered today, see if pt can urinate on own 6) Dysphagia: - AMS, dysphagia upon admission, pt did not endorse any dysphagia today - Continue patient on regular diet 7) HTN: - BP stable on transfer, but have been as high as 170/105 - Continue to hold Amlodipine 10 mg - Restart home dose PRN 8) GERD (gastroesophageal reflux disease): - Continue home Famotidine 9) Degenerative disc disease: - Cymbalta restarted, considering pt's mild-mod back pain following LP 10) Coronary artery calcification: - Atorvastatin held at OSH - Plavix, ASA FENGI: Code status: DNR/DNI DVT prophylaxis: Lovenox Isolation: contact precautions Disposition: med/surg Discharge Plan Discharge Items Reason For Visit: FEVER OF UNKNOWN ORIGIN/ALTERED MENTAL STATUS Follow-up/Referrals: Raul Alcantar CRNP [Primary Care Provider] - Medications and DC Order Prescriptions: No Action clopidogrel 75 mg tablet 75 mg PO QPM aspirin 81 mg tablet,delayed release (DR/EC) 0 mg PO QAM Rx Instructions: Unable to verify OTC meds with patient at this date/time. acetaminophen [Tylenol 8 Hour] 650 mg tablet extended release 0 mg PO Q12H PRN (Reason: Pain) Rx Instructions: Unable to verify OTC meds with patient at this date/time. multivitamin [Multiple Vitamins] Tablet 0 tab PO 1200 Rx Instructions: Unable to verify OTC meds with patient at this date/time. cyanocobalamin (vitamin B-12) [Vitamin B-12] 1,000 mcg Tablet 0 tab PO 1200 Rx Instructions: Unable to verify OTC meds with patient at this date/time. zinc 50 mg Capsule 0 mg PO DAILY Qty: 0 Rx Instructions: Unable to verify OTC meds with patient at this date/time. cholecalciferol (vitamin D3) [Vitamin D3] 125 mcg (5,000 unit) Tablet 0 mcg PO 1200 Rx Instructions: Unable to verify OTC meds with patient at this date/time. Systane Complete 0.6 % Drops 0 drp OPHTHALMIC (EYE) DIRECTED PRN (Reason: dry eyes ) Rx Instructions: Unable to verify OTC meds with patient at this date/time. sennosides [Senokot] 8.6 mg tablet 0 mg PO QAM PRN (Reason: Constipation) Rx Instructions: Unable to verify OTC meds with patient at this date/time. polyethylene glycol 3350 [Miralax] 17 gram powder in packet 0 g PO DAILY PRN (Reason: Constipation) Rx Instructions: Unable to verify OTC meds with patient at this date/time. thiamine HCl (vitamin B1) 100 mg tablet 0 mg PO DAILY Rx Instructions: Unable to verify OTC meds with patient at this date/time. diclofenac sodium [Voltaren Arthritis Pain] 1 % gel 0 g EXT QID PRN (Reason: Pain) Rx Instructions: Unable to verify OTC meds with patient at this date/time. atorvastatin 40 mg tablet 40 mg PO DAILY silver sulfadiazine [SSD] 1 % cream 1 applic TOPICAL BID nitrofurantoin macrocrystal 50 mg capsule 50 mg PO DAILY famotidine 20 mg tablet 20 mg PO TID duloxetine 30 mg capsule,delayed release(DR/EC) 30 mg PO DAILY pregabalin 50 mg capsule 50 mg PO TID amlodipine 10 mg tablet 5 mg PO 1XD Admission Data Admit Date/Time: 07/11/23 21:14 Attending Provider: Ronny Rojas Admit Provider: Clemente Pandey Primary Care Provider: Raul Alcantar Other Providers: Breanne Perkins; Opal Santamaria; Alyssa Reid; Liza Villanueva; Kamini Champion; Luis M Quan; Dorothea Denton; Elana Marin
--- NOTE | 2023-07-17 09:24 | Hospitalist Progress Note ---
Date of Service July 17, 2023 Assessment & Plan (1) Altered mental status: (2) Fever of unknown origin: (3) RLQ abdominal pain: (4) Thrush, oral: (5) Urinary retention: (6) Dysphagia: (7) HTN (hypertension): (8) GERD (gastroesophageal reflux disease): (9) Degenerative disc disease: (10) Coronary artery calcification: Plan 83 yo female w/ PMHx of CLL-stage 3, hypogammaglobulinemia, recurrent UTI's, severe shingles, DDD, GERD, HTN, dysphagia, 1-yr s/p l. TCAR, presents from OSH for AMS and fever of unknown origin. order spirometer 1) Altered mental status: - AAO x 3, able to hold conversation, answer questions appropriately, follow com mands - Baseline: Independent living, complete ADLs - CT/MRI Brain & laboratory analysis unremarkable at OSH - will need to obtain images from OSH, these were not sent with her - Daughters noted initial improvement in mental status throughout hospital stay at OSH from 07/05/23-07/10/23, but worsening mental status on 07/09 - Had similar presentation at [facility] in 2021 after UTI, but more agitated during that stay - BUN, 24; BUN/Cr, 32 - B12, > 1500; folate, > 22.3; RPR, negative; VZV-DNA, negative; procalcitonin, 0.11 2) Fever of unknown origin: - High risk for infection given hx of hypogammaglobulinemia and CLL Stage 3 - Patient with history of recurrent UTIs and severe shingles - Has been receiving IVIG therapy for CLL, helped reduce infections over last 6 months - CRP < 0.5, CRP was downtrending at OSH (following broadening of Abx) - RPR, Lyme, & Blood and urine cultures negative at OSH --> no Ur Cx performed here - LP/CSF results: WBC, 790 (95% mononuclear); RBC, 45; glu, 54; prot, 148; CSF Gram Stain, neg - CSF Cx: Bacterial Cx no growth and fungal Cx was still pending as of AM - Infectious disease consulted - Bartonella henselae, bartonella stewart IgG and IgM pending, Cryptococcus pending - Tylenol PRN for fevers, pain - Continue Acyclovir, Lyrica given CSF results; re-started Duloxetine - Continue Rocephin and Vancomycin given evidence for CSF infection at this time, wait for Cx results before discontinuing - CBC, nml; CMP, BUN elevated; CRP, < 0.55; procal, 0.11; mag, 2.1; phos, 2.9 - Considering an IVIG infusion to get the number back within normal ranges, consulting 3) RLQ abdominal pain: - Resolved, patient no longer endorses RLQ or RUQ pain - CT-AP on presentation to OSH showing non-specific colitis and bladder enlargement - Unlikely related to urinary retention given Severino placement 4) Thrush, oral: - Fluconazole 200 mg IV daily for 7-14 days pending clinical response 5) Urinary retention: - Noted on CT-AP on presentation (enlarged bladder) - Urinalysis and urine culture negative - Pt self caths at home using straight cath - Continue Severino, draining clear-yellow urine; catheter removal ordered yesterday, but pt unable to urinate on own without straight catheterization and up part of night due to fluid administration and need to straight-cath her often 6) Dysphagia: - AMS, dysphagia upon admission, pt did not endorse any dysphagia today - Continue patient on regular diet, patient's diet upgraded to minced and moist from pureed today 7) HTN: - BP stable on transfer, but have been as high as 170/105 - Continue to hold Amlodipine 10 mg - Restart home dose PRN 8) GERD (gastroesophageal reflux disease): - Continue home Famotidine 9) Degenerative disc disease: - Cymbalta restarted, considering pt's mild-mod back pain following LP 10) Coronary artery calcification: - Atorvastatin held at OSH - Plavix, ASA FENGI: Code status: DNR/DNI DVT prophylaxis: Lovenox Isolation: contact precautions Disposition: med/surg Admission and Anticipated Discharge Date Admission Date: July 11, 2023 Supervising Physician Co-Signing Physician Notes I personally examined the patient and verified all sutton points of history and exam, discussed case, and agree with decision making with Dr Caballero Pleasant and talkative, no new complaints today Vitals noted, awake and alert pleasant no distress. More focused today, but still seems to be easily confused. HEENT normocephalic atraumatic mucous membranes moist. Breathing unlabored no accessory muscle use good effort. Skin shows no rashes no pallor or icterus. Neuro shows no focal deficits. Meningitis/encephalitisetiology not entirely clear, certainly did not present classically given that her presentation overall appears far more consistent with a delirium. Continue antibiotics and antivirals pending CSF studies. Previously have discussed delirium waxing and waning with family. Depending on course, we probably will need to treat empirically for a duration given that we may not get a specific answer. Otherwise as above. IgG is low giving additional today [facility] a [facility] of [facility] pain for quite a while (seems to be years) CT describes chronic appearing fractures, I suspect this is all old, nothing seems to be unstable, follow clinically, supportive care. DVT proph - lovenox Subjective Patient seen this morning after difficulty sleeping last night due to repeated straight catheterizations, as patient unable to empty own bladder. Patient AAO x 4. Able to converse, respond to questions, follow commands like normal. Patient is complaining of chronic neck pain and some back pain and an order with PT/OT to evaluate was placed. Patient has improved markedly since admission. Review of Systems Review of Systems: reviewed, per HPI Constitutional: no fever, no chills and no fatigue Ear, Nose, Mouth, Throat: no nasal congestion, no nasal discharge and no sore throat Respiratory: no cough, no chest congestion and no dyspnea Cardiovascular: no chest pain and no palpitations Gastrointestinal: + constipation (possible constipation) a nd + diarrhea/loose stools (4 episodes of loose stools); no abdominal pain, no nausea and no vomiting Neurologic: + dizziness Physical Exam Constitutional: WD/WN, vitals as above Respiratory: normal respiratory effort, lungs clear to auscultation Cardiovascular: RRR, no murmur, no edema Gastrointestinal (Abdomen): normal bowel sounds, soft, nontender, no hepatosplenomegaly Neurologic: moves all extremities and awake; no meningeal signs and not confused Psychiatric: Orientation: alert, oriented x 3 and cooperative Apperance: appeared stated age Thought Process: clear/coherent thought process Genitourinary: normal external appearance Results & Data Results & Data Vital Signs (Past 12 Hours) Vital Signs Temp Pulse Pulse Resp BP Pulse Ox O2 Del Method 07/17/23 08:00 37.0 C 91 H 16 152/96 H 92 Room Air 07/17/23 07:24 84 07/17/23 04:00 36.4 C L 81 16 134/76 92 07/17/23 00:00 74 07/16/23 22:59 36.5 C 71 16 151/81 H 92 Room Air
--- NOTE | 2023-07-17 12:39 | Billing Data ---
Date of Service July 17, 2023 Coding Level of Care Code 94650 SUB INP/OBS CARE MIN
--- NOTE | 2023-07-17 17:24 | Infectious Disease Progress Nt ---
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 She initially presented to [facility] on 07/02 she was confused and febrile, s/p pip-tazo for colitis without improvement in AMS, then changed to vanc/ceftriaxone/acyclovir/doxycycline but without LP, leading to transfer. LP on 07/13 showed WBC 790 (95% monos, 5 PMNs), RBC 45, glucose 54, protein 147.7, other studies pending. ID is consulted for encephalopathy and CSF pleocytosis c/f meningoencephalitis. Clinical suspicion high for encephalitis/meningoencephalitis. Pt initially presented with severe AMS and fevers. Pt was on broad abx for several days prior to LP. LP on 07/13 showed WBC 790 (95% monos, 5 PMNs), RBC 45, glucose 54, protein 147.7. The extent of CSF pleocytosis is c/f bacterial meningitis rather than viral, although pt at risk for HSV/VZV reactivation (and with recent Sh ingles) and with immunosuppressed status due to hypogammaglobulinemia. Interestingly it is monocytic with normal glucosethough wonder if this is due to delayed LP and having already been improving on abx. Limited data given significantly delayed LP. Would still check Strep pneumo UrAg and HIV. Pt recently with direct contact with kitten though no recollection of bites/scratches. Bartonella can cause encephalitis (pt had been receiving doxycycline) though would not expect to cause such as high pleocytosis. Cat bites/scratches can also cause Capnocytophaga canimorsus infection which can cause meningitis, though less likely given that pts OSH BCx were NG. Per Dr. Rojas, was attempting to add on CSF meningitis/encephalitis panel however the lab was not able to. Cx may be sterilized given pt has been on abx for several days. Reassuringly, pt has improved significantly as of 07/13 and has returned to baseline mental status. This suggests a potential response to abx therapy. Given negative studies and limited data, recommend completing an empiric 14d course of therapy for [employer] infection. Strep pneumo resistance to both CTX and penicillin very unlikely, and thus will continue high-dose ceftriaxone monotherapy (furthermore has already received several days of IV vancomycin). Can transition to PO valacyclovir to complete a course for possible HSV/VZV reactivation out of caution. IgG level of 454 is somewhat low; reasonable to consider IVIG replacement. Pts improvement occurred without ampicillin (only a few days of pip-tazo initially at OSH) and without positive BCx or brain MRI findings to suggest Listeria. Stopped doxycycline given extent of pleocytosis. ID Problem List: 1. 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 Encephalopathy, CSF pleocytosis 3. Immunosuppressed status due to CLL and hypogammaglobulinemia, on IVIG Recommendations: - Continue ceftriaxone 2g IV q12h to complete a 14-day course (EOT 07/22) - Change to valacyclovir 1g PO q8h to complete a 14-day course (EOT 07/22) - Stop IV vancomycin - F/u 07/13 CSF studies until finalized, f/u Bartonella Ab panel - Please send Strep pneumo urine Ag and HIV (not yet sent) - Would consider IVIG replacement, and continue outpatient replacement therapy Plan discussed with hospitalist. Thank you for letting ID participate in the care of this patient. ID will sign off at this time. If questions, [facility] at [phone]. Elana Marin MD, MHS Infectious Diseases [facility] ID Connect direct line: [phone] Admission and Anticipated Discharge Date Admission Date: July 11, 2023 Subjective Subsequent visit was provided via telemedicine using two-way real-time interactive telecommunication between the patient and the telemedicine provider. For the duration of the visit, the provider was performing the assessment from a different facility than the patient. This includesuse of bluetooth stethoscope forauscultationperformed by the telepresenter that the telemedicine provider can hear if described in the physical exam. Political Worker contact information: Please call [facility] Call Center [phone]. (Phone Number For Physician Use Only) After establishing a telemedicine visit, patient was: Patient was verified with two unique identifiers, Patient/authorized rep acknowledged consent and understanding and Gave permission to continue telehealth session Time Spent with Patient: Subsequent => 55 min - Pt overall doing well - Still with chronic neck pain Physical Exam Physical Exam: Exam obtained with aid of in-person telepresenter. General: Well-appearing, no acute distress HEENT: Conjunctivae non-injected, sclerae anicteric, MMM, OP clear. Resp: Respirations nonlabored. Abd: Soft, nontender, nondistended. Back: Tender to palpation on back of neck. No tenderness to palpation along remainder of spine Ext: No joint warmth or effusions noted. Skin: No rashes or lesions. Neuro: Alert & interactive. Grossly non-focal. Answering questions appropriately Psych: Pleasant, appropriate. Results & Data Vital Signs (Past 12 Hours) Vital Signs Temp Pulse Pulse Resp BP Pulse Ox O2 Del Method 07/17/23 15:55 36.6 C 83 18 137/77 95 Room Air 07/17/23 14:59 84 07/17/23 11:46 36.3 C L 87 18 118/76 95 Room Air 07/17/23 08:00 37.0 C 91 H 16 152/96 H 92 Room Air 07/17/23 07:24 84 Diagnostic Findings Diagnostics: 07/06 OSH MRI brain: no acute intracranial abnormality, no abnormal enhancement. C2 fracture deformity Micro Summary: 07/14 IgG 454 07/14 Bartonella Ab pending 07/13 CSF WBC 790 (95% monos, 5 PMNs), RBC 45, glucose 54, protein 147.7 bact stain: many WBCs, no orgs; Cx NG fungal Cx: pending CrAg pending VZV DNA pending 07/12 RPR neg 07/04 UCx ([facility]): NG 07/04 BCx x2 ([facility]): NG 07/04 Flu/Covid/RSV ([facility]): neg Per H&P, OSH studies negative for: RPR, Lyme Antibiotic Summary: IV vancomycin (started OSH ?07/07, stopped upon transfer 07/10, restarted on 07/13 present) ceftriaxone (started OSH ?07/07, stopped upon transfer 07/10, restarted on 07/13 present) IV acyclovir (started OSH ?07/07, stopped upon transfer 07/10, restarted on 07/13 present) prior doxycycline (started OSH ?07/07, stopped upon transfer 07/10) fluconazole (07/10 present) pip-tazo at OSH (07/04 - ?07/07
[2023-07-17 19:35] LABS: Cryptococcus neoformans/ga PCR Not Detected (NotDetected); Cytomegalovirus PCR Not Detected (NotDetected); Enterovirus PCR Not Detected (NotDetected); Escherichia coli K1 PCR Not Detected (NotDetected); Haemophilius influenzae PCR Not Detected (NotDetected); Herpes Simplex Virus 1 PCR Not Detected (NotDetected); Human Herpes Virus 6 PCR Not Detected (NotDetected); Human Parechovirus PCR Not Detected (NotDetected); Listeria monocytogenes PCR Not Detected (NotDetected); Neisseria meningitidis PCR Not Detected (NotDetected); Streptococcus agalactiae PCR Not Detected (NotDetected); Streptococcus pneumoniae PCR Not Detected (NotDetected); Varicella Zoster Virus PCR Not Detected (NotDetected)
[2023-07-17] MEDS ORDERED: IMMUNE GLOBULIN (HUMAN) SOLN IV ONE (19:45)
[2023-07-17 19:53] LABS: Herpes Simplex Virus 2 PCR DETECTED (NotDetected)
[2023-07-17] MEDS ORDERED: ACYCLOVIR SOD 450 MG in DEXTROSE 5% 250 ML IV SCH (20:00)
[2023-07-17] MEDS ORDERED: valACYclovir HCL 500 MG TABLET PO SCH (21:00)
[2023-07-17] MEDS: Octagam 10% IVIG 5 gram bottle IV SCH (21:10)
[2023-07-17] MEDS: DOCUSATE SODIUM 100 MG CAP PO SCH (21:11)
[2023-07-17] MEDS: ACYCLOVIR SOD 450 MG in DEXTROSE 5% 250 ML IV STA (21:28)
[2023-07-17] MEDS: Octagam 10% IVIG 20 gram bottle IV SCH (22:07)
[2023-07-18 03:32] LABS: Cryptococcal Antigen Not Detected (Not Detected); Source CSF; VZ DNA Source CSF; Varicella Zoster Virus DNA PCR Not Detected (Not Detected)
--- NOTE | 2023-07-18 08:03 | Hospitalist Progress Note ---
Date of Service July 18, 2023 Assessment & Plan (1) Altered mental status: (2) Fever of unknown origin: (3) RLQ abdominal pain: (4) Thrush, oral: (5) Urinary retention: (6) Dysphagia: (7) HTN (hypertension): (8) GERD (gastroesophageal reflux disease): (9) Degenerative disc disease: (10) Coronary artery calcification: Plan 83 yo female w/ PMHx of CLL-stage 3, hypogammaglobulinemia, recurrent UTI's, severe shingles, DDD, GERD, HTN, dysphagia, 1-yr s/p l. TCAR, presents from OSH for AMS and fever of unknown origin. 1) Altered mental status: - AAO x 3, able to hold conversation, answer questions appropriately, follow commands - Baseline: Independent living, complete ADLs - CT/MRI Brain & laboratory analysis unremarkable at OSH - will need to obtain images from OSH, these were not sent with her - Daughters noted initial improvement in mental status throughout hospital stay at OSH from 07/05/23-07/10/23, but worsening mental status on 07/09 - Had similar presentation at [facility] in 2021 after UTI, but more agitated during that stay - BUN, 24; BUN/Cr, 32 - B12, > 1500; folate, > 22.3; RPR, negative; VZV-DNA, negative; procalcitonin, 0.11 2) Fever of unknown origin: - High risk for infection given hx of hypogammaglobulinemia and CLL Stage 3 - Patient with history of recurrent UTIs and severe shingles - Has been receiving IVIG therapy for CLL, helped reduce infections over last 6 months - CRP < 0.5, CRP was downtrending at OSH (following broadening of Abx) - RPR, Lyme, & Blood and urine cultures negative at OSH --> no Ur Cx performed here - LP/CSF results: WBC, 790 (95% mononuclear); RBC, 45; glu, 54; prot, 148; CSF Gram Stain, neg - CSF Cx: Bacterial Cx no growth and fungal Cx was still pending - Infectious disease consulted - Bartonella henselae, bartonella stewart IgG and IgM pending, Cryptococcus negative - 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 - Tylenol PRN for fevers, pain - Continue Acyclovir, Lyrica given CSF results; re-started Duloxetine - Continue Rocephin and Vancomycin given evidence for CSF infection at this time, wait for Cx results before discontinuing - CBC, nml; CMP, BUN elevated; CRP, < 0.55; procal, 0.11; mag, 2.1; phos, 2.9 - An IVIG infusion of 25 g IVIG given 07/17/23 3) RLQ abdominal pain: - Resolved, patient no longer endorses RLQ or RUQ pain - CT-AP on presentation to OSH showing non-specific colitis and bladder enlarg ement - Unlikely related to urinary retention given Severino placement 4) Thrush, oral: - Fluconazole 200 mg IV daily for 7-14 days pending clinical response 5) Urinary retention: - Noted on CT-AP on presentation (enlarged bladder) - Urinalysis and urine culture negative - Pt self caths at home using straight cath - Continue Severino, draining clear-yellow urine; catheter removal ordered yesterday, but pt unable to urinate on own without straight catheterization and up part of night due to fluid administration and need to straight-cath her often 6) Dysphagia: - AMS, dysphagia upon admission, pt did not endorse any dysphagia today - Continue patient on regular diet, patient's diet upgraded to minced and moist from pureed 7) HTN: - BP stable on transfer, but have been as high as 170/105 - Continue to hold Amlodipine 10 mg - Restart home dose PRN 8) GERD (gastroesophageal reflux disease): - Continue home Famotidine 9) Degenerative disc disease: - Cymbalta restarted, considering pt's mild-mod back pain following LP - Tramadol also ordered 10) Coronary artery calcification: - Atorvastatin held at OSH - Plavix, ASA FENGI: Code status: DNR/DNI DVT prophylaxis: Lovenox Isolation: contact precautions Disposition: med/surg Admission and Anticipated Discharge Date Admission Date: July 11, 2023 Supervising Physician Co-Signing Physician Notes I personally examined the patient and verified all sutton points of history and exam, discussed case, and agree with decision making with Dr Caballero Pleasant and talkative, does have some loose stool but no belly pain. updated daughter at the bedside Vitals noted, awake and alert pleasant no distress. HEENT normocephalic atraumatic mucous membranes moist. Breathing unlabored no accessory muscle use good effort. Skin shows no rashes no pallor or icterus. Neuro shows no focal deficits. 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 Finish out full course of treatment for boththrough 07/22. Improving nicely, would be stable for medical, work on SNFwould be okay to go there for starting more intensive rehab if they are able to finish out ceftriaxone. Can transition antivirals to Valtrex p.o. [facility] gives a history of neck pain for quite a while (seems to be years) CT describes chronic appearing fractures, I suspect this is all old, nothing seems to be unstable, follow clinically, supportive care. DVT proph - lovenox Subjective Patient seen this morning and continuing to feel good. Patient AAO x 4. Able to converse, respond to questions, follow commands like normal. She does continue to have some antibiotic-associated diarrhea that is uncomfortable for her. Patient is also still complaining of chronic neck pain and some back pain. Additionally, an order with PT/OT to evaluate was placed. Patient has improved markedly since admission. Review of Systems Review of Systems: reviewed, per HPI Constitutional: no fever, no chills and no fatigue Ear, Nose, Mouth, Throat: no nasal congestion, no nasal discharge and no sore throat Respiratory: no cough, no chest congestion and no dyspnea Cardiovascular: no chest pain and no palpitations Gastrointestinal: + diarrhea/loose stools (4 episodes of loose stools); no abdominal pain, no nausea and no vomiting Neurologic: + dizziness left foot drop Physical Exam Constitutional: WD/WN, vitals as above Respiratory: normal respiratory effort and able to speak in complete sentences; does not use accessory muscles Cardiovascular: RRR, no murmur, no edema Gastrointestinal (Abdomen): Inspection/Auscultation: abdomen normal to inspection and normal bowel sounds Percussion/Palpation: abdomen soft Neurologic: Motor/Sensory: + abnormal movement (3/5 dorsiflexion in l. foot) Psychiatric: A+Ox3, euthymic affect Results & Data Results & Data Vital Signs (Past 12 Hours) Vital Signs Temp Pulse Pulse Resp BP Pulse Ox O2 Del Method 07/18/23 07:33 36.9 C 82 18 133/70 92 Room Air 07/18/23 03:33 36.7 C 89 16 156/86 H 92 Room Air 07/18/23 00:24 36.8 C 86 16 128/68 94 Room Air 07/17/23 23:37 36.6 C 85 18 123/76 92 Room Air 07/17/23 23:25 90 07/17/23 22:40 37.1 C 84 16 109/63 93 Room Air 07/17/23 22:04 37.2 C 84 16 131/74 92 Room Air
[2023-07-18 08:08] LABS: Basophils # (auto) 0.04 K/uL (0.00-0.20); Basophils % (auto) 1.1 %; Eosinophils # (auto) 0.07 K/uL (0.00-0.50); Hematocrit (blood only) 30.6 % (37.0-47.0); Hemoglobin 10.7 g/dl (12.0-16.0); Immature Granulocytes # (auto) 0.04 K/uL (0.01-0.20); Immature Granulocytes % (auto) 1.1 %; Lymphocytes # (auto) 0.61 K/uL (1.20-3.40); Lymphocytes % (auto) 17.2 %; Mean Corpuscular Hemoglobin 33.6 pg (25.0-34.0); Mean Corpuscular Volume 96.2 fL (80.0-100.0); Mean Platelet Volume 8.8 fL (9.4-12.4); Monocytes # (auto) 0.22 K/uL (0.11-0.59); Monocytes % (auto) 6.2 %; Neutrophils # (auto) 2.56 K/uL (1.40-6.50); Neutrophils % (auto) 72.4 %; Platelet Count 261 K/uL (130-400); RDW Coefficient of Variation 13.6 % (11.5-14.5); RDW Standard Deviation 45.1 fL (36.4-46.3); Red Blood Count 3.18 M/uL (4.20-5.40); White Blood Count 3.54 K/ul (4.8-10.8)
[2023-07-18 08:25] LABS: Creatinine Clr Calc Pharmacy 35.9 ml/min; Est GFR (African American) 82.1 ml/min; Est GFR (Non-African American) 70.8 ml/min
[2023-07-18] MEDS: ACYCLOVIR SOD 450 MG in DEXTROSE 5% 100 ML IV SCH (09:31)
--- NOTE | 2023-07-18 10:09 | Billing Data ---
Date of Service July 18, 2023 Coding Level of Care Code 80117 SUB INP/OBS CARE MIN
[2023-07-18] MEDS: traMADol HCL 50 MG TABLET PO SCH (12:41)
[2023-07-18] MEDS: traMADol HCL 50 MG TABLET PO PRN (20:52)
[2023-07-19 06:43] LABS: Basophils # (auto) 0.04 K/uL (0.00-0.20); Basophils % (auto) 1.1 %; Eosinophils # (auto) 0.12 K/uL (0.00-0.50); Eosinophils % (auto) 3.4 %; Hematocrit (blood only) 33.3 % (37.0-47.0); Hemoglobin 11.3 g/dl (12.0-16.0); Immature Granulocytes # (auto) 0.03 K/uL (0.01-0.20); Immature Granulocytes % (auto) 0.8 %; Lymphocytes # (auto) 0.68 K/uL (1.20-3.40); Lymphocytes % (auto) 19.2 %; Mean Corpuscular Hemoglobin 33.6 pg (25.0-34.0); Mean Corpuscular Hgb Conc 33.9 g/dL (32.0-36.0); Mean Corpuscular Volume 99.1 fL (80.0-100.0); Mean Platelet Volume 8.9 fL (9.4-12.4); Monocytes # (auto) 0.22 K/uL (0.11-0.59); Monocytes % (auto) 6.2 %; Neutrophils # (auto) 2.45 K/uL (1.40-6.50); Neutrophils % (auto) 69.3 %; Platelet Count 226 K/uL (130-400); RDW Standard Deviation 47.5 fL (36.4-46.3); Red Blood Count 3.36 M/uL (4.20-5.40); White Blood Count 3.54 K/ul (4.8-10.8)
--- NOTE | 2023-07-19 06:54 | Hospitalist Progress Note ---
Date of Service July 19, 2023 Assessment & Plan (1) Altered mental status: (2) Fever of unknown origin: (3) RLQ abdominal pain: (4) Thrush, oral: (5) Urinary retention: (6) Dysphagia: (7) HTN (hypertension): (8) GERD (gastroesophageal reflux disease): (9) Degenerative disc disease: (10) Coronary artery calcification: Plan 83 yo female w/ PMHx of CLL-stage 3, hypogammaglobulinemia, recurrent UTI's, severe shingles, DDD, GERD, HTN, dysphagia, 1-yr s/p l. TCAR, presents from OSH for AMS and fever of unknown origin. 1) Altered mental status: - AAO x 0 upon admission --> AAO x 4, able to hold conversation, answer questions appropriately, follow commands - Baseline: Independent living, complete ADLs - CT/MRI Brain & laboratory analysis unremarkable at OSH - Daughters noted initial improvement in mental status throughout hospital stay at OSH from 07/05/23-07/10/23, but worsening mental status on 07/09 - Had similar presentation at [facility] in 2021 after UTI, but more agitated during that stay - BUN, 24; BUN/Cr, 32 - B12, > 1500; folate, > 22.3; RPR, negative; VZV-DNA, negative; procalcitonin, 0.11 2) Fever of unknown origin: - High risk for infection given hx of hypogammaglobulinemia and CLL Stage 3 - Patient with history of recurrent UTIs and severe shingles - Has been receiving IVIG therapy for CLL, helped reduce infections over last 6 months - CRP < 0.5 - RPR, Lyme, & Blood and urine cultures negative at OSH --> no Ur Cx performed here - CBC, nml; CMP, BUN elevated; CRP, < 0.55; procal, 0.11; mag, 2.1; phos, 2.9 - LP/CSF results: WBC, 790 (95% mononuclear); RBC, 45; glu, 54; prot, 148; CSF Gram Stain, neg - CSF Cx: Bacterial Cx no growth; Fungal Cx still pending - 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 - Infectious disease was consulted, recommendations below: - Bartonella henselae, bartonella stewart IgG and IgM pending, Cryptococcus negative - An IVIG infusion of 25 g IVIG given 07/17/23 - 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 --> per ID recommendation transitioned to oral valacyclovir, PO, 1 g, q12 hrs - Tylenol PRN for fevers, pain - Continue Rocephin given evidence for CSF infection at this time, wait for Cx results before discontinuing 3) RLQ abdominal pain: - Resolved, patient no longer endorses RLQ or RUQ pain - CT-AP on presentation to OSH showing non-specific colitis and bladder enlargement - Unlikely related to urinary retention given Severino placement 4) Thrush, oral: - Fluconazole 200 mg IV daily for 7-14 days pending clinical response 5) Urinary retention: - Noted on CT-AP on presentation (enlarged bladder) - Urinalysis and urine culture negative - Pt self caths at home using straight cath - Continue Severino, draining clear-yellow urine; catheter removal ordered yesterday, but pt unable to urinate on own without straight catheterization and up part of night due to fluid administration and need to straight-cath her often 6) Dysphagia/Diet - resolved <-- AMS, dysphagia upon admission, pt did not endorse any dysphagia today - Continue patient on regular diet, patient's diet upgraded to soft and bite- sized from minced and moist from pureed - pt w/ lactose intolerance, gluten insensitivity, likely antibiotic-associated diarrhea - pt Rx'ed probiotic, Florastor (Saccharomyces boulardii) 7) HTN: - BP stable on transfer, was as high as 170/105 after admission, last few days normotensive - Continue to hold Amlodipine 10 mg - Restart home dose PRN 8) GERD (gastroesophageal reflux disease): - Continue home Famotidine 9) Degenerative disc disease: - Cymbalta restarted, considering pt's mild-mod back pain following LP - Continue Lyrica and Cymbalta for back, neck pain - Tramadol also ordered 10) Coronary artery calcification: - Atorvastatin held at OSH - Plavix, ASA FENGI: Code status: DNR/DNI DVT prophylaxis: Lovenox Isolation: contact precautions Disposition: med/surg Admission and Anticipated Discharge Date Admission Date: July 11, 2023 Supervising Physician Co-Signing Physician Notes I personally examined the patient and verified all sutton points of history and exam, discussed case, and agree with decision making with Dr Caballero working with therapy. no new issues voiced to me, dr caballero noted foot drop but no other unilateral weakness Vitals noted, awake and alert pleasant no distress. HEENT normocephalic atraumatic mucous membranes moist. Breathing unlabored no accessory muscle use good effort. Skin shows no rashes no pallor or icterus. Neuro shows no focal deficits. 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 Finish out full course of treatment for boththrough 07/22. Improving nicely, rocephin and valacylovir per ID recs. working on rehab. w foot drop but no other unilateral weakness - exceedingly unlikely to relate to encephalitis. PT/OT eval and treat. stopped fluconazole given low likelihood of anything fungal, negative fungal cx to date, and (+) findings on CSF to otherwise explain her scenario [facility] a [facility] of [facility] pain for quite a while (seems to be years) CT describes chronic appearing fractures, I suspect this is all old, nothing seems to be unstable, follow clinically, supportive care. DVT proph - lovenox dispo - goal is SNF/rehab emphasis as soon as can be arranged; given how well she's doing clinically if a SNF would be amenable to finishing course of ceftriaxone and valacyclovir, could go to snf as soon as bed available. Subjective Patient seen this morning and continuing to feel good. Patient AAO x 4. Able to converse, respond to questions, follow commands like normal. She does continue to have some antibiotic-associated diarrhea that is uncomfortable for her. Patient is also still complaining of chronic neck pain and some back pain. Additionally, an order with PT/OT to evaluate was placed. Hopefully, this will help with the patient's left-sided foot drop she has experienced starting a few days ago. Patient has improved markedly since admission. Review of Systems Review of Systems: reviewed, per HPI Constitutional: no fever, no chills and no fatigue Ear, Nose, Mouth, Throat: no nasal congestion, no nasal discharge and no sore throat Respiratory: no cough, no chest congestion and no dyspnea Cardiovascular: no chest pain and no palpitations Gastrointestinal: + diarrhea/loose stools (4 episodes of loose stools); no abdominal pain, no nausea and no vomiting Genitourinary: still has Severino catheter in Neurologic: + dizziness left foot drop Physical Exam Constitutional: WD/WN, vitals as above Respiratory: normal respiratory effort and able to speak in complete sentences; does not use accessory muscles Cardiovascular: RRR, no murmur, no edema Gastrointestinal (Abdomen): Inspection/Auscultation: abdomen normal to inspection and normal bowel sounds Percussion/Palpation: abdomen soft Neurologic: Motor/Sensory: + abnormal movement (3/5 dorsiflexion in l. foot) Psychiatric: A+Ox3, euthymic affect Results & Data Results & Data Vital Signs (Past 12 Hours) Vital Signs Temp Pulse Resp BP Pulse Ox O2 Del Method 07/18/23 21:25 Room Air 07/18/23 20:36 36.7 C 79 16 156/89 H 95 Room Air Resident Activity Tracking Resident Involvement: Resident Care Provided Care Provided: Adult Hospital Medicine
[2023-07-19 07:07] LABS: Creatinine Clr Calc Pharmacy 38.9 ml/min; Est GFR (African American) 90.4 ml/min
[2023-07-19] MEDS: SACCHAROMYCES BOULARDII 250 MG CAP PO SCH (09:58)
--- NOTE | 2023-07-19 13:23 | Billing Data ---
Date of Service July 19, 2023 Coding Level of Care Code 32414 SUB INP/OBS CARE MIN
--- NOTE | 2023-07-19 13:23 | Billing Data ---
Date of Service July 19, 2023 Coding Level of Care Code 26251 SUB INP/OBS CARE MIN
[2023-07-19] MEDS: valACYclovir HCL 500 MG TABLET PO SCH (19:54)
[2023-07-20 06:49] LABS: Creatinine Clr Calc Pharmacy 33.7 ml/min; Est GFR (African American) 76.1 ml/min; Est GFR (Non-African American) 65.7 ml/min
--- NOTE | 2023-07-20 07:05 | Hospitalist Progress Note ---
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 Today, continue valacyclovir and CTX until 07/22. PT/OT recommend rehab. Will restart home plavix today. 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 per ID below - AMS has resolved #Fever of unknown origin: - High risk for infection given hx of hypogammaglobulinemia and CLL Stage 3 - Patient with history of recurrent UTIs and severe shingles - Has been receiving IVIG therapy for CLL, helped reduce infections over last 6 months - CRP < 0.5 - RPR, Lyme, & Blood and urine cultures negative at OSH - Infectious disease was consulted, recommendations below: - Bartonella henselae, bartonella stewart IgG and IgM pending, Cryptococcus negative - An IVIG infusion of 25 g IVIG given 07/17/23 - 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 --> per ID recommendation transitioned to oral valacyclovir, PO, 1 g, q12 hrs, continue CTX until 07/22 as well - Tylenol PRN for fevers, pain #Thrush, oral - Fluconazole 200 mg IV daily for 7-14 days pending clinical response #Urinary retention - Noted on CT-AP on presentation (enlarged bladder) - Urinalysis and urine culture negative - Pt self caths at home using straight cath - Continue Gary, draining clear-yellow urine; catheter removal ordered yesterday, but pt unable to urinate on own without straight catheterization and up part of night due to fluid administration and need to straight-cath her often #RLQ abdominal pain with diarrhea, resolved - patient no longer endorses RLQ or RUQ pain - CT-AP on presentation to OSH showing non-specific colitis and bladder enlargement - Unlikely related to urinary retention given Gary placement - diarrhea likely antibiotic-associated diarrhea, which has resolved #Dysphagia/Diet, resolved - AMS, dysphagia upon admission, did well with diet this morning - Continue patient on regular diet, \ - pt w/ lactose intolerance, gluten insensitivity, - pt Rx'ed probiotic, Florastor (Saccharomyces boulardii) #HTN - BP stable last 24 hrs - home amlodipine held, pressures stable so can continue to hold #GERD (gastroesophageal reflux disease): - Continue home Famotidine #Degenerative disc disease: - Cymbalta restarted, considering pt's mild-mod back pain following LP - Continue Lyrica and Cymbalta for back, neck pain - Tramadol also ordered #Coronary artery disease #TCAR 1 yr ago with L carotid stent - Atorvastatin held at OSH, restarted here - continue home Plavix, ASA DVT prophylaxis: Lovenox Admission and Anticipated Discharge Date Admission Date: July 11, 2023 Supervising Physician Co-Signing Physician Notes Attending Physician Supervision Note: I independently interviewed and examined the patient and verified the sutton history and physical, reviewed labs and image studies and agree with findings and care plan noted above. 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 could not r/o bacterial etiology since cultures were done after multiple doses of IV abx. -Mentation is cleared -continue valcyclovir -continue IV rocephin. DDD/Left foot drop - PT/OT. Consider further Outpatient evaluation. s/p TCAR - continue DAPT Chronic cervical spine fracture - No intervention. -Posterior subluxation at the C1-C2 level with moderate central canal narrowing at this level. Urinary retention - gary in place. 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 Today, pt states she if feeling well. She states she was having some diarrhea that has improved, with 1 BM this morning that was soft but better that before. Otherwise, she states she is feeling great today. Daughter is present today and states she thinks that her mother is doing great. No questions or complaints. Review of Systems Review of Systems: Constitutional: denies fever, chills, HEENT: denies congestion, sore throat Cardio: denies chest pain, palpitations Resp: denies shortness of breath, GI: denies abdominal pain, nausea, vomiting, Physical Exam Physical Exam: General:Alert and oriented, no acute distress, very friendly HEENT: Normocephalic, moist oral mucosa, Cardio: Regular rate and rhythm, no murmur, no appreciable peripheral edema today Resp:Lungs clear to auscultation b/l, no wheezes or rhonchi, GI: Soft and nontender, nondistended, bowel sounds active Skin: Warm, pink, dry, Results & Data Results & Data Vital Signs (Past 12 Hours) Vital Signs Temp Pulse Resp BP Pulse Ox O2 Del Method 07/19/23 20:00 36.8 C 82 19 129/78 96 Room Air 07/19/23 19:50 Room Air Resident Activity Tracking Resident Involvement: Resident Care Provided Care Provided: Adult Hospital Medicine
[2023-07-20 08:52] LABS: Basophils # (auto) 0.03 K/uL (0.00-0.20); Eosinophils % (auto) 3.2 %; Hematocrit (blood only) 34.1 % (37.0-47.0); Hemoglobin 11.6 g/dl (12.0-16.0); Immature Granulocytes # (auto) 0.02 K/uL (0.01-0.20); Immature Granulocytes % (auto) 0.6 %; Lymphocytes # (auto) 0.69 K/uL (1.20-3.40); Mean Platelet Volume 9.1 fL (9.4-12.4); Monocytes % (auto) 6.4 %; Neutrophils % (auto) 66.8 %; Platelet Count 184 K/uL (130-400); RDW Coefficient of Variation 14.4 % (11.5-14.5); RDW Standard Deviation 48.4 fL (36.4-46.3); Red Blood Count 3.41 M/uL (4.20-5.40); White Blood Count 3.14 K/ul (4.8-10.8)
[2023-07-20 09:11] LABS: BUN Creatinine Ratio 27.6 (10-20); Calcium 9.7 mg/dl (8.6-10.3); Creatinine Clr Calc Pharmacy 36.8 ml/min; Est GFR (African American) 84.7 ml/min; Est GFR (Non-African American) 73.1 ml/min; Potassium 3.7 mmol/L (3.5-5.1)
[2023-07-20 18:42] LABS: Bartonella henselae IgG Negative; Bartonella henselae IgM Ab Negative; Bartonella quintana IgG Ab Negative; Bartonella quintana IgM Ab Negative
[2023-07-20] MEDS: CLOPIDOGREL BISULFATE 75 MG TAB PO SCH (20:40)
--- NOTE | 2023-07-21 06:50 | Hospitalist Progress Note ---
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 Today, continue valacyclovir and CTX until 07/22. Pending rehab placement. Will get lumbar MRI for L foot drop. 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 per ID below - AMS has resolved #L foot drop - noted by pt after the lumbar puncture - will get lumbar MRI for further evaluation, although focal deficit could be secondary to acute encephalitis process #Fever of unknown origin, resolved - High risk for infection given hx of hypogammaglobulinemia and CLL Stage 3 - Patient with history of recurrent UTIs and severe shingles - Has been receiving IVIG therapy for CLL, helped reduce infections over last 6 months - CRP < 0.5 - RPR, Lyme, & Blood and urine cultures negative at OSH - Infectious disease was consulted, recommendations below: - Bartonella henselae, bartonella stewart IgG and IgM pending, Cryptococcus negative - An IVIG infusion of 25 g IVIG given 07/17/23 - 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 --> per ID recommendation transitioned to oral valacyclovir, PO, 1 g, q12 hrs, continue CTX until 07/22 as well - Tylenol PRN for fevers, pain #Thrush, oral - Fluconazole 200 mg IV daily for 7-14 days pending clinical response #Urinary retention - Noted on CT-AP on presentation (enlarged bladder) - Urinalysis and urine culture negative - Pt self caths at home using straight cath - Continue Gary, draining clear-yellow urine; catheter removal ordered yesterday, but pt unable to urinate on own without straight catheterization and up part of night due to fluid administration and need to straight-cath her often #RLQ abdominal pain with diarrhea, resolved - patient no longer endorses RLQ or RUQ pain - CT-AP on presentation to OSH showing non-specific colitis and bladder enlargement - Unlikely related to urinary retention given Gary placement - diarrhea likely antibiotic-associated diarrhea, which has resolved #Dysphagia/Diet, resolved - AMS, dysphagia upon admission, did well with diet this morning - Continue patient on regular diet, \\ - pt w/ lactose intolerance, gluten insensitivity, - pt Rx'ed probiotic, Florastor (Saccharomyces boulardii) #HTN - BP stable last 24 hrs - home amlodipine held, pressures stable so can continue to hold #GERD (gastroesophageal reflux disease): - Continue home Famotidine #Degenerative disc disease: - Cymbalta restarted, considering pt's mild-mod back pain following LP - Continue Lyrica and Cymbalta for back, neck pain - Tramadol also ordered #Coronary artery disease #TCAR 1 yr ago with L carotid stent - Atorvastatin held at OSH, restarted here - continue home Plavix, ASA DVT prophylaxis: Lovenox Admission and Anticipated Discharge Date Admission Date: July 11, 2023 Supervising Physician Co-Signing Physician Notes Attending Physician Supervision Note: I independently interviewed and examined the patient and verified the sutton history and physical, reviewed labs and image studies and agree with findings and care plan noted above. 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 could not r/o bacterial etiology since cultures were done after multiple doses of IV abx. -Mentation is cleared -continue valcyclovir -continue IV rocephin. Left foot drop - Foot drop ?new onset. Has h/o DDD. -Check lumbar spine MRI -PT/OT. s/p TCAR - continue DAPT Chronic cervical spine fracture - No intervention. -Posterior subluxation at the C1-C2 level with moderate central canal narrowing at this level. Urinary retention - gary in place. 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 Today, pt states she is feeling good. She states her bowel movements are back to normal now and she is tolerating diet without issue. No questions or complaints at this time. She is agreeable to rehab, states she went before and it was very helpful for her. In terms of her L foot drop, pt states it only occurred after her lumbar puncture. She states she was not having any issues with that foot prior to that but does admit she does not recall much about the first few days of being very sick when she was very "out of it" cognitively, but is pretty sure she had no issues until immediately after the lumbar puncture. No associated numbness, tingling, or pain. Review of Systems Review of Systems: Constitutional: denies fever, chills, Cardio: denies chest pain, palpitations Resp: denies shortness of breath, GI: denies abdominal pain, nausea, vomiting, Physical Exam Physical Exam: General:Alert and oriented, no acute distress, HEENT: Normocephalic, moist oral mucosa, Cardio: Regular rate and rhythm, no murmur, no appreciable peripheral edema today Resp:Lungs clear to auscultation b/l, no wheezes or rhonchi, GI: Soft and nontender, nondistended, bowel sounds active Ext: L foot drop noted Skin: Warm, pink, dry, Results & Data Results & Data Vital Signs (Past 12 Hours) Vital Signs Temp Pulse Resp BP Pulse Ox O2 Del Method 07/20/23 20:05 36.9 C 82 18 150/92 H 92 Room Air 07/20/23 20:00 Room Air Resident Activity Tracking Resident Involvement: Resident Care Provided Care Provided: Adult Hospital Medicine
[2023-07-21 07:35] LABS: Basophils # (auto) 0.04 K/uL (0.00-0.20); Basophils % (auto) 1.4 %; Eosinophils # (auto) 0.08 K/uL (0.00-0.50); Eosinophils % (auto) 2.9 %; Immature Granulocytes # (auto) 0.02 K/uL (0.01-0.20); Immature Granulocytes % (auto) 0.7 %; Lymphocytes # (auto) 0.61 K/uL (1.20-3.40); Lymphocytes % (auto) 21.8 %; Mean Corpuscular Hemoglobin 34.4 pg (25.0-34.0); Mean Corpuscular Hgb Conc 35.5 g/dL (32.0-36.0); Mean Corpuscular Volume 96.9 fL (80.0-100.0); Mean Platelet Volume 9.4 fL (9.4-12.4); Monocytes # (auto) 0.15 K/uL (0.11-0.59); Monocytes % (auto) 5.4 %; Neutrophils % (auto) 67.8 %; Platelet Count 160 K/uL (130-400); RDW Coefficient of Variation 14.2 % (11.5-14.5); RDW Standard Deviation 47.2 fL (36.4-46.3)
[2023-07-21 08:22] LABS: BUN Creatinine Ratio 29.6 (10-20); Calcium 9.5 mg/dl (8.6-10.3); Creatinine Clr Calc Pharmacy 39.4 ml/min; Est GFR (African American) 91.9 ml/min; Est GFR (Non-African American) 79.3 ml/min; Potassium 3.8 mmol/L (3.5-5.1)
[2023-07-21] MEDS: ATORVASTATIN 40 MG TAB PO SCH (09:30)
--- NOTE | 2023-07-22 06:58 | Hospitalist Progress Note ---
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 Today, Pending rehab placement. Continue valacyclovir and CTX until 07/22. 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 per ID below - AMS has resolved #L foot drop - noted by pt after the lumbar puncture - lumbar MRI; no high grade stenosis, chronic degenerative changes noted, some stenosis of lower lumbar noted - focal deficit could be secondary to acute encephalitis process, should continue PT/OT for this and evaluate deficit further as encephalitis resolves #Fever of unknown origin, resolved - High risk for infection given hx of hypogammaglobulinemia and CLL Stage 3 - Patient with history of recurrent UTIs and severe shingles - Has been receiving IVIG therapy for CLL, helped reduce infections over last 6 months - CRP < 0.5 - RPR, Lyme, & Blood and urine cultures negative at OSH - Infectious disease was consulted, recommendations below: - Bartonella henselae, bartonella stewart IgG and IgM pending, Cryptococcus negative - An IVIG infusion of 25 g IVIG given 07/17/23 - 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 --> per ID recommendation transitioned to oral valacyclovir, PO, 1 g, q12 hrs, continue CTX until 07/22 as well - Tylenol PRN for fevers, pain #Thrush, oral - Fluconazole 200 mg IV daily for 7-14 days pending clinical response #Urinary retention - Noted on CT-AP on presentation (enlarged bladder) - Urinalysis and urine culture negative - Pt self caths at home using straight cath - Continue Gary, draining clear-yellow urine; catheter removal ordered yesterday, but pt unable to urinate on own without straight catheterization and up part of night due to fluid administration and need to straight-cath her often #RLQ abdominal pain with diarrhea, resolved - patient no longer endorses RLQ or RUQ pain - CT-AP on presentation to OSH showing non-specific colitis and bladder enlargement - Unlikely related to urinary retention given Gary placement - diarrhea likely antibiotic-associated diarrhea, which has resolved #Dysphagia/Diet, resolved - AMS, dysphagia upon admission, did well with diet this morning - Continue patient on regular diet, \ - pt w/ lactose intolerance, gluten insensitivity, - pt Rx'ed probiotic, Florastor (Saccharomyces boulardii) #HTN - BP stable last 24 hrs - home amlodipine held, pressures stable so can continue to hold #GERD (gastroesophageal reflux disease): - Continue home Famotidine #Degenerative disc disease: - Cymbalta restarted, considering pt's mild-mod back pain following LP - Continue Lyrica and Cymbalta for back, neck pain - Tramadol also ordered #Coronary artery disease #TCAR 1 yr ago with L carotid stent - Atorvastatin held at OSH, restarted here - continue home Plavix, ASA DVT prophylaxis: Lovenox Admission and Anticipated Discharge Date Admission Date: July 11, 2023 Supervising Physician Co-Signing Physician Notes Attending Physician Supervision Note: I independently interviewed and examined the patient and verified the sutton hi story and physical, reviewed labs and image studies and agree with findings and care plan noted above. 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 could not r/o bacterial etiology since cultures were done after multiple doses of IV abx. -Mentation is cleared -continue valcyclovir -continue IV rocephin. Left foot drop - Foot drop ?new onset. -Lumbar spine MRI with no significant nerve compression. 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 -PT/OT. CLL with hypogammaglobulinemia -s/p doses of IVIg on 07/16 s/p TCAR - continue DAPT Chronic cervical spine fracture - No intervention. -Posterior subluxation at the C1-C2 level with moderate central canal narrowing at this level. Urinary retention - requiring frequent self caths at home. -gary in place. 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 Today, pt states she is feeling well. Tolerating diet with no issues. No questions or complaints at this time. Daughter from [place] is present with her today. Review of Systems Review of Systems: Cardio: denies chest pain, palpitations Resp: denies shortness of breath, GI: denies abdominal pain, nausea, vomiting, Physical Exam Physical Exam: General:Alert and oriented, no acute distress, HEENT: Normocephalic, moist oral mucosa, Cardio: Regular rate and rhythm, no murmur, Resp:Lungs clear to auscultation b/l, no wheezes or rhonchi, GI: Soft and nontender, nondistended, bowel sounds active Ext: L foot drop noted, can wiggle toes bilaterally Skin: Warm, pink, dry, Results & Data Results & Data Vital Signs (Past 12 Hours) Vital Signs Temp Pulse Resp BP Pulse Ox O2 Del Method 07/21/23 20:02 36.8 C 79 16 102/65 95 Room Air 07/21/23 20:00 Room Air Resident Activity Tracking Resident Involvement: Resident Care Provided Care Provided: Adult Hospital Medicine
--- NOTE | 2023-07-22 07:13 | Magnetic Resonance Report ---
MR lumbar spine wo con CLINICAL HISTORY: 83 years-old Female with Foot drop. Acute low back pain with lower extremity radic ular symptoms. Recent lumbar puncture. COMPARISON: CT 07/05/2023. TECHNIQUE: Multiplanar, multi sequence MRI of the lumbar spine was performed without intravenous cont rast. FINDINGS: Motion degraded exam. Conus medullaris terminates at the L1 level. Normal signal within the imaged thoracic spinal cord. Tarlov cysts of the sacrum. No acute fracture, subluxation, endplate er osion or significant bone marrow edema. Hiatal hernia. Right hip arthroplasty. Cardiomegaly. Colonic diverticulosis. Lumbar levoscoliosis. T12-L1: Mild intervertebral disc space narrowing with spondylitic spurring and small circumferential annular disc bulge. Ligamentum flavum thickening with moderate facet arthrosis. No central canal or foraminal narrowing. L1-L2: Mild spondylitic spurring. Ligamentum flavum thickening with moderate facet arthrosis. No adi tral canal or foraminal narrowing. L2-L3: Severe intervertebral disc space narrowing with moderate spondylitic spurring and circumferen tial disc osteophyte complex. Ligamentum flavum thickening with moderate facet arthrosis. No central canal or foraminal narrowing. L3-L4: Moderate intervertebral disc space narrowing with spondylitic spurring and circumferential an nular disc bulge. Ligamentum flavum thickening with advanced facet arthrosis. Mild central canal sten osis with AP dimension of the thecal sac measuring 8 mm. Moderate narrowing of the right lateral rece ss. The left neural foramen is patent. Mild right foraminal narrowing. L4-L5: Mild posterior intervertebral disc space narrowing. Spondylotic spurring with circumferential annular disc bulging, eccentric to the right lateral recess and right neural foramen. Severe facet a rthrosis with ligamentum flavum thickening. The central canal is generally patent. Mild left with mod erate lateral recess narrowing. The right neural foramen is patent. Mild left foraminal narrowing. Mo derate facet effusions. L5-S1: Severe intervertebral disc space narrowing with unchanged grade 1 anterolisthesis. Circumfere ntial disc osteophyte complex. Ligamentum flavum thickening with advanced facet arthrosis. Mild trian gular central canal stenosis with AP dimension of the thecal sac measuring approximately 7-8 mm. Ther e is at least mild narrowing of the lateral recesses. Moderate facet effusions. [id number] bila teral neuroforaminal stenosis. IMPRESSION: 1. No acute fracture, subluxation or endplate erosion. 2. Lumbar levoscoliosis with multilevel degenerative changes as above. 3. No high-grade central canal or foraminal narrowing. 4. Hiatal hernia. ACT 112: Negative or not required by law. The above report was generated using voice recognition software. It may contain grammatical, syntax o r spelling errors. Dictated: 07/21/2023 6:59 PM Transcribed: 07/21/2023 7:20 PM Mario [id number] [email or web address] Electronically signed by: Vladimir Tavarez M.D. 07/22/2023 7:12 AM
[2023-07-22 07:32] LABS: Basophils # (auto) 0.05 K/uL (0.00-0.20); Basophils % (auto) 1.7 %; Eosinophils # (auto) 0.08 K/uL (0.00-0.50); Eosinophils % (auto) 2.7 %; Hematocrit (blood only) 31.6 % (37.0-47.0); Hemoglobin 10.9 g/dl (12.0-16.0); Immature Granulocytes # (auto) 0.03 K/uL (0.01-0.20); Lymphocytes # (auto) 0.52 K/uL (1.20-3.40); Lymphocytes % (auto) 17.8 %; Mean Corpuscular Hemoglobin 34.1 pg (25.0-34.0); Mean Corpuscular Hgb Conc 34.5 g/dL (32.0-36.0); Mean Corpuscular Volume 98.8 fL (80.0-100.0); Mean Platelet Volume 9.4 fL (9.4-12.4); Monocytes # (auto) 0.17 K/uL (0.11-0.59); Monocytes % (auto) 5.8 %; Neutrophils # (auto) 2.07 K/uL (1.40-6.50); Platelet Count 129 K/uL (130-400); RDW Coefficient of Variation 14.6 % (11.5-14.5); RDW Standard Deviation 48.4 fL (36.4-46.3); White Blood Count 2.92 K/ul (4.8-10.8)
[2023-07-22 08:37] LABS: BUN Creatinine Ratio 30.4 (10-20); Calcium 9.6 mg/dl (8.6-10.3); Creatinine Clr Calc Pharmacy 40.6 ml/min; Est GFR (Non-African American) 81.1 ml/min; Potassium 4.1 mmol/L (3.5-5.1)
--- NOTE | 2023-07-23 07:04 | Hospitalist Progress Note ---
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 Today, awaiting rehab placement. Last day of CTX and valacyclovir today. #L foot drop - noted by pt after the lumbar puncture - lumbar MRI; no high grade stenosis, chronic degenerative changes noted, some stenosis of lower lumbar noted - focal deficit could be secondary to acute encephalitis process, should continue PT/OT for this and evaluate deficit further as encephalitis resolves #Urinary retention, chronic - Noted on CT-AP on presentation (enlarged bladder) - Urinalysis and urine culture negative - Pt self caths at home using straight cath 5x daily - indwelling catheter to be removed, will resume intermittent straight caths to allow pt more free mobility #AMS in the setting of herpes encephalitis, resolved - AAO x 0 upon admission --> now AAO x 4, able to hold conversation, answer questions appropriately, follow commands - Baseline: Independent living, complete ADLs - CT/MRI Brain & laboratory analysis unremarkable at OSH - LP/CSF results: WBC, 790 (95% mononuclear); RBC, 45; glu, 54; prot, 148; CSF Gram Stain, neg - CSF Cx: Bacterial Cx no growth; Fungal Cx still pending - 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 per ID below - AMS has resolved #Fever of unknown origin, resolved - High risk for infection given hx of hypogammaglobulinemia and CLL Stage 3 - Patient with history of recurrent UTIs and severe shingles - Has been receiving IVIG therapy for CLL, helped reduce infections over last 6 months - CRP < 0.5 - RPR, Lyme, & Blood and urine cultures negative at OSH - Infectious disease was consulted, recommendations below: - Bartonella henselae, bartonella stewart IgG and IgM pending, Cryptococcus negative - An IVIG infusion of 25 g IVIG given 07/17/23 - 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 --> per ID recommendation transitioned to oral valacyclovir, PO, 1 g, q12 hrs, continue CTX until 07/22 as well - Tylenol PRN for fevers, pain #Thrush, oral - Fluconazole 200 mg IV daily for 7-14 days pending clinical response #RLQ abdominal pain with diarrhea, resolved - patient no longer endorses RLQ or RUQ pain - CT-AP on presentation to OSH showing non-specific colitis and bladder enlargement - Unlikely related to urinary retention given Gary placement - diarrhea likely antibiotic-associated diarrhea, which has resolved #Dysphagia/Diet, resolved - AMS, dysphagia upon admission, did well with diet this morning - Continue patient on regular diet, \ - pt w/ lactose intolerance, gluten insensitivity, - pt Rx'ed probiotic, Florastor (Saccharomyces boulardii) #HTN - BP stable last 24 hrs - home amlodipine held, pressures stable so can continue to hold #GERD (gastroesophageal reflux disease): - Continue home Famotidine #Degenerative disc disease: - Cymbalta restarted, considering pt's mild-mod back pain following LP - Continue Lyrica and Cymbalta for back, neck pain - Tramadol also ordered #Coronary artery disease #TCAR 1 yr ago with L carotid stent - Atorvastatin held at OSH, restarted here - continue home Plavix, ASA DVT prophylaxis: Lovenox Admission and Anticipated Discharge Date Admission Date: July 11, 2023 Supervising Physician Co-Signing Physician Notes Attending Physician Supervision Note: I independently interviewed and examined the patient and verified the sutton history and physical, reviewed labs and image studies and agree with findings and care plan noted above. 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 could not r/o bacterial etiology since cultures were done after multiple doses of IV abx. -Mentation is cleared -continue valcyclovir -continue IV rocephin - stop date 07/23. Left foot drop - Foot drop ?new onset. -Lumbar spine MRI with no significant nerve compression. 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 -PT/OT. CLL with hypogammaglobulinemia -s/p doses of IVIg on 07/16 s/p TCAR - continue DAPT Chronic cervical spine fracture - No intervention. -Posterior subluxation at the C1-C2 level with moderate central canal narrowing at this level. Chronic Urinary retention - requiring frequent self caths at home. 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 Today, pt states she is feeling well. No questions or complaints. Talked to her this morning about the gary catheter, as she has had an indwelling while here but was doing intermittent straight caths at home 5x daily prior to coming in. Pt states she did not mind the straight caths she just struggled with it the day before and of admission due to her issue with cognition at the time, but ultimately is fine with either. Otherwise, she states she is happy that it appears brighter outside today than the past few days, which have been dark and rainy. Review of Systems Review of Systems: Cardio: denies chest pain, palpitations Resp: denies shortness of breath, cough GI: denies abdominal pain, nausea, vomiting, Physical Exam Physical Exam: General:Alert and oriented, no acute distress, HEENT: Normocephalic, moist oral mucosa, Cardio: Regular rate and rhythm, no murmur, Resp:Lungs clear to auscultation b/l, no wheezes or rhonchi, GI: Soft and nontender, nondistended, bowel sounds active Ext: L foot drop noted, can wiggle toes bilaterally, unchanged from yesterday Skin: Warm, pink, dry, Results & Data Results & Data Vital Signs (Past 12 Hours) Vital Signs Temp Pulse Resp BP Pulse Ox O2 Del Method 07/22/23 20:00 Room Air 07/22/23 19:44 36.8 C 80 14 126/69 95 Room Air Resident Activity Tracking Resident Involvement: Resident Care Provided Care Provided: Adult Hospital Medicine
[2023-07-23 09:11] LABS: Basophils # (auto) 0.05 K/uL (0.00-0.20); Basophils % (auto) 1.5 %; Eosinophils # (auto) 0.08 K/uL (0.00-0.50); Eosinophils % (auto) 2.4 %; Hematocrit (blood only) 33.8 % (37.0-47.0); Hemoglobin 11.7 g/dl (12.0-16.0); Immature Granulocytes # (auto) 0.02 K/uL (0.01-0.20); Immature Granulocytes % (auto) 0.6 %; Lymphocytes % (auto) 17.8 %; Mean Corpuscular Hemoglobin 34.2 pg (25.0-34.0); Mean Corpuscular Hgb Conc 34.6 g/dL (32.0-36.0); Mean Corpuscular Volume 98.8 fL (80.0-100.0); Mean Platelet Volume 9.6 fL (9.4-12.4); Monocytes # (auto) 0.17 K/uL (0.11-0.59); Neutrophils # (auto) 2.45 K/uL (1.40-6.50); Neutrophils % (auto) 72.7 %; Platelet Count 131 K/uL (130-400); RDW Standard Deviation 49.4 fL (36.4-46.3); Red Blood Count 3.42 M/uL (4.20-5.40); White Blood Count 3.37 K/ul (4.8-10.8)
[2023-07-23 09:50] LABS: BUN Creatinine Ratio 24.4 (10-20); Creatinine Clr Calc Pharmacy 35.9 ml/min; Est GFR (African American) 82.1 ml/min; Est GFR (Non-African American) 70.8 ml/min; Potassium 4.1 mmol/L (3.5-5.1)
[2023-07-24] MEDS: PHENAZOPYRIDINE HCL 100 MG TAB PO PRN (02:44)
[2023-07-24 05:40] LABS: Appearance Urine Clear (Clear); Bacteria Urine Automated Negative (Negative); Bilirubin Urine Negative (Negative); Blood Urine Trace (Negative); Cast Urine Automated 0 /lpf (0-5); Color Urine Dark Yellow; Epithelial Cell Urine Auto 0-5 /lpf (0-5); Glucose Urine UA Negative (Negative); Ketones Urine Negative (Negative); Leukocyte Esterase Urine Trace (Negative); Nitrite Urine Positive (Negative); Protein Urine Negative (Negative); RBC Urine Automated 0-4 /hpf (0-4); Specific Gravity Urine 1.007 (1.000-1.030); Urobilinogen Urine Negative (Negative)
[2023-07-24 08:36] LABS: Basophils # (auto) 0.04 K/uL (0.00-0.20); Basophils % (auto) 1.1 %; Eosinophils # (auto) 0.07 K/uL (0.00-0.50); Hematocrit (blood only) 33.5 % (37.0-47.0); Hemoglobin 11.8 g/dl (12.0-16.0); Immature Granulocytes # (auto) 0.02 K/uL (0.01-0.20); Immature Granulocytes % (auto) 0.6 %; Lymphocytes # (auto) 0.77 K/uL (1.20-3.40); Lymphocytes % (auto) 21.8 %; Mean Corpuscular Hemoglobin 34.4 pg (25.0-34.0); Mean Corpuscular Hgb Conc 35.2 g/dL (32.0-36.0); Mean Corpuscular Volume 97.7 fL (80.0-100.0); Mean Platelet Volume 9.7 fL (9.4-12.4); Monocytes # (auto) 0.19 K/uL (0.11-0.59); Monocytes % (auto) 5.4 %; Neutrophils # (auto) 2.45 K/uL (1.40-6.50); Neutrophils % (auto) 69.1 %; Platelet Count 117 K/uL (130-400); RDW Standard Deviation 50.1 fL (36.4-46.3); Red Blood Count 3.43 M/uL (4.20-5.40); White Blood Count 3.54 K/ul (4.8-10.8)
[2023-07-24 08:53] LABS: BUN Creatinine Ratio 27.4 (10-20); Calcium 10.2 mg/dl (8.6-10.3); Creatinine Clr Calc Pharmacy 38.4 ml/min; Est GFR (African American) 88.9 ml/min; Est GFR (Non-African American) 76.7 ml/min; Potassium 4.3 mmol/L (3.5-5.1)
--- NOTE | 2023-07-24 12:45 | Hospitalist Progress Note ---
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 Today, awaiting SNF placement as pt was denied acute rehab by insurance. #L foot drop - noted by pt after the lumbar puncture - lumbar MRI; no high grade stenosis, chronic degenerative changes noted, some stenosis of lower lumbar noted - focal deficit could be secondary to acute encephalitis process, should continue PT/OT for this and evaluate deficit further as encephalitis resolves #Urinary retention, chronic - Noted on CT-AP on presentation (enlarged bladder) - Urinalysis and urine culture negative - Pt self caths at home using straight cath 5x daily - indwelling catheter to be removed, will resume intermittent straight caths to allow pt more free mobility #AMS in the setting of herpes encephalitis, resolved - AAO x 0 upon admission --> now AAO x 4, able to hold conversation, answer questions appropriately, follow commands - Baseline: Independent living, complete ADLs - CT/MRI Brain & laboratory analysis unremarkable at OSH - LP/CSF results: WBC, 790 (95% mononuclear); RBC, 45; glu, 54; prot, 148; CSF Gram Stain, neg - CSF Cx: Bacterial Cx no growth; Fungal Cx still pending - 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 per ID below - AMS has resolved #Fever of unknown origin, resolved - High risk for infection given hx of hypogammaglobulinemia and CLL Stage 3 - Patient with history of recurrent UTIs and severe shingles - Has been receiving IVIG therapy for CLL, helped reduce infections over last 6 months - CRP < 0.5 - RPR, Lyme, & Blood and urine cultures negative at OSH - Infectious disease was consulted, recommendations below: - Bartonella henselae, bartonella stewart IgG and IgM pending, Cryptococcus negative - An IVIG infusion of 25 g IVIG given 07/17/23 - 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 --> per ID recommendation transitioned to oral valacyclovir, PO, 1 g, q12 hrs, continued on CTX and valacyclovir until completion on 07/22 - Tylenol PRN for fevers, pain #Thrush, oral - Fluconazole 200 mg IV daily for 7-14 days pending clinical response #RLQ abdominal pain with diarrhea, resolved - patient no longer endorses RLQ or RUQ pain - CT-AP on presentation to OSH showing non-specific colitis and bladder enlargement - Unlikely related to urinary retention given Gary placement - diarrhea likely antibiotic-associated diarrhea, which has resolved #Dysphagia/Diet, resolved - AMS, dysphagia upon admission, did well with diet this morning - Continue patient on regular diet, \ - pt w/ lactose intolerance, gluten insensitivity, - pt Rx'ed probiotic, Florastor (Saccharomyces boulardii) #HTN - BP stable last 24 hrs - home amlodipine held, pressures stable so can continue to hold #GERD (gastroesophageal reflux disease): - Continue home Famotidine #Degenerative disc disease: - Cymbalta restarted, considering pt's mild-mod back pain following LP - Continue Lyrica and Cymbalta for back, neck pain - Tramadol also ordered #Coronary artery disease #TCAR 1 yr ago with L carotid stent - Atorvastatin held at OSH, restarted here - continue home Plavix, ASA DVT prophylaxis: Lovenox Admission and Anticipated Discharge Date Admission Date: July 11, 2023 Supervising Physician Co-Signing Physician Notes Attending Physician Supervision Note: I independently interviewed and examined the patient and verified the sutton history and physical, reviewed labs and image studies and agree with findings and care plan noted above. 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 could not r/o bacterial etiology since cultures were done after multiple doses of IV abx. -Mentation is cleared -continue valcyclovir -continue IV rocephin - stop date 07/23. Left foot drop - Foot drop ?new onset. -Lumbar spine MRI with no significant nerve compression. 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 -PT/OT. CLL with hypogammaglobulinemia -s/p doses of IVIg on 07/16 -discussed getting setting up with oncology close by. will need pcp to arrange referral. s/p TCAR - continue DAPT Chronic cervical spine fracture - No intervention. -Posterior subluxation at the C1-C2 level with moderate central canal narrowing at this level. Chronic Urinary retention - requiring frequent self caths at home. 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 Today, pt states she is feeling pretty good. She states that last night she was having some bladder cramps since she was on intermittent caths and felt like she needed to empty but nursing noted only 200 on bladder scan and she was sometimes voiding on own. Did spontaneously urinate twice but was unhappy she could not have made it to the bathroom. She and her daughter would like for chronic gary to be placed again since pt states she rested much better at night with it and she does not think she could currently intermittently cath herself if needed. Otherwise, no questions or complaints at this point in time. Review of Systems Review of Systems: Cardio: denies chest pain, palpitations Resp: denies shortness of breath, cough GI: denies abdominal pain, nausea, vomiting, Physical Exam Physical Exam: General:Alert and oriented, no acute distress, HEENT: Normocephalic, moist oral mucosa, Cardio: Regular rate and rhythm, no murmur, Resp:Lungs clear to auscultation b/l, no wheezes or rhonchi, GI: Soft and nontender, nondistended, bowel sounds active Skin: Warm, pink, dry, Results & Data Results & Data Vital Signs (Past 12 Hours) Vital Signs Temp Pulse Resp BP Pulse Ox O2 Del Method 07/24/23 08:02 36.4 C L 82 16 112/64 95 Room Air Resident Activity Tracking Resident Involvement: Resident Care Provided Care Provided: Adult Hospital Medicine
--- NOTE | 2023-07-24 13:18 | Communication Note ---
Date of Service: July 24, 2023 Peer [address] peer [address] with Dr[address] Topher Wright for [facility]. Pt is not approved for rehab but is approved for SNF based on her functional status and current medical complexity.
--- NOTE | 2023-07-25 07:15 | Hospitalist Progress Note ---
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 Today, awaiting placement. #L foot drop - noted by pt after the lumbar puncture - lumbar MRI; no high grade stenosis, chronic degenerative changes noted, some stenosis of lower lumbar noted - focal deficit could be secondary to acute encephalitis process, should continue PT/OT for this and evaluate deficit further as encephalitis resolves #Urinary retention, chronic - Noted on CT-AP on presentation (enlarged bladder) - Urinalysis and urine culture negative - Pt self caths at home using straight cath 5x daily - continue chronic gary #AMS in the setting of herpes encephalitis, resolved - AAO x 0 upon admission --> now AAO x 4, able to hold conversation, answer questions appropriately, follow commands - Baseline: Independent living, complete ADLs - CT/MRI Brain & laboratory analysis unremarkable at OSH - LP/CSF results: WBC, 790 (95% mononuclear); RBC, 45; glu, 54; prot, 148; CSF Gram Stain, neg - CSF Cx: Bacterial Cx no growth; Fungal Cx still pending - 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 per ID below - AMS has resolved #Fever of unknown origin, resolved - High risk for infection given hx of hypogammaglobulinemia and CLL Stage 3 - Patient with history of recurrent UTIs and severe shingles - Has been receiving IVIG therapy for CLL, helped reduce infections over last 6 months - CRP < 0.5 - RPR, Lyme, & Blood and urine cultures negative at OSH - Infectious disease was consulted, recommendations below: - Bartonella henselae, Bartonella stewart IgG and IgM pending, Cryptococcus negative - An IVIG infusion of 25 g IVIG given 07/17/23 - 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 --> per ID recommendation transitioned to oral valacyclovir, PO, 1 g, q12 hrs, continued on CTX and valacyclovir until completion on 07/22 - Tylenol PRN for fevers, pain #RLQ abdominal pain with diarrhea, resolved - patient no longer endorses RLQ or RUQ pain - CT-AP on presentation to OSH showing non-specific colitis and bladder enlargement - Unlikely related to urinary retention given Gary placement - diarrhea likely antibiotic-associated diarrhea, which has resolved #Dysphagia/Diet, resolved - AMS, dysphagia upon admission, did well with diet this morning - Continue patient on regular diet, \ - pt w/ lactose intolerance, gluten insensitivity, - pt Rx'ed probiotic, Florastor (Saccharomyces boulardii) #HTN - BP stable last 24 hrs - home amlodipine held, pressures stable so can continue to hold #GERD (gastroesophageal reflux disease) - Continue home Famotidine #Degenerative disc disease - Cymbalta restarted, considering pt's mild-mod back pain following LP - Continue Lyrica and Cymbalta for back, neck pain - Tramadol also ordered #Coronary artery disease #TCAR 1 yr ago with L carotid stent - Atorvastatin held at OSH, restarted here - continue home Plavix, ASA DVT prophylaxis: Lovenox Admission and Anticipated Discharge Date Admission Date: July 11, 2023 Subjective Pt is an 83 yo female w/ PMHx of 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 Today, pt states she slept much better last night with the gary catheter in since she could just rest without bladder cramps or needing to get up repeatedly. Otherwise she states she feels fine and has no questions or complaints at this point. Review of Systems Review of Systems: Cardio: denies chest pain, Resp: denies shortness of breath, GI: denies abdominal pain, nausea, vomiting, Physical Exam Physical Exam: General:Alert and oriented, no acute distress, HEENT: Normocephalic, moist oral mucosa, Cardio: Regular rate and rhythm, no murmur, Resp:Lungs clear to auscultation b/l, no wheezes or rhonchi, Skin: Warm, pink, dry, Results & Data Results & Data Vital Signs (Past 12 Hours) Vital Signs Temp Pulse Resp BP Pulse Ox O2 Del Method 07/24/23 20:30 Room Air 07/24/23 19:35 36.6 C 86 18 148/88 H 96 Room Air Resident Activity Tracking Resident Involvement: Resident Care Provided Care Provided: Adult Hospital Medicine
--- NOTE | 2023-07-25 12:59 | Discharge Summary ---
Date of Service July 25, 2023 Admission HPI Per Admitting Provider Agnes is an 83F with PMH of CLL, chronic anemia, HTN, HLD, GERD w/ hiatal hernia, coronary artery stenosis, carotid artery stenosis w/ internal stent, CKD 3b, urinary retention w/ recurrent UTIs, chronic constipation, DJD who presents as transfer of care from [facility] due to an admission for altered mental status. History from patient limited given mental status, but she denies discomfort. [facility] ED Course: Presented for AMS (aphasia/confusion), last known normal Thursday07/03/23. RLQ TTP on presentation. CT Head negative. CT AP w/ non- specific colitis at splenic flexure/descending colon and distended urinary bladder. Lactic acid normal. Troponin negative. Mildly increased kidney functions form baseline. Urinalysis negative (urine and blood cultures taken 07/05/23), empiric Zosyn started. Temp documented at 103 in ED, received IV Tylenol. CXR with cardiomegaly w/ mild vascular congestion. [facility] Admission: Patient treated for suspected colitis at onset, antibiotics continued with Zosyn, but not clinical improvement. Brain MRI and CTA Head/Neck unremarkable. Echo with EF 55-60%, Grade 1 Diastolic Dysfunction. Urine and blood cultures resulted negative. RVP negative. Lyme negative. Tox screen negative. Antibiotics broadened to include Vancomycin, Rocephin 2g q 24h, IV Doxycycline 100 mg BID, and Acyclovir 10 mg/kg q8h. LP was discussed but nor performed. Patient had fevers throughout her stay but remained afebrile for 24 hours prior to transfer. Clinical improvement noted following expansion of antibiotic coverage. CRP was at 4.1, but downtrended to 3.2. Spoke with Daughter Karina: Patient undergoing treatment for Stage 3 CLL Leukemia, receiving IVIG for last 6 months, had been keeping her infection at bay, prior to IVIG had severe shingles before in December. Last Thursday07/05/23 other daughter (Deb Carrillo) found her around noon in the bathroom nonverbal, infection was suspected at this time by daughters given previous presentations and they took her to the hospital. Had been suspected meningitis vs internal shingles. Has been improving since starting Acyclovir, per daughter. No LP due to concerning amounts of arthritis and clinical improvement following broadening of antibiotics. Still not at baseline - independent and lives alone, completes all ADLs independently at baseline. Lost ability to swallow/drink this time, but not last time (when she had a UTI), daughter notes last episode with UTI had aggitation and hallucinations, but this time she has been very calm. 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 Discharge Exam General:Alert and oriented, no acute distress, HEENT: Normocephalic, moist oral mucosa, Cardio: Regular rate and rhythm, no murmur, Resp:Lungs clear to auscultation b/l, no wheezes or rhonchi, MSK: L foot drop noted, pt can move L foot a little bit Skin: Warm, pink, dry, Discharge Data Allergies Allergy/AdvReac Type Severity Reaction Status Date / Time cephalexin Allergy Severe Encephalopa Verified 02/12/22 06:12 thy acetaminophen [From NyQuil] Allergy Unknown rapid Verified 02/12/22 06:12 heart beat, "brain does not stop working" adhesive tape Allergy Unknown blistering Verified 02/12/22 06:12 dextromethorphan Allergy Unknown rapid Verified 02/12/22 06:12 [From NyQuil] heart beat, "brain does not stop working" diphenhydramine Allergy Unknown rapid Verified 02/12/22 06:12 [From Tylenol PM] heart beat, "brain does not stop working" doxylamine [From NyQuil] Allergy Unknown rapid Verified 02/12/22 06:12 heart beat, "brain does not stop working" gluten Allergy Unknown "gluten Verified 02/12/22 06:12 free diet" - GI SYMPTOMS lactose Allergy Unknown "lactose Verified 02/12/22 06:12 intolerant" - GI SYMPTOMS nitrofurantoin Allergy Unknown rapid Verified 02/12/22 06:12 heart beat, can't sleep, "brain does not stop" pseudoephedrine [From NyQuil] Allergy Unknown rapid Verified 02/12/22 06:12 heart beat, "brain does not stop working" Sulfa (Sulfonamide Allergy Unknown "sulfa" - Verified 02/12/22 06:12 Antibiotics) "makes me hyper, can't sit still" chlorpheniramine AdvReac Unknown rapid Verified 07/11/23 21:48 [From Tylenol heart Zknlg-Xkkqtxg-Azsn D/N] beat, can't sleep, "brain does not stop working" phenylephrine AdvReac Unknown rapid Verified 07/11/23 21:48 [From Tylenol heart Exnlk-Elbjazd-Aaxc D/N] beat, can't sleep, "brain does not stop working" Antihistamines - Alkylamine AdvReac rapid Verified 07/11/23 21:48 heart beat, can't sleep, "brain does not stop working" Antihistamines - Ethanolamine AdvReac rapid Verified 07/11/23 21:48 heart beat, can't sleep, "brain does not stop working" Antihistamines - AdvReac rapid Verified 07/11/23 21:48 Ethylenediamine heart beat, can't sleep, "brain does not stop working" Antihistamines - Piperazine AdvReac rapid Verified 07/11/23 21:48 heart beat, can't sleep, "brain does not stop working" Antihistamines - Piperidine AdvReac rapid Verified 07/11/23 21:48 heart beat, can't sleep, "brain does not stop working" Consultations 07/14/23 13:38 Consult Infectious Diseases Routine Ordered Studies 07/14/23 08:30 IR lumbar puncture diagnostic Routine 07/21/23 12:33 MRI Lumbar Spine [MR lumbar spine wo con] Routine Hospital Course (1) Altered mental status: (2) Fever of unknown origin: (3) RLQ abdominal pain: (4) Thrush, oral: (5) Urinary retention: (6) Dysphagia: (7) HTN (hypertension): (8) GERD (gastroesophageal reflux disease): (9) Degenerative disc disease: (10) Coronary artery calcification: Plan Pt is an 83 yo female w/ PMHx of 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 #L foot drop - noted by pt after the lumbar puncture - lumbar MRI; no high grade stenosis, chronic degenerative changes noted, some stenosis of lower lumbar noted - focal deficit could be secondary to acute encephalitis process, should continue PT/OT for this and evaluate deficit further as encephalitis resolves #Urinary retention, chronic - Noted on CT-AP on presentation (enlarged bladder) - Urinalysis and urine culture negative - Pt self caths at home using straight cath 5x daily - continue chronic gary, can do void trial once pt is more mobile/independent #AMS in the setting of herpes encephalitis, resolved - AAO x 0 upon admission --> now AAO x 4, able to hold conversation, answer questions appropriately, follow commands - Baseline: Independent living, complete ADLs - CT/MRI Brain & laboratory analysis unremarkable at OSH - LP/CSF results: WBC, 790 (95% mononuclear); RBC, 45; glu, 54; prot, 148; CSF Gram Stain, neg - CSF Cx: Bacterial Cx no growth; Fungal Cx still pending - 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 per ID below - AMS has resolved #Fever of unknown origin, resolved - presented as high risk for infection given hx of hypogammaglobulinemia and CLL Stage 3, history of recurrent UTIs and severe shingles - Has been receiving IVIG therapy for CLL, helped reduce infections over last 6 months - RPR, Lyme, & Blood and urine cultures negative at OSH - Infectious disease was consulted, recommendations below: - An IVIG infusion of 25 g IVIG given 07/17/23 - 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 --> per ID recommendation transitioned to oral valacyclovir, PO, 1 g, q12 hrs, continued on CTX and valacyclovir until completion on 07/22 #RLQ abdominal pain with diarrhea, resolved - patient no longer endorses RLQ or RUQ pain - CT-AP on presentation to OSH showing non-specific colitis and bladder enlargement - Unlikely related to urinary retention given Gary placement - diarrhea likely antibiotic-associated diarrhea, which has resolved #Dysphagia/Diet, resolved - AMS, dysphagia upon admission, did well with diet this morning - Continue patient on regular diet, \\ - pt w/ lactose intolerance, gluten insensitivity, - pt Rx'ed probiotic, Florastor (Saccharomyces boulardii) Other chronic issues: #HTN; home amlodipine held, pressures stable, can restart on D/C #GERD (gastroesophageal reflux disease); Continue home Famotidine #Degenerative disc disease; Continue Lyrica and Cymbalta for back, neck pain #Coronary artery disease #TCAR 1 yr ago with L carotid stent; Atorvastatin held at OSH, restarted here, continue home Plavix, ASA Total Time Total Time Spent Total Time Spent (In Minutes): As per attending attestation. 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 #L foot drop - noted by pt after the lumbar puncture - lumbar MRI; no high grade stenosis, chronic degenerative changes noted, some stenosis of lower lumbar noted - focal deficit could be secondary to acute encephalitis process, should continue PT/OT for this and evaluate deficit further as encephalitis resolves #Urinary retention, chronic - Noted on CT-AP on presentation (enlarged bladder) - Urinalysis and urine culture negative - Pt self caths at home using straight cath 5x daily - continue chronic gary, can do void trial once pt is more mobile/independent #AMS in the setting of herpes encephalitis, resolved - AAO x 0 upon admission --> now AAO x 4, able to hold conversation, answer questions appropriately, follow commands - Baseline: Independent living, complete ADLs - CT/MRI Brain & laboratory analysis unremarkable at OSH - LP/CSF results: WBC, 790 (95% mononuclear); RBC, 45; glu, 54; prot, 148; CSF Gram Stain, neg - CSF Cx: Bacterial Cx no growth; Fungal Cx still pending - 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 per ID below - AMS has resolved #Fever of unknown origin, resolved - presented as high risk for infection given hx of hypogammaglobulinemia and CLL Stage 3, history of recurrent UTIs and severe shingles - Has been receiving IVIG therapy for CLL, helped reduce infections over last 6 months - RPR, Lyme, & Blood and urine cultures negative at OSH - Infectious disease was consulted, recommendations below: - An IVIG infusion of 25 g IVIG given 07/17/23 - 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 --> per ID recommendation transitioned to oral valacyclovir, PO, 1 g, q12 hrs, continued on CTX and valacyclovir until completion on 07/22 #RLQ abdominal pain with diarrhea, resolved - patient no longer endorses RLQ or RUQ pain - CT-AP on presentation to OSH showing non-specific colitis and bladder enlargement - Unlikely related to urinary retention given Gary placement - diarrhea likely antibiotic-associated diarrhea, which has resolved #Dysphagia/Diet, resolved - AMS, dysphagia upon admission, did well with diet this morning - Continue patient on regular diet, \\ - pt w/ lactose intolerance, gluten insensitivity, - pt Rx'ed probiotic, Florastor (Saccharomyces boulardii) Other chronic issues: #HTN; home amlodipine held, pressures stable, can restart on D/C #GERD (gastroesophageal reflux disease); Continue home Famotidine #Degenerative disc disease; Continue Lyrica and Cymbalta for back, neck pain #Coronary artery disease #TCAR 1 yr ago with L carotid stent; Atorvastatin held at OSH, restarted here, continue home Plavix, ASA Pending Studies at Discharge: No Stand-Alone Forms: My [facility] Skilled Items Patient informed of condition?: Yes DNR: Yes Discharge Level of Care: Skilled Communicable Disease: No Discharge Prognosis: Stable Lines: None Urinary Catheter: Yes Medications and DC Order Prescriptions: Continued clopidogrel 75 mg tablet 75 mg PO QPM aspirin 81 mg tablet,delayed release (DR/EC) 0 mg PO QAM Rx Instructions: Unable to verify OTC meds with patient at this date/time. acetaminophen [Tylenol 8 Hour] 650 mg tablet extended release 0 mg PO Q12H PRN (Reason: Pain) Rx Instructions: Unable to verify OTC meds with patient at this date/time. multivitamin [Multiple Vitamins] Tablet 0 tab PO 1200 Rx Instructions: Unable to verify OTC meds with patient at this date/time. cyanocobalamin (vitamin B-12) [Vitamin B-12] 1,000 mcg Tablet 0 tab PO 1200 Rx Instructions: Unable to verify OTC meds with patient at this date/time. zinc 50 mg Capsule 0 mg PO DAILY Qty: 0 Rx Instructions: Unable to verify OTC meds with patient at this date/time. cholecalciferol (vitamin D3) [Vitamin D3] 125 mcg (5,000 unit) Tablet 0 mcg PO 1200 Rx Instructions: Unable to verify OTC meds with patient at this date/time. Systane Complete 0.6 % Drops 0 drp OPHTHALMIC (EYE) DIRECTED PRN (Reason: dry eyes ) Rx Instructions: Unable to verify OTC meds with patient at this date/time. sennosides [Senokot] 8.6 mg tablet 0 mg PO QAM PRN (Reason: Constipation) Rx Instructions: Unable to verify OTC meds with patient at this date/time. polyethylene glycol 3350 [Miralax] 17 gram powder in packet 0 g PO DAILY PRN (Reason: Constipation) Rx Instructions: Unable to verify OTC meds with patient at this date/time. thiamine HCl (vitamin B1) 100 mg tablet 0 mg PO DAILY Rx Instructions: Unable to verify OTC meds with patient at this date/time. diclofenac sodium [Voltaren Arthritis Pain] 1 % gel 0 g EXT QID PRN (Reason: Pain) Rx Instructions: Unable to verify OTC meds with patient at this date/time. atorvastatin 40 mg tablet 40 mg PO DAILY silver sulfadiazine [SSD] 1 % cream 1 applic TOPICAL BID nitrofurantoin macrocrystal 50 mg capsule 50 mg PO DAILY famotidine 20 mg tablet 20 mg PO TID duloxetine 30 mg capsule,delayed release(DR/EC) 30 mg PO DAILY pregabalin 50 mg capsule 50 mg PO TID amlodipine 10 mg tablet 5 mg PO 1XD Discharge Orders: Discharge Order (Routine); Ordered 07/25/23 Ordered By: Brandi Muniz Admission Data Admit Date/Time: 07/11/23 21:14 Attending Provider: Lizeth Alberto Admit Provider: Clemente Pandey Primary Care Provider: Raul Alcantar Other Providers: Breanne Perkins; Opal Santamaria; Alyssa Reid; Liza Villanueva; Kamini Champion; Luis M Quan; Dorothea Denton; Elana Marin; Ronny Rojas Other Interventions: Discharge Summary Assessment (RN) Last Done: 07/25/23 13:14 Supervising Physician Co-Signing Physician Notes Attending Physician Supervision Note: I independently interviewed and examined the patient and verified the sutton hi story and physical, reviewed labs and image studies and agree with findings and care plan noted above. 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 could not r/o bacterial etiology since cultures were done after multiple doses of IV abx. -Mentation is cleared -finished course of valacyclovir and rocephin. Left foot drop - Foot drop ?new onset. -Lumbar spine MRI with no significant nerve compression. 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 -PT/OT - rehab placement. CLL with hypogammaglobulinemia -s/p doses of IVIg on 07/16 -discussed getting setting up with oncology close by. will need pcp to arrange referral. s/p TCAR - continue DAPT Chronic cervical spine fracture - No intervention. -Posterior subluxation at the C1-C2 level with moderate central canal narrowing at this level. Chronic Urinary retention - requiring frequent self caths at home - gary placed - to be removed at SNF. Resident Activity Tracking Resident Involvement: Resident Care Provided Care Provided: Adult Hospital Medicine
== END 2023-07-25 14:16 | DRG 98 ==
LOC: 4W 18:55 → SUATTDRO 18:55 → 2S 07-13 13:28 → 3N 07-18 18:32